=== PATIENT | female | born 1955 | race Caucasian/White ===

== ENCOUNTER 2017-12-25 13:28 | Emergency (ER) | payer MEDICARE, OTHER, SELFPAY ==
[2017-12-25 13:36] VITALS: BP 138/68; PULSE 74; RESP 15; TEMP 36.8; O2SAT 95; BMI 35.2
--- NOTE | 2017-12-25 14:04 | ED.DIZZY ---
HPI - Dizziness General Chief Complaint: Dizziness Stated Complaint: DR POPE CHECKED FOR CARDIAC REASONS Time Seen by Provider: 12/25/17 13:42 Source: patient Mode of arrival: ambulatory Limitations: no limitations History of Present Illness HPI Narrative: Patient states that she awoke around midnight with central chest pain. She states the pain did not radiate, and lasted about 5 hr. She states she tried taking her nitroglycerin which did not help. She states this feels similar to when she had an NE about 15 years ago, except that at that time the pain was left-sided and radiated to her left arm. Patient states her last stress test was about 2 years ago and was negative. She still follows up with her supervisor molding, with the last appointment being at the beginning of this year. She states that her supervisor molding has told her that her heart is doing well. Patient states this since 5 o'clock she has had no chest pain. She states that she was not feeling completely well yesterday, and that she is just feeling tired. She states she has felt the same today. Patient has had a lot of pain in her left leg, and has a history of arthritis. She states she has not been able sleep well because of the pain in her leg. Related Data Home Medications Medication Instructions Recorded Confirmed aspirin 81 mg PO DAILY #0 04/17/10 12/25/17 metformin [Glucophage] 500 mg PO BIDCC #0 09/23/12 12/25/17 citalopram [Celexa] 20 mg PO BID #0 09/17/16 12/25/17 empagliflozin [Jardiance] 25 mg PO DAILY #0 09/17/16 12/25/17 sitagliptin [Januvia] 100 mg PO QDAY #0 09/17/16 12/25/17 atorvastatin 40 mg PO DAILY 12/25/17 12/25/17 benzonatate 1 cap PO BEDTIME 12/25/17 12/25/17 lisinopril 10 mg PO DAILY 12/25/17 12/25/17 metoprolol tartrate 25 mg PO BID 12/25/17 12/25/17 omeprazole 20 mg PO BID 12/25/17 12/25/17 sertraline 50 mg PO DAILY 12/25/17 12/25/17 Previous Rx's Medication Instructions Recorded hydrocodone-acetaminophen 1 tab PO Q4-6H PRN #14 tab 12/25/17 Allergies Allergy/AdvReac Type Severity Reaction Status Date / Time niacin [NIACIN] Allergy Mild Verified 12/25/17 13:36 propoxyphene [From DARVON] Allergy Mild VOMITING Verified 12/25/17 13:36 OPIATE NARCOTICS Allergy Severe PROJECTIVE Uncoded 12/25/17 13:36 NAUSEA VOMITING. CIMBALTA Allergy Intermediate VOMITING Uncoded 12/25/17 13:36 Review of Systems Review of Systems All systems reviewed & are unremarkable except as noted in HPI and below Exam Initial Vital Signs Initial Vital Signs: Vital Signs Temperature 98.2 F 12/25/17 13:36 Pulse Rate 74 12/25/17 13:36 Respiratory Rate 15 12/25/17 13:36 Blood Pressure 138/68 H 12/25/17 13:36 Pulse Oximetry 95 12/25/17 13:36 Const General: cooperative and well developed Nutritional Appearance: well nourished Orientation: alert, awake, oriented x3 and not confused HENCA Head: normocephalic and atraumatic Ears: external ears normal and TM's normal bilaterally Nose: external nose normal and No nasal discharge Face and sinus: sinuses nontender, face symmetric, no sinus tenderness and No dry mucous membranes Mouth: oral mucosae normal and moist mucous membranes Teeth and gingiva: dentition normal Throat: tonsils normal and uvula midline Eyes General: appearance normal, both eyes and all related structures Eyelids: eyelids normal Conjunctivae: conjunctivae normal Sclera: sclerae normal Pupils: PERRL EOM: EOM intact bilaterally Neck Neck: normal visual inspection, trachea midline, No lymphadenopathy, No midline deformity and No JVD Lymphatic: No lymphedema Chest Chest: normal inspection of the chest Resp Effort & Inspection: normal respiratory effort, able to speak in complete sentences, no respiratory distress and no use of accessory muscles Auscultation: clear to auscultation bilaterally, no rales, no rhonchi and no wheezes Cardio Rate: regular rate Rhythm: regular rhythm Heart Sounds: no click, no gallops, no murmurs and no rubs Pulses: normal peripheral pulses GI Inspection: non-distended Palpation: soft, no hepatosplenomegaly, No guarding, No pulsatile mass and No tender Auscultation: normal bowel sounds Back/Spine/Pelvis Back: No CVA tenderness Cervical Spine: cervical ROM normal and No pain with cervical ROM Thoracic/Lumbar Spine: thoracic and lumbar spine normal to inspection Skin General: no rashes or lesions noted, No jaundice and No petechiae Neuro General: alert, oriented x3, gait normal and no focal motor deficits Speech: speech normal Extrem General: full ROM, no clubbing, cyanosis or edema, no pedal edema and no calf tenderness Psych Appearance: well kempt Mental Status: mental status grossly normal Attitude: cooperative Thought Content: normal and suicidality Judgment: judgment good Course Hospital Course: The patient was asymptomatic in the emergency department, and well-appearing. She was worked up with laboratory studies, as well as EKG and chest x-ray, all of which were unremarkable. I did discuss with the patient that at this point, 14 hr after the initial onset of pain, her cardiac markers should be positive if the patient had another MRI. I have discussed with the patient that it would be prudent for her to follow up with her supervisor molding, and discussed the incident that occurred last night. It may be beneficial for the patient to have a repeat stress test. We have discussed that if the pain recurs, the patient should return to the emergency department and may need admission at that time. At this point in time patient is asymptomatic and stable and she will be discharged home. Orders Ordered: ED Orders 12/25/17 14:59 Complete Blood Count MAN DIFF Stat Comprehensive Metabolic Panel Stat D Dimer Stat Troponin I Stat 12/25/17 15:40 XR chest 1V Stat Discontinued Medications Sodium Chloride (Normal Saline 0.9%) 1,000 mls @ 1,000 mls/hr IV BOLUS ONE Stop: 12/25/17 15:40 Last Infusion: 12/25/17 16:35 Dose: 1,000 mls/hr Admin: 12/25/17 15:11 Dose: 1,000 mls/hr Vital Signs - 8 hr 12/25/17 13:36 12/25/17 14:41 12/25/17 15:26 Temperature 98.2 F 98.2 F Pulse Rate 74 74 74 Respiratory Rate 15 15 16 Blood Pressure 138/68 H 138/68 H Blood Pressure [Right Arm] 152/63 H Pulse Oximetry 95 95 96 12/25/17 15:44 12/25/17 16:16 12/25/17 16:36 Temperature 97.2 F L Pulse Rate 74 72 73 Respiratory Rate 15 16 17 Blood Pressure 104/62 Blood Pressure [Right Arm] 152/71 H 161/69 H Pulse Oximetry 98 94 98 MDM - Dizziness Medical Records Attestation: I reviewed the patient's medical records. Lab Data Attestation: I reviewed the patient's lab results. Result diagrams: 12/25/17 14:59 12/25/17 14:59 Lab Results 12/25/17 12/25/17 12/25/17 Range/Units 14:59 14:59 14:59 WBC 9.5 (4.5-11.0) X10^3/uL RBC 5.39 H (4.0-5.2) X10^6/uL Hgb 15.6 (12.0-16.0) g/dL Hct 45.6 (36-46) % MCV 84.5 (80-100) fL MCH 29.0 (26-34) PG MCHC 34.3 (30-36) % RDW 13.3 (11.6-14.8) % Plt Count 196 (150-400) X10^3/uL Total Counted 100 Seg Neutrophils % 55.0 (38-70) % Lymphocytes % (Manual) 34.0 (25-45) % Monocytes % (Manual) 10.0 (2-11) % Eosinophils % (Manual) 1.0 L (2-4) % Neutrophils # (Manual) 5225 (5971-4842) /uL RBC Morphology Normal morphology D-Dimer 202 (<230) ng/mL Sodium 141 (137-145) mmol/L Potassium 3.8 (3.4-5.1) mmol/L Chloride 103 (98-107) mmol/L Carbon Dioxide 27 (22-32) mmol/L BUN 9 (7-17) mg/dL Creatinine 0.40 L (0.52-1.04) mg/dL Estimated GFR > 60.0 (>60) mL/min BUN/Creatinine Ratio 22.5 H (6-22) Glucose 218 H (80-110) mg/dL Calcium 9.5 (8.4-10.2) mg/dL Total Bilirubin 1.4 H (0.2-1.3) mg/dL AST 19 (14-36) IU/L ALT 21 (9-52) IU/L Alkaline Phosphatase 75 (38-126) U/L Troponin I < 0.012 (0.01-0.034) ng/mL Total Protein 6.9 (6.3-8.2) g/dL Albumin 4.1 (3.5-5.0) g/dL Globulin 2.8 (1.7-4.1) g/dL Albumin/Globulin Ratio 1.5 (1.0-2.8) Imaging Data Chest x-ray: Attestation: I personally reviewed and interpreted this imaging study as follows: My impression: Negative chest. Radiologist's impression: PROCEDURE: XR CHEST 1V INDICATIONS: chest pain TECHNIQUE: One view of the chest was acquired. COMPARISON: [facility], CT, THORAX WITHOUT CONTRAST, 10/19/2010, 9:33. [facility], CR, CHEST 1VW (PORTABLE), 11/18/2011, 17:28. [facility], CR, CHEST 1 VIEW, 05/13/2014, 17:57. FINDINGS: Surgical changes and devices: None. Lungs and pleura: No pleural effusions or pneumothorax. Lungs are clear. Elevated right hemidiaphragm and stable in appearance. Mediastinum: Mediastinal contours appear normal. Heart size is normal. Bones and chest wall: No suspicious bony lesions. Overlying soft tissues appear unremarkable. IMPRESSION: No acute cardiopulmonary disease process. Dictated by: Torrie Romero MD, PhD on 12/25/2017 at 14:53 Approved by: Torrie Romero MD, PhD on 12/25/2017 at 14:54 ECG Data Attestation: I personally reviewed and interpreted this ECG as follows: Prior ECG tracings: not available for review Interpretation: Twelve lead EKG was performed as follows: Date and time: December 25, 2017, at 1:34 p.m. Regular ventricular rhythm with a rate of 71 beats per minute [place] Interval 174 milliseconds QRS duration 93 millisecond QTC interval [address] T wave changes Interpretation: Normal sinus rhythm Discharge Plan Departure Patient Disposition: Home, Self-Care Clinical Impression: Chest pain Discharge Date/Time: 12/25/17 16:37 Interventions: ED Discharge Assessment Last Done: 12/25/17 16:36 Instructions: DI for Chest Pain Activity Restrictions/Additional Instructions: Your EKG, labs, and x-ray all looked good. There is no sign that you have had a heart attack. Please follow up with your supervisor molding this next week for further evaluation. Prescriptions: New hydrocodone-acetaminophen 5-325 mg tablet 1 tab PO Q4-6H PRN (Reason: pain) Qty: 14 RF: 0 No Action aspirin 81 mg Tablet,Delayed Release (Dr/Ec) 81 mg PO DAILY Qty: 0 RF: 0 metformin [Glucophage] 500 MG tablet 500 mg PO BIDCC Qty: 0 RF: 0 sitagliptin [Januvia] 100 MG tablet 100 mg PO QDAY Qty: 0 RF: 0 citalopram [Celexa] 20 MG tablet 20 mg PO BID Qty: 0 RF: 0 empagliflozin [Jardiance] 25 MG tablet 25 mg PO DAILY Qty: 0 RF: 0 atorvastatin 40 mg tablet 40 mg PO DAILY RF: 0 sertraline 100 mg tablet 50 mg PO DAILY RF: 0 benzonatate 100 mg capsule 1 cap PO BEDTIME RF: 0 omeprazole 20 mg capsule,delayed release(DR/EC) 20 mg PO BID RF: 0 lisinopril 10 mg Tablet 10 mg PO DAILY RF: 0 metoprolol tartrate 25 mg Tablet 25 mg PO BID RF: 0 Referrals: [facility] [Provider Group] (Please schedule a follow-up appointment with your supervisor molding for next week.) Gale Madrigal MD [Primary Care Provider] - (As needed)
[2017-12-25 14:41] VITALS: BP 138/68; PULSE 74; RESP 15; TEMP 36.8; O2SAT 95; BMI 35.2
[2017-12-25] MEDS: SODIUM CHLORIDE 0.9% 1,000 ML 1000 ML IV (15:11)
[2017-12-25 15:15] LABS: D Dimer 202 ng/mL (<230); Hematocrit 45.6 % (36-46); Hemoglobin 15.6 g/dL (12.0-16.0); Mean Corpuscular HGB Conc 34.3 % (30-36); Mean Corpuscular Volume 84.5 fL (80-100); Platelet Count 196 X10^3/uL (150-400); Red Blood Cell Count 5.39 X10^6/uL (4.0-5.2); Red Cell Distribution Width 13.3 % (11.6-14.8); White Blood Cell Count 9.5 X10^3/uL (4.5-11.0)
[2017-12-25 15:18] LABS: Alanine Aminotransferase 21 IU/L (9-52); Albumin 4.1 g/dL (3.5-5.0); Albumin Globulin Ratio 1.5 (1.0-2.8); Alkaline Phosphatase 75 U/L (38-126); Aspartate Aminotransferase 19 IU/L (14-36); BUN Creatinine Ratio 22.5 (6-22); Bilirubin Total 1.4 mg/dL (0.2-1.3); Blood Urea Nitrogen 9 mg/dL (7-17); Calcium 9.5 mg/dL (8.4-10.2); Carbon Dioxide 27 mmol/L (22-32); Chloride 103 mmol/L (98-107); Estimated Glomerular Filt Rate > 60.0 mL/min (>60); Globulin 2.8 g/dL (1.7-4.1); Glucose 218 mg/dL (80-110); HEMOLYSIS < 15 (0-50); Potassium 3.8 mmol/L (3.4-5.1); Sodium 141 mmol/L (137-145); Total Protein 6.9 g/dL (6.3-8.2)
[2017-12-25 15:26] VITALS: BP 152/63; PULSE 74; RESP 16; O2SAT 96
[2017-12-25 15:27] LABS: Neutrophils Absolute Manual 5225 /uL (3000-5900); RBC Morphology Normal Morphology; Total Cells Counted 100
[2017-12-25 15:30] LABS: Troponin I < 0.012 ng/mL (0.01-0.034)
--- NOTE | 2017-12-25 15:40 | DI.RAD.S_ITS ---
PROCEDURE: XR CHEST 1V INDICATIONS: chest pain TECHNIQUE: One view of the chest was acquired. COMPARISON: [facility], CT, THORAX WITHOUT CONTRAST, 10/19/2010, 9:33. [facility], CR, CHEST 1VW (PORTABLE), 11/18/2011, 17:28. [facility], CR, CHEST 1 VIEW, 05/13/2014, 17:57. FINDINGS: Surgical changes and devices: None. Lungs and pleura: No pleural effusions or pneumothorax. Lungs are clear. Elevated right hemidiaphragm and stable in appearance. Mediastinum: Mediastinal contours appear normal. Heart size is normal. Bones and chest wall: No suspicious bony lesions. Overlying soft tissues appear unremarkable. IMPRESSION: No acute cardiopulmonary disease process. Dictated by: Torrie Romero MD, PhD on 12/25/2017 at 14:53 Approved by: Torrie Romero MD, PhD on 12/25/2017 at 14:54
[2017-12-25 15:44] VITALS: BP 152/71; PULSE 74; RESP 15; O2SAT 98
[2017-12-25 16:16] VITALS: BP 161/69; PULSE 72; RESP 16; O2SAT 94
[2017-12-25 16:36] VITALS: BP 104/62; PULSE 73; RESP 17; TEMP 36.2; O2SAT 98
== END 2017-12-25 16:37 | disposition home or self-care (01) ==
PROVIDERS: Emergency Provider Emergency Medicine; Family Provider Internal Medicine; PCP Internal Medicine
DX: R07.89 Other chest pain (principal)
CPT/HCPCS: 36591; 71045; 80053; 84484; 85025; 85379; 93005; 93010; 96360; 99283; 99285

== ENCOUNTER 2018-11-10 13:43 | Emergency (ER) | payer MEDICARE, OTHER, SELFPAY ==
[2018-11-10 13:54] VITALS: BP 137/62; PULSE 64; RESP 18; TEMP 36.7; O2SAT 98; BMI 35.2
[2018-11-10 14:03] VITALS: BP 129/67; PULSE 68; RESP 21; O2SAT 98
--- NOTE | 2018-11-10 14:03 | DI.RAD.S_ITS ---
PROCEDURE: XR CHEST 2V INDICATIONS: shortness of breath TECHNIQUE: 2 views of the chest were acquired. COMPARISON: [facility], , CHEST 1 VIEW, 05/13/2014, 17:57. FINDINGS: Surgical changes and devices: None. Lungs and pleura: Lungs are clear. No pleural effusions or pneumothorax. Mediastinum: Mediastinal contours are normal. Heart size is normal. Bones and chest wall: No suspicious bony abnormalities. Soft tissues appear unremarkable. IMPRESSION: No acute cardiopulmonary disease process. Dictated by: Torrie Romero MD, PhD on 11/10/2018 at 14:33 Approved by: Torrie Romero MD, PhD on 11/10/2018 at 14:33
[2018-11-10 14:09] LABS: Add Manual Diff / Slide Review NO; Basophils Absolute Auto 100 /uL (0-100); Basophils Percent Auto 1.4 % (0-2); Eosinophils Absolute Auto 200 /uL (0-450); Eosinophils Percent Auto 1.8 % (2-4); Hematocrit 44.4 % (36-46); Hemoglobin 15.2 g/dL (12.0-16.0); Lymphocytes Absolute Auto 2800 /uL (1100-4500); Lymphocytes Percent Auto 27.3 % (25-40); Mean Corpuscular HGB Conc 34.2 % (30-36); Mean Corpuscular Volume 84.7 fL (80-100); Monocytes Absolute Auto 700 /uL (0-900); Neutrophils Absolute Auto 6300 /uL (1500-7000); Neutrophils Percent Auto 62.5 % (50-75); Platelet Count 193 X10^3/uL (150-400); Red Blood Cell Count 5.24 X10^6/uL (4.0-5.2); Red Cell Distribution Width 12.7 % (11.6-14.8); White Blood Cell Count 10.1 X10^3/uL (4.5-11.0)
[2018-11-10 14:23] LABS: Alanine Aminotransferase 20 IU/L (9-52); Albumin Globulin Ratio 1.3 (1.0-2.8); Alkaline Phosphatase 62 U/L (38-126); BUN Creatinine Ratio 26.7 (6-22); Bilirubin Total 1.8 mg/dL (0.2-1.3); Blood Urea Nitrogen 8 mg/dL (7-17); Calcium 9.3 mg/dL (8.4-10.2); Carbon Dioxide 24 mmol/L (22-32); Chloride 105 mmol/L (98-107); Estimated Glomerular Filt Rate > 60.0 mL/min (>60); Globulin 3.2 g/dL (1.7-4.1); Glucose 188 mg/dL (80-110); Sodium 139 mmol/L (137-145); Total Protein 7.2 g/dL (6.3-8.2)
[2018-11-10 14:24] LABS: HEMOLYSIS 80 (0-50); Potassium 4.2 mmol/L (3.4-5.1)
[2018-11-10 14:25] LABS: Aspartate Aminotransferase 33 IU/L (14-36)
--- NOTE | 2018-11-10 14:36 | ED.SOB ---
HPI - SOB/Dyspnea <Lachelle Kleinmer, RAILROAD SIGNAL OPERATOR-BC - Last Filed: 11/10/18 19:39> General Chief Complaint: Shortness of Breath/Dyspnea Stated Complaint: COUGH Time Seen by Provider: 11/10/18 14:27 Source: patient Mode of arrival: ambulatory Limitations: no limitations History of Present Illness The patient is a 62-year-old female former smoker with history of lung cancer who presents with a chief complaint of shortness of breath and difficulty breathing. She states she has felt URI symptoms for the past several days, with sinus pressure and ear pain. She has tried Flonase. She states that today she felt chest heaviness and like she cannot get a good breath. She also complains of a stiff neck. She states she does not use any inhalers. She denies any chest pain, but complains of pressure with coughing and taking a deep breath. Related Data Home Medications Medication Instructions Recorded Confirmed aspirin 81 mg PO DAILY #0 04/17/10 11/10/18 metformin [Glucophage] 500 mg PO BIDCC #0 09/23/12 11/10/18 Januvia 100 mg PO DAILY #0 09/17/16 11/10/18 Jardiance 25 mg PO DAILY #0 09/17/16 11/10/18 atorvastatin 40 mg PO QPM 12/25/17 11/10/18 benzonatate 1 cap PO BEDTIME 12/25/17 11/10/18 lisinopril 10 mg PO DAILY 12/25/17 11/10/18 metoprolol tartrate 25 mg PO BID 12/25/17 11/10/18 omeprazole 20 mg PO BID 12/25/17 11/10/18 sertraline 50 mg PO QPM 12/25/17 11/10/18 meloxicam 7.5 mg PO BID 11/10/18 11/10/18 Previous Rx's Medication Instructions Recorded doxycycline hyclate 100 mg PO BID #20 cap 11/10/18 Allergies Allergy/AdvReac Type Severity Reaction Status Date / Time niacin [NIACIN] Allergy Mild Verified 11/10/18 13:54 propoxyphene [From DARVON] Allergy Mild VOMITING Verified 11/10/18 13:54 OPIATE NARCOTICS Allergy Severe PROJECTIVE Uncoded 11/10/18 13:54 NAUSEA VOMITING. CIMBALTA Allergy Intermediate VOMITING Uncoded 11/10/18 13:54 Review of Systems <MICHA Bingham - Last Filed: 11/10/18 19:39> Review of Systems GENERAL: Denies chills, fatigue, malaise, fever, sweats. HEENT: See HPI RESPIRATORY: See HPI CARDIOVASCULAR: Denies chest pain, palpitations, orthopnea, edema, GASTROINTESTINAL: Denies nausea, vomiting, abdominal pain, diarrhea, constipation, melena. : Denies dysuria, frequency, incontinence, hematuria, urinary retention. MUSCULOSKELETAL: denies weakness, joint pain, or bony pain SKIN: Denies rash, skin lesions, or other NEUROLOGIC: Denies weakness, headache, numbness, change in speech, confusion, seizures, incoordination. PSYCHIATRIC: No concerning psychosocial issues. 12 point review of systems is negative except for those stated above PFSH <MICHA Bingham - Last Filed: 11/10/18 19:39> Medical History History of lung cancer (Acute) Surgical History History of lung surgery (Acute) Social History Smoking Status: Never smoker Social History (Updated 11/10/18 @ 19:37 by MICHA Bingham) Smoking Status: Former smoker Exam <MICHA Bingham - Last Filed: 11/10/18 19:39> Narrative Exam Narrative: GENERAL: This is a well-nourished, well-developed patient, appears uncomfortable HEAD: Atraumatic. Normocephalic. No temporal or scalp tenderness. EYES: Pupils equal round and reactive. Extraocular motions intact. No scleral icterus. No injection or drainage. ENT: Nose without bleeding, purulent drainage or septal hematoma. Throat without erythema, tonsillar hypertrophy or exudate. Uvula midline. Airway patent. Bilateral TMs pearly malave. Pain to palpation right frontal and maxillary sinuses. NECK: Trachea midline. No JVD or lymphadenopathy. Supple, nontender, no meningeal signs. CARDIOVASCULAR: Regular rate and rhythm without murmurs, gallops, or rubs. RESPIRATORY: Clear to auscultation. Breath sounds equal bilaterally. No wheezes, rales, or rhonchi. Occasional cough on exam. No accessory muscle use. Speaking full sentences. GASTROINTESTINAL: Abdomen soft, non-tender, nondistended. No hepato-splenomegaly, or palpable masses. No guarding. Active bowel sounds all 4 quadrants. EXTREMITIES: No clubbing, cyanosis, or edema. No joint tenderness, effusion, or edema noted. BACK: Nontender without deformity or crepitance. No flank tenderness. NEURO: AOx3. SKIN: No rash or erythema. Initial Vital Signs Initial Vital Signs: Vital Signs Temperature 98.1 F 11/10/18 13:54 Pulse Rate 64 11/10/18 13:54 Respiratory Rate 18 11/10/18 13:54 Blood Pressure 137/62 11/10/18 13:54 Pulse Oximetry 98 11/10/18 13:54 <Kitty Ocampo MD - Last Filed: 11/10/18 20:36> Initial Vital Signs Initial Vital Signs: Vital Signs Temperature 98.1 F 11/10/18 13:54 Pulse Rate 64 11/10/18 13:54 Respiratory Rate 18 11/10/18 13:54 Blood Pressure 137/62 11/10/18 13:54 Pulse Oximetry 98 11/10/18 13:54 Scores <MICHA Bingham - Last Filed: 11/10/18 19:39> PERC Score Age greater than or equal to 50 years: Yes Heart rate greater than or equal to 100 bpm: No Room Air O2 Sat less than 95%: No Unilateral leg swelling: No Recent trauma or surgery: No Hemoptysis: No Prior PE or DVT: No Hormone Use: No Total PERC Score: 1 Wells' Criteria for PE Clinical signs and symptoms of PE: Yes PE is #1 Dx or equally likely: No Heart rate > 100: No Immobilization at least 3 days or surg in previous 4 weeks: No History of PE or DVT: No Hemoptysis: No Malignancy w/Treatment within 6 months or palliative: Yes Wells' PE Score total: 4 Course <MICHA Bingham - Last Filed: 11/10/18 19:39> Orders Ordered: ED Orders 11/10/18 14:00 B Type Natriuretic Peptide Stat Complete Blood Count AUTO DIFF Stat Comprehensive Metabolic Panel Stat Prothrombin Time INR Stat Troponin & CK Cardiac Panel Stat 11/10/18 14:03 XR chest 2V Stat EKG-12 Lead Stat Measure peak expiratory flow ONCE RT Consult Eval and Treat Now 11/10/18 15:47 CT angio chest PE protocol Stat Vital Signs - 8 hr 11/10/18 13:54 11/10/18 14:03 11/10/18 17:11 Temperature 98.1 F Pulse Rate 64 68 70 Respiratory Rate 18 21 20 Blood Pressure 137/62 Blood Pressure [Right Arm] 129/67 125/60 Pulse Oximetry 98 98 93 11/10/18 18:26 Temperature Pulse Rate 70 Respiratory Rate 21 Blood Pressure Blood Pressure [Right Arm] 129/56 L Pulse Oximetry 94 <Kitty Ocampo MD - Last Filed: 11/10/18 20:36> Orders Ordered: ED Orders 11/10/18 14:00 B Type Natriuretic Peptide Stat Complete Blood Count AUTO DIFF Stat Comprehensive Metabolic Panel Stat Prothrombin Time INR Stat Troponin & CK Cardiac Panel Stat 11/10/18 14:03 XR chest 2V Stat EKG-12 Lead Stat Measure peak expiratory flow ONCE RT Consult Eval and Treat Now 11/10/18 15:47 CT angio chest PE protocol Stat Vital Signs - 8 hr 11/10/18 13:54 11/10/18 14:03 11/10/18 17:11 Temperature 98.1 F Pulse Rate 64 68 70 Respiratory Rate 18 21 20 Blood Pressure 137/62 Blood Pressure [Right Arm] 129/67 125/60 Pulse Oximetry 98 98 93 11/10/18 18:26 Temperature Pulse Rate 70 Respiratory Rate 21 Blood Pressure Blood Pressure [Right Arm] 129/56 L Pulse Oximetry 94 MDM - SOB/Dyspnea <JAZ Bingham-BC - Last Filed: 11/10/18 19:39> Lab Data Result diagrams: 11/10/18 14:00 11/10/18 14:00 Lab Results 11/10/18 11/10/18 11/10/18 Range/Units 14:00 14:00 14:00 WBC 10.1 (4.5-11.0) X10^3/uL RBC 5.24 H (4.0-5.2) X10^6/uL Hgb 15.2 (12.0-16.0) g/dL Hct 44.4 (36-46) % MCV 84.7 (80-100) fL MCH 29.0 (26-34) PG MCHC 34.2 (30-36) % RDW 12.7 (11.6-14.8) % Plt Count 193 (150-400) X10^3/uL Neut % (Auto) 62.5 (50-75) % Lymph % (Auto) 27.3 (25-40) % [place] % (Auto) 7.0 (3-14) % Eos % (Auto) 1.8 L (2-4) % Baso % (Auto) 1.4 (0-2) % Neut # (Auto) 6300 (6228-7807) /uL Lymph # (Auto) 2800 (3010-5608) /uL [place] # (Auto) 700 (0-900) /uL Eos # (Auto) 200 (0-450) /uL Baso # (Auto) 100 (0-100) /uL PT 12.0 (10.1-12.7) SECONDS INR 1.0 (0.9-1.3) Sodium 139 (137-145) mmol/L Potassium 4.2 (3.4-5.1) mmol/L Chloride 105 (98-107) mmol/L Carbon Dioxide 24 (22-32) mmol/L BUN 8 (7-17) mg/dL Creatinine 0.30 L (0.52-1.04) mg/dL Estimated GFR > 60.0 (>60) mL/min BUN/Creatinine Ratio 26.7 H (6-22) Glucose 188 H (80-110) mg/dL Calcium 9.3 (8.4-10.2) mg/dL Total Bilirubin 1.8 H (0.2-1.3) mg/dL AST 33 (14-36) IU/L ALT 20 (9-52) IU/L Alkaline Phosphatase 62 (38-126) U/L Total Creatine Kinase (30-135) U/L CK-MB (CK-2) CK-MB (CK-2) Rel Index Troponin I (0.01-0.034) ng/mL B-Natriuretic Peptide (<100) Total Protein 7.2 (6.3-8.2) g/dL Albumin 4.0 (3.5-5.0) g/dL Globulin 3.2 (1.7-4.1) g/dL Albumin/Globulin Ratio 1.3 (1.0-2.8) 11/10/18 11/10/18 Range/Units 14:00 14:00 WBC (4.5-11.0) X10^3/uL RBC (4.0-5.2) X10^6/uL Hgb (12.0-16.0) g/dL Hct (36-46) % MCV (80-100) fL MCH (26-34) PG MCHC (30-36) % RDW (11.6-14.8) % Plt Count (150-400) X10^3/uL Neut % (Auto) (50-75) % Lymph % (Auto) (25-40) % [place] % (Auto) (3-14) % Eos % (Auto) (2-4) % Baso % (Auto) (0-2) % Neut # (Auto) (5023-3672) /uL Lymph # (Auto) (3141-1572) /uL [place] # (Auto) (0-900) /uL Eos # (Auto) (0-450) /uL Baso # (Auto) (0-100) /uL PT (10.1-12.7) SECONDS INR (0.9-1.3) Sodium (137-145) mmol/L Potassium (3.4-5.1) mmol/L Chloride (98-107) mmol/L Carbon Dioxide (22-32) mmol/L BUN (7-17) mg/dL Creatinine (0.52-1.04) mg/dL Estimated GFR (>60) mL/min BUN/Creatinine Ratio (6-22) Glucose (80-110) mg/dL Calcium (8.4-10.2) mg/dL Total Bilirubin (0.2-1.3) mg/dL AST (14-36) IU/L ALT (9-52) IU/L Alkaline Phosphatase (38-126) U/L Total Creatine Kinase 37 (30-135) U/L CK-MB (CK-2) TNP CK-MB (CK-2) Rel Index TNP Troponin I < 0.012 (0.01-0.034) ng/mL B-Natriuretic Peptide < 100 (<100) Total Protein (6.3-8.2) g/dL Albumin (3.5-5.0) g/dL Globulin (1.7-4.1) g/dL Albumin/Globulin Ratio (1.0-2.8) Imaging Data chest cta: Radiologist's impression: [address] [address] [address] Scan Report Signed Patient: Suhail Houston#: [id number] : 7Acct:[id number] Age/Sex: 62 / FDate of Service: 11/10/18 Loc: ED Accession Number: [id number] Procedure: CT angio chest PE protocol Ordering Provider: Lachelle Davis [facility]- PROCEDURE: CT ANGIO CHEST PE PROTOCOL INDICATIONS: sob, cancer TECHNIQUE: After the administration of intravenous contrast, 2 mm thick sections acquired from the pulmonary apices to the posterior costophrenic angles. 3-dimensional maximum intensity projection (MIP) coronal and sagittal reformats were then acquired through the thorax. For radiation dose reduction, the following was used: automated exposure control, adjustment of mA and/or kV according to patient size. COMPARISON: None. FINDINGS: Image quality: Excellent. Pulmonary arteries: Pulmonary arteries are normal in size, and demonstrate no intraluminal filling defects to suggest central pulmonary embolism. Lungs and pleura: Mild patchy bilateral basilar opacities are present, consistent with atelectasis versus pneumonia. 4 mm diameter subpleural nodule within the right apex laterally is present, new since the prior examination. No pleural effusions or pneumothorax. Central and peripheral airways are patent. Mediastinum: Heart size is enlarged,, without pericardial effusion. There is calcification of the coronary vasculature. No mediastinal or hilar adenopathy. Thoracic aorta is normal in caliber and enhancement. Esophagus is normal in caliber, without hiatal hernia. Bones and chest wall: No suspicious bony lesions. Ribs and thoracic spine appear intact throughout. Thyroid gland demonstrates a 23 mm nodular mass within the right thyroid lobe. There are 2 adjacent low density masses within the left inferior lobe measuring 13 mm and 11 mm.. No axillary or supraclavicular adenopathy. Abdomen: Visualized portions of the upper abdomen demonstrate a 6 mm diameter rounded calcification within the pancreatic tail, which may indicate a splenic artery aneurysm or pancreatic tail mass, which is unchanged. IMPRESSION: 1. Bilateral thyroid masses, which could be further assessed with ultrasound, if clinically indicated. 2. Cardiomegaly. Coronary artery disease. 3. No pulmonary embolus. 4. New right apical pulmonary nodule. Followup is recommended as below. 5. No change in calcified lesion within the pancreatic tail. Differential considerations include splenic artery aneurysm versus calcific pancreatic tail mass, which is unchanged. Fleischner Society criteria for SOLID lung nodule followup. Nodule size (mm)Low-risk patientHigh-risk patient<6 (single or multiple)No routine followup.Optional CT at 12 months. 6-8 (single or multiple)CT at 6-12 months, then optional CT at 18-24 mo.CT at 6-12 months, then CT at 18-24 months. >8 (single)CT, PET-CT, or biopsy at 3 months. Same as for low-risk pts. >8 (multiple)CT at 3-6 months, then optional CT at 18-24 mo.CT at 3-6 months, then CT at 18-24 months. Recommendations do not apply to lung cancer screening, patients with immunosuppression, or patients with known primary cancer. Dictated by: Jesse Mcpherson M.D. on 11/10/2018 at 17:22 Approved by: Jesse Mcpherson M.D. on 11/10/2018 at 17:30 Chest x-ray: Radiologist's impression: [place] [address] XRay Report Signed Patient: Suhail Houston#: [id number] : 1955cct:[id number] Age/Sex: 62 / FDate of Service: 11/10/18 Loc: Accession Number: [id number] Procedure: XR chest 2V Ordering Provider: Kitty Ocampo MD PROCEDURE: XR CHEST 2V INDICATIONS: shortness of breath TECHNIQUE: 2 views of the chest were acquired. COMPARISON: , , CHEST 1 VIEW, 05/13/2014, 17:57. FINDINGS: Surgical changes and devices: None. Lungs and pleura: Lungs are clear. No pleural effusions or pneumothorax. Mediastinum: Mediastinal contours are normal. Heart size is normal. Bones and chest wall: No suspicious bony abnormalities. Soft tissues appear unremarkable. IMPRESSION: No acute cardiopulmonary disease process. Dictated by: Torrie Romero MD, PhD on 11/10/2018 at 14:33 Approved by: Torrie Romero MD, PhD on 11/10/2018 at 14:33 MDM Narrative Medical decision making narrative: The patient is a 62-year-old female with history of lung cancer who presents with a chief complaint of shortness of breath and coughing. She has a normal chest x-ray. However she has been having a productive cough for several weeks at this point. She also complains of sinus symptoms for about 3 weeks. She has been using Flonase at home with no improvement. Given her risk factors of age and lung cancer, I did elect to do a CT for PE. She had a negative troponin. Given the duration of her sinus symptoms, I elected to treat her for a sinus infection with doxycycline, which also provide some lung coverage as well. I encouraged continued use of Flonase as well as Yohannes med sinus rinse. Encourage follow-up with PCP as is possible. Discussed going back to the ER for any acute concerns such as chest pain, shortness of breath etc the patient was hemodynamically stable throughout her stay in the emergency department. <Kitty Ocampo MD - Last Filed: 11/10/18 20:36> Lab Data Lab Results 11/10/18 11/10/18 11/10/18 Range/Units 14:00 14:00 14:00 WBC 10.1 (4.5-11.0) X10^3/uL RBC 5.24 H (4.0-5.2) X10^6/uL Hgb 15.2 (12.0-16.0) g/dL Hct 44.4 (36-46) % MCV 84.7 (80-100) fL MCH 29.0 (26-34) PG MCHC 34.2 (30-36) % RDW 12.7 (11.6-14.8) % Plt Count 193 (150-400) X10^3/uL Neut % (Auto) 62.5 (50-75) % Lymph % (Auto) 27.3 (25-40) % [place] % (Auto) 7.0 (3-14) % Eos % (Auto) 1.8 L (2-4) % Baso % (Auto) 1.4 (0-2) % Neut # (Auto) 6300 (4657-0474) /uL Lymph # (Auto) 2800 (4282-5791) /uL [place] # (Auto) 700 (0-900) /uL Eos # (Auto) 200 (0-450) /uL Baso # (Auto) 100 (0-100) /uL PT 12.0 (10.1-12.7) SECONDS INR 1.0 (0.9-1.3) Sodium 139 (137-145) mmol/L Potassium 4.2 (3.4-5.1) mmol/L Chloride 105 (98-107) mmol/L Carbon Dioxide 24 (22-32) mmol/L BUN 8 (7-17) mg/dL Creatinine 0.30 L (0.52-1.04) mg/dL Estimated GFR > 60.0 (>60) mL/min BUN/Creatinine Ratio 26.7 H (6-22) Glucose 188 H (80-110) mg/dL Calcium 9.3 (8.4-10.2) mg/dL Total Bilirubin 1.8 H (0.2-1.3) mg/dL AST 33 (14-36) IU/L ALT 20 (9-52) IU/L Alkaline Phosphatase 62 (38-126) U/L Total Creatine Kinase (30-135) U/L CK-MB (CK-2) CK-MB (CK-2) Rel Index Troponin I (0.01-0.034) ng/mL B-Natriuretic Peptide (<100) Total Protein 7.2 (6.3-8.2) g/dL Albumin 4.0 (3.5-5.0) g/dL Globulin 3.2 (1.7-4.1) g/dL Albumin/Globulin Ratio 1.3 (1.0-2.8) 11/10/18 11/10/18 Range/Units 14:00 14:00 WBC (4.5-11.0) X10^3/uL RBC (4.0-5.2) X10^6/uL Hgb (12.0-16.0) g/dL Hct (36-46) % MCV (80-100) fL MCH (26-34) PG MCHC (30-36) % RDW (11.6-14.8) % Plt Count (150-400) X10^3/uL Neut % (Auto) (50-75) % Lymph % (Auto) (25-40) % [place] % (Auto) (3-14) % Eos % (Auto) (2-4) % Baso % (Auto) (0-2) % Neut # (Auto) (8877-4821) /uL Lymph # (Auto) (2338-3580) /uL [place] # (Auto) (0-900) /uL Eos # (Auto) (0-450) /uL Baso # (Auto) (0-100) /uL PT (10.1-12.7) SECONDS INR (0.9-1.3) Sodium (137-145) mmol/L Potassium (3.4-5.1) mmol/L Chloride (98-107) mmol/L Carbon Dioxide (22-32) mmol/L BUN (7-17) mg/dL Creatinine (0.52-1.04) mg/dL Estimated GFR (>60) mL/min BUN/Creatinine Ratio (6-22) Glucose (80-110) mg/dL Calcium (8.4-10.2) mg/dL Total Bilirubin (0.2-1.3) mg/dL AST (14-36) IU/L ALT (9-52) IU/L Alkaline Phosphatase (38-126) U/L Total Creatine Kinase 37 (30-135) U/L CK-MB (CK-2) TNP CK-MB (CK-2) Rel Index TNP Troponin I < 0.012 (0.01-0.034) ng/mL B-Natriuretic Peptide < 100 (<100) Total Protein (6.3-8.2) g/dL Albumin (3.5-5.0) g/dL Globulin (1.7-4.1) g/dL Albumin/Globulin Ratio (1.0-2.8) Discharge Plan Departure Patient Disposition: Home Clinical Impression: Cough, Lower respiratory infection Sinus infection Qualifiers: Sinusitis location: frontal Chronicity: acute Recurrence: non-recurrent Qualified Code(s): J01.10 - Acute frontal sinusitis, unspecified Discharge Date/Time: 11/10/18 18:39 Interventions: ED Discharge Assessment Last Done: 11/10/18 18:38 Instructions: Sinusitis (Alternative Therapy), DI for Sinusitis, DI for Cough -- Adult Activity Restrictions/Additional Instructions: Your chest x-ray shows no pneumonia. Your CT scan shows no pulmonary embolism. Your cardiac enzymes came back normal. Please follow up with primary care provider soon as possible Given the duration of your sinus symptoms as well as her cough symptoms, I have elected to treat it with antibiotics. Wear sunscreen when using doxycycline. Please follow up with primary care provider soon as possible. Please come back to the emergency department for any acute concerns. I suggest continued use of Flonase, Yohannes med sinus rinse as well as decongestants as needed and able Prescriptions: New doxycycline hyclate 100 mg capsule 100 mg PO BID Qty: 20 RF: 0 No Action aspirin 81 mg Tablet,Delayed Release (Dr/Ec) 81 mg PO DAILY Qty: 0 RF: 0 metformin [Glucophage] 500 MG tablet 500 mg PO BIDCC Qty: 0 RF: 0 Januvia 100 MG tablet 100 mg PO DAILY Qty: 0 RF: 0 Jardiance 25 MG tablet 25 mg PO DAILY Qty: 0 RF: 0 atorvastatin 40 mg tablet 40 mg PO QPM RF: 0 sertraline 100 mg tablet 50 mg PO QPM RF: 0 benzonatate 100 mg capsule 1 cap PO BEDTIME RF: 0 omeprazole 20 mg capsule,delayed release(DR/EC) 20 mg PO BID RF: 0 lisinopril 10 mg Tablet 10 mg PO DAILY RF: 0 metoprolol tartrate 25 mg Tablet 25 mg PO BID RF: 0 meloxicam 7.5 mg tablet 7.5 mg PO BID RF: 0 Referrals: Gale Madrigal MD [Primary Care Provider] -
--- NOTE | 2018-11-10 14:39 | ED_ITS ---
HPI - SOB/Dyspnea <Lachelle Kleinmer, [employer] DES[employer]BC - Last Filed: 11/10/18 19:39> General Chief Complaint: Shortness of Breath/Dyspnea Stated Complaint: COUGH Time Seen by Provider: 11/10/18 14:27 Source: patient Mode of arrival: ambulatory Limitations: no limitations History of Present Illness The patient is a 62-year-old female former smoker with history of lung cancer who presents with a chief complaint of shortness of breath and difficulty breathing. She states she has felt URI symptoms for the past several days, with sinus pressure and ear pain. She has tried Flonase. She states that today she felt chest heaviness and like she cannot get a good breath. She also complains of a stiff neck. She states she does not use any inhalers. She denies any chest pain, but complains of pressure with coughing and taking a deep breath. Related Data Home Medications Medication Instructions Recorded Confirmed aspirin 81 mg PO DAILY #0 04/17/10 11/10/18 metformin [Glucophage] 500 mg PO BIDCC #0 09/23/12 11/10/18 Januvia 100 mg PO DAILY #0 09/17/16 11/10/18 Jardiance 25 mg PO DAILY #0 09/17/16 11/10/18 atorvastatin 40 mg PO QPM 12/25/17 11/10/18 benzonatate 1 cap PO BEDTIME 12/25/17 11/10/18 lisinopril 10 mg PO DAILY 12/25/17 11/10/18 metoprolol tartrate 25 mg PO BID 12/25/17 11/10/18 omeprazole 20 mg PO BID 12/25/17 11/10/18 sertraline 50 mg PO QPM 12/25/17 11/10/18 meloxicam 7.5 mg PO BID 11/10/18 11/10/18 Previous Rx's Medication Instructions Recorded doxycycline hyclate 100 mg PO BID #20 cap 11/10/18 Allergies Allergy/AdvReac Type Severity Reaction Status Date / Time niacin [NIACIN] Allergy Mild Verified 11/10/18 13:54 propoxyphene [From DARVON] Allergy Mild VOMITING Verified 11/10/18 13:54 OPIATE NARCOTICS Allergy Severe PROJECTIVE Uncoded 11/10/18 13:54 NAUSEA VOMITING. CIMBALTA Allergy Intermediate VOMITING Uncoded 11/10/18 13:54 Review of Systems <MICHA Bingham - Last Filed: 11/10/18 19:39> Review of Systems GENERAL: Denies chills, fatigue, malaise, fever, sweats. HEENT: See HPI RESPIRATORY: See HPI CARDIOVASCULAR: Denies chest pain, palpitations, orthopnea, edema, GASTROINTESTINAL: Denies nausea, vomiting, abdominal pain, diarrhea, constipation, melena. : Denies dysuria, frequency, incontinence, hematuria, urinary retention. MUSCULOSKELETAL: denies weakness, joint pain, or bony pain SKIN: Denies rash, skin lesions, or other NEUROLOGIC: Denies weakness, headache, numbness, change in speech, confusion, seizures, incoordination. PSYCHIATRIC: No concerning psychosocial issues. 12 point review of systems is negative except for those stated above PFSH <MICHA Bingham - Last Filed: 11/10/18 19:39> Medical History History of lung cancer (Acute) Surgical History History of lung surgery (Acute) Social History Smoking Status: Never smoker Social History (Updated 11/10/18 @ 19:37 by MICHA Bingham) Smoking Status: Former smoker Exam <MICHA Bingham - Last Filed: 11/10/18 19:39> Narrative Exam Narrative: GENERAL: This is a well-nourished, well-developed patient, appears uncomfortable HEAD: Atraumatic. Normocephalic. No temporal or scalp tenderness. EYES: Pupils equal round and reactive. Extraocular motions intact. No scleral icterus. No injection or drainage. ENT: Nose without bleeding, purulent drainage or septal hematoma. Throat without erythema, tonsillar hypertrophy or exudate. Uvula midline. Airway patent. Bilateral TMs pearly malave. Pain to palpation right frontal and maxillary sinuses. NECK: Trachea midline. No JVD or lymphadenopathy. Supple, nontender, no m eningeal signs. CARDIOVASCULAR: Regular rate and rhythm without murmurs, gallops, or rubs. RESPIRATORY: Clear to auscultation. Breath sounds equal bilaterally. No wheezes, rales, or rhonchi. Occasional cough on exam. No accessory muscle use. Speaking full sentences. GASTROINTESTINAL: Abdomen soft, non-tender, nondistended. No hepato- splenomegaly, or palpable masses. No guarding. Active bowel sounds all 4 quadrants. EXTREMITIES: No clubbing, cyanosis, or edema. No joint tenderness, effusion, or edema noted. BACK: Nontender without deformity or crepitance. No flank tenderness. NEURO: AOx3. SKIN: No rash or erythema. Initial Vital Signs Initial Vital Signs: Vital Signs Temperature 98.1 F 11/10/18 13:54 Pulse Rate 64 11/10/18 13:54 Respiratory Rate 18 11/10/18 13:54 Blood Pressure 137/62 11/10/18 13:54 Pulse Oximetry 98 11/10/18 13:54 <Kitty Ocampo MD - Last Filed: 11/10/18 20:36> Initial Vital Signs Initial Vital Signs: Vital Signs Temperature 98.1 F 11/10/18 13:54 Pulse Rate 64 11/10/18 13:54 Respiratory Rate 18 11/10/18 13:54 Blood Pressure 137/62 11/10/18 13:54 Pulse Oximetry 98 11/10/18 13:54 Scores <MICHA Bingham - Last Filed: 11/10/18 19:39> PERC Score Age greater than or equal to 50 years: Yes Heart rate greater than or equal to 100 bpm: No Room Air O2 Sat less than 95%: No Unilateral leg swelling: No Recent trauma or surgery: No Hemoptysis: No Prior PE or DVT: No Hormone Use: No Total PERC Score: 1 Wells' Criteria for PE Clinical signs and symptoms of PE: Yes PE is #1 Dx or equally likely: No Heart rate > 100: No Immobilization at least 3 days or surg in previous 4 weeks: No History of PE or DVT: No Hemoptysis: No Malignancy w/Treatment within 6 months or palliative: Yes Wells' PE Score total: 4 Course <MICHA Bingham - Last Filed: 11/10/18 19:39> Orders Ordered: ED Orders 11/10/18 14:00 B Type Natriuretic Peptide Stat Complete Blood Count AUTO DIFF Stat Comprehensive Metabolic Panel Stat Prothrombin Time INR Stat Troponin & CK Cardiac Panel Stat 11/10/18 14:03 XR chest 2V Stat EKG-12 Lead Stat Measure peak expiratory flow ONCE RT Consult Eval and Treat Now 11/10/18 15:47 CT angio chest PE protocol Stat Vital Signs - 8 hr 11/10/18 13:54 11/10/18 14:03 11/10/18 17:11 Temperature 98.1 F Pulse Rate 64 68 70 Respiratory Rate 18 21 20 Blood Pressure 137/62 Blood Pressure [Right Arm] 129/67 125/60 Pulse Oximetry 98 98 93 11/10/18 18:26 Temperature Pulse Rate 70 Respiratory Rate 21 Blood Pressure Blood Pressure [Right Arm] 129/56 L Pulse Oximetry 94 <Kitty Ocampo MD - Last Filed: 11/10/18 20:36> Orders Ordered: ED Orders 11/10/18 14:00 B Type Natriuretic Peptide Stat Complete Blood Count AUTO DIFF Stat Comprehensive Metabolic Panel Stat Prothrombin Time INR Stat Troponin & CK Cardiac Panel Stat 11/10/18 14:03 XR chest 2V Stat EKG-12 Lead Stat Measure peak expiratory flow ONCE RT Consult Eval and Treat Now 11/10/18 15:47 CT angio chest PE protocol Stat Vital Signs - 8 hr 11/10/18 13:54 11/10/18 14:03 11/10/18 17:11 Temperature 98.1 F Pulse Rate 64 68 70 Respiratory Rate 18 21 20 Blood Pressure 137/62 Blood Pressure [Right Arm] 129/67 125/60 Pulse Oximetry 98 98 93 11/10/18 18:26 Temperature Pulse Rate 70 Respiratory Rate 21 Blood Pressure Blood Pressure [Right Arm] 129/56 L Pulse Oximetry 94 MDM - SOB/Dyspnea <JAZ Bingham-GEORGIE - Last Filed: 11/10/18 19:39> Lab Data Result diagrams: 11/10/18 14:00 11/10/18 14:00 Lab Results 11/10/18 11/10/18 11/10/18 Range/Units 14:00 14:00 14:00 WBC 10.1 (4.5-11.0) X10^3/uL RBC 5.24 H (4.0-5.2) X10^6/uL Hgb 15.2 (12.0-16.0) g/dL Hct 44.4 (36-46) % MCV 84.7 (80-100) fL MCH 29.0 (26-34) PG MCHC 34.2 (30-36) % RDW 12.7 (11.6-14.8) % Plt Count 193 (150-400) X10^3/uL Neut % (Auto) 62.5 (50-75) % Lymph % (Auto) 27.3 (25-40) % [place] % (Auto) 7.0 (3-14) % Eos % (Auto) 1.8 L (2-4) % Baso % (Auto) 1.4 (0-2) % Neut # (Auto) 6300 (7698-9794) /uL Lymph # (Auto) 2800 (2602-4930) /uL [place] # (Auto) 700 (0-900) /uL Eos # (Auto) 200 (0-450) /uL Baso # (Auto) 100 (0-100) /uL PT 12.0 (10.1-12.7) SECONDS INR 1.0 (0.9-1.3) Sodium 139 (137-145) mmol/L Potassium 4.2 (3.4-5.1) mmol/L Chloride 105 (98-107) mmol/L Carbon Dioxide 24 (22-32) mmol/L BUN 8 (7-17) mg/dL Creatinine 0.30 L (0.52-1.04) mg/dL Estimated GFR > 60.0 (>60) mL/min BUN/Creatinine Ratio 26.7 H (6-22) Glucose 188 H (80-110) mg/dL Calcium 9.3 (8.4-10.2) mg/dL Total Bilirubin 1.8 H (0.2-1.3) mg/dL AST 33 (14-36) IU/L ALT 20 (9-52) IU/L Alkaline Phosphatase 62 (38-126) U/L Total Creatine Kinase (30-135) U/L CK-MB (CK-2) CK-MB (CK-2) Rel Index Troponin I (0.01-0.034) ng/mL B-Natriuretic Peptide (<100) Total Protein 7.2 (6.3-8.2) g/dL Albumin 4.0 (3.5-5.0) g/dL Globulin 3.2 (1.7-4.1) g/dL Albumin/Globulin Ratio 1.3 (1.0-2.8) 11/10/18 11/10/18 Range/Units 14:00 14:00 WBC (4.5-11.0) X10^3/uL RBC (4.0-5.2) X10^6/uL Hgb (12.0-16.0) g/dL Hct (36-46) % MCV (80-100) fL MCH (26-34) PG MCHC (30-36) % RDW (11.6-14.8) % Plt Count (150-400) X10^3/uL Neut % (Auto) (50-75) % Lymph % (Auto) (25-40) % [place] % (Auto) (3-14) % Eos % (Auto) (2-4) % Baso % (Auto) (0-2) % Neut # (Auto) (6684-9359) /uL Lymph # (Auto) (0479-5358) /uL [place] # (Auto) (0-900) /uL Eos # (Auto) (0-450) /uL Baso # (Auto) (0-100) /uL PT (10.1-12.7) SECONDS INR (0.9-1.3) Sodium (137-145) mmol/L Potassium (3.4-5.1) mmol/L Chloride (98-107) mmol/L Carbon Dioxide (22-32) mmol/L BUN (7-17) mg/dL Creatinine (0.52-1.04) mg/dL Estimated GFR (>60) mL/min BUN/Creatinine Ratio (6-22) Glucose (80-110) mg/dL Calcium (8.4-10.2) mg/dL Total Bilirubin (0.2-1.3) mg/dL AST (14-36) IU/L ALT (9-52) IU/L Alkaline Phosphatase (38-126) U/L Total Creatine Kinase 37 (30-135) U/L CK-MB (CK-2) TNP CK-MB (CK-2) Rel Index TNP Troponin I < 0.012 (0.01-0.034) ng/mL B-Natriuretic Peptide < 100 (<100) Total Protein (6.3-8.2) g/dL Albumin (3.5-5.0) g/dL Globulin (1.7-4.1) g/dL Albumin/Globulin Ratio (1.0-2.8) Imaging Data chest cta: Radiologist's impression: [address] [address] [address] Scan Report Signed Patient: Suhail Houston#: [id number] : 7Acct:[id number] Age/Sex: 62 / FDate of Service: 11/10/18 Loc: ED Accession Number: [id number] Procedure: CT angio chest PE protocol Ordering Provider: Lachelle Davis [facility]- PROCEDURE: CT ANGIO CHEST PE PROTOCOL INDICATIONS: sob, cancer TECHNIQUE: After the administration of intravenous contrast, 2 mm thick sections acquired from the pulmonary apices to the posterior costophrenic angles. 3-dimensional maximum intensity projection (MIP) coronal and sagittal reformats were then acquired through the thorax. For radiation dose reduction, the following was used: automated exposure control, adjustment of mA and/or kV according to patient size. COMPARISON: None. FINDINGS: Image quality: Excellent. Pulmonary arteries: Pulmonary arteries are normal in size, and demonstrate no intraluminal filling defects to suggest central pulmonary embolism. Lungs and pleura: Mild patchy bilateral basilar opacities are present, consistent with atelectasis versus pneumonia. 4 mm diameter subpleural nodule within the right apex laterally is present, new since the prior examination. No pleural effusions or pneumothorax. Central and peripheral airways are patent. Mediastinum: Heart size is enlarged,, without pericardial effusion. There is calcification of the coronary vasculature. No mediastinal or hilar adenopathy. Thoracic aorta is normal in caliber and enhancement. Esophagus is normal in caliber, without hiatal hernia. Bones and chest wall: No suspicious bony lesions. Ribs and thoracic spine appear intact throughout. Thyroid gland demonstrates a 23 mm nodular mass within the right thyroid lobe. There are 2 adjacent low density masses within the left inferior lobe measuring 13 mm and 11 mm.. No axillary or supraclavicular adenopathy. Abdomen: Visualized portions of the upper abdomen demonstrate a 6 mm diameter rounded calcification within the pancreatic tail, which may indicate a splenic artery aneurysm or pancreatic tail mass, which is unchanged. IMPRESSION: 1. Bilateral thyroid masses, which could be further assessed with ultrasound, if clinically indicated. 2. Cardiomegaly. Coronary artery disease. 3. No pulmonary embolus. 4. New right apical pulmonary nodule. Followup is recommended as below. 5. No change in calcified lesion within the pancreatic tail. Differential considerations include splenic artery aneurysm versus calcific pancreatic tail mass, which is unchanged. Fleischner Society criteria for SOLID lung nodule followup. Nodule size (mm)Low-risk patientHigh-risk patient<6 (single or multiple)No routine followup.Optional CT at 12 months. 6-8 (single or multiple)CT at 6-12 months, then optional CT at 18-24 mo.CT at 6-12 months, then CT at 18-24 months. >8 (single)CT, PET-CT, or biopsy at 3 months. Same as for low-risk pts. >8 (multiple)CT at 3-6 months, then optional CT at 18-24 mo.CT at 3-6 months, then CT at 18-24 months. Recommendations do not apply to lung cancer screening, patients with immunosuppression, or patients with known primary cancer. Dictated by: Jesse Mcpherson M.D. on 11/10/2018 at 17:22 Approved by: Jesse Mcpherson M.D. on 11/10/2018 at 17:30 Chest x-ray: Radiologist's impression: [place] [id number] XRay Report Signed Patient: Suhail Houston#: [id number] : 7Acct:[id number] Age/Sex: 62 / FDate of Service: 11/10/18 Loc: ED Accession Number: [id number] Procedure: XR chest 2V Ordering Provider: Kitty Ocampo MD PROCEDURE: XR CHEST 2V INDICATIONS: shortness of breath TECHNIQUE: 2 views of the chest were acquired. COMPARISON: [facility], , CHEST 1 VIEW, 05/13/2014, 17:57. FINDINGS: Surgical changes and devices: None. Lungs and pleura: Lungs are clear. No pleural effusions or pneumothorax. Mediastinum: Mediastinal contours are normal. Heart size is normal. Bones and chest wall: No suspicious bony abnormalities. Soft tissues appear unremarkable. IMPRESSION: No acute cardiopulmonary disease process. Dictated by: Torrie Romero MD, PhD on 11/10/2018 at 14:33 Approved by: oTrrie Romero MD, PhD on 11/10/2018 at 14:33 [facility] Narrative Medical decision making narrative: The patient is a 62-year-old female with history of lung cancer who presents with a chief complaint of shortness of breath and coughing. She has a normal chest x-ray. However she has been having a productive cough for several weeks at this point. She also complains of sinus symptoms for about 3 weeks. She has been using Flonase at home with no improvement. Given her risk factors of age and lung cancer, I did elect to do a CT for PE. She had a negative troponin. Given the duration of her sinus symptoms, I elected to treat her for a sinus infection with doxycycline, which also provide some lung coverage as well. I encouraged continued use of Flonase as well as Yohannes med sinus rinse. Encourage follow-up with PCP as is possible. Discussed going back to the ER for any acute concerns such as chest pain, shortn ess of breath etc the patient was hemodynamically stable throughout her stay in the emergency department. <Kitty Ocampo MD - Last Filed: 11/10/18 20:36> Lab Data Lab Results 11/10/18 11/10/18 11/10/18 Range/Units 14:00 14:00 14:00 WBC 10.1 (4.5-11.0) X10^3/uL RBC 5.24 H (4.0-5.2) X10^6/uL Hgb 15.2 (12.0-16.0) g/dL Hct 44.4 (36-46) % MCV 84.7 (80-100) fL MCH 29.0 (26-34) PG MCHC 34.2 (30-36) % RDW 12.7 (11.6-14.8) % Plt Count 193 (150-400) X10^3/uL Neut % (Auto) 62.5 (50-75) % Lymph % (Auto) 27.3 (25-40) % [place] % (Auto) 7.0 (3-14) % Eos % (Auto) 1.8 L (2-4) % Baso % (Auto) 1.4 (0-2) % Neut # (Auto) 6300 (6673-1747) /uL Lymph # (Auto) 2800 (4709-6031) /uL [place] # (Auto) 700 (0-900) /uL Eos # (Auto) 200 (0-450) /uL Baso # (Auto) 100 (0-100) /uL PT 12.0 (10.1-12.7) SECONDS INR 1.0 (0.9-1.3) Sodium 139 (137-145) mmol/L Potassium 4.2 (3.4-5.1) mmol/L Chloride 105 (98-107) mmol/L Carbon Dioxide 24 (22-32) mmol/L BUN 8 (7-17) mg/dL Creatinine 0.30 L (0.52-1.04) mg/dL Estimated GFR > 60.0 (>60) mL/min BUN/Creatinine Ratio 26.7 H (6-22) Glucose 188 H (80-110) mg/dL Calcium 9.3 (8.4-10.2) mg/dL Total Bilirubin 1.8 H (0.2-1.3) mg/dL AST 33 (14-36) IU/L ALT 20 (9-52) IU/L Alkaline Phosphatase 62 (38-126) U/L Total Creatine Kinase (30-135) U/L CK-MB (CK-2) CK-MB (CK-2) Rel Index Troponin I (0.01-0.034) ng/mL B-Natriuretic Peptide (<100) Total Protein 7.2 (6.3-8.2) g/dL Albumin 4.0 (3.5-5.0) g/dL Globulin 3.2 (1.7-4.1) g/dL Albumin/Globulin Ratio 1.3 (1.0-2.8) 11/10/18 11/10/18 Range/Units 14:00 14:00 WBC (4.5-11.0) X10^3/uL RBC (4.0-5.2) X10^6/uL Hgb (12.0-16.0) g/dL Hct (36-46) % MCV (80-100) fL MCH (26-34) PG MCHC (30-36) % RDW (11.6-14.8) % Plt Count (150-400) X10^3/uL Neut % (Auto) (50-75) % Lymph % (Auto) (25-40) % [place] % (Auto) (3-14) % Eos % (Auto) (2-4) % Baso % (Auto) (0-2) % Neut # (Auto) (9020-2917) /uL Lymph # (Auto) (1226-6608) /uL [place] # (Auto) (0-900) /uL Eos # (Auto) (0-450) /uL Baso # (Auto) (0-100) /uL PT (10.1-12.7) SECONDS INR (0.9-1.3) Sodium (137-145) mmol/L Potassium (3.4-5.1) mmol/L Chloride (98-107) mmol/L Carbon Dioxide (22-32) mmol/L BUN (7-17) mg/dL Creatinine (0.52-1.04) mg/dL Estimated GFR (>60) mL/min BUN/Creatinine Ratio (6-22) Glucose (80-110) mg/dL Calcium (8.4-10.2) mg/dL Total Bilirubin (0.2-1.3) mg/dL AST (14-36) IU/L ALT (9-52) IU/L Alkaline Phosphatase (38-126) U/L Total Creatine Kinase 37 (30-135) U/L CK-MB (CK-2) TNP CK-MB (CK-2) Rel Index TNP Troponin I < 0.012 (0.01-0.034) ng/mL B-Natriuretic Peptide < 100 (<100) Total Protein (6.3-8.2) g/dL Albumin (3.5-5.0) g/dL Globulin (1.7-4.1) g/dL Albumin/Globulin Ratio (1.0-2.8) Discharge Plan Departure Patient Disposition: Home Clinical Impression: Cough, Lower respiratory infection Sinus infection Qualifiers: Sinusitis location: frontal Chronicity: acute Recurrence: non-recurrent Qualified Code(s): J01.10 - Acute frontal sinusitis, unspecified Discharge Date/Time: 11/10/18 18:39 Interventions: ED Discharge Assessment Last Done: 11/10/18 18:38 Instructions: Sinusitis (Alternative Therapy), DI for Sinusitis, DI for Cough -- Adult Activity Restrictions/Additional Instructions: Your chest x-ray shows no pneumonia. Your CT scan shows no pulmonary embolism. Your cardiac enzymes came back normal. Please follow up with primary care provider soon as possible Given the duration of your sinus symptoms as well as her cough symptoms, I have elected to treat it with antibiotics. Wear sunscreen when using doxycycline. Please follow up with primary care provider soon as possible. Please come back to the emergency department for any acute concerns. I suggest continued use of Flonase, Yohannes med sinus rinse as well as decon gestants as needed and able Prescriptions: New doxycycline hyclate 100 mg capsule 100 mg PO BID Qty: 20 RF: 0 No Action aspirin 81 mg Tablet,Delayed Release (Dr/Ec) 81 mg PO DAILY Qty: 0 RF: 0 metformin [Glucophage] 500 MG tablet 500 mg PO BIDCC Qty: 0 RF: 0 Januvia 100 MG tablet 100 mg PO DAILY Qty: 0 RF: 0 Jardiance 25 MG tablet 25 mg PO DAILY Qty: 0 RF: 0 atorvastatin 40 mg tablet 40 mg PO QPM RF: 0 sertraline 100 mg tablet 50 mg PO QPM RF: 0 benzonatate 100 mg capsule 1 cap PO BEDTIME RF: 0 omeprazole 20 mg capsule,delayed release(DR/EC) 20 mg PO BID RF: 0 lisinopril 10 mg Tablet 10 mg PO DAILY RF: 0 metoprolol tartrate 25 mg Tablet 25 mg PO BID RF: 0 meloxicam 7.5 mg tablet 7.5 mg PO BID RF: 0 Referrals: Gale Madrigal MD [Primary Care Provider] -
[2018-11-10 14:49] LABS: Creatine Kinase 37 U/L (30-135)
--- NOTE | 2018-11-10 14:55 | PC.NURSE ---
Patient reports significant amount of congestion in chest. Flonase daily. Patient states pressure in her chest. History of lung cancer wtih removal of right lower lung. Denies nausea or diaphoresis.
[2018-11-10 15:01] LABS: Troponin I < 0.012 ng/mL (0.01-0.034)
[2018-11-10 15:07] LABS: B Type Natriuretic Peptide < 100 (<100)
--- NOTE | 2018-11-10 15:47 | DI.CT.S_ITS ---
PROCEDURE: CT ANGIO CHEST PE PROTOCOL INDICATIONS: sob, cancer TECHNIQUE: After the administration of intravenous contrast, 2 mm thick sections acquired from the pulmonary apices to the posterior costophrenic angles. 3-dimensional maximum intensity projection (MIP) coronal and sagittal reformats were then acquired through the thorax. For radiation dose reduction, the following was used: automated exposure control, adjustment of mA and/or kV according to patient size. COMPARISON: None. FINDINGS: Image quality: Excellent. Pulmonary arteries: Pulmonary arteries are normal in size, and demonstrate no intraluminal filling defects to suggest central pulmonary embolism. Lungs and pleura: Mild patchy bilateral basilar opacities are present, consistent with atelectasis versus pneumonia. 4 mm diameter subpleural nodule within the right apex laterally is present, new since the prior examination. No pleural effusions or pneumothorax. Central and peripheral airways are patent. Mediastinum: Heart size is enlarged,, without pericardial effusion. There is calcification of the coronary vasculature. No mediastinal or hilar adenopathy. Thoracic aorta is normal in caliber and enhancement. Esophagus is normal in caliber, without hiatal hernia. Bones and chest wall: No suspicious bony lesions. Ribs and thoracic spine appear intact throughout. Thyroid gland demonstrates a 23 mm nodular mass within the right thyroid lobe. There are 2 adjacent low density masses within the left inferior lobe measuring 13 mm and 11 mm.. No axillary or supraclavicular adenopathy. Abdomen: Visualized portions of the upper abdomen demonstrate a 6 mm diameter rounded calcification within the pancreatic tail, which may indicate a splenic artery aneurysm or pancreatic tail mass, which is unchanged. IMPRESSION: 1. Bilateral thyroid masses, which could be further assessed with ultrasound, if clinically indicated. 2. Cardiomegaly. Coronary artery disease. 3. No pulmonary embolus. 4. New right apical pulmonary nodule. Followup is recommended as below. 5. No change in calcified lesion within the pancreatic tail. Differential considerations include splenic artery aneurysm versus calcific pancreatic tail mass, which is unchanged. Fleischner Society criteria for SOLID lung nodule followup. Nodule size (mm)Low-risk patientHigh-risk patient<6 (single or multiple)No routine followup.Optional CT at 12 months. 6-8 (single or multiple)CT at 6-12 months, then optional CT at 18-24 mo.CT at 6-12 months, then CT at 18-24 months. >8 (single)CT, PET-CT, or biopsy at 3 months. Same as for low-risk pts. >8 (multiple)CT at 3-6 months, then optional CT at 18-24 mo.CT at 3-6 months, then CT at 18-24 months. Recommendations do not apply to lung cancer screening, patients with immunosuppression, or patients with known primary cancer. Dictated by: Jesse Mcpherson M.D. on 11/10/2018 at 17:22 Approved by: Jesse Mcpherson M.D. on 11/10/2018 at 17:30
[2018-11-10 17:11] VITALS: BP 125/60; PULSE 70; RESP 20; O2SAT 93
[2018-11-10 18:26] VITALS: BP 129/56; PULSE 70; RESP 21; O2SAT 94
== END 2018-11-10 18:39 | disposition home or self-care (01) ==
PROVIDERS: Emergency Medicine; Emergency Provider Nurse Practitioner Family; Family Provider Internal Medicine; PCP Internal Medicine
DX: R05 Cough (principal); J22 Unspecified acute lower respiratory infection; J01.10 Acute frontal sinusitis, unspecified; R07.89 Other chest pain; Z85.118 Personal history of other malignant neoplasm of bronchus and lung
CPT/HCPCS: 36591; 71046; 71275; 80053; 82550; 83880; 84484; 85025; 85610; 93005; 93010; 99283; 99285; Q9967

== ENCOUNTER 2019-07-12 10:41 | Emergency (ER) | payer MEDICARE, OTHER, SELFPAY ==
[2019-07-12 11:01] VITALS: BP 136/63; PULSE 65; RESP 20; TEMP 36.9; O2SAT 96; BMI 35.2
--- NOTE | 2019-07-12 12:30 | DI.RAD.S_ITS ---
PROCEDURE: XR CHEST 2V INDICATIONS: flu worse TECHNIQUE: 2 views of the chest were acquired. COMPARISON: [facility], CR, XR CHEST 2V, 11/10/2018, 14:21. FINDINGS: Surgical changes and devices: None. Lungs and pleura: Lungs are clear. No pleural effusions or pneumothorax. Minimal appearance of increased pulmonary vascularity. Mediastinum: Mediastinal contours are normal. Heart size is normal. Bones and chest wall: No suspicious bony abnormalities. Soft tissues appear unremarkable. IMPRESSION: Minimal appearance of increased vascularity possibly reflective of edema versus poor inspiratory effort with vascular crowding. Dictated by: Araceli Osborne M.D. on 07/12/2019 at 13:07 Approved by: Araceli Osborne M.D. on 07/12/2019 at 13:07
--- NOTE | 2019-07-12 13:23 | ED_ITS ---
HPI - General Adult General Chief complaint: Upper Respiratory Symptoms Stated complaint: positive influenza A, not getting better Time Seen by Provider: 07/12/19 13:23 Source: patient Mode of arrival: Ambulatory Limitations: no limitations History of Present Illness HPI narrative: 63-year-old female comes to the emergency department with complaint of cough. She patient was influenza a positive on July 02 and states she is not getting better. She does not think she is having fevers at this point but she has continued to have a cough and she has pain on the left side of her chest when she coughs. Patient states that she has the cough all the time but she is unable to get sleep because she can't lay down at night. She states it does not matter if she is lying flat or sitting up. She does not feel particularly more short of breath just can't stop coughing. She states it is not productive but feels sort of wet. She has not had any swelling in her extremities. She does have a history of lung resection after lung cancer has 1 spot that they are following. She has not had any nausea or vomiting. She did have diarrhea that is improving. She has also had stress incontinence with her cough from urination. Patient does take cardiac medications she is a diabetic, she is on meloxicam she does not take any diuretics or water pills. Discussed with patient she has taken Tessalon Perles in the past with good improvement in states that products including codeine do not work well for her. Related Data Home Medications Medication Instructions Recorded Confirmed aspirin 81 mg PO DAILY #0 04/17/10 11/10/18 metformin [Glucophage] 500 mg PO BIDCC #0 09/23/12 07/12/19 Januvia 100 mg PO DAILY #0 09/17/16 07/12/19 Jardiance 25 mg PO DAILY #0 09/17/16 07/12/19 atorvastatin 40 mg PO QPM 12/25/17 07/12/19 lisinopril 10 mg PO DAILY 12/25/17 11/10/18 metoprolol tartrate 25 mg PO BID 12/25/17 11/10/18 omeprazole 20 mg PO BID 12/25/17 07/12/19 sertraline 50 mg PO QPM 12/25/17 07/12/19 meloxicam 7.5 mg PO BID 11/10/18 07/12/19 albuterol sulfate [ProAir HFA] 2 puff INHALATION Q4H PRN 07/12/19 07/12/19 losartan 50 mg PO DAILY 07/12/19 07/12/19 Previous Rx's Medication Instructions Recorded amoxicillin 500 mg PO TID #30 cap 07/12/19 benzonatate 200 mg PO TID PRN #30 cap 07/12/19 Allergies Allergy/AdvReac Type Severity Reaction Status Date / Time niacin [NIACIN] Allergy Mild Verified 07/12/19 12:08 propoxyphene [From DARVON] Allergy Mild VOMITING Verified 07/12/19 12:08 OPIATE NARCOTICS Allergy Severe PROJECTIVE Uncoded 07/12/19 12:08 NAUSEA VOMITING. CIMBALTA Allergy Intermediate VOMITING Uncoded 07/12/19 12:08 Review of Systems Review of Systems ROS Unobtainable: All systems reviewed & are unremarkable except as noted in HPI and below Patient History Medical History (Updated 07/12/19 @ 13:46 by Lachelle Nowak DO) Diabetes (Acute) History of lung cancer (Acute) Hypertension (Acute) Surgical History History of lung surgery (Acute) Social History Smoking Status: Former smoker Smoking Status: Former smoker alcohol intake frequency: holidays/special occasions only Substance Use Type: does not use Exam Narrative Exam Narrative: GEN: well nourished, well appearing female, alert and oriented x 3, patient appears to be in mild distress. HEENT: Atraumatic, pupils are equal round reactive to light, extraocular movements are intact, nares are clear,throat is clear without any exudates, erythema, tonsillar enlargement or uvular deviation HEART: Regular rate and rhythm without murmur, clicks, rubs. Edema bilateral lower extremities. 2+ pulses bilateral lower extremities. LUNGS:Lungs clear to auscultation, no wheezes, rales, crackles, chest moves symmetrically, patient has a coarse dry cough. ABD:bowel sounds normal, soft, non-tender, no guarding, rebound, rigidity, no masses noted, no hepatosplenomegaly :No CVA tenderness MSCL: Non-tender, no muscle atrophy, muscles strength 5/5 upper and lower extremities, full range of motion, normal gait NEURO:CN 2-12 intact, sensation normal SKIN: No rash or skin changes Initial Vital Signs Initial Vital Signs: Vital Signs Temperature 98.4 F 07/12/19 11:01 Pulse Rate 65 07/12/19 11:01 Respiratory Rate 20 07/12/19 11:01 Blood Pressure 136/63 07/12/19 11:01 Pulse Oximetry 96 07/12/19 11:01 Course Orders Ordered: ED Orders 07/12/19 12:30 XR chest 2V Stat Vital Signs Vital signs: Vital Signs - 8 hr 07/12/19 13:54 Pulse Rate 57 L Respiratory Rate 16 Blood Pressure 119/59 L Pulse Oximetry 95 Medical Decision Making Imaging Data Chest x-ray: Radiologist's Impression: Jennyfer Houston 63 F [address] [address] XRay Report Signed Patient: Suhail Houston#: [id number] : 1955cct:[id number] Age/Sex: 63 / FDate of Service: 07/12/19 Loc: ED Accession Number: [id number] Procedure: XR chest 2V Ordering Provider: Lachelle Davis PROCEDURE: XR CHEST 2V INDICATIONS: flu worse TECHNIQUE: 2 views of the chest were acquired. COMPARISON: [facility], , XR CHEST 2V, 11/10/2018, 14:21. FINDINGS: Surgical changes and devices: None. Lungs and pleura: Lungs are clear. No pleural effusions or pneumothorax. Minimal appearance of increased pulmonary vascularity. Mediastinum: Mediastinal contours are normal. Heart size is normal. Bones and chest wall: No suspicious bony abnormalities. Soft tissues appear unremarkable. IMPRESSION: Minimal appearance of increased vascularity possibly reflective of edema versus poor inspiratory effort with vascular crowding. Dictated by: Araceli Osborne M.D. on 07/12/2019 at 13:07 Approved by: Araceli Osborne M.D. on 07/12/2019 at 13:07 [facility] Narrative Medical decision making narrative: Patient comes in with complaint of not improving after influenza A. No clear pneumonia on her chest x-ray there was some question of vascular crowding versus pulmonary edema but patient clinically does not have any symptoms of CHF. Patient does have a very dry coarse cough that is worsened with inhalation. She has albuterol inhaler which she states seems to irritate her airways more. She has taken Tessalon Perles in the past with good improvement and we discussed starting this today. We did discuss potentially starting antibiotics if she continues to have symptoms or having any fevers and she was given a prescription and his attention but asked to hold for the next 24-48 hours if she is improving just with the Tessalon Perles. Discussed she may have a little bit of muscle strain versus rib fracture although none noted on chest x-ray. She does not have any symptoms concerning for ACS at this time. Patient feels comfortable with this plan and was asked to return in 48 hours if she is not improving. Discharge Plan Departure Patient Disposition: Home Clinical Impression: Cough Discharge Date/Time: 07/12/19 13:57 Instructions: DI for Cough -- Adult Activity Restrictions/Additional Instructions: Follow-up with your physician next 12:40 p.m. if he do not feel like your improving. You may also return to the ER at any time for repeat evaluation. Take Tessalon Perles as prescribed. Start medications as prescribed if you are not improving in the next 24-48 hours. Prescription was sent to [facility] Continue home medications as prescribed. Return to the ER for temperatures greater 100.4 F, new or worsening chest pain, increasing shortness of breath, coughing up bloody or discolored sputum, swelling in your extremities, cough that is increasing 1 year lying flat or other new or concerning symptoms. Prescriptions: New benzonatate 200 mg capsule 200 mg PO TID PRN (Reason: cough) Qty: 30 RF: 0 amoxicillin 500 mg capsule 500 mg PO TID Qty: 30 RF: 0 No Action aspirin 81 mg Tablet,Delayed Release (Dr/Ec) 81 mg PO DAILY Qty: 0 RF: 0 metformin [Glucophage] 500 MG tablet 500 mg PO BIDCC Qty: 0 RF: 0 Januvia 100 MG tablet 100 mg PO DAILY Qty: 0 RF: 0 Jardiance 25 MG tablet 25 mg PO DAILY Qty: 0 RF: 0 atorvastatin 40 mg tablet 40 mg PO QPM RF: 0 sertraline 100 mg tablet 50 mg PO QPM RF: 0 omeprazole 20 mg capsule,delayed release(DR/EC) 20 mg PO BID RF: 0 lisinopril 10 mg Tablet 10 mg PO DAILY RF: 0 metoprolol tartrate 25 mg Tablet 25 mg PO BID RF: 0 meloxicam 7.5 mg tablet 7.5 mg PO BID RF: 0 losartan 50 mg tablet 50 mg PO DAILY RF: 0 albuterol sulfate [ProAir HFA] 90 mcg/actuation HFA aerosol inhaler 2 puff INHALATION Q4H PRN (Reason: Wheezing) RF: 0 Referrals: Gale Madrigal MD [Primary Care Provider] -
[2019-07-12 13:54] VITALS: BP 119/59; PULSE 57; RESP 16; O2SAT 95
== END 2019-07-12 13:57 | disposition home or self-care (01) ==
PROVIDERS: Emergency Provider Emergency Medicine; Family Provider Internal Medicine; PCP Internal Medicine
DX: R05 Cough (principal); E11.9 Type 2 diabetes mellitus without complications; I10 Essential (primary) hypertension
CPT/HCPCS: 71046; 99283

== ENCOUNTER → 2020-08-07 11:17 | Outpatient (CLI) | payer MEDICARE, OTHER, SELFPAY ==
--- NOTE | 2020-08-07 11:21 | DI.MRI.S_ITS ---
BREAST MRI OF BOTH BREASTS: 08/07/2020 CLINICAL: Malignant neoplasm of the Right breast. Comparison is made to exams dated: 07/18/2020 stereotactic biopsy - [facility], 07/10/2020 ultrasound, 07/10/2020 mammogram, and 09/08/2018 mammogram - [facility]. Interpretation of this MRI was correlated with available mammograms and ultrasounds. Informed consent was obtained from the patient. Axial T1, T2, and pre and post contrast T1 images were obtained with a dedicated breast coil. TECHNIQUE: The patient was placed prone in a dedicated breast imaging coil. Precontrast axial STIR and 3D FLASH without fat saturation sequences were obtained. Both before and after bolus injection of contrast, sequential 1-minute axial 3D FLASH with fat saturation sequences for 3 time points, with subtraction images and maximum intensity projections (MIP's) generated. Delayed sagittal FLASH images with fat saturation were also obtained. Computer-aided detection, including computer algorithm analysis of MRI image data for lesion detection and characterization, pharmacokinetic analysis, with further physician review for interpretation, was performed. Image quality: Excellent. There is mild background parenchymal enhancement. Right breast: In the right breast 9 o'clock position there is an irregular area of masslike enhancement measuring 1.7 x 1.6 x 1.9 centimeters. A biopsy clip with associated signal loss is seen within the area of enhancement. No other areas of masslike enhancement in the right breast. There is no involvement of the chest wall or skin. THe remainder of the right breast demonstrates no other abnormal focus, mass, or abnormal enhancement. The right axillary nodes have a symmetric appearance compared to the left. The largest node in the right axilla measures 2.1 x 1.4 centimeters, similar to the largest noted in the left axilla. There is no thickening of the lymph node cortex to suggest neoplastic involvement. No internal mammary chain adenopathy. Left breast: The left breast demonstrates no abnormal focus, mass, or abnormal enhancement. No axillary or internal mammary chain adenopathy. There are no abnormalities seen in the mediastinum, liver, lungs, axillary nodes region, supraclavicular nodes, infraclavicular nodes, or internal mammary nodes. IMPRESSION: KNOWN BIOPSY PROVEN MALIGNANCY Masslike area of enhancement in the right breast 9 o'clock position with irregular borders measuring approximately 1.7 x 1.6 x 1.9 centimeters. The biopsy clip lies within this mass. There are no satellite nodules. No chest wall or skin invasion. No evidence of axillary node involvement. This exam was interpreted at Station ID: [id number]. Electronically Signed By: Omi Fink acr/:08/07/2020 16:30:57 ACR BI-RADS Category 6: Known biopsy proven malignancy 3346F
== END ==
PROVIDERS: Family Provider Internal Medicine; PCP Internal Medicine; Referring Provider Physician Assistant Medical; Visit Provider Physician Assistant Medical
DX: C50.811 Malignant neoplasm of overlapping sites of right female breast (principal)
CPT/HCPCS: 77049; A9579

== ENCOUNTER 2021-06-18 15:44 | Emergency (ER) | payer MEDICARE, OTHER, SELFPAY ==
[2021-06-18 16:15] VITALS: BP 127/71; PULSE 65; RESP 18; TEMP 36.2; O2SAT 99; BMI 35.4
--- NOTE | 2021-06-18 16:22 | DI.CT.S_ITS ---
PROCEDURE: CT HEAD/BRAIN WO CON INDICATIONS: Headache x 7 day TECHNIQUE: Noncontrast 4.5 mm thick angled axial sections acquired from the foramen magnum to the vertex, with coronal and sagittal reformats. For radiation dose reduction, the following was used: automated exposure control, adjustment of mA and/or kV according to patient size. COMPARISON: [facility], CT, HEAD WITHOUT CONTRAST, 09/23/2012, 15:21. FINDINGS: Image quality: Excellent. CSF spaces: Basal cisterns are patent. No extra-axial fluid collections. Ventricles are normal in size and shape. Brain: No midline shift. No intracranial masses or hemorrhage. Rodrigues-white matter interface is normal. Skull and face: Calvarium and visualized facial bones are intact, without suspicious lesions. Sinuses: Visualized sinuses and mastoids are clear. IMPRESSION: No acute intracranial finding. Dictated by: Oh Jett M.D. on 06/18/2021 at 16:46 Approved by: Oh Jett M.D. on 06/18/2021 at 16:47
[2021-06-18] MEDS: SODIUM CHLORIDE 0.9% 1,000 ML 1000 ML IV (20:04)
[2021-06-18] MEDS: KETOROLAC 30 MG/ML VIAL 15 MG IV (20:05)
[2021-06-18] MEDS: PROPARACAINE 0.5% OPHTH SOL 1 DROPS EYE-RIGHT (20:05)
--- NOTE | 2021-06-18 20:05 | ED_ITS ---
HPI - Headache General Chief Complaint: Headache Stated Complaint: Headache for a week// on 1 side of head Time Seen by Provider: 06/18/21 19:51 Mode of arrival: Ambulatory History of Present Illness HPI Narrative: 65-year-old female former smoker with history of coronary artery disease with a stent placed last year, breast cancer (treated by radiation and lumpectomy), lung cancer (treated by radiation and lobectomy), and thyroid cancer (treated by radiation) presents with a chief complaint of 7 days of gradually worsening right-sided headache. She states bright lights and loud noises make it worse and a dark quiet room seems to make the symptoms improve. She has no history of trauma nor fever or chills. She does not take blood thinners. She does have pain over her right pentecostalism and in her right eye. She states that the pain seems to come and go without any obvious cause but when the pain intensifies sodas the discomfort and blurred vision in her eye, this seems to improve as her headache does. She does have a history of headaches and states this feels different than priors. Related Data Home Medications Medication Instructions Recorded Confirmed aspirin 81 mg tablet,delayed 81 mg PO DAILY #0 04/17/10 11/10/18 release metformin 500 mg tablet 500 mg PO BIDCC #0 09/23/12 07/12/19 (Glucophage) empagliflozin 25 mg tablet 25 mg PO DAILY #0 09/17/16 07/12/19 (Jardiance) sitagliptin 100 mg tablet (Januvia) 100 mg PO DAILY #0 09/17/16 07/12/19 atorvastatin 40 mg tablet 40 mg PO QPM 12/25/17 07/12/19 lisinopril 10 mg tablet 10 mg PO DAILY 12/25/17 11/10/18 metoprolol tartrate 25 mg tablet 25 mg PO BID 12/25/17 11/10/18 omeprazole 20 mg capsule,delayed 20 mg PO BID 12/25/17 07/12/19 release sertraline 100 mg tablet 50 mg PO QPM 12/25/17 07/12/19 meloxicam 7.5 mg tablet 7.5 mg PO BID 11/10/18 07/12/19 albuterol sulfate 90 mcg/actuation 2 puff INHALATION Q4H PRN 07/12/19 07/12/19 aerosol inhaler (ProAir HFA) losartan 50 mg tablet 50 mg PO DAILY 07/12/19 07/12/19 Previous Rx's Medication Instructions Recorded amoxicillin 500 mg capsule 500 mg PO TID #30 cap 07/12/19 benzonatate 200 mg capsule 200 mg PO TID PRN #30 cap 07/12/19 Allergies Allergy/AdvReac Type Severity Reaction Status Date / Time niacin [NIACIN] Allergy Mild Verified 06/18/21 16:15 propoxyphene [From DARVON] Allergy Mild VOMITING Verified 06/18/21 16:15 OPIATE NARCOTICS Allergy Severe PROJECTIVE Uncoded 06/18/21 16:15 NAUSEA VOMITING. CIMBALTA Allergy Intermediate VOMITING Uncoded 06/18/21 16:15 Review of Systems Review of Systems Narrative: GENERAL: Denies chills, fatigue, malaise, fever, sweats. HEENT: Denies sinus pain, ear pain, sore throat, difficulty swallowing, dizziness. RESPIRATORY: Denies dyspnea, cough, wheezing, hemoptysis, sputum. CARDIOVASCULAR: Denies chest pain, palpitations, orthopnea, edema, GASTROINTESTINAL: See HPI : Denies dysuria, frequency, incontinence, hematuria, urinary retention. MUSCULOSKELETAL: denies weakness, joint pain, or bony pain SKIN: Denies rash, skin lesions, or other NEUROLOGIC: See HPI PSYCHIATRIC: No concerning psychosocial issues. 12 point review of systems is negative except for those stated above Patient History Medical History Diabetes History of lung cancer Hypertension Surgical History History of lung surgery Social History Smoking Status: Former smoker Smoking Status: Former smoker alcohol intake frequency: holidays/special occasions only Substance Use Type: does not use Exam Narrative Exam Narrative: GENERAL: [65 year old patient appears stated age. Well-developed patient, in mild distress. Rubbing the right side of her head, squinting a bit with right eye HEAD: Atraumatic. Normocephalic. EYES: Pupils equal round and reactive. Extraocular motions intact. No scleral icterus. No injection or drainage. Right eye pressure 21 mmHg with 95% confidence on Chacho-Pen ENT: Nose without bleeding, purulent drainage. Throat without erythema, tonsillar hypertrophy or exudate. Airway patent. NECK: Trachea midline. Non tender CARDIOVASCULAR: Regular rate and rhythm without murmurs, gallops, or rubs. RESPIRATORY: Clear to auscultation. Breath sounds equal bilaterally. No wheezes, rales, or rhonchi. GASTROINTESTINAL: Abdomen soft, non-tender, nondistended. EXTREMITIES: No edema or joint tenderness. BACK: Nontender without deformity or crepitance. No flank tenderness. NEURO: AOx3. SKIN: No rash or erythema of visible areas NIH Stroke Scale 1a. LOC: Patient is alert and keenly responsive (0) 1b. LOC Questions: Patient answers both LOC questions accurately (0) 1c. LOC Commands: Patient performs both tasks correctly (0) 2. Best Gaze: Normal (0) 3. Visual: No visual loss (0) 4. Facial palsy: Normal symmetrical movements (0) 5. Motor arm: No drift (0) 6. Motor leg: No drift (0) 7. Limb ataxia: Absent (0) 8. Sensory: Normal (0) 9. Best language: No aphasia; normal (0) 10. Dysarthria: Normal (0) 11. Extinction and inattention: No abnormality (0) NIHSS: 0 Initial Vital Signs Initial Vital Signs: Vital Signs Temperature 97.1 F L 06/18/21 16:15 Pulse Rate 65 06/18/21 16:15 Respiratory Rate 18 06/18/21 16:15 Blood Pressure 127/71 06/18/21 16:15 Pulse Oximetry 99 06/18/21 16:15 Course Orders Ordered: Discontinued Medications Dexamethasone (Dexamethasone 10 Mg/Ml Vial) 10 mg IV NOW ONE Stop: 06/18/21 20:13 Last Admin: 06/18/21 20:45 Dose: 10 mg Documented by: ELA Sodium Chloride (Normal Saline 0.9%) 1,000 mls @ 1,000 mls/hr IV BOLUS ONE Stop: 06/18/21 20:56 Last Infusion: 06/18/21 22:49 Dose: 0 mls/hr Documented by: Admin: 06/18/21 20:04 Dose: 1,000 mls/hr Documented by: ELA Ketorolac Tromethamine (Ketorolac 30 Mg/Ml Vial) 15 mg IV NOW ONE Stop: 06/18/21 19:58 Last Admin: 06/18/21 20:05 Dose: 15 mg Documented by: ELA Metoclopramide HCl (Metoclopramide 10 Mg/2 Ml Inj) 10 mg IV NOW ONE Stop: 06/18/21 19:58 Last Admin: 06/18/21 20:06 Dose: 10 mg Documented by: ELA Proparacaine HCl (Proparacaine 0.5% Ophth Nati) 1 drops EYE-RIGHT NOW ONE Stop: 06/18/21 19:58 Last Admin: 06/18/21 20:05 Dose: 1 drop Documented by: ELA Reevaluation(s) Reevaluation #1: Significant improvement in symptoms after above-stated therapies. Vital Signs Vital signs: Vital Signs - 8 hr 06/18/21 16:15 Temperature 97.1 F L Pulse Rate 65 Respiratory Rate 18 Blood Pressure 127/71 Pulse Oximetry 99 MDM - Headache Lab Data Result diagrams: 06/18/21 19:51 06/18/21 19:57 Labs: Lab Results 06/18/21 06/18/21 06/18/21 Range/Units 19:51 19:57 19:57 WBC 8.4 (4.5-11.0) X10^3/uL RBC 5.33 H (4.0-5.2) X10^6/uL Hgb 15.3 (12.0-16.0) g/dL Hct 45.0 (36-46) % MCV 84.3 (80-100) fL MCH 28.7 (26-34) PG MCHC 34.0 (30-36) % RDW 13.4 (11.6-14.8) % Plt Count 190 (150-400) X10^3/uL Neut % (Auto) 62.6 (50-75) % Lymph % (Auto) 27.6 (25-40) % Grand % (Auto) 6.9 (3-14) % Eos % (Auto) 2.1 (2-4) % Baso % (Auto) 0.8 (0-2) % Neut # (Auto) 5300 (8361-4560) /uL Lymph # (Auto) 2300 (0140-7381) /uL Grand # (Auto) 600 (0-900) /uL Eos # (Auto) 200 (0-450) /uL Baso # (Auto) 100 (0-100) /uL ESR 4 (0-20) MM/HR Sodium 139 (137-145) mmol/L Potassium 4.1 (3.4-5.1) mmol/L Chloride 105 (98-107) mmol/L Carbon Dioxide 26 (22-32) mmol/L BUN 9 (7-17) mg/dL Creatinine 0.38 L (0.52-1.04) mg/dL Estimated GFR > 60.0 (>60) mL/min BUN/Creatinine Ratio 23.7 H (6-22) Glucose 137 H (80-110) mg/dL Calcium 10.0 (8.4-10.2) mg/dL Total Bilirubin 1.4 H (0.2-1.3) mg/dL AST 71 H (14-36) IU/L ALT 28 (<35) IU/L Alkaline Phosphatase 65 (38-126) U/L Total Creatine Kinase 38 (30-135) U/L CK-MB (CK-2) TNP CK-MB (CK-2) Rel Index TNP Troponin I < 0.012 (0.01-0.034) ng/mL C-Reactive Protein 0.9 (<1.0) mg/dL Total Protein 7.4 (6.3-8.2) g/dL Albumin 4.2 (3.5-5.0) g/dL Globulin 3.2 (1.7-4.1) g/dL Albumin/Globulin Ratio 1.3 (1.0-2.8) MDM Narrative Medical decision making narrative: Headache considerations include, but not limited to: Subarachnoid hemorrhage, but unlikely as patient denies sudden onset of pain, not worst of life, or neck pain Meningitis considered, but thought unlikely given lack of Brudzinski's, Kernig's sign, altered mental status or fever Acute angle closure glaucoma considered but pupils are equal and reactive, there is no scleral injection or watering, normal pressure with Chacho-Pen Giant cell arteritis considered, but thought unlikely given lack inflammatory markers HTN Emergency considered, but thought unlikely given normal vitals Other serious diagnoses considered unlikely given lack of red flag findings such as sudden onset, increasing frequency, immunocompromise, systemic signs (fever, chills, stiff neck, or rash), focal neurologic findings, trauma, blood thinners, etc. Discharge Plan Departure Patient Disposition: Home Clinical Impression: Headache Instructions: DI for Headache Activity Restrictions/Additional Instructions: *You have been diagnosed with [ atypical migraine. As we stated, your physical exam, story, CT scan and labs are very reassuring. *What to do: *Please continue to take your regular medications as directed. [ ] New medication prescriptions sent to your pharmacy: [ ] [ ] New medication written as a paper prescription [x ] No new medications given *Please follow up with your eye doctor TOMORROW. Let them know you were seen in the Emergency Department and that we ask that you be seen in follow up. *If you are unable to get in your eye doctor I have included the contact information for the supervisor sleeping bag department here at [facility], they have been very helpful with seeing emergency department patient has following day if they are unable to see their own doctor *Return to Emergency Department if you should have any new, worsening or concerning symptoms, such as [fever greater than 101 F, shaking chills, worsening pain, persistent vomiting or other bothersome symptoms] Prescriptions: No Action aspirin 81 mg Tablet,Delayed Release (Dr/Ec) 81 mg PO DAILY Qty: 0 0RF metformin [Glucophage] 500 MG tablet 500 mg PO BIDCC Qty: 0 0RF Januvia 100 MG tablet 100 mg PO DAILY Qty: 0 0RF Jardiance 25 MG tablet 25 mg PO DAILY Qty: 0 0RF atorvastatin 40 mg tablet 40 mg PO QPM 0RF sertraline 100 mg tablet 50 mg PO QPM 0RF omeprazole 20 mg capsule,delayed release(DR/EC) 20 mg PO BID 0RF lisinopril 10 mg Tablet 10 mg PO DAILY 0RF metoprolol tartrate 25 mg Tablet 25 mg PO BID 0RF meloxicam 7.5 mg tablet 7.5 mg PO BID 0RF losartan 50 mg tablet 50 mg PO DAILY 0RF albuterol sulfate [ProAir HFA] 90 mcg/actuation HFA aerosol inhaler 2 puff INHALATION Q4H PRN (Reason: Wheezing) 0RF Label Comments: inhale 2 puffs by mouth up to every 4 hours if needed for wheezing benzonatate 200 mg capsule 200 mg PO TID PRN (Reason: cough) Qty: 30 0RF amoxicillin 500 mg capsule 500 mg PO TID Qty: 30 0RF Referrals: Abdirizak Causey MD [Physician] - Gale Madrigal MD [Primary Care Provider] -
[2021-06-18] MEDS: METOCLOPRAMIDE 10 MG/2 ML INJ IV (20:06)
[2021-06-18 20:11] LABS: Add Manual Diff / Slide Review NO; Basophils Absolute Auto 100 /uL (0-100); Basophils Percent Auto 0.8 % (0-2); Eosinophils Absolute Auto 200 /uL (0-450); Eosinophils Percent Auto 2.1 % (2-4); Hemoglobin 15.3 g/dL (12.0-16.0); Lymphocytes Absolute Auto 2300 /uL (1100-4500); Lymphocytes Percent Auto 27.6 % (25-40); Mean Corpuscular Hemoglobin 28.7 PG (26-34); Mean Corpuscular Volume 84.3 fL (80-100); Monocytes Absolute Auto 600 /uL (0-900); Monocytes Percent Auto 6.9 % (3-14); Neutrophils Absolute Auto 5300 /uL (1500-7000); Neutrophils Percent Auto 62.6 % (50-75); Platelet Count 190 X10^3/uL (150-400); Red Blood Cell Count 5.33 X10^6/uL (4.0-5.2); Red Cell Distribution Width 13.4 % (11.6-14.8); White Blood Cell Count 8.4 X10^3/uL (4.5-11.0)
--- NOTE | 2021-06-18 20:15 | PC.NURSE ---
pt states she has had a h/a x a week without any relief with meds. pt states usually her migraines are all over this h/a is on the right side and behind the right eye with photosensitivity
[2021-06-18 20:21] LABS: Alanine Aminotransferase 28 IU/L (<35); Albumin 4.2 g/dL (3.5-5.0); Albumin Globulin Ratio 1.3 (1.0-2.8); Alkaline Phosphatase 65 U/L (38-126); Aspartate Aminotransferase 71 IU/L (14-36); BUN Creatinine Ratio 23.7 (6-22); Bilirubin Total 1.4 mg/dL (0.2-1.3); Blood Urea Nitrogen 9 mg/dL (7-17); C-Reactive Protein Quant 0.9 mg/dL (<1.0); Carbon Dioxide 26 mmol/L (22-32); Chloride 105 mmol/L (98-107); Creatine Kinase 38 U/L (30-135); Estimated Glomerular Filt Rate > 60.0 mL/min (>60); Globulin 3.2 g/dL (1.7-4.1); Glucose 137 mg/dL (80-110); HEMOLYSIS 33 (0-50); Potassium 4.1 mmol/L (3.4-5.1); Sodium 139 mmol/L (137-145); Total Protein 7.4 g/dL (6.3-8.2)
[2021-06-18 20:29] LABS: Troponin I < 0.012 ng/mL (0.01-0.034)
[2021-06-18] MEDS: DEXAMETHASONE 10 MG/ML VIAL IV (20:45)
[2021-06-18 20:57] LABS: Erythrocyte Sedimentation Rate 4 MM/HR (0-20)
[2021-06-18 22:49] VITALS: BP 128/69; PULSE 74; RESP 16; O2SAT 95
== END 2021-06-18 22:32 | disposition home or self-care (01) ==
PROVIDERS: Emergency Provider Emergency Medicine; Family Provider Internal Medicine; PCP Internal Medicine
DX: R51.9 Headache, unspecified (principal); Z87.891 Personal history of nicotine dependence
CPT/HCPCS: 36415; 70450; 80053; 82550; 84484; 85025; 85651; 86140; 96361; 96374; 96375; 99284; J1100; J1885; J2765

== ENCOUNTER → 2021-07-18 13:21 | Outpatient (CLI) | payer MEDICARE, OTHER, SELFPAY ==
--- NOTE | 2021-07-18 | DI.US.S_ITS ---
LIMITED ULTRASOUND OF LEFT BREAST: 07/18/2021 CLINICAL: Palpable left breast lump. Comparison is made to exams dated: 07/18/2021 mammogram - [facility], 07/10/2020 mammogram, 09/08/2018 mammogram, 06/21/2016 mammogram, 12/28/2013 mammogram - [facility], and 08/07/2020 breast MRI - [facility]. Color flow and real-time ultrasound of the left breast 1 o'clock region were performed. Rodrigues scale images of the real-time examination were reviewed. No significant abnormalities were seen sonographically in the left breast. IMPRESSION: NEGATIVE No sonographic evidence of malignancy in the region of the palpable abnormality. A 1 year screening mammogram is recommended. Exam findings were conveyed to the patient. Patient is advised to monitor for significant change. Clinical follow-up as needed. This exam was interpreted at Station ID: [id number]. Electronically Signed By: Ryan Howard M.D. slc/:07/18/2021 15:04:13 Entry: - 07/19/2021 06:52:49 Ultrasound BI-RADS: 1 Negative
--- NOTE | 2021-07-18 | DI.US.S_ITS ---
LIMITED ULTRASOUND OF RIGHT BREAST AND AXILLA: 07/18/2021 CLINICAL: Palpable right breast lump. Comparison is made to exams dated: 07/18/2021 mammogram, 08/07/2020 breast MRI - [facility], 07/10/2020 mammogram, and 09/08/2018 mammogram - [facility]. Color flow and real-time ultrasound of the right breast 10 o'clock, and axilla regions were performed. Rodrigues scale images of the real-time examination were reviewed. There is a benign 3.6 cm x 3.4 cm x 2.2 cm irregular fluid collection in the right breast at 10 o'clock posterior depth 9 cm from the nipple. This irregular fluid collection is of mixed echogenicity. This correlates as palpated and with mammography findings. Color flow imaging demonstrates that there is no vascularity present. No significant abnormalities were seen sonographically in the right axilla. IMPRESSION: BENIGN There is no sonographic evidence of malignancy. The 3.6 cm hematoma in the right breast is consistent is benign. A 1 year screening mammogram is recommended. Exam findings were conveyed to the patient. Patient is advised to monitor for significant change. Clinical follow-up is recommended. This exam was interpreted at Station ID: [id number]. Electronically Signed By: Ryan Howard M.D. slc/:07/18/2021 15:09:47 letter sent: Clinical Evaluation Ultrasound BI-RADS: 2 Benign
--- NOTE | 2021-07-18 | DI.MG.S_ITS ---
BILATERAL DIGITAL DIAGNOSTIC MAMMOGRAM 3D/2D POST LUMPECTOMY: 07/18/2021 CLINICAL: Adenocarcinoma; Right breast. Bilateral Lumps. Comparison is made to exams dated: 08/14/2020 localization, 07/10/2020 mammogram, 09/08/2018 mammogram, and 06/21/2016 mammogram - [facility]. There are scattered fibroglandular elements in both breasts. There is a high density focal asymmetry in the right breast at 11 o'clock posterior depth. This correlates to post-operative site. No other significant masses, calcifications, or other findings are seen in either breast. IMPRESSION: INCOMPLETE: NEEDS ADDITIONAL IMAGING EVALUATION The high density focal asymmetry in the right breast most likely is a hematoma and is indeterminate. -A targeted ultrasound is recommended and will immediately follow. No mass seen at the left breast palpable abnormality. -A targeted ultrasound is recommended and will immediately follow. This exam was interpreted at Station ID: [id number]. NOTE: For mammograms, a report in lay terms will be sent to the patient. Approximately 15% of breast malignancies will not be visualized mammographically. In the management of a palpable breast mass, a negative mammogram must not discourage biopsy of a clinically suspicious lesion. Electronically Signed By: Ryan Howard M.D. slc/:07/18/2021 14:23:57 ACR BI-RADS Category 0: Incomplete [id number]
== END ==
PROVIDERS: Family Provider Internal Medicine; PCP Physician Assistant Medical; Referring Provider Surgery; Visit Provider Surgery
DX: C50.911 Malignant neoplasm of unspecified site of right female breast; R92.8 Other abnormal and inconclusive findings on diagnostic imaging of breast; N64.89 Other specified disorders of breast; N63.20 Unspecified lump in the left breast, unspecified quadrant
CPT/HCPCS: 76642; 77066; G0279

== ENCOUNTER 2022-10-10 17:04 | Emergency (ER) | payer MEDICARE, OTHER, SELFPAY ==
[2022-10-10 17:16] VITALS: BP 134/63; PULSE 61; RESP 16; TEMP 36.8; O2SAT 97
--- NOTE | 2022-10-10 17:22 | DI.RAD.S_ITS ---
PROCEDURE: XR CHEST 1V INDICATIONS: syncope TECHNIQUE: One view of the chest was acquired. COMPARISON: Outside Film, CT, CT CHEST WITHOUT CONTRAST, 04/10/2022, 15:29. [facility], CT, CT RITTER, 06/03/2022, 13:02. [facility], CR, XR CHEST 2V, 07/12/2019, 12:50. [facility], CR, XR CHEST 2V, 11/10/2018, 14:21. FINDINGS: Surgical changes and devices: Right breast clips. Lungs and pleura: Left upper lobe opacity. No pleural effusions or pneumothorax. Mediastinum: Mediastinal contours appear normal. Heart size is normal. Bones and chest wall: No suspicious bony lesions. Overlying soft tissues appear unremarkable. IMPRESSION: Left upper lobe opacity. This could represent pneumonia or post treatment change. Dictated by: Ryan Howard M.D. on 10/10/2022 at 18:13 Approved by: Ryan Howard M.D. on 10/10/2022 at 18:15
--- NOTE | 2022-10-10 17:23 | DI.CT.S_ITS ---
PROCEDURE: CT HEAD/BRAIN WO CON INDICATIONS: severe headpain, possible syncope TECHNIQUE: Noncontrast 4.5 mm thick angled axial sections acquired from the foramen magnum to the vertex, with coronal and sagittal reformats. For radiation dose reduction, the following was used: automated exposure control, adjustment of mA and/or kV according to patient size. COMPARISON: [facility], [place], PET NECK TO MID THIGH, 04/24/2022, 13:12. [facility], CT, CT HEAD/BRAIN WO CON, 06/18/2021, 16:24. FINDINGS: Image quality: Excellent. CSF spaces: Basal cisterns are patent. No extra-axial fluid collections. Ventricles are normal in size and shape. Brain: No midline shift. No intracranial masses or hemorrhage. No area of hypodensity in a large vascular distribution to suggest acute infarction. Periventricular hypodensity consistent with chronic microvascular ischemic change. Skull and face: Calvarium and visualized facial bones are intact, without suspicious lesions. Sinuses: Visualized sinuses and mastoids are clear. IMPRESSION: No acute intracranial abnormality. Dictated by: Ryan Howard M.D. on 10/10/2022 at 17:58 Approved by: Ryan Howard M.D. on 10/10/2022 at 18:02
--- NOTE | 2022-10-10 18:11 | ED_ITS ---
HPI - Altered Mental Status <Wilmer CovingtonDO ciara - Last Filed: 10/11/22 14:10> General Chief Complaint: Altered Mental Status Stated Complaint: PASSED OUT, LIGHTHEADED Time Seen by Provider: 10/10/22 17:06 Source: patient Mode of arrival: Wheelchair History of Present Illness HPI narrative: 66-year-old female former smoker with a history of hypertension, diabetes elevate presents with family in evaluation of a 2-3 hour period of loss of memory. She states that she was feeling a bit under the weather and maybe had a bit of a headache earlier today and came back from the store and woke up 2-3 hours later at home in her recliner with a cupcake in her mouth. She denies any ongoing symptoms in fact feels much better. Perhaps a bit fatigued but otherwise no focal neurologic findings such as blurred vision, trouble speech, no neck pain or fever. No chest pain, shortness of breath or cough. No nausea, vomiting or diarrhea. No change in dietary habits or medications. Related Data Home Medications Medication Instructions Recorded Confirmed aspirin 81 mg tablet,delayed 81 mg PO DAILY ##0 04/17/10 11/10/18 release metformin 500 mg tablet 500 mg PO BIDCC ##0 09/23/12 07/12/19 (Glucophage) empagliflozin 25 mg tablet 25 mg PO DAILY ##0 09/17/16 07/12/19 (Jardiance) sitagliptin phosphate 100 mg 100 mg PO DAILY ##0 09/17/16 07/12/19 tablet (Januvia) atorvastatin 40 mg tablet 40 mg PO QPM 12/25/17 07/12/19 lisinopril 10 mg tablet 10 mg PO DAILY 12/25/17 11/10/18 metoprolol tartrate 25 mg tablet 25 mg PO BID 12/25/17 11/10/18 omeprazole 20 mg capsule,delayed 20 mg PO BID 12/25/17 07/12/19 release sertraline 100 mg tablet 50 mg PO QPM 12/25/17 07/12/19 meloxicam 7.5 mg tablet 7.5 mg PO BID 11/10/18 07/12/19 albuterol sulfate 90 mcg/actuation 2 puff inhalation Q4H PRN Wheezing 07/12/19 07/12/19 aerosol inhaler (ProAir HFA) losartan 50 mg tablet 50 mg PO DAILY 07/12/19 07/12/19 Previous Rx's Medication Instructions Recorded amoxicillin 500 mg capsule 500 mg PO TID #30 caps 07/12/19 benzonatate 200 mg capsule 200 mg PO TID PRN cough #30 caps 07/12/19 fluconazole 100 mg tablet 100 mg PO DAILY #1 tab 10/10/22 (Diflucan) Allergies Allergy/AdvReac Type Severity Reaction Status Date / Time niacin [NIACIN] Allergy Mild Verified 10/10/22 17:19 propoxyphene [From DARVON] Allergy Mild VOMITING Verified 10/10/22 17:19 OPIATE NARCOTICS Allergy Severe PROJECTIVE Uncoded 06/18/21 16:15 NAUSEA VOMITING. CIMBALTA Allergy Intermediate VOMITING Uncoded 06/18/21 16:15 Review of Systems <Wilmer White DO - Last Filed: 10/11/22 14:10> Review of Systems Narrative: GENERAL: See HPI HEENT: Denies sinus pain, ear pain, sore throat, difficulty swallowing, dizziness. RESPIRATORY: Denies dyspnea, cough, wheezing, hemoptysis, sputum. CARDIOVASCULAR: Denies chest pain, palpitations, orthopnea, edema, GASTROINTESTINAL: Denies nausea, vomiting, abdominal pain, diarrhea, constipa tion, melena. : Denies dysuria, frequency, incontinence, hematuria, urinary retention. MUSCULOSKELETAL: denies weakness, joint pain, or bony pain SKIN: Denies rash, skin lesions, or other NEUROLOGIC: Denies weakness, headache, numbness, change in speech, confusion, seizures, incoordination. PSYCHIATRIC: No concerning psychosocial issues. 12 point review of systems is negative except for those stated above Patient History <Wilmer White DO - Last Filed: 10/11/22 14:10> Medical History Diabetes History of lung cancer Hypertension Surgical History History of lung surgery Social History Smoking Status: Former smoker Smoking Status: Former smoker alcohol intake frequency: holidays/special occasions only Substance Use Type: does not use Exam <Wilmer White DO - Last Filed: 10/11/22 14:10> Narrative Exam Narrative: GENERAL: [66] year old patient appears stated age. Well-developed patient, in mild distress. HEAD: Atraumatic. Normocephalic. EYES: Pupils equal round and reactive. Extraocular motions intact. No scleral icterus. No injection or drainage. ENT: Nose without bleeding, purulent drainage. Throat without erythema, tonsillar hypertrophy or exudate. Airway patent. NECK: Trachea midline. Non tender CARDIOVASCULAR: Regular rate and rhythm without murmurs, gallops, or rubs. RESPIRATORY: Clear to auscultation. Breath sounds equal bilaterally. No wheezes, rales, or rhonchi. GASTROINTESTINAL: Abdomen soft, non-tender, nondistended. EXTREMITIES: No edema or joint tenderness. BACK: Nontender without deformity or crepitance. No flank tenderness. NEURO: AOx3. SKIN: No rash or erythema of visible areas Initial Vital Signs Initial Vital Signs: Vital Signs Temperature 98.3 F 10/10/22 17:16 Pulse Rate 61 10/10/22 17:16 Respiratory Rate 16 10/10/22 17:16 Blood Pressure 134/63 10/10/22 17:16 Pulse Oximetry 97 10/10/22 17:16 Oxygen Delivery Method Room Air 10/10/22 17:16 <Ambrose Yang DO - Last Filed: 10/10/22 21:31> Initial Vital Signs Initial Vital Signs: Vital Signs Temperature 98.3 F 10/10/22 17:16 Pulse Rate 61 10/10/22 17:16 Respiratory Rate 16 10/10/22 17:16 Blood Pressure 134/63 10/10/22 17:16 Pulse Oximetry 97 10/10/22 17:16 Oxygen Delivery Method Room Air 10/10/22 17:16 Course <Wilmer White DO - Last Filed: 10/11/22 14:10> Orders Ordered: Discontinued Medications Fluconazole (Fluconazole 100 Mg Tablet) 100 mg PO NOW ONE Stop: 10/10/22 20:17 Last Admin: 10/10/22 20:29 Dose: 100 mg Documented By: BETZY Sodium Chloride (Normal Saline 0.9%) 1,000 mls @ 1,000 mls/hr IV BOLUS ONE Stop: 10/10/22 18:20 Last Infusion: 10/10/22 20:27 Dose: 0 mls/hr Documented By: Admin: 10/10/22 18:50 Dose: 1,000 mls/hr Documented By: NR Vital Signs Vital signs: Vital Signs - 8 hr 10/10/22 17:16 10/10/22 20:08 10/10/22 20:32 Temperature 98.3 F 98.6 F Pulse Rate 61 66 Respiratory Rate 16 18 Blood Pressure 134/63 130/54 L Pulse Oximetry 97 98 Oxygen Delivery Method Room Air <Ambrose Yang DO - Last Filed: 10/10/22 21:31> Orders Ordered: Discontinued Medications Fluconazole (Fluconazole 100 Mg Tablet) 100 mg PO NOW ONE Stop: 10/10/22 20:17 Last Admin: 10/10/22 20:29 Dose: 100 mg Documented By: BETZY Sodium Chloride (Normal Saline 0.9%) 1,000 mls @ 1,000 mls/hr IV BOLUS ONE Stop: 10/10/22 18:20 Last Infusion: 10/10/22 20:27 Dose: 0 mls/hr Documented By: Admin: 10/10/22 18:50 Dose: 1,000 mls/hr Documented By: LUIS FERNANDO Vital Signs Vital signs: Vital Signs - 8 hr 10/10/22 17:16 10/10/22 20:08 10/10/22 20:32 Temperature 98.3 F 98.6 F Pulse Rate 61 66 Respiratory Rate 16 18 Blood Pressure 134/63 130/54 L Pulse Oximetry 97 98 Oxygen Delivery Method Room Air MDM - Altered Mental Status <Wilmer White DO - Last Filed: 10/11/22 14:10> Lab Data 10/10/22 18:15 10/10/22 18:15 Labs: Lab Results 10/10/22 10/10/22 10/10/22 Range/Units 18:15 18:15 18:15 WBC 9.0 (4.5-11.0) X10^3/uL RBC 4.96 (4.0-5.2) X10^6/uL Hgb 14.3 (12.0-16.0) g/dL Hct 41.8 (36-46) % MCV 84.2 (80-100) fL MCH 28.8 (26-34) PG MCHC 34.2 (30-36) % RDW 13.6 (11.6-14.8) % Plt Count 206 (150-400) X10^3/uL Neut % (Auto) 62.5 (50-75) % Lymph % (Auto) 27.3 (25-40) % [place] % (Auto) 7.5 (3-14) % Eos % (Auto) 1.9 L (2-4) % Baso % (Auto) 0.8 (0-2) % Neut # (Auto) 5700 (8213-8237) /uL Lymph # (Auto) 2500 (0979-9878) /uL [place] # (Auto) 700 (0-900) /uL Eos # (Auto) 200 (0-450) /uL Baso # (Auto) 100 (0-100) /uL Sodium 138 (137-145) mmol/L Potassium 3.8 (3.4-5.1) mmol/L Chloride 102 (98-107) mmol/L Carbon Dioxide 28 (22-32) mmol/L BUN 10 (7-17) mg/dL Creatinine 0.45 L (0.52-1.04) mg/dL Estimated GFR > 60 (>60) mL/min BUN/Creatinine Ratio 22.2 H (6-22) Glucose 131 H (80-110) mg/dL Lactate 1.3 (0.7-2.1) mmol/L Calcium 9.4 (8.4-10.2) mg/dL Total Bilirubin 1.2 (0.2-1.3) mg/dL AST 30 (14-36) IU/L ALT 21 (<35) IU/L Alkaline Phosphatase 76 (38-126) U/L Total Protein 7.0 (6.3-8.2) g/dL Albumin 3.9 (3.5-5.0) g/dL Globulin 3.1 (1.7-4.1) g/dL Albumin/Globulin Ratio 1.3 (1.0-2.8) Urine Color Urine Appearance Urine pH (4.5-8.0) Ur Specific [place] (1.000-1.035) Urine Protein (Negative) Urine Glucose (UA) (Negative) g/dL Urine Ketones (NEGATIVE) Urine Occult Blood (Negative) Urine Nitrate (Negative) Urine Bilirubin (NEGATIVE) Urine Urobilinogen (0.2) E.U./dL Ur Leukocyte Esterase (NEGATIVE) Urine RBC (0-5/HPF) Urine WBC (0-5/HPF) Ur Squamous Epith Cells (0-5/HPF) Urine Bacteria (None) Urine Yeast (None) Ur Culture Indicated? Salicylates < 1.0 (<20) mg/dL U Opiates 300ng/mL cut (Negative) Ur Oxycodone Screen (Negative) Urine Methadone Screen (Negative) Acetaminophen < 10 (10-30) ug/mL Ur Barbiturates Screen (Negative) U Tricyclic Antidepress (Negative) Ur Phencyclidine Scrn (Negative) Ur Amphetamines Screen (Negative) U Methamphetamines Scrn (Negative) Ur MDMA Scrn (Ecstasy) (Negative) U Benzodiazepines Scrn (Negative) Urine Cocaine Screen (Negative) U Marijuana (THC) Screen (Negative) Ethyl Alcohol < 10 ( - 10) mg/dL 10/10/22 10/10/22 Range/Units 19:40 19:40 WBC (4.5-11.0) X10^3/uL RBC (4.0-5.2) X10^6/uL Hgb (12.0-16.0) g/dL Hct (36-46) % MCV (80-100) fL MCH (26-34) PG MCHC (30-36) % RDW (11.6-14.8) % Plt Count (150-400) X10^3/uL Neut % (Auto) (50-75) % Lymph % (Auto) (25-40) % [place] % (Auto) (3-14) % Eos % (Auto) (2-4) % Baso % (Auto) (0-2) % Neut # (Auto) (6229-3671) /uL Lymph # (Auto) (4244-5392) /uL [place] # (Auto) (0-900) /uL Eos # (Auto) (0-450) /uL Baso # (Auto) (0-100) /uL Sodium (137-145) mmol/L Potassium (3.4-5.1) mmol/L Chloride (98-107) mmol/L Carbon Dioxide (22-32) mmol/L BUN (7-17) mg/dL Creatinine (0.52-1.04) mg/dL Estimated GFR (>60) mL/min BUN/Creatinine Ratio (6-22) Glucose (80-110) mg/dL Lactate (0.7-2.1) mmol/L Calcium (8.4-10.2) mg/dL Total Bilirubin (0.2-1.3) mg/dL AST (14-36) IU/L ALT (<35) IU/L Alkaline Phosphatase (38-126) U/L Total Protein (6.3-8.2) g/dL Albumin (3.5-5.0) g/dL Globulin (1.7-4.1) g/dL Albumin/Globulin Ratio (1.0-2.8) Urine Color Yellow Urine Appearance Clear Urine pH 5.5 (4.5-8.0) Ur Specific [place] <=1.005 (1.000-1.035) Urine Protein Negative (Negative) Urine Glucose (UA) 3+ H (Negative) g/dL Urine Ketones Negative (NEGATIVE) Urine Occult Blood Negative (Negative) Urine Nitrate Negative (Negative) Urine Bilirubin Negative (NEGATIVE) Urine Urobilinogen 0.2 (0.2) E.U./dL Ur Leukocyte Esterase Negative (NEGATIVE) Urine RBC None seen (0-5/HPF) Urine WBC 0-1/hpf (0-5/HPF) Ur Squamous Epith Cells 0-1 /hpf (0-5/HPF) Urine Bacteria None seen (None) Urine Yeast 10-30/hpf H (None) Ur Culture Indicated? Specimen cultured Salicylates (<20) mg/dL U Opiates 300ng/mL cut Negative (Negative) Ur Oxycodone Screen Negative (Negative) Urine Methadone Screen Negative (Negative) Acetaminophen (10-30) ug/mL Ur Barbiturates Screen Negative (Negative) U Tricyclic Antidepress Negative (Negative) Ur Phencyclidine Scrn Negative (Negative) Ur Amphetamines Screen Negative (Negative) U Methamphetamines Scrn Negative (Negative) Ur MDMA Scrn (Ecstasy) Negative (Negative) U Benzodiazepines Scrn Negative (Negative) Urine Cocaine Screen Negative (Negative) U Marijuana (THC) Screen Negative (Negative) Ethyl Alcohol ( - 10) mg/dL Point of Care Testing Glucose POC 181 MDM Narrative Medical decision making narrative: Patient's history and physical exam are reassuring, labs and imaging are pending. Signed out to Dr. Yang for final disposition <Ambrose Yang DO - Last Filed: 10/10/22 21:31> Lab Data Attestation: I reviewed the patient's lab results. Labs: Lab Results 10/10/22 10/10/22 10/10/22 Range/Units 18:15 18:15 18:15 WBC 9.0 (4.5-11.0) X10^3/uL RBC 4.96 (4.0-5.2) X10^6/uL Hgb 14.3 (12.0-16.0) g/dL Hct 41.8 (36-46) % MCV 84.2 (80-100) fL MCH 28.8 (26-34) PG MCHC 34.2 (30-36) % RDW 13.6 (11.6-14.8) % Plt Count 206 (150-400) X10^3/uL Neut % (Auto) 62.5 (50-75) % Lymph % (Auto) 27.3 (25-40) % [place] % (Auto) 7.5 (3-14) % Eos % (Auto) 1.9 L (2-4) % Baso % (Auto) 0.8 (0-2) % Neut # (Auto) 5700 (8660-7466) /uL Lymph # (Auto) 2500 (5301-6811) /uL [place] # (Auto) 700 (0-900) /uL Eos # (Auto) 200 (0-450) /uL Baso # (Auto) 100 (0-100) /uL Sodium 138 (137-145) mmol/L Potassium 3.8 (3.4-5.1) mmol/L Chloride 102 (98-107) mmol/L Carbon Dioxide 28 (22-32) mmol/L BUN 10 (7-17) mg/dL Creatinine 0.45 L (0.52-1.04) mg/dL Estimated GFR > 60 (>60) mL/min BUN/Creatinine Ratio 22.2 H (6-22) Glucose 131 H (80-110) mg/dL Lactate 1.3 (0.7-2.1) mmol/L Calcium 9.4 (8.4-10.2) mg/dL Total Bilirubin 1.2 (0.2-1.3) mg/dL AST 30 (14-36) IU/L ALT 21 (<35) IU/L Alkaline Phosphatase 76 (38-126) U/L Total Protein 7.0 (6.3-8.2) g/dL Albumin 3.9 (3.5-5.0) g/dL Globulin 3.1 (1.7-4.1) g/dL Albumin/Globulin Ratio 1.3 (1.0-2.8) Urine Color Urine Appearance Urine pH (4.5-8.0) Ur Specific [place] (1.000-1.035) Urine Protein (Negative) Urine Glucose (UA) (Negative) g/dL Urine Ketones (NEGATIVE) Urine Occult Blood (Negative) Urine Nitrate (Negative) Urine Bilirubin (NEGATIVE) Urine Urobilinogen (0.2) E.U./dL Ur Leukocyte Esterase (NEGATIVE) Urine RBC (0-5/HPF) Urine WBC (0-5/HPF) Ur Squamous Epith Cells (0-5/HPF) Urine Bacteria (None) Urine Yeast (None) Ur Culture Indicated? Salicylates < 1.0 (<20) mg/dL U Opiates 300ng/mL cut (Negative) Ur Oxycodone Screen (Negative) Urine Methadone Screen (Negative) Acetaminophen < 10 (10-30) ug/mL Ur Barbiturates Screen (Negative) U Tricyclic Antidepress (Negative) Ur Phencyclidine Scrn (Negative) Ur Amphetamines Screen (Negative) U Methamphetamines Scrn (Negative) Ur MDMA Scrn (Ecstasy) (Negative) U Benzodiazepines Scrn (Negative) Urine Cocaine Screen (Negative) U Marijuana (THC) Screen (Negative) Ethyl Alcohol < 10 ( - 10) mg/dL 10/10/22 10/10/22 Range/Units 19:40 19:40 WBC (4.5-11.0) X10^3/uL RBC (4.0-5.2) X10^6/uL Hgb (12.0-16.0) g/dL Hct (36-46) % MCV (80-100) fL MCH (26-34) PG MCHC (30-36) % RDW (11.6-14.8) % Plt Count (150-400) X10^3/uL Neut % (Auto) (50-75) % Lymph % (Auto) (25-40) % [place] % (Auto) (3-14) % Eos % (Auto) (2-4) % Baso % (Auto) (0-2) % Neut # (Auto) (7107-6975) /uL Lymph # (Auto) (6605-3326) /uL [place] # (Auto) (0-900) /uL Eos # (Auto) (0-450) /uL Baso # (Auto) (0-100) /uL Sodium (137-145) mmol/L Potassium (3.4-5.1) mmol/L Chloride (98-107) mmol/L Carbon Dioxide (22-32) mmol/L BUN (7-17) mg/dL Creatinine (0.52-1.04) mg/dL Estimated GFR (>60) mL/min BUN/Creatinine Ratio (6-22) Glucose (80-110) mg/dL Lactate (0.7-2.1) mmol/L Calcium (8.4-10.2) mg/dL Total Bilirubin (0.2-1.3) mg/dL AST (14-36) IU/L ALT (<35) IU/L Alkaline Phosphatase (38-126) U/L Total Protein (6.3-8.2) g/dL Albumin (3.5-5.0) g/dL Globulin (1.7-4.1) g/dL Albumin/Globulin Ratio (1.0-2.8) Urine Color Yellow Urine Appearance Clear Urine pH 5.5 (4.5-8.0) Ur Specific [place] <=1.005 (1.000-1.035) Urine Protein Negative (Negative) Urine Glucose (UA) 3+ H (Negative) g/dL Urine Ketones Negative (NEGATIVE) Urine Occult Blood Negative (Negative) Urine Nitrate Negative (Negative) Urine Bilirubin Negative (NEGATIVE) Urine Urobilinogen 0.2 (0.2) E.U./dL Ur Leukocyte Esterase Negative (NEGATIVE) Urine RBC None seen (0-5/HPF) Urine WBC 0-1/hpf (0-5/HPF) Ur Squamous Epith Cells 0-1 /hpf (0-5/HPF) Urine Bacteria None seen (None) Urine Yeast 10-30/hpf H (None) Ur Culture Indicated? Specimen cultured Salicylates (<20) mg/dL U Opiates 300ng/mL cut Negative (Negative) Ur Oxycodone Screen Negative (Negative) Urine Methadone Screen Negative (Negative) Acetaminophen (10-30) ug/mL Ur Barbiturates Screen Negative (Negative) U Tricyclic Antidepress Negative (Negative) Ur Phencyclidine Scrn Negative (Negative) Ur Amphetamines Screen Negative (Negative) U Methamphetamines Scrn Negative (Negative) Ur MDMA Scrn (Ecstasy) Negative (Negative) U Benzodiazepines Scrn Negative (Negative) Urine Cocaine Screen Negative (Negative) U Marijuana (THC) Screen Negative (Negative) Ethyl Alcohol ( - 10) mg/dL Point of Care Testing Glucose POC 181 ECG Data Attestation: I personally reviewed and interpreted this ECG as follows: Interpretation: Sinus rhythm Ventricular rate is 68 Normal axis Normal QRS Normal QTC No ST T wave changes MDM Narrative Medical decision making narrative: Patient's history and physical exam are reassuring, labs and imaging are pending. Signed out to Dr. Yang for final disposition Dr yang: Received turned over. Review patient's history and physical workup up to this point. EKG and labs are unremarkable. Patient ambulated. Low suspicion for seizure. Low suspicion for CVA. Potentially could have had an arrhythmia and I did discuss this with her and she understands the limitations not knowing what her heart rhythm was at the time of the event. Patient does have yeast in her urine. She states she frequently gets yeast infections because of medications that she takes. She is having some symptoms of this. I do not think that this is the etiology of her syncopal episode today. She was given a prescription for Diflucan. Will hold on further workup for now. Discharge patient with return precautions and follow-up instructions. She expressed understanding and agreement. Discharge Plan Departure Patient Disposition: Home Clinical Impression: Syncope, Yeast infection Instructions: DI for Syncope in Adults (Fainting) Activity Restrictions/Additional Instructions: I do recommend that you contact your primary doctor for a follow-up to discuss further evaluation of the episode that happened today. A prescription for another dose of Diflucan was sent to the pharmacy of your choice. If you are still having symptoms in a couple days from now you can take this medication as directed. Return to the emergency department for new or worsening symptoms. Prescriptions: New fluconazole [Diflucan] 100 mg tablet 100 mg PO DAILY Qty: 1 0RF No Action aspirin 81 mg Tablet,Delayed Release (Dr/Ec) 81 mg PO DAILY Qty: 0 metformin [Glucophage] 500 MG tablet 500 mg PO BIDCC Qty: 0 Januvia 100 MG tablet 100 mg PO DAILY Qty: 0 Jardiance 25 MG tablet 25 mg PO DAILY Qty: 0 atorvastatin 40 mg tablet 40 mg PO QPM sertraline 100 mg tablet 50 mg PO QPM omeprazole 20 mg capsule,delayed release(DR/EC) 20 mg PO BID lisinopril 10 mg Tablet 10 mg PO DAILY metoprolol tartrate 25 mg Tablet 25 mg PO BID meloxicam 7.5 mg tablet 7.5 mg PO BID losartan 50 mg tablet 50 mg PO DAILY albuterol sulfate [ProAir HFA] 90 mcg/actuation HFA aerosol inhaler 2 puff INHALATION Q4H PRN (Reason: Wheezing) Patient Comments: inhale 2 puffs by mouth up to every 4 hours if needed for wheezing benzonatate 200 mg capsule 200 mg PO TID PRN (Reason: cough) Qty: 30 0RF amoxicillin 500 mg capsule 500 mg PO TID Qty: 30 0RF Referrals: Nika Madrigal PA-C [Primary Care Provider] - Stand Alone Forms: Patient Portal/API
[2022-10-10 18:29] LABS: Add Manual Diff / Slide Review NO; Basophils Absolute Auto 100 /uL (0-100); Basophils Percent Auto 0.8 % (0-2); Eosinophils Absolute Auto 200 /uL (0-450); Eosinophils Percent Auto 1.9 % (2-4); Hematocrit 41.8 % (36-46); Hemoglobin 14.3 g/dL (12.0-16.0); Lymphocytes Absolute Auto 2500 /uL (1100-4500); Lymphocytes Percent Auto 27.3 % (25-40); Mean Corpuscular HGB Conc 34.2 % (30-36); Mean Corpuscular Hemoglobin 28.8 PG (26-34); Mean Corpuscular Volume 84.2 fL (80-100); Monocytes Absolute Auto 700 /uL (0-900); Monocytes Percent Auto 7.5 % (3-14); Neutrophils Absolute Auto 5700 /uL (1500-7000); Neutrophils Percent Auto 62.5 % (50-75); Platelet Count 206 X10^3/uL (150-400); Red Blood Cell Count 4.96 X10^6/uL (4.0-5.2); Red Cell Distribution Width 13.6 % (11.6-14.8)
[2022-10-10] MEDS: SODIUM CHLORIDE 0.9% 1,000 ML 1000 ML IV (18:50)
[2022-10-10 18:58] LABS: Lactate (Lactic Acid) 1.3 mmol/L (0.7-2.1)
[2022-10-10 19:00] LABS: Acetaminophen < 10 ug/mL (10-30); Alanine Aminotransferase 21 IU/L (<35); Albumin 3.9 g/dL (3.5-5.0); Albumin Globulin Ratio 1.3 (1.0-2.8); Alkaline Phosphatase 76 U/L (38-126); Aspartate Aminotransferase 30 IU/L (14-36); BUN Creatinine Ratio 22.2 (6-22); Bilirubin Total 1.2 mg/dL (0.2-1.3); Blood Urea Nitrogen 10 mg/dL (7-17); Calcium 9.4 mg/dL (8.4-10.2); Carbon Dioxide 28 mmol/L (22-32); Chloride 102 mmol/L (98-107); Estimated Glomerular Filt Rate > 60 mL/min (>60); Ethanol (ETOH) < 10 mg/dL; Globulin 3.1 g/dL (1.7-4.1); Glucose 131 mg/dL (80-110); HEMOLYSIS < 15 (0-50); Potassium 3.8 mmol/L (3.4-5.1); Salicylate < 1.0 mg/dL (<20); Sodium 138 mmol/L (137-145)
[2022-10-10 19:55] LABS: Appearance Urine UA CLEAR; Bilirubin Urine UA NEGATIVE (NEGATIVE); Color Urine UA YELLOW; Glucose Urine UA 3+ g/dL (Negative); Ketones Urine UA NEGATIVE (NEGATIVE); Leukocyte Esterase Urine UA NEGATIVE (NEGATIVE); Nitrite Urine UA NEGATIVE (Negative); Occult Blood Urine UA NEGATIVE (Negative); Protein Urine UA NEGATIVE (Negative); Specific Gravity Urine UA <=1.005 (1.000-1.035); Urobilinogen Urine UA 0.2 E.U./dL (0.2)
[2022-10-10 19:56] LABS: pH Urine UA 5.5 (4.5-8.0)
[2022-10-10 19:58] LABS: UR Morphine/Opiate cutoff 300 Negative (Negative); Ur Creatinine Normal (Normal); Ur Specific Gravity Normal (Normal); Urine Amphetamines Negative (Negative); Urine Barbiturates Negative (Negative); Urine Benzodiazepines Negative (Negative); Urine Cocaine Negative (Negative); Urine MDMA Negative (Negative); Urine Methadone Negative (Negative); Urine Methamphetamines Negative (Negative); Urine Oxycodone Negative (Negative); Urine Phencyclidine Negative (Negative); Urine Tetrahydrocannabinol Negative (Negative); Urine Tricyclic Antidepressant Negative (Negative); Urine pH Normal (Normal)
[2022-10-10 20:04] LABS: Bacteria Urine None Seen; Culture Indicated Urine Specimen Cultured; RBC Urine None Seen (0-5/HPF); Squamous Epithelial Cell Urine 0-1 /HPF (0-5/HPF); WBC Urine 0-1/HPF (0-5/HPF)
[2022-10-10 20:08] VITALS: BP 130/54; PULSE 66; RESP 18; O2SAT 98
[2022-10-10] MEDS: FLUCONAZOLE 100 MG TABLET PO (20:29)
[2022-10-10 20:32] VITALS: TEMP 37
== END 2022-10-10 20:33 | disposition home or self-care (01) ==
PROVIDERS: Emergency Medicine; Emergency Provider Emergency Medicine; PCP Physician Assistant Medical
DX: R55 Syncope and collapse (principal); B37.9 Candidiasis, unspecified
CPT/HCPCS: 36415; 70450; 71045; 80053; 80305; 80320; 80329; 81001; 82962; 83605; 85025; 87086; 93005; 93010; 99284; G0480

== ENCOUNTER 2022-11-03 18:02 | Emergency (ER) | payer OTHER, SELFPAY ==
[2022-11-03 18:18] VITALS: BP 158/75; PULSE 73; RESP 18; TEMP 36.7; O2SAT 96; BMI 34.9
[2022-11-03] MEDS: diazePAM 5 MG TABLET PO (19:17)
--- NOTE | 2022-11-03 20:20 | ED.GENADULT ---
HPI - General Adult General Chief complaint: Dental/Oral Stated complaint: Left facial side pain, jaw pain Time Seen by Provider: 11/03/22 18:14 Source: patient Mode of arrival: Ambulatory History of Present Illness HPI narrative: 66-year-old woman with a history of asthma hyperlipidemia who had dental work done 2 weeks ago and mild revision done 2 days ago. After the most recent dental visit she is been unable to articulate her lower teeth with her upper dentures as she had previously. She is having dramatic TMJ pain and can not open her jaw more than 2 finger breaths. She is describing no fevers, erythema but is describing headaches and significant pain with fullness and swelling around the TMJ that feels like it is radiating into her ear canal Related Data Home Medications Medication Instructions Recorded Confirmed aspirin 81 mg tablet,delayed 81 mg PO DAILY ##0 04/17/10 11/10/18 release metformin 500 mg tablet 500 mg PO BIDCC ##0 09/23/12 07/12/19 (Glucophage) empagliflozin 25 mg tablet 25 mg PO DAILY ##0 09/17/16 07/12/19 (Jardiance) sitagliptin phosphate 100 mg 100 mg PO DAILY ##0 09/17/16 07/12/19 tablet (Januvia) atorvastatin 40 mg tablet 40 mg PO QPM 12/25/17 07/12/19 lisinopril 10 mg tablet 10 mg PO DAILY 12/25/17 11/10/18 metoprolol tartrate 25 mg tablet 25 mg PO BID 12/25/17 11/10/18 omeprazole 20 mg capsule,delayed 20 mg PO BID 12/25/17 07/12/19 release sertraline 100 mg tablet 50 mg PO QPM 12/25/17 07/12/19 meloxicam 7.5 mg tablet 7.5 mg PO BID 11/10/18 07/12/19 albuterol sulfate 90 mcg/actuation 2 puff inhalation Q4H PRN Wheezing 07/12/19 07/12/19 aerosol inhaler (ProAir HFA) losartan 50 mg tablet 50 mg PO DAILY 07/12/19 07/12/19 Previous Rx's Medication Instructions Recorded amoxicillin 500 mg capsule 500 mg PO TID #30 caps 07/12/19 benzonatate 200 mg capsule 200 mg PO TID PRN cough #30 caps 02/24/20 fluconazole 100 mg tablet 100 mg PO DAILY #1 tab 10/10/22 (Diflucan) diazepam 5 mg tablet 5 mg PO BID PRN muscle spasm #10 11/03/22 tabs Allergies Allergy/AdvReac Type Severity Reaction Status Date / Time niacin [NIACIN] Allergy Mild Verified 10/10/22 17:19 propoxyphene [From DARVON] Allergy Mild VOMITING Verified 10/10/22 17:19 OPIATE NARCOTICS Allergy Severe PROJECTIVE Uncoded 06/18/21 16:15 NAUSEA VOMITING. CIMBALTA Allergy Intermediate VOMITING Uncoded 06/18/21 16:15 Review of Systems Review of Systems Narrative: Pertinent positive and negative findings as per HPI Patient History Medical History Diabetes History of lung cancer Hypertension Surgical History History of lung surgery Social History Smoking Status: Former smoker Smoking Status: Former smoker alcohol intake frequency: holidays/special occasions only Substance Use Type: does not use Exam Initial Vital Signs Initial Vital Signs: Vital Signs Temperature 98.0 F 11/03/22 18:18 Pulse Rate 73 11/03/22 18:18 Respiratory Rate 18 11/03/22 18:18 Blood Pressure 158/75 H 11/03/22 18:18 Pulse Oximetry 96 11/03/22 18:18 Oxygen Delivery Method Room Air 11/03/22 18:18 General: Alert appropriate in pain HEENT: Moderate fullness anterior to the left TMJ. Exquisite pain with palpation over the TMJ while she tries to open her jaw. Jaw can open 2 finger breaths. No intraoral abscess appreciated. Respiratory: Able to speak in full sentences, no obvious respiratory distress Skin: No obvious rashes, warm and dry Neurologic: Grossly intact no obvious asymmetries or abnormalities Psych: appropriate insight and affect, cooperative Course Orders Ordered: Discontinued Medications Bupivacaine HCl/Epinephrine Bitart (Bupivacaine 0.25% W/ Epi (Pf) 10 Ml Vial) 20 ml INJ INTRA-OP ONE Stop: 11/03/22 19:08 Last Admin: 11/03/22 19:25 Dose: Not Given Documented By: KM Bupivacaine HCl/Epinephrine Bitart (Bupivacaine 0.5% W/ Epi (Pf) 30 Ml Vial) 5 ml SUBCUT NOW ONE Stop: 11/03/22 19:12 Last Admin: 11/03/22 20:22 Dose: 5 ml Documented By: VITOR Diazepam (Diazepam 5 Mg Tablet) 5 mg PO NOW ONE Stop: 11/03/22 19:04 Last Admin: 11/03/22 19:17 Dose: 5 mg Documented By: JEOVANNY Vital Signs Vital signs: Vital Signs - 8 hr 11/03/22 18:18 Temperature 98.0 F Pulse Rate 73 Respiratory Rate 18 Blood Pressure 158/75 H Pulse Oximetry 96 Oxygen Delivery Method Room Air Medical Decision Making MDM Narrative Medical decision making narrative: CC: Jaw pain, acute uncertain prognosis Complicating co-morbidities: Recent extraction of her left lower pre molar Data collected from: patient, Differential considered: Dry socket, dental infection, abscess, TMJ abnormality, displaced TMJ disc Exam documented above, pertinent findings include: Tenderness over TMJ, unable to open more than 2 finger breaths, no intraoral abscess. Treatments: She is given 5 mg of oral Valium to help with muscle spasm. I tried to use some type of splint to allow her to translocate the posterior part of her jaw to help Erlin locate the dislocated disc. Because she has no molars on either side on the bottom and dentures on the top I was unable to find an appropriately shaped tool or device to allow that type of intraoral pressure. I did a intra-articular injection left TMJ with 4 cc of bupivacaine with lidocaine to try and provide some pain relief for her overnight. Discussion: 66-year-old woman with dislocated left-sided TMJ disc after dental work. Significant pain but no evidence of infection. Talked about using muscle relaxers. She will need to talk to this [facility] dentist today. Perhaps a bite block or a thicker dental type cotton swab/pack may be helpful to help slightly translocated the jaw to allow the disc to relocate. Again because of her missing posterior teeth bilaterally on the bottom and dentures on the top this is going to be challenging. Discharge Plan Departure Patient Disposition: Home Clinical Impression: Temporal mandibular joint disorder Instructions: DI for Temporomandibular Disorder Activity Restrictions/Additional Instructions: Thank you for coming in today. I am sorry that you are suffering. Based on your clinical exam, I suspect that the small bit of cartilage that makes up part of your jaw joint on the left side has slipped forward and out of place which is causing your pain and the reason you are not able to open your jaw. Typically using a pencil between your back teeth to bring your back teeth down but not open up the front of your jaw is helpful in trying to get that bit of cartilage relocated. In your case, without any teeth in the back I do not have anything that is the correct size that can fit in your mouth and also allow you to put pressure at the back of your jaw to distract the joint. In the meantime, I have given you some diazepam to help with the muscle spasm that did seem to make a difference. For tonight so that you are able to sleep I injected some long-acting numbing medicine around the left jaw joint. Hopefully between these 2 interventions your jaw can relax a bit, you can sleep better and the disc may even work its way back into place. You do need to call see Mar tomorrow and let them know that your having joint difficulties after being seen on Friday and can not open your jaw. If you find that you are getting worse or develop any new symptoms, please feel free to return to the emergency department for further evaluation. Prescriptions: New diazepam 5 mg tablet 5 mg PO BID PRN (Reason: muscle spasm) Qty: 10 0RF No Action aspirin 81 mg Tablet,Delayed Release (Dr/Ec) 81 mg PO DAILY Qty: 0 metformin [Glucophage] 500 MG tablet 500 mg PO BIDCC Qty: 0 Januvia 100 MG tablet 100 mg PO DAILY Qty: 0 Jardiance 25 MG tablet 25 mg PO DAILY Qty: 0 atorvastatin 40 mg tablet 40 mg PO QPM sertraline 100 mg tablet 50 mg PO QPM omeprazole 20 mg capsule,delayed release(DR/EC) 20 mg PO BID lisinopril 10 mg Tablet 10 mg PO DAILY metoprolol tartrate 25 mg Tablet 25 mg PO BID meloxicam 7.5 mg tablet 7.5 mg PO BID losartan 50 mg tablet 50 mg PO DAILY albuterol sulfate [ProAir HFA] 90 mcg/actuation HFA aerosol inhaler 2 puff INHALATION Q4H PRN (Reason: Wheezing) Patient Comments: inhale 2 puffs by mouth up to every 4 hours if needed for wheezing benzonatate 200 mg capsule 200 mg PO TID PRN (Reason: cough) Qty: 30 0RF amoxicillin 500 mg capsule 500 mg PO TID Qty: 30 0RF fluconazole [Diflucan] 100 mg tablet 100 mg PO DAILY Qty: 1 0RF Referrals: Nika Madrigal PA-C [Primary Care Provider] - Stand Alone Forms: Patient Portal/API
[2022-11-03] MEDS: BUPIVACAINE 0.5% W/ EPI (PF) 30 ML VIAL 5 ML SUBCUT (20:22)
[2022-11-03 20:35] VITALS: BP 157/75; PULSE 73; RESP 16; O2SAT 97
== END 2022-11-03 20:37 | disposition home or self-care (01) ==
PROVIDERS: Emergency Provider Emergency Medicine; PCP Physician Assistant Medical
DX: M26.602 Left temporomandibular joint disorder, unspecified (principal)
CPT/HCPCS: 96372; 99283

== ENCOUNTER 2023-08-01 23:16 | Inpatient (IN) | payer MEDICARE, OTHER, SELFPAY ==
[2023-08-01 23:20] VITALS: BP 156/71; PULSE 101; RESP 24; TEMP 37; O2SAT 96; BMI 35.2
--- NOTE | 2023-08-01 23:36 | DI.CT.S_ITS ---
PROCEDURE: CT ANGIO CHEST PE PROTOCOL INDICATIONS: sudden onset shortness of breath TECHNIQUE: After the administration of intravenous contrast, 2 mm thick sections acquired from the pulmonary apices to the posterior costophrenic angles. 3-dimensional maximum intensity projection (MIP) coronal and sagittal reformats were then acquired through the thorax. For radiation dose reduction, the following was used: automated exposure control, adjustment of mA and/or kV according to patient size. COMPARISON: [facility], CT, CT CHEST WITH CONTRAST, 06/05/2023, 12:59. [facility], CT, CT ANGIO CHEST PE PROTOCOL, 11/10/2018, 16:54. FINDINGS: Image quality: Diagnostic. Pulmonary arteries: Pulmonary arteries are normal in size, and demonstrate no intraluminal filling defects to suggest central pulmonary embolism. Lower Neck: No enlarged lymph nodes. Thyroid: Stable thyroid nodules. Axillae: No enlarged lymph nodes. Chest Wall: Unremarkable. Bones: Mild superior endplate compression fracture at T6 is new when compared to the CT from 06/05/2023. There appears to be mild adjacent soft tissue edema. Lungs and Pleura: Moderate left pleural effusion with atelectasis of the adjacent left lung. Mass-like opacities again seen in the left upper lobe extending into the perihilar region. Stable bandlike scarring in the superior segment of the left lower lobe. Status post right lower lobectomy. Heart: Heart size is normal. No pericardial effusion. Thoracic Vessels: No aortic aneurysm. Mediastinum and Patricia: No enlarged lymph nodes. Esophagus: No wall thickening. No hiatal hernia. Upper Abdomen: Cholelithiasis. No acute abnormality in the included upper abdomen. IMPRESSION: 1. No acute pulmonary embolus. 2. Moderate left pleural effusion with atelectasis of the adjacent portions of the left lung. 3. Stable appearance of left upper lobe mass. 4. Mild superior endplate compression fracture at T6 is new when compared to the CT from 06/05/2023. Approved by: Omid Elliott M.D. on 08/02/2023 at 1:41
[2023-08-01 23:44] VITALS: O2SAT 92
[2023-08-01 23:45] VITALS: BP 90/63; PULSE 115; O2SAT 95
[2023-08-01] MEDS: OXYCODONE/ACETAMINOPHEN 5/325 TABLET 1 TAB PO (23:54)
[2023-08-01] MEDS: ALBUTEROL/IPRATROPIUM 3 ML AMPUL INH (23:55)
[2023-08-02] VITALS (19 sets, daily range): BP systolic 102–143; BP diastolic 55–90; PULSE 78–109; RESP 18–32; TEMP 35.8–37.1; O2SAT 86–97; BMI 35.9
[2023-08-02] MEDS: PIPERACILLIN/TAZO 4.5 GM in SODIUM CHLORIDE 0.9% 100 ML IV (00:28)
[2023-08-02] MEDS: SODIUM CHLORIDE 0.9% 1,000 ML 1000 ML IV ×2 (00:28→01:50)
[2023-08-02 00:43] LABS: Add Manual Diff / Slide Review NO; Basophils Absolute Auto 300 /uL (0-100); Basophils Percent Auto 1.7 % (0-2); Eosinophils Absolute Auto 300 /uL (0-450); Eosinophils Percent Auto 1.9 % (2-4); Hematocrit 38.2 % (36-46); Hemoglobin 12.9 g/dL (12.0-16.0); Lymphocytes Absolute Auto 2700 /uL (1100-4500); Lymphocytes Percent Auto 15.1 % (25-40); Mean Corpuscular HGB Conc 33.7 % (30-36); Mean Corpuscular Hemoglobin 28.7 PG (26-34); Mean Corpuscular Volume 85.4 fL (80-100); Monocytes Absolute Auto 1400 /uL (0-900); Monocytes Percent Auto 7.9 % (3-14); Neutrophils Absolute Auto 12900 /uL (1500-7000); Neutrophils Percent Auto 73.4 % (50-75); Platelet Count 301 X10^3/uL (150-400); Red Blood Cell Count 4.48 X10^6/uL (4.0-5.2); Red Cell Distribution Width 14.2 % (11.6-14.8); White Blood Cell Count 17.6 X10^3/uL (4.5-11.0)
[2023-08-02 00:50] LABS: Alanine Aminotransferase 11 IU/L (<35); Albumin 3.6 g/dL (3.5-5.0); Albumin Globulin Ratio 1.2 (1.0-2.8); Alkaline Phosphatase 78 U/L (38-126); Aspartate Aminotransferase 16 IU/L (14-36); BUN Creatinine Ratio 17.1 (6-22); Bilirubin Total 0.7 mg/dL (0.2-1.3); Blood Urea Nitrogen 6 mg/dL (7-17); Calcium 9.7 mg/dL (8.4-10.2); Carbon Dioxide 27 mmol/L (22-32); Chloride 106 mmol/L (98-107); Estimated Glomerular Filt Rate > 60 mL/min (>60); Glucose 132 mg/dL (80-110); HEMOLYSIS < 15 (0-50); Potassium 3.8 mmol/L (3.4-5.1); Sodium 137 mmol/L (137-145); Total Protein 6.6 g/dL (6.3-8.2)
[2023-08-02 00:51] LABS: Lactate (Lactic Acid) 2.2 mmol/L (0.7-2.1)
[2023-08-02] MEDS: HYDROMORPHONE 0.5 MG INJ IV (00:56)
[2023-08-02 00:59] LABS: NT-proBNP (BNP-Adult 18+) 29 pg/mL (<125)
[2023-08-02 01:51] LABS: Adenovirus Not Detected (Not Detect); B. parapertussis Not Detected (Not Detecte); Bordetella pertussis Not Detected (Not Detect); Chlamydophila pneumoniae Not Detected (Not Detect); Coronavirus 229E Not Detected (Not Detect); Coronavirus HKU1 Not Detected (Not Detect); Coronavirus NL 63 Not Detected (Not Detect); Coronavirus OC43 Not Detected (Not Detect); Human Metapneumovirus Not Detected (Not Detect); Human Rhinovirus/Enterovirus Detected (Not Detect); Influenza A Not Detected (Not Detect); Influenza B Not Detected (Not Detect); Mycoplasma pneumoniae Not Detected (Not Detect); Parainfluenza Virus 1 Not Detected (Not Detect); Parainfluenza Virus 2 Not Detected (Not Detect); Parainfluenza Virus 3 Not Detected (Not Detect); Parainfluenza Virus 4 Not Detected (Not Detect); Respiratory Syncytial Virus Not Detected (Not Detect); SARS- CoV-2 Not Detected (Not Detecte)
[2023-08-02 02:09] LABS: Reflexed Lactate in 2 Hours Y
--- NOTE | 2023-08-02 02:23 | ED_ITS ---
HPI - General Adult General Chief complaint: Shortness of Breath/Dyspnea Stated complaint: SOB Time Seen by Provider: 08/01/23 23:45 Source: patient Mode of arrival: Ambulatory History of Present Illness HPI narrative: 67-year-old woman with right breast, left lung and possible duodenal as well as thyroid cancer currently followed by Dr. Hollis at [facility]. 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 Most recent thoracentesis was June 27, 2023. 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 In 2020 she had a right breast lumpectomy and sentinel node biopsy. She is currently receiving chemotherapy and presents today with severe cough, acute dyspnea while she was walking around the house today, no evidence that albuterol was helpful. The coughing is so severe she is developing headache. She also has pain under her breastbone from the coughing severity. Related Data Home Medications Medication Instructions Recorded Confirmed aspirin 81 mg tablet,delayed 81 mg PO DAILY ##0 04/17/10 11/10/18 release metformin 500 mg tablet 500 mg PO BIDCC ##0 09/23/12 07/12/19 (Glucophage) empagliflozin 25 mg tablet 25 mg PO DAILY ##0 09/17/16 07/12/19 (Jardiance) sitagliptin phosphate 100 mg 100 mg PO DAILY ##0 09/17/16 07/12/19 tablet (Januvia) atorvastatin 40 mg tablet 40 mg PO QPM 12/25/17 07/12/19 lisinopril 10 mg tablet 10 mg PO DAILY 12/25/17 11/10/18 metoprolol tartrate 25 mg tablet 25 mg PO BID 12/25/17 11/10/18 omeprazole 20 mg capsule,delayed 20 mg PO BID 12/25/17 07/12/19 release sertraline 100 mg tablet 50 mg PO QPM 12/25/17 07/12/19 meloxicam 7.5 mg tablet 7.5 mg PO BID 11/10/18 07/12/19 albuterol sulfate 90 mcg/actuation 2 puff inhalation Q4H PRN Wheezing 07/12/19 07/12/19 aerosol inhaler (ProAir HFA) losartan 50 mg tablet 50 mg PO DAILY 07/12/19 07/12/19 Previous Rx's Medication Instructions Recorded amoxicillin 500 mg capsule 500 mg PO TID #30 caps 07/12/19 benzonatate 200 mg capsule 200 mg PO TID PRN cough #30 caps 07/12/19 fluconazole 100 mg tablet 100 mg PO DAILY #1 tab 10/10/22 (Diflucan) diazepam 5 mg tablet 5 mg PO BID PRN muscle spasm #10 11/03/22 tabs Allergies Allergy/AdvReac Type Severity Reaction Status Date / Time niacin [NIACIN] Allergy Mild Verified 10/10/22 17:19 propoxyphene [From DARVON] Allergy Mild VOMITING Verified 10/10/22 17:19 OPIATE NARCOTICS Allergy Severe PROJECTIVE Uncoded 06/18/21 16:15 NAUSEA VOMITING. CIMBALTA Allergy Intermediate VOMITING Uncoded 06/18/21 16:15 Patient History Medical History Diabetes History of lung cancer Hypertension Surgical History History of lung surgery Social History Smoking Status: Former smoker Smoking Status: Former smoker alcohol intake frequency: holidays/special occasions only Substance Use Type: does not use Exam Initial Vital Signs Initial Vital Signs: Vital Signs Temperature 98.6 F 08/01/23 23:20 Pulse Rate 101 H 08/01/23 23:20 Respiratory Rate 24 08/01/23 23:20 Blood Pressure 156/71 H 08/01/23 23:20 Pulse Oximetry 96 08/01/23 23:20 Oxygen Delivery Method Room Air 08/01/23 23:20 Course Orders Ordered: ED Orders 08/01/23 23:34 Blood Culture Stat Complete Blood Count AUTO DIFF Stat Comprehensive Metabolic Panel Stat Lactate (Lactic Acid) Stat 08/01/23 23:36 CT angio chest PE protocol Stat 08/01/23 23:47 BNP [NT-proBNP (BNP-Adult 18+)] Stat 08/02/23 00:55 Respiratory Panel (Film Array) Stat Hydromorphone HCl (Hydromorphone 0.5 Mg Inj) 0.5 mg IV Q15MIN PRN PRN Reason: Pain, Last Admin: 08/02/23 00:56 Dose: 0.5 mg Documented By: Discontinued Medications Albuterol/Ipratropium (Albuterol/Ipratropium 3 Ml Ampul) 3 ml INH NOW ONE Stop: 08/01/23 23:46 Last Admin: 08/01/23 23:55 Dose: 3 ml Documented By: Sodium Chloride (Normal Saline 0.9%) 1,000 mls @ 1,000 mls/hr IV BOLUS ONE Stop: 08/02/23 00:34 Last Infusion: 08/02/23 01:50 Dose: Infused Documented By: Admin: 08/02/23 00:28 Dose: 1,000 mls/hr Documented By: AB Sodium Chloride (Normal Saline 0.9%) 1,000 mls @ 1,000 mls/hr IV BOLUS ONE Stop: 08/02/23 00:45 Last Admin: 08/02/23 01:50 Dose: 1,000 mls/hr Documented By: Piperacillin Sod/Tazobactam (Sod 4.5 gm/ Sodium Chloride) 100 mls @ 200 mls/hr IV NOW ONE Stop: 08/01/23 23:47 Last Infusion: 08/02/23 01:40 Dose: Infused Documented By: Admin: 08/02/23 00:28 Dose: 200 mls/hr Documented By: Oxycodone/Acetaminophen (Oxycodone/Acetaminophen 5/325 Tablet) 1 tab PO NOW ONE Stop: 08/01/23 23:47 Last Admin: 08/01/23 23:54 Dose: 1 tab Documented By: Vital Signs Vital signs: Vital Signs - 8 hr 08/01/23 23:20 08/01/23 23:44 08/01/23 23:45 Temperature 98.6 F Pulse Rate 101 H Respiratory Rate 24 Blood Pressure 156/71 H 90/63 Pulse Oximetry 96 92 Oxygen Delivery Method Room Air Oxygen Flow Rate 08/01/23 23:45 08/02/23 00:00 08/02/23 00:01 Temperature Pulse Rate 115 H 109 H Respiratory Rate Blood Pressure 143/77 H Pulse Oximetry 95 97 Oxygen Delivery Method Oxygen Flow Rate 08/02/23 00:01 08/02/23 00:44 08/02/23 00:45 Temperature Pulse Rate 109 H 109 H Respiratory Rate Blood Pressure 136/63 Pulse Oximetry 96 93 Oxygen Delivery Method Oxygen Flow Rate 08/02/23 00:45 08/02/23 01:00 08/02/23 01:00 Temperature Pulse Rate 109 H 109 H Respiratory Rate 18 Blood Pressure 124/58 L Pulse Oximetry 94 90 L Oxygen Delivery Method Room Air Oxygen Flow Rate 08/02/23 01:30 08/02/23 01:30 Temperature Pulse Rate 99 H Respiratory Rate Blood Pressure 125/60 Pulse Oximetry 91 Oxygen Delivery Method Nasal Cannula Oxygen Flow Rate 2 Medical Decision Making Lab Data 08/02/23 00:20 08/02/23 00:20 Labs: Lab Results 08/02/23 08/02/23 Range/Units 00:20 00:55 WBC 17.6 H (4.5-11.0) X10^3/uL RBC 4.48 (4.0-5.2) X10^6/uL Hgb 12.9 (12.0-16.0) g/dL Hct 38.2 (36-46) % MCV 85.4 (80-100) fL MCH 28.7 (26-34) PG MCHC 33.7 (30-36) % RDW 14.2 (11.6-14.8) % Plt Count 301 (150-400) X10^3/uL Neut % (Auto) 73.4 (50-75) % Lymph % (Auto) 15.1 L (25-40) % Millard % (Auto) 7.9 (3-14) % Eos % (Auto) 1.9 L (2-4) % Baso % (Auto) 1.7 (0-2) % Neut # (Auto) 17270 H (0788-1663) /uL Lymph # (Auto) 2700 (1384-5091) /uL Millard # (Auto) 1400 H (0-900) /uL Eos # (Auto) 300 (0-450) /uL Baso # (Auto) 300 H (0-100) /uL Sodium 137 (137-145) mmol/L Potassium 3.8 (3.4-5.1) mmol/L Chloride 106 (98-107) mmol/L Carbon Dioxide 27 (22-32) mmol/L BUN 6 L (7-17) mg/dL Creatinine 0.35 L (0.52-1.04) mg/dL Estimated GFR > 60 (>60) mL/min BUN/Creatinine Ratio 17.1 (6-22) Glucose 132 H (80-110) mg/dL Lactate 2.2 H (0.7-2.1) mmol/L Calcium 9.7 (8.4-10.2) mg/dL Total Bilirubin 0.7 (0.2-1.3) mg/dL AST 16 (14-36) IU/L ALT 11 (<35) IU/L Alkaline Phosphatase 78 (38-126) U/L NT-Pro-B Natriuret Pep 29 (<125) pg/mL Total Protein 6.6 (6.3-8.2) g/dL Albumin 3.6 (3.5-5.0) g/dL Globulin 3.0 (1.7-4.1) g/dL Albumin/Globulin Ratio 1.2 (1.0-2.8) Chlamy pneumoniae PCR Not detected (Not Detect) Adenovirus (PCR) Not detected (Not Detect) B.parapertussis DNA PCR Not detected (Not Detecte) Coronavirus OC43 (PCR) Not detected (Not Detect) Coronavirus HKU1 (PCR) Not detected (Not Detect) Coronavirus 229E (PCR) Not detected (Not Detect) SARS-CoV-2 (PCR) Not detected (Not Detecte) Coronavirus NL63 (PCR) Not detected (Not Detect) Human Metapneumovir PCR Not detected (Not Detect) Influenza Type A (PCR) Not detected (Not Detect) Influenza Type B (PCR) Not detected (Not Detect) M. pneumoniae (PCR) Not detected (Not Detect) Parainfluenza 1 (PCR) Not detected (Not Detect) Parainfluenza 2 (PCR) Not detected (Not Detect) Parainfluenza 3 (PCR) Not detected (Not Detect) Parainfluenza 4 (PCR) Not detected (Not Detect) RSV (PCR) Not detected (Not Detect) Entero/Rhino (PCR) Detected H (Not Detect) MDM Narrative Medical decision making narrative: CC: Acute onset dyspnea, severe cough Complicating co-morbidities: Currently undergoing chemotherapy for a 2nd primary lung cancer, current cancers in the left upper lobe. Data collected from: patient Social determinants of health that may influence the patients condition: Undergoing chemotherapy Medical records reviewed: Oncology notes from [facility] are reviewed and summarized in the HPI above Differential considered: Pneumothorax, pulmonary embolism, worsening pleural effusion, viral syndrome, bacterial infection, acute coronary syndrome Exam documented above, pertinent findings include: Cough so severe that she is having trouble speaking, clearly causing significant pain through the central portion of her chest as well as headache. Slight decreased lung sounds on the left base. No wheezing no rhonchi appreciated. Remainder of exam is benign Lab Test results independently reviewed as above. Pertinent findings: CBC shows leukocytosis at 17.6 with no significant left shift. She has not anemic Chemistries are notable for a low creatinine, no other significant abnormality lactic was initially 2.2. Serology is positive for entero/rhino virus Independently reviewed EKG: Tachycardic at 112. Accelerated junctional rhythm versus sinus tach. No acute ischemic changes Imaging studies independently reviewed: CT PE study does not show pulmonary emboli. Incidentally appreciated new T6 compression fracture compared to CT scan from June 05 Moderate left pleural effusion with left lung atelectasis. Continued masslike opacity in the left upper lobe, not significantly changed BNP is not elevated Treatments: Initial concern was for sepsis and fluids as well as antibiotics were initiated. Blood cultures and urine cultures were obtained. She was given oral Percocet to help suppress her cough, parenteral Dilaudid to help with the severe headache secondary to the cough. DuoNeb was administered. Re-evaluations: On re-evaluation patient is actually sleeping soundly for the 1st time in a number of weeks according to her daughter. Oxygen saturations dropped to 86% on room air. With 2 L nasal cannula they are in the low 90s. I did discuss with her daughter code status and goals of care. She apparently is going to go to a half dose of chemo and biologic infusion sometime next week. The daughter believes that her mom would very much want to be a DNR DNI but I have not fully confirm that with Jennyfer. Discussion: 67-year-old woman with multiple prior cancers currently with a left upper lobe cancer and malignant pleural effusion that was tapped in June. She has had initial dose of chemotherapy has a port in place. As followed by Oncology at [facility] and presents today with cough that is so severe I believe it likely caused a new T6 compression fracture which is contributing to her overall pain. I suspect that the cough is secondary to her cancer and chemotherapy, exacerbated by rhino virus. There is no evidence of pneumothorax, sepsis, consolidated bacterial findings or congestive heart failure. The pleural effusion appreciated on CT scan is similar to the amount of fluid that was there after thoracentesis in mid June, suggesting it is not reaccumulating. Her white count is elevated at 17.6 but she does not have a left shift and I suspect that this is likely more demargination than bacterial infection. I have started her on Zosyn and this will need to be re-evaluated in the morning. At this point I think that she needs help with pain control secondary to the T6 compression fracture, help with cough suppression, headache secondary to the cough and symptomatic treatment for the rhino virus. She currently is benefitting from oxygen and may do well with home oxygen. At this time I do not think this is directly cancer related and I do think that observation admission to [facility] is appropriate. Care is discussed with the admitting hospitalist Discharge Plan Departure Patient Disposition: Admitted as Observation Clinical Impression: Rhinovirus, Hypoxia, Malignant pleural effusion Closed wedge compression fracture of T6 vertebra Qualifiers: Encounter type: initial encounter Qualified Code(s): S22.050A - Wedge compression fracture of T5-T6 vertebra, initial encounter for closed fracture Cough Qualifiers: Cough type: acute Qualified Code(s): R05.1 - Acute cough Lung cancer Qualifiers: Laterality: left Lung location: upper lobe of lung Qualified Code(s): C34.12 - Malignant neoplasm of upper lobe, left bronchus or lung Prescriptions: No Action aspirin 81 mg Tablet,Delayed Release (Dr/Ec) 81 mg PO DAILY Qty: 0 metformin [Glucophage] 500 MG tablet 500 mg PO BIDCC Qty: 0 Januvia 100 MG tablet 100 mg PO DAILY Qty: 0 Jardiance 25 MG tablet 25 mg PO DAILY Qty: 0 atorvastatin 40 mg tablet 40 mg PO QPM sertraline 100 mg tablet 50 mg PO QPM omeprazole 20 mg capsule,delayed release(DR/EC) 20 mg PO BID lisinopril 10 mg Tablet 10 mg PO DAILY metoprolol tartrate 25 mg Tablet 25 mg PO BID meloxicam 7.5 mg tablet 7.5 mg PO BID losartan 50 mg tablet 50 mg PO DAILY albuterol sulfate [ProAir HFA] 90 mcg/actuation HFA aerosol inhaler 2 puff INHALATION Q4H PRN (Reason: Wheezing) Patient Comments: inhale 2 puffs by mouth up to every 4 hours if needed for wheezing benzonatate 200 mg capsule 200 mg PO TID PRN (Reason: cough) Qty: 30 0RF amoxicillin 500 mg capsule 500 mg PO TID Qty: 30 0RF fluconazole [Diflucan] 100 mg tablet 100 mg PO DAILY Qty: 1 0RF diazepam 5 mg tablet 5 mg PO BID PRN (Reason: muscle spasm) Qty: 10 0RF Referrals: Nika Madrigal PA-C [Primary Care Provider] - Admit Date/Time: 08/02/23 03:20 Admit Provider: Chester Cast
[2023-08-02 02:39] LABS: Lactate 2HR (Lactic Acid Rflx) 1.2 mmol/L (0.7-2.1)
--- NOTE | 2023-08-02 03:37 | PM.HP.1 ---
History of Present Illness History of Present Illness Date Patient Seen: 08/02/23 Chief complaint: SOB Narrative: 67 y/o with PMH of lung carcinoma, undergoing palliative chemotherapy, developed progressive shortness of breath and severe cough. Presented to ED with severe rhinoviral bronchitis, hypoxemic. Imaging showing known Lt lung mass and pleural effusion. She has severe pain of chest and abdominal wall from coughing, feels very tired and weak. She did not have fever or chills. In the emergency department she was initially given dose of abx but further workup w/o evidence of bacterial infection [facility] Medical History (Updated 08/02/23 @ 03:49 by Chester Malhotra MD) Hypertension Diabetes History of lung cancer Surgical History History of lung surgery Social History household members: children Smoking Status: Former smoker alcohol intake: former Meds Home Medications and Allergies Home Medications Medication Instructions Recorded Confirmed Type aspirin 81 mg tablet,delayed 81 mg PO DAILY ##0 04/17/10 08/02/23 History release metformin 500 mg tablet 500 mg PO BIDCC ##0 09/23/12 08/02/23 History (Glucophage) empagliflozin 25 mg tablet 25 mg PO DAILY ##0 09/17/16 08/02/23 History (Jardiance) atorvastatin 40 mg tablet 40 mg PO QPM 12/25/17 08/02/23 History sertraline 100 mg tablet 100 mg PO QPM 12/25/17 08/02/23 History meloxicam 7.5 mg tablet 15 mg PO DAILY PRN pain 11/10/18 08/02/23 History albuterol sulfate 90 mcg/actuation 2 puff inhalation Q4H PRN Wheezing 07/12/19 08/02/23 History aerosol inhaler (ProAir HFA) benzonatate 200 mg capsule 200 mg PO TID PRN cough #30 caps 07/12/19 08/02/23 Rx losartan 50 mg tablet 25 mg PO DAILY 07/12/19 08/02/23 History cyclobenzaprine 10 mg tablet 10 mg PO TID PRN muscle relaxant 08/02/23 08/02/23 History diazepam 5 mg tablet 5 mg PO Q8H PRN Anxiety 08/02/23 08/02/23 History gabapentin 300 mg capsule 300 mg PO DAILY 08/02/23 08/02/23 History gabapentin 300 mg capsule 600 mg PO BEDTIME 08/02/23 08/02/23 History levothyroxine 75 mcg tablet 75 mcg PO DAILY 08/02/23 08/02/23 History loratadine 10 mg tablet 10 mg PO DAILY 08/02/23 08/02/23 History (Flower) pantoprazole 20 mg tablet,delayed 20 mg PO BID 08/02/23 08/02/23 History release Allergies Allergy/AdvReac Type Severity Reaction Status Date / Time niacin [NIACIN] Allergy Mild Verified 10/10/22 17:19 propoxyphene [From DARVON] Allergy Mild VOMITING Verified 10/10/22 17:19 OPIATE NARCOTICS Allergy Severe PROJECTIVE Uncoded 06/18/21 16:15 NAUSEA VOMITING. CIMBALTA Allergy Intermediate VOMITING Uncoded 06/18/21 16:15 Review of Systems Respiratory Comments: Cough Shortness of breath Chest wall tenderness from coughing Musculoskeletal Comments: chest wall, abdominal wall and mid back / upper back pain Exam Vital Signs (past 8 hours): - 08/01/23 23:20 08/01/23 23:44 08/01/23 23:45 Temperature 98.6 F Pulse Rate 101 H Respiratory Rate 24 Blood Pressure 156/71 H 90/63 Pulse Oximetry 96 92 Oxygen Delivery Method Room Air Oxygen Flow Rate 08/01/23 23:45 08/02/23 00:00 08/02/23 00:01 Temperature Pulse Rate 115 H 109 H Respiratory Rate Blood Pressure 143/77 H Pulse Oximetry 95 97 Oxygen Delivery Method Oxygen Flow Rate 08/02/23 00:01 08/02/23 00:44 08/02/23 00:45 Temperature Pulse Rate 109 H 109 H Respiratory Rate Blood Pressure 136/63 Pulse Oximetry 96 93 Oxygen Delivery Method Oxygen Flow Rate 08/02/23 00:45 08/02/23 01:00 08/02/23 01:00 Temperature Pulse Rate 109 H 109 H Respiratory Rate 18 Blood Pressure 124/58 L Pulse Oximetry 94 90 L Oxygen Delivery Method Room Air Oxygen Flow Rate 08/02/23 01:30 08/02/23 01:30 08/02/23 02:00 Temperature Pulse Rate 99 H 97 H Respiratory Rate Blood Pressure 125/60 Pulse Oximetry 91 92 Oxygen Delivery Method Nasal Cannula Nasal Cannula Oxygen Flow Rate 2 2 08/02/23 02:00 08/02/23 02:30 08/02/23 02:30 Temperature Pulse Rate 93 H Respiratory Rate Blood Pressure 124/58 L 115/55 L Pulse Oximetry 93 Oxygen Delivery Method Nasal Cannula Oxygen Flow Rate 2 08/02/23 02:44 08/02/23 03:00 08/02/23 03:00 Temperature Pulse Rate 92 H Respiratory Rate Blood Pressure 130/70 Pulse Oximetry 86 L 93 Oxygen Delivery Method Room Air Nasal Cannula Oxygen Flow Rate 2 08/02/23 03:30 08/02/23 03:30 Temperature Pulse Rate 89 Respiratory Rate Blood Pressure 111/55 L Pulse Oximetry 92 Oxygen Delivery Method Nasal Cannula Oxygen Flow Rate 2 Oxygen Delivery Method Nasal Cannula Oxygen Flow Rate 2 Const Other: Laying in bed, appears weak, sleepy, daughter at bedside Resp Other: tachypnea, on 2 L of oxygen, decreased breath sounds from left Cardio Other: RRR GI Other: w/o distension Skin Other: candidiasis in abdominal folds / groin Neuro Other: w/o deficits Extrem Other: 1-2 + leg edemas Psych Other: lucid, decisional Objective Labs 08/02/23 06:21 08/02/23 06:21 Labs: Laboratory Results - last 24 hr 08/02/23 08/02/23 08/02/23 00:20 00:55 02:23 WBC 17.6 H RBC 4.48 Hgb 12.9 Hct 38.2 MCV 85.4 MCH 28.7 MCHC 33.7 RDW 14.2 Plt Count 301 Neut % (Auto) 73.4 Lymph % (Auto) 15.1 L [place] % (Auto) 7.9 Eos % (Auto) 1.9 L Baso % (Auto) 1.7 Neut # (Auto) 88229 H Lymph # (Auto) 2700 [place] # (Auto) 1400 H Eos # (Auto) 300 Baso # (Auto) 300 H Sodium 137 Potassium 3.8 Chloride 106 Carbon Dioxide 27 BUN 6 L Creatinine 0.35 L Estimated GFR > 60 BUN/Creatinine Ratio 17.1 Glucose 132 H Lactate 2.2 H 1.2 Calcium 9.7 Total Bilirubin 0.7 AST 16 ALT 11 Alkaline Phosphatase 78 NT-Pro-B Natriuret Pep 29 Total Protein 6.6 Albumin 3.6 Globulin 3.0 Albumin/Globulin Ratio 1.2 Chlamy pneumoniae PCR Not detected Adenovirus (PCR) Not detected B.parapertussis DNA PCR Not detected Coronavirus OC43 (PCR) Not detected Coronavirus HKU1 (PCR) Not detected Coronavirus 229E (PCR) Not detected SARS-CoV-2 (PCR) Not detected Coronavirus NL63 (PCR) Not detected Human Metapneumovir PCR Not detected Influenza Type A (PCR) Not detected Influenza Type B (PCR) Not detected M. pneumoniae (PCR) Not detected Parainfluenza 1 (PCR) Not detected Parainfluenza 2 (PCR) Not detected Parainfluenza 3 (PCR) Not detected Parainfluenza 4 (PCR) Not detected RSV (PCR) Not detected Entero/Rhino (PCR) Detected H Assessment & Plan Assessment and plan (1) Acute bronchitis due to Rhinovirus: Status: Acute (2) Acute hypoxemic respiratory failure: Status: Acute (3) Adenocarcinoma of left lung, stage 4: Status: Acute (4) Malignant pleural effusion: Status: Acute (5) Closed wedge compression fracture of T6 vertebra: Qualifiers: Encounter type: initial encounter Qualified Code(s): S22.050A - Wedge compression fracture of T5-T6 vertebra, initial encounter for closed fracture Status: Acute (6) Hypertension: Status: Chronic (7) Diabetes: Status: Chronic Assessment & Plan narrative: 1. Rhinoviral Upper Respiratory Infection / Bronchitis - symptomatic treatment - tylenol, robitussin, tessalon, albuterol 2. Acute Hypoxemic Respiratory Failure - 2nd to bronchitis but also with reaccumulating Lt malignant pleural effusion - she will need home oxygen 3. Lung Adenocarcinoma - she had Rt lung lobectomy 10 years ago, now has recurrence on the left, stage 4, getting paliative chemoTx by oncology - she will probably need Lt pleural drain 4. HTN - Losartan 5. DM - continue home medications, SS, diabetic diet 6. Hypothyroidism - levothyroxine 7. Depression - Zoloft 8 GERD - PPI DVT prophylaxis - Lovenox
--- NOTE | 2023-08-02 05:05 | PC.ADMIT ---
[address] [address] Admission Note: The patient,Jennyfer Houston,67 y/o, was given written information regarding hospital policies, unit procedures and contact persons. Patient's smoking status: Former smoker. Vital Signs - 8 hr 08/01/23 23:20 08/01/23 23:44 08/01/23 23:45 Temperature 98.6 F Pulse Rate 101 H Respiratory Rate 24 Blood Pressure 156/71 H 90/63 Pulse Oximetry 96 92 Oxygen Delivery Method Room Air Oxygen Flow Rate 08/01/23 23:45 08/02/23 00:00 08/02/23 00:01 Temperature Pulse Rate 115 H 109 H Respiratory Rate Blood Pressure 143/77 H Pulse Oximetry 95 97 Oxygen Delivery Method Oxygen Flow Rate 08/02/23 00:01 08/02/23 00:44 08/02/23 00:45 Temperature Pulse Rate 109 H 109 H Respiratory Rate Blood Pressure 136/63 Pulse Oximetry 96 93 Oxygen Delivery Method Oxygen Flow Rate 08/02/23 00:45 08/02/23 01:00 08/02/23 01:00 Temperature Pulse Rate 109 H 109 H Respiratory Rate 18 Blood Pressure 124/58 L Pulse Oximetry 94 90 L Oxygen Delivery Method Room Air Oxygen Flow Rate 08/02/23 01:30 08/02/23 01:30 08/02/23 02:00 Temperature Pulse Rate 99 H 97 H Respiratory Rate Blood Pressure 125/60 Pulse Oximetry 91 92 Oxygen Delivery Method Nasal Cannula Nasal Cannula Oxygen Flow Rate 2 2 08/02/23 02:00 08/02/23 02:30 08/02/23 02:30 Temperature Pulse Rate 93 H Respiratory Rate Blood Pressure 124/58 L 115/55 L Pulse Oximetry 93 Oxygen Delivery Method Nasal Cannula Oxygen Flow Rate 2 08/02/23 02:44 08/02/23 03:00 08/02/23 03:00 Temperature Pulse Rate 92 H Respiratory Rate Blood Pressure 130/70 Pulse Oximetry 86 L 93 Oxygen Delivery Method Room Air Nasal Cannula Oxygen Flow Rate 2 08/02/23 03:30 08/02/23 03:30 08/02/23 03:54 Temperature 96.5 F L Pulse Rate 89 89 Respiratory Rate 22 Blood Pressure 111/55 L 123/64 Pulse Oximetry 92 95 Oxygen Delivery Method Nasal Cannula Oxygen Flow Rate 2 0 08/02/23 04:59 Temperature Pulse Rate Respiratory Rate Blood Pressure Pulse Oximetry Oxygen Delivery Method Nasal Cannula Oxygen Flow Rate Patient admitted to room 211 from ER per stretcher and transferred into bed. Is oriented but drowsy after having received Dilaudid for headache in ER so is very soft spoken and sometimes slow in responses to questions. Breath sounds CTA and is on oxygen at 2L/min per NC with sat of 96%; placed on continuous oximetry. Very harsh sounding, nonproductive cough noted intermittently. HRR. Denied nausea. BT present and abdomen is soft. Very red, dry, flaky rash in abdominal folds extending down into groins; causing itching. States she is continent of [place] but has some stress incontinence so is wearing a brief; requested external catheter related to generalized weakness. Is able to reposition self in bed. Gait not assessed but reports she does not use an assistive device at home. Denied pain at time of admission. Placed on droplet isolation as is positive for entero/rhinovirus. Fall risk score is high and bed alarm is activated. Oriented to call ith and bed controls. Dr Malhotra visited with her via telemedicine cart and he looked at rash and talked with patient.
[2023-08-02] MEDS: SODIUM CHLORIDE 0.9% FLUSH 10 ML IV ×3 (06:06→20:35)
[2023-08-02 06:24] LABS: Add Manual Diff / Slide Review NO; Basophils Absolute Auto 200 /uL (0-100); Basophils Percent Auto 1.3 % (0-2); Eosinophils Absolute Auto 300 /uL (0-450); Eosinophils Percent Auto 2.2 % (2-4); Hematocrit 35.7 % (36-46); Hemoglobin 11.8 g/dL (12.0-16.0); Lymphocytes Absolute Auto 2900 /uL (1100-4500); Mean Corpuscular HGB Conc 32.9 % (30-36); Mean Corpuscular Hemoglobin 28.2 PG (26-34); Mean Corpuscular Volume 85.7 fL (80-100); Monocytes Absolute Auto 1500 /uL (0-900); Monocytes Percent Auto 9.6 % (3-14); Neutrophils Absolute Auto 11000 /uL (1500-7000); Neutrophils Percent Auto 68.9 % (50-75); Platelet Count 296 X10^3/uL (150-400); Red Blood Cell Count 4.17 X10^6/uL (4.0-5.2); Red Cell Distribution Width 14.5 % (11.6-14.8)
[2023-08-02 06:40] LABS: BUN Creatinine Ratio 16.2 (6-22); Blood Urea Nitrogen 6 mg/dL (7-17); Calcium 8.4 mg/dL (8.4-10.2); Carbon Dioxide 26 mmol/L (22-32); Chloride 110 mmol/L (98-107); Estimated Glomerular Filt Rate > 60 mL/min (>60); Glucose 95 mg/dL (80-110); HEMOLYSIS < 15 (0-50); Potassium 3.9 mmol/L (3.4-5.1); Sodium 138 mmol/L (137-145)
--- NOTE | 2023-08-02 07:30 | PM.HP.1 ---
History of Present Illness History of Present Illness Date Patient Seen: 08/02/23 Chief complaint: SOB Narrative: From overnight provider: 67 y/o with PMH of lung carcinoma, undergoing palliative chemotherapy, developed progressive shortness of breath and severe cough. Presented to ED with severe rhinoviral bronchitis, hypoxemic. Imaging showing known Lt lung mass and pleural effusion. She has severe pain of chest and abdominal wall from coughing, feels very tired and weak. She did not have fever or chills. In the emergency department she was initially given dose of abx but further workup w/o evidence of bacterial infection [facility] Medical History (Updated 08/02/23 @ 03:49 by Chester Malhotra MD) Hypertension Diabetes History of lung cancer Surgical History History of lung surgery Social History household members: children Smoking Status: Former smoker alcohol intake: former Meds Home Medications and Allergies Home Medications Medication Instructions Recorded Confirmed Type aspirin 81 mg tablet,delayed 81 mg PO DAILY ##0 04/17/10 08/02/23 History release metformin 500 mg tablet 500 mg PO BIDCC ##0 09/23/12 08/02/23 History (Glucophage) empagliflozin 25 mg tablet 25 mg PO DAILY ##0 09/17/16 08/02/23 History (Jardiance) atorvastatin 40 mg tablet 40 mg PO QPM 12/25/17 08/02/23 History sertraline 100 mg tablet 100 mg PO QPM 12/25/17 08/02/23 History meloxicam 7.5 mg tablet 15 mg PO DAILY PRN pain 11/10/18 08/02/23 History albuterol sulfate 90 mcg/actuation 2 puff inhalation Q4H PRN Wheezing 07/12/19 08/02/23 History aerosol inhaler (ProAir HFA) benzonatate 200 mg capsule 200 mg PO TID PRN cough #30 caps 07/12/19 08/02/23 Rx losartan 50 mg tablet 25 mg PO DAILY 07/12/19 08/02/23 History cyclobenzaprine 10 mg tablet 10 mg PO TID PRN muscle relaxant 08/02/23 08/02/23 History diazepam 5 mg tablet 5 mg PO Q8H PRN Anxiety 08/02/23 08/02/23 History gabapentin 300 mg capsule 300 mg PO DAILY 08/02/23 08/02/23 History gabapentin 300 mg capsule 600 mg PO BEDTIME 08/02/23 08/02/23 History levothyroxine 75 mcg tablet 75 mcg PO DAILY 08/02/23 08/02/23 History loratadine 10 mg tablet 10 mg PO DAILY 08/02/23 08/02/23 History (Flower) pantoprazole 20 mg tablet,delayed 20 mg PO BID 08/02/23 08/02/23 History release Allergies Allergy/AdvReac Type Severity Reaction Status Date / Time niacin [NIACIN] Allergy Mild Verified 10/10/22 17:19 propoxyphene [From DARVON] Allergy Mild VOMITING Verified 10/10/22 17:19 OPIATE NARCOTICS Allergy Severe PROJECTIVE Uncoded 06/18/21 16:15 NAUSEA VOMITING. CIMBALTA Allergy Intermediate VOMITING Uncoded 06/18/21 16:15 Review of Systems Respiratory Comments: Cough Shortness of breath Chest wall tenderness from coughing Musculoskeletal Comments: chest wall, abdominal wall and mid back / upper back pain Exam Vital Signs (past 8 hours): - 08/01/23 23:44 08/01/23 23:45 08/01/23 23:45 Temperature Pulse Rate 115 H Respiratory Rate Blood Pressure 90/63 Pulse Oximetry 92 95 Oxygen Delivery Method Oxygen Flow Rate 08/02/23 00:00 08/02/23 00:01 08/02/23 00:01 Temperature Pulse Rate 109 H 109 H Respiratory Rate Blood Pressure 143/77 H Pulse Oximetry 97 96 Oxygen Delivery Method Oxygen Flow Rate 08/02/23 00:44 08/02/23 00:45 08/02/23 00:45 Temperature Pulse Rate 109 H 109 H Respiratory Rate 18 Blood Pressure 136/63 Pulse Oximetry 93 94 Oxygen Delivery Method Oxygen Flow Rate 08/02/23 01:00 08/02/23 01:00 08/02/23 01:30 Temperature Pulse Rate 109 H 99 H Respiratory Rate Blood Pressure 124/58 L Pulse Oximetry 90 L 91 Oxygen Delivery Method Room Air Nasal Cannula Oxygen Flow Rate 2 08/02/23 01:30 08/02/23 02:00 08/02/23 02:00 Temperature Pulse Rate 97 H Respiratory Rate Blood Pressure 125/60 124/58 L Pulse Oximetry 92 Oxygen Delivery Method Nasal Cannula Oxygen Flow Rate 2 08/02/23 02:30 08/02/23 02:30 08/02/23 02:44 Temperature Pulse Rate 93 H Respiratory Rate Blood Pressure 115/55 L Pulse Oximetry 93 86 L Oxygen Delivery Method Nasal Cannula Room Air Oxygen Flow Rate 2 08/02/23 03:00 08/02/23 03:00 08/02/23 03:30 Temperature Pulse Rate 92 H 89 Respiratory Rate Blood Pressure 130/70 Pulse Oximetry 93 92 Oxygen Delivery Method Nasal Cannula Nasal Cannula Oxygen Flow Rate 2 2 08/02/23 03:30 08/02/23 03:54 08/02/23 04:59 Temperature 96.5 F L Pulse Rate 89 Respiratory Rate 22 Blood Pressure 111/55 L 123/64 Pulse Oximetry 95 Oxygen Delivery Method Nasal Cannula Oxygen Flow Rate 0 Oxygen Delivery Method Nasal Cannula Oxygen Flow Rate 0 Narrative Exam Narrative: GEN: no acute distress HEENT: moist mucous membranes, PERRL NECK: trachea midline, no JVD CV: regular rate and rhythm, no murmurs PULM: clear bilaterally ABD: soft, nontender, nondistended, no organomegaly EXT: warm and well perfused with no edema NEURO: awake, alert, oriented, no focal deficits Objective Labs 08/02/23 06:21 08/02/23 06:21 Labs: Laboratory Results - last 24 hr 08/02/23 08/02/23 08/02/23 00:20 00:55 02:23 WBC 17.6 H RBC 4.48 Hgb 12.9 Hct 38.2 MCV 85.4 MCH 28.7 MCHC 33.7 RDW 14.2 Plt Count 301 Neut % (Auto) 73.4 Lymph % (Auto) 15.1 L [place] % (Auto) 7.9 Eos % (Auto) 1.9 L Baso % (Auto) 1.7 Neut # (Auto) 70808 H Lymph # (Auto) 2700 [place] # (Auto) 1400 H Eos # (Auto) 300 Baso # (Auto) 300 H Sodium 137 Potassium 3.8 Chloride 106 Carbon Dioxide 27 BUN 6 L Creatinine 0.35 L Estimated GFR > 60 BUN/Creatinine Ratio 17.1 Glucose 132 H Lactate 2.2 H 1.2 Calcium 9.7 Total Bilirubin 0.7 AST 16 ALT 11 Alkaline Phosphatase 78 NT-Pro-B Natriuret Pep 29 Total Protein 6.6 Albumin 3.6 Globulin 3.0 Albumin/Globulin Ratio 1.2 Chlamy pneumoniae PCR Not detected Adenovirus (PCR) Not detected B.parapertussis DNA PCR Not detected Coronavirus OC43 (PCR) Not detected Coronavirus HKU1 (PCR) Not detected Coronavirus 229E (PCR) Not detected SARS-CoV-2 (PCR) Not detected Coronavirus NL63 (PCR) Not detected Human Metapneumovir PCR Not detected Influenza Type A (PCR) Not detected Influenza Type B (PCR) Not detected M. pneumoniae (PCR) Not detected Parainfluenza 1 (PCR) Not detected Parainfluenza 2 (PCR) Not detected Parainfluenza 3 (PCR) Not detected Parainfluenza 4 (PCR) Not detected RSV (PCR) Not detected Entero/Rhino (PCR) Detected H 08/02/23 06:21 WBC 16.0 H RBC 4.17 Hgb 11.8 L Hct 35.7 L MCV 85.7 MCH 28.2 MCHC 32.9 RDW 14.5 Plt Count 296 Neut % (Auto) 68.9 Lymph % (Auto) 18.0 L [place] % (Auto) 9.6 Eos % (Auto) 2.2 Baso % (Auto) 1.3 Neut # (Auto) 68004 H Lymph # (Auto) 2900 [place] # (Auto) 1500 H Eos # (Auto) 300 Baso # (Auto) 200 H Sodium 138 Potassium 3.9 Chloride 110 H Carbon Dioxide 26 BUN 6 L Creatinine 0.37 L Estimated GFR > 60 BUN/Creatinine Ratio 16.2 Glucose 95 Lactate Calcium 8.4 Total Bilirubin AST ALT Alkaline Phosphatase NT-Pro-B Natriuret Pep Total Protein Albumin Globulin Albumin/Globulin Ratio Chlamy pneumoniae PCR Adenovirus (PCR) B.parapertussis DNA PCR Coronavirus OC43 (PCR) Coronavirus HKU1 (PCR) Coronavirus 229E (PCR) SARS-CoV-2 (PCR) Coronavirus NL63 (PCR) Human Metapneumovir PCR Influenza Type A (PCR) Influenza Type B (PCR) M. pneumoniae (PCR) Parainfluenza 1 (PCR) Parainfluenza 2 (PCR) Parainfluenza 3 (PCR) Parainfluenza 4 (PCR) RSV (PCR) Entero/Rhino (PCR) Assessment & Plan Assessment & Plan narrative: 1. Rhinoviral Upper Respiratory Infection / Bronchitis - symptomatic treatment - tylenol, robitussin, tessalon, albuterol -continue zosyn due to elevated WBC prior to initiation of steroids -continue solumedrol 2. Acute Hypoxemic Respiratory Failure - 2nd to bronchitis but also with reaccumulating Lt malignant pleural effusion - may need home oxygen - will attempt possible thoracentesis to remove effusion, last was 1L off in Jun 2023 3. Lung Adenocarcinoma - she had Rt lung lobectomy 10 years ago, now has recurrence on the left, stage 4, getting paliative chemoTx by oncology 4. HTN - Losartan 5. DM2 - continue home medications, SS, diabetic diet 6. Hypothyroidism - levothyroxine 7. Depression - Zoloft 8 GERD - PPI 9. Thoracic vertebral fracture -T6 compression fracture on CT -possibly from severe coughing for 2 weeks, no falls -lidoderm patch between scapula DVT prophylaxis - Lovenox
[2023-08-02] MEDS: ENOXAPARIN 40 MG/0.4 ML SYRINGE SUBCUT (08:34)
[2023-08-02] MEDS: GABAPENTIN 300 MG CAPSULE PO (08:34)
[2023-08-02] MEDS: METFORMIN HCL 500 MG TABLET PO ×2 (08:34→16:12)
[2023-08-02] MEDS: PANTOPRAZOLE DR 20 MG TABLET PO ×2 (08:34→20:34)
[2023-08-02] MEDS: ASPIRIN EC 81 MG TABLET PO (08:34)
[2023-08-02] MEDS: LORATADINE 10 MG TABLET PO (08:34)
[2023-08-02] MEDS: PIPERACILLIN/TAZO 3.375 GM in SODIUM CHLORIDE 0.9% 100 ML IV ×2 (08:34→16:12)
[2023-08-02] MEDS: LEVOTHYROXINE 75 MCG TABLET PO (08:34)
[2023-08-02] MEDS: methylPREDNISolone 125 MG/2 ML VIAL 60 MG IV ×2 (08:34→18:50)
[2023-08-02] MEDS: BENZONATATE 100 MG CAPSULE PO ×3 (08:34→20:34)
[2023-08-02] MEDS: LOSARTAN 50 MG TABLET 25 MG PO (08:57)
[2023-08-02] MEDS: guaiFENesin Solution 100 MG/5 ML UDC PO (08:57)
--- NOTE | 2023-08-02 09:28 | CM.DANOTE ---
Initial DCP Assessment Visit Note Reviewed EMR and team rounds for pt's medical status and updates. Met with pt at bedside to introduce self and role. Pt found to be awake, anxious, c/o difficulty breathing. She did have a nasal cannula w/O2 in place. She was able to tolerate only minimal ability to talk without exacerbation of her dyspnea. She shares that she doesn't use any DME at home at baseline, and that her dtr will plan to transport her home once she's stabilized and ready for d/c. Payor: [facility] PCP: Nika Madrigal Pt is a 67 year-old F with a PMH of R-sided breast cancer w/mets to the left lung, duodenal, and thyroid. She was dx with a malignant pleural effusion last month and received a thoracentesis at that time on 06/27/23. Pt is in active chemotherapy tx at [facility] w/Dr. Alexander. She presented to the ED last evening w/worsening, severe cough and dyspnea. Sepsis was initially suspected and she was started on IV ABO's and fluids in the ED. Blood and urine cultures are pending. She was also started on 2LO2 w/good benefit. ED diagnosis was for Rhino Virus, severe chest pain. Pt was placed in OBS for continued symptom management and respiratory treatments. DCP will continue to follow and assist with evolving d/c needs. Discharge Planning/Care Management CM Discharge Assessment Start: 08/02/23 09:25 Freq: Status: Active Protocol: Document 08/02/23 09:25 DPL (Rec: 08/02/23 09:28 DPL [id number]) Discharge Planning Assessment Assigned Forensic Psychologist IRAM Rey Advance Directives? No History Provided By Patient,Medical Record Has Patient been admitted in last 30 No days? Prior Living Arrangements House Household Members children Type of transporation used prior to Drives own vehicle admit Independent with ADL's Yes Is patient alert and oriented? Yes Caregiver for Another No Comment OP Oncology tx Comment N/A Comment No anticipated d/c needs identified at this time. Barriers to Discharge No Discharge Plan Home Transportation Arrangement Daughter Referrals Initiated None needed Whiteboard Updated in Patient Room with Yes name and ext. # of Forensic Psychologist Review Status In Process Please Provide Date Initial DC 08/02/23 Assessment Was Performed
[2023-08-02] MEDS: ALBUTEROL 2.5 MG/3 ML NEB (ADULT) INH (09:34)
[2023-08-02] MEDS: HYDROCODONE/ACET 10/325 TABLET 1 TAB PO (14:25)
[2023-08-02] MEDS: ACETAMINOPHEN 325 MG TABLET 650 MG PO (14:26)
[2023-08-02] MEDS: SERTRALINE 50 MG TABLET 100 MG PO (16:12)
[2023-08-02] MEDS: NYSTATIN POWDER 15GM 1 APPLIC TOP (16:12)
--- NOTE | 2023-08-02 18:41 | DI.RAD.S_ITS ---
PROCEDURE: XR CHEST 1V INDICATIONS: post L-sided thoracentesis TECHNIQUE: One view of the chest was acquired. COMPARISON: [facility], CR, XR CHEST 1V, 10/10/2022, 17:22. [facility], CT, CT ANGIO CHEST PE PROTOCOL, 08/02/2023, 1:11. [facility], US, US CHEST PLEURAL, 07/09/2023, 9:27. FINDINGS: Surgical changes and devices: Left chest Port-A-Cath.. Lungs and pleura: Interval left thoracentesis without pneumothorax. Left upper lobe mass again noted. Patchy bilateral atelectasis. Mediastinum: Mediastinal contours appear normal. Heart size is normal. Bones and chest wall: No suspicious bony lesions. Overlying soft tissues appear unremarkable. IMPRESSION: No evidence of pneumothorax post left thoracentesis. Known left lung mass. Dictated by: Imer Steinberg M.D. on 08/02/2023 at 19:31 Approved by: Imer Steinberg M.D. on 08/02/2023 at 19:32
[2023-08-02] MEDS: LIDOCAINE 5% PATCH 1 EACH TOP (18:50)
--- NOTE | 2023-08-02 18:53 | PM.PROC.1 ---
Procedures Date/Time Date of procedure: 08/02/23 Time of procedure: 18:53 General Procedure description: Thoracentesis Procedure Note Prior to the procedure formal consent was obtained from the patient after discussion of risks and benefits of the procedure, and allowing the patient to ask any questions. Ultrasound was used to find safe entry site, and the site was marked. A time-out was performed. The site was then prepped and draped in usual sterile fashion, and a 16 gauge needle was inserted with return of renata colored fluid. A total of approximately 1100 mL was obtained before drainage stopped. There was no bleeding and the patient tolerated the procedure well. There were no further complications. Chest X-ray read is pending at the time of this note, but my bedside read showed no pneumothorax. Darrin Valerio, DO
[2023-08-02 19:46] LABS: MRSA (Nasal) PCR Not Detected (Not Detect)
[2023-08-02] MEDS: GABAPENTIN 300 MG CAPSULE 600 MG PO (20:34)
[2023-08-03] VITALS (8 sets, daily range): BP systolic 103–133; BP diastolic 52–69; PULSE 74–90; RESP 16–24; TEMP 36.2–37; O2SAT 92–96
[2023-08-03] MEDS: PIPERACILLIN/TAZO 3.375 GM in SODIUM CHLORIDE 0.9% 100 ML IV ×4 (00:08→22:58)
[2023-08-03] MEDS: BENZONATATE 100 MG CAPSULE PO ×2 (04:59→09:14)
[2023-08-03 05:07] LABS: Add Manual Diff / Slide Review NO; Basophils Absolute Auto 100 /uL (0-100); Basophils Percent Auto 0.7 % (0-2); Eosinophils Absolute Auto 0 /uL (0-450); Hematocrit 37.7 % (36-46); Hemoglobin 12.5 g/dL (12.0-16.0); Lymphocytes Absolute Auto 1400 /uL (1100-4500); Lymphocytes Percent Auto 8.1 % (25-40); Mean Corpuscular Hemoglobin 27.9 PG (26-34); Mean Corpuscular Volume 84.6 fL (80-100); Monocytes Absolute Auto 400 /uL (0-900); Monocytes Percent Auto 2.3 % (3-14); Neutrophils Absolute Auto 15800 /uL (1500-7000); Neutrophils Percent Auto 88.9 % (50-75); Platelet Count 337 X10^3/uL (150-400); Red Blood Cell Count 4.46 X10^6/uL (4.0-5.2); Red Cell Distribution Width 14.5 % (11.6-14.8); White Blood Cell Count 17.8 X10^3/uL (4.5-11.0)
[2023-08-03 05:13] LABS: BUN Creatinine Ratio 42.9 (6-22); Blood Urea Nitrogen 15 mg/dL (7-17); Calcium 9.9 mg/dL (8.4-10.2); Carbon Dioxide 23 mmol/L (22-32); Chloride 107 mmol/L (98-107); Estimated Glomerular Filt Rate > 60 mL/min (>60); Glucose 130 mg/dL (80-110); HEMOLYSIS < 15 (0-50); Potassium 4.1 mmol/L (3.4-5.1); Sodium 138 mmol/L (137-145)
[2023-08-03] MEDS: methylPREDNISolone 125 MG/2 ML VIAL 60 MG IV ×2 (07:58→21:00)
[2023-08-03] MEDS: LEVOTHYROXINE 75 MCG TABLET PO (09:14)
[2023-08-03] MEDS: METFORMIN HCL 500 MG TABLET PO ×2 (09:14→17:30)
[2023-08-03] MEDS: ASPIRIN EC 81 MG TABLET PO (09:14)
[2023-08-03] MEDS: PANTOPRAZOLE DR 20 MG TABLET PO ×2 (09:14→21:14)
[2023-08-03] MEDS: GABAPENTIN 300 MG CAPSULE PO (09:14)
[2023-08-03] MEDS: ENOXAPARIN 40 MG/0.4 ML SYRINGE SUBCUT (09:14)
[2023-08-03] MEDS: LORATADINE 10 MG TABLET PO (09:15)
[2023-08-03] MEDS: LOSARTAN 50 MG TABLET 25 MG PO (09:15)
[2023-08-03] MEDS: SODIUM CHLORIDE 0.9% FLUSH 10 ML IV ×2 (09:25→21:13)
--- NOTE | 2023-08-03 09:51 | PC.NURSE ---
Patient denies pain, but she has been coughing. She slept for a short time after eating breakfast and her cough stopped. Just given tessalon pearls and her oral medication. Lung sounds with wheezes to r.upper lobe heard upon auscultation. Patient up to void and is a sba to use the bathroom/commode.
--- NOTE | 2023-08-03 10:31 | CM.DPNOTE ---
DCP Note FOOD SAFETY AUDITOR reviewed EMR. Per hospitalist in morning rounds, unclear dc timeline at this time. Per chart review, remains on 1ltr O2. Per previous CM notes, plan for home with dtr to transport when medically clear. FOOD SAFETY AUDITOR attempted to check in with pt twice. Pt sleeping. Plan: Anticipate home with dtr to transport and for pt to resume OP chemotherapy/immonotherapy when medically stable. No CM needs identified. DCP will continue to follow and assist with evolving d/c needs. IRAM Good
[2023-08-03] MEDS: AZITHROMYCIN 500 MG in DEXTROSE 5% IN WATER 250 ML 250 MG IV (10:33)
--- NOTE | 2023-08-03 11:07 | P.PN_ITS ---
Subjective Subjective Date Patient Seen: 08/03/23 Interval history: Pt with severe cough, dyspneic at rest, not feeling any better yet from respiratory standpoint. She is s/p left lung thoracentesis on 08/01 with 1100 cc fluid removed. States back pain is better with lidoderm patch. Exam Vital Signs (past 8 hours): - 08/03/23 04:00 08/03/23 07:47 08/03/23 09:15 Temperature 98.6 F 97.6 F Pulse Rate 77 74 90 Respiratory Rate 16 16 Blood Pressure 116/60 103/52 L 125/65 Pulse Oximetry 96 93 Oxygen Flow Rate 0 1 Oxygen Delivery Method Nasal Cannula Oxygen Flow Rate 1 Narrative Exam Narrative: Gen: alert, coughing, labored breathing Lungs: diminished bilaterally, slight wheeze CV: regular Ext: no edema Objective Labs 08/03/23 04:50 08/03/23 04:50 Labs: Laboratory Results - last 24 hr 08/02/23 08/03/23 18:27 04:50 WBC 17.8 H RBC 4.46 Hgb 12.5 Hct 37.7 MCV 84.6 MCH 27.9 MCHC 33.0 RDW 14.5 Plt Count 337 Neut % (Auto) 88.9 H D Lymph % (Auto) 8.1 L [place] % (Auto) 2.3 L Eos % (Auto) 0.0 L Baso % (Auto) 0.7 Neut # (Auto) 08721 H Lymph # (Auto) 1400 Door # (Auto) 400 Eos # (Auto) 0 Baso # (Auto) 100 Sodium 138 Potassium 4.1 Chloride 107 Carbon Dioxide 23 BUN 15 Creatinine 0.35 L Estimated GFR > 60 BUN/Creatinine Ratio 42.9 H Glucose 130 H Calcium 9.9 Nasal Screen MRSA (PCR) Not detected [facility] Medical History (Updated 08/02/23 @ 03:49 by Chester Malhotra MD) Hypertension Diabetes History of lung cancer Surgical History History of lung surgery Social History household members: children Smoking Status: Former smoker alcohol intake: former Assessment & Plan Assessment & Plan narrative: 1. Rhinoviral Upper Respiratory Infection / Bronchitis - symptomatic treatment - tylenol, robitussin, tessalon, albuterol/ipratropium nebs q4hwa - solumedrol 60 mg q12h 2. Probable bacterial pneumonia, present on admission -continue zosyn due to significant elevated WBC prior to initiation of steroids -bilat infiltrate vs atelectasis on post thoracentesis CXR -added azithromycin 08/02 3. Acute Hypoxemic Respiratory Failure - 2nd to bronchitis but also with re-accumulating Lt malignant pleural effusion - may need home oxygen - will attempt possible thoracentesis to remove effusion, last was 1L off in Jun 2023 4. Malignant left lung effusion -s/p thoracentesis 1.1 L on 08/01 5. Lung Adenocarcinoma - she had Rt lung lobectomy 10 years ago, now has recurrence on the left, stage 4, getting paliative chemoTx by oncology 5. HTN - Losartan 6. DM2, well controlled - continue home medications, SS, diabetic diet 6. Hypothyroidism - levothyroxine 7. Depression - Zoloft 8 GERD - PPI 9. Thoracic vertebral fracture -T6 compression fracture noted on CT -possibly from severe coughing for 2 weeks, also fell 2 weeks ago -lidoderm patch between scapula -hydrocodone prn -PCP had recently increased gabapentin dose to 900 mg tid for the acute back pain DVT prophylaxis - Lovenox
[2023-08-03] MEDS: ALBUTEROL/IPRATROPIUM 3 ML AMPUL INH ×3 (11:14→23:14)
[2023-08-03] MEDS: GABAPENTIN 300 MG CAPSULE 900 MG PO ×2 (15:03→20:37)
[2023-08-03] MEDS: LIDOCAINE 5% PATCH 1 EACH TOP (15:03)
[2023-08-03] MEDS: HYDROMORPHONE 2 MG TABLET PO ×2 (17:30→20:38)
[2023-08-03] MEDS: SERTRALINE 50 MG TABLET 100 MG PO (17:30)
[2023-08-03] MEDS: fentaNYL 12 MCG/PATCH TOP (17:30)
--- NOTE | 2023-08-03 19:28 | PC.NURSE ---
Approximately 1800 pt expressed to RN that she had recently had suicidal thoughts. RN spent time communicating with patient and assessing what patient said. Pt said that she had previously had thoughts of dying because of a lack of pain control and not wanting to be in so much pain. Pt expressed that reasons to live were her family. Pt expressed that she previously owned a gun but had the gun removed from her house as to not have access to it. After listening to pt express herself, RN conducted the [place] suicide risk screening tool. Pt answered yes to questions 1-3 and no to questions 4-6. RN had been working with patient throughout the day for pain control and recently had advocated to provider about different pain control methods, dilaudid and fentanyl patch were administered. After doing the [place] suicide risk screening tool, RN reported the findings to provider and charge nurse. Provider said that 1:1 staffing was not indicated at this time and that the nursing and provider staff needed to be diligent about focusing on pt's pain control. RN passed this information on to night RN.
[2023-08-03] MEDS: ACETAMINOPHEN 325 MG TABLET 650 MG PO (20:37)
[2023-08-03] MEDS: BENZONATATE 100 MG CAPSULE 200 MG PO (20:37)
[2023-08-03] MEDS: diazePAM 5 MG TABLET PO (20:38)
[2023-08-03] MEDS: INSULIN GLARGINE 100 UNIT/ML 3ML PEN 20 UNIT SUBCUT (21:00)
[2023-08-03] MEDS: CYCLOBENZAPRINE 10 MG TABLET PO (23:00)
[2023-08-04] VITALS (10 sets, daily range): BP systolic 101–136; BP diastolic 47–74; PULSE 62–83; RESP 16–19; TEMP 35.7–36.6; O2SAT 93–100
[2023-08-04] MEDS: ACETAMINOPHEN 325 MG TABLET 650 MG PO (01:57)
[2023-08-04] MEDS: HYDROMORPHONE 2 MG TABLET PO ×3 (01:57→11:54)
[2023-08-04 04:18] LABS: Add Manual Diff / Slide Review NO; Basophils Absolute Auto 0 /uL (0-100); Basophils Percent Auto 0.3 % (0-2); Eosinophils Absolute Auto 0 /uL (0-450); Hematocrit 34.2 % (36-46); Hemoglobin 11.4 g/dL (12.0-16.0); Lymphocytes Absolute Auto 1000 /uL (1100-4500); Lymphocytes Percent Auto 7.1 % (25-40); Mean Corpuscular HGB Conc 33.5 % (30-36); Mean Corpuscular Hemoglobin 28.6 PG (26-34); Mean Corpuscular Volume 85.3 fL (80-100); Monocytes Absolute Auto 300 /uL (0-900); Monocytes Percent Auto 2.4 % (3-14); Neutrophils Absolute Auto 12400 /uL (1500-7000); Neutrophils Percent Auto 90.2 % (50-75); Platelet Count 310 X10^3/uL (150-400); Red Cell Distribution Width 14.8 % (11.6-14.8); White Blood Cell Count 13.8 X10^3/uL (4.5-11.0)
[2023-08-04 04:21] LABS: BUN Creatinine Ratio 42.5 (6-22); Blood Urea Nitrogen 17 mg/dL (7-17); Calcium 9.2 mg/dL (8.4-10.2); Carbon Dioxide 25 mmol/L (22-32); Chloride 107 mmol/L (98-107); Estimated Glomerular Filt Rate > 60 mL/min (>60); Glucose 174 mg/dL (80-110); HEMOLYSIS < 15 (0-50); Potassium 4.3 mmol/L (3.4-5.1); Sodium 137 mmol/L (137-145)
[2023-08-04] MEDS: BENZONATATE 100 MG CAPSULE 200 MG PO (05:02)
[2023-08-04] MEDS: diazePAM 5 MG TABLET PO (05:03)
[2023-08-04] MEDS: methylPREDNISolone 125 MG/2 ML VIAL 60 MG IV (08:07)
[2023-08-04] MEDS: PIPERACILLIN/TAZO 3.375 GM in SODIUM CHLORIDE 0.9% 100 ML IV ×2 (08:07→15:20)
[2023-08-04] MEDS: ASPIRIN EC 81 MG TABLET PO (08:08)
[2023-08-04] MEDS: METFORMIN HCL 500 MG TABLET PO ×2 (08:08→17:16)
[2023-08-04] MEDS: ENOXAPARIN 40 MG/0.4 ML SYRINGE SUBCUT (08:08)
[2023-08-04] MEDS: LEVOTHYROXINE 75 MCG TABLET PO (08:08)
[2023-08-04] MEDS: GABAPENTIN 300 MG CAPSULE 900 MG PO ×3 (08:08→21:08)
[2023-08-04] MEDS: SODIUM CHLORIDE 0.9% FLUSH 10 ML IV ×3 (08:09→21:11)
[2023-08-04] MEDS: PANTOPRAZOLE DR 20 MG TABLET PO ×2 (08:09→21:07)
[2023-08-04] MEDS: LORATADINE 10 MG TABLET PO (08:09)
--- NOTE | 2023-08-04 10:51 | CM.DPNOTE ---
Addendum entered by IRAM Good 08/04/23 13:07: Attempted to meet with pt again. Remains sleeping/resting. CM/MASTER AUTOMOTIVE GLASS TECHNICIAN team will continue to follow closely for SI/SH/DCP needs. SL Original Note: DCP Note MASTER AUTOMOTIVE GLASS TECHNICIAN reviewed EMR. Per chart review, pt expressed some suicidal ideation yesterday. Per RN note/RN report/MAINTENANCE ENGINEER OIL FIELD observations, thoughts of self harm were due to struggling to control pt's pain. Per hospitalist PN, no 1:1 needed at this time. Per nursing staff, pt ambulates fine indep, likely no need for PT consult. Per hospitalist, attempting to get pt off O2 today. Could dc home either today vs tomorrow. MASTER AUTOMOTIVE GLASS TECHNICIAN attempted to meet with pt in room. Pt sleeping soundly. Nursing staff recommended allowing pt to sleep due to pt struggling to get quality sleep here throughout stay due to pain. Plan: Anticipate home with dtr to transport and for pt to resume OP chemotherapy/immonotherapy when medically stable. MASTER AUTOMOTIVE GLASS TECHNICIAN will continue to follow closely for SI/SH indications/needs. DCP will continue to follow and assist with evolving d/c needs. IRAM Good
--- NOTE | 2023-08-04 11:20 | PC.NURSE ---
Patient has been sleeping this morning. Denies pain or discomfort at this time. IV antibiotic infusing and patient is tolerating this well..
--- NOTE | 2023-08-04 11:21 | PM.PN.1 ---
Subjective Subjective Date Patient Seen: 08/03/23 Interval history: Patient starting to feel a bit improved. She is tired today from a rough night. Pain is a bit better today. She is s/p left lung thoracentesis on 08/01 with 1100 cc fluid removed. States back pain is better with lidoderm and fentanyl patches. Did desaturate in bed to 89% on room air but largely asleep, when awake she is in the low 90s. Now on 0.5 - 1 L O2. Exam Vital Signs (past 8 hours): - 08/04/23 05:21 08/04/23 08:24 08/04/23 08:41 Temperature 96.8 F L Pulse Rate 65 Respiratory Rate 16 Blood Pressure 115/64 112/54 L Pulse Oximetry 94 94 Oxygen Delivery Method Nasal Cannula Oxygen Flow Rate 1 1 Fraction of Inspired Oxygen 24 08/04/23 09:00 Temperature 97.0 F L Pulse Rate 62 Respiratory Rate 18 Blood Pressure 101/47 L Pulse Oximetry 97 Oxygen Delivery Method Oxygen Flow Rate 0 Fraction of Inspired Oxygen Fraction of Inspired Oxygen 24 SaO2/FiO2 Ratio 391 Oxygen Delivery Method Nasal Cannula Oxygen Flow Rate 0 Narrative Exam Narrative: Gen: alert, no acute distress Lungs: diminished bilaterally CV: regular Ext: no edema Objective Labs 08/04/23 04:00 08/04/23 04:00 Labs: Laboratory Results - last 24 hr 08/04/23 04:00 WBC 13.8 H RBC 4.00 Hgb 11.4 L Hct 34.2 L MCV 85.3 MCH 28.6 MCHC 33.5 RDW 14.8 Plt Count 310 Neut % (Auto) 90.2 H Lymph % (Auto) 7.1 L [place] % (Auto) 2.4 L Eos % (Auto) 0.0 L Baso % (Auto) 0.3 Neut # (Auto) 44401 H Lymph # (Auto) 1000 L [place] # (Auto) 300 Eos # (Auto) 0 Baso # (Auto) 0 Sodium 137 Potassium 4.3 Chloride 107 Carbon Dioxide 25 BUN 17 Creatinine 0.40 L Estimated GFR > 60 BUN/Creatinine Ratio 42.5 H Glucose 174 H Calcium 9.2 PFSH Medical History (Updated 08/02/23 @ 03:49 by Chester Malhotra MD) Hypertension Diabetes History of lung cancer Surgical History History of lung surgery Social History household members: children Smoking Status: Former smoker alcohol intake: former Assessment & Plan Assessment & Plan narrative: 1. Rhinoviral Upper Respiratory Infection / Bronchitis - symptomatic treatment - tylenol, robitussin, tessalon, albuterol/ipratropium nebs q4hwa - solumedrol 60 mg today x1 dose (previous BID), reduce to predisone 40 mg daily starting tomorrow. 2. Probable bacterial pneumonia, present on admission -continue zosyn due to significant elevated WBC prior to initiation of steroids. WBC improved today. -bilat infiltrate vs atelectasis on post thoracentesis CXR -added azithromycin 08/02 -PT / OT ordered for today 3. Acute Hypoxemic Respiratory Failure - 2nd to bronchitis but also with re-accumulating Lt malignant pleural effusion - may need home oxygen but slow improvement. Consider DIEGO. - had 1.1 L removed on 08/01. 4. Malignant left lung effusion -s/p thoracentesis 1.1 L on 08/01 5. Lung Adenocarcinoma - she had Rt lung lobectomy 10 years ago, now has recurrence on the left, stage 4, getting paliative chemoTx by oncology 5. HTN - Losartan 6. DM2, well controlled - continue home medications, SS, diabetic diet 6. Hypothyroidism - levothyroxine 7. Depression - Zoloft 8 GERD - PPI 9. Thoracic vertebral fracture -T6 compression fracture noted on CT -possibly from severe coughing for 2 weeks, also fell 2 weeks ago -lidoderm patch between scapula, fentanyl patch ordered 08/02. -hydrocodone prn -PCP had recently increased gabapentin dose to 900 mg tid for the acute back pain DVT prophylaxis - Lovenox Code: Full, surrogate decision maker is patient's daughter. Dispo: weaning from O2. Will start PT/OT today to make sure she is able to safely discharge home in the next 1-2 days. Discussed with case management and therapy team
[2023-08-04] MEDS: ALBUTEROL/IPRATROPIUM 3 ML AMPUL INH ×2 (11:43→19:47)
[2023-08-04] MEDS: AZITHROMYCIN 500 MG in DEXTROSE 5% IN WATER 250 ML 250 MG IV (11:54)
--- NOTE | 2023-08-04 12:20 | OT.IPNOTE ---
Ot evla and treat recieved. Chart reviewed and discussed with pt. Pt states that she is able to care for herself at this time. She is up and ambulating in the room with nursing. No OT services needed at this time. Will discharge OT eval order.
--- NOTE | 2023-08-04 13:40 | DIET.CONS ---
Dietary Consultation Note Admission Date: 08/02/2023 03:20 Assessment: 67 y F admitted for bronchitis/acute hypoxemic respiratory failure. Nutrition consulted for low MNA score. Met with pt at bedside. She has been experiencing a decrease in appetite with taste changes and dry mouth, which has led to increase thirst and desire for cold foods/drinks, and a decrease in energy. She lives with her daughter and grandchild and due to busy schedule, they rely on convenient foods. Has been experiencing unintentional weight loss for ~2 years. Reports GI upset with intake of foods that contain lactose. Nutrition focused physical exam not appropriate to be performed at this time. Ht: 162.56 cm Wt: 95 kg BMI: 35.9 UBW: 100.45 kg per pt report 6 months ago (5.4% weight loss in 6 months, non-severe) Last BM: 08/03/23 (08/03/23 12:23) MNA: 9 Slim Score: 19 Diet: 08/02/23 Breakfast Carbohydrate Consistent Diet Diet Modifications: Carbohydrate level: Medium (3 CHO) Reflex DM orders: No Nutrition Percent Meal Consumed 75% 08/04/23 13:00 Percent Meal Consumed 25% 08/04/23 10:02 Percent Meal Consumed 100% 08/03/23 18:00 Percent Meal Consumed 50% 08/03/23 13:12 Percent Meal Consumed 100% 08/02/23 17:39 Labs: RBC 4.00 X10^6/uL (4.0-5.2) 08/04/23 04:00 Hgb 11.4 g/dL (12.0-16.0) L 08/04/23 04:00 Hct 34.2 % (36-46) L 08/04/23 04:00 Creatinine 0.40 mg/dL (0.52-1.04) L 08/04/23 04:00 Lactate 1.2 mmol/L (0.7-2.1) 08/02/23 02:23 NT-Pro-B Natriuret Pep 29 pg/mL (<125) 08/02/23 00:20 Nutrition Diagnosis: Inadequate energy intake r/t decreased ability to consume sufficient energy needs as evidenced by pt reported taste changes and low energy for food preparation, 5.4% unintentional weight loss in 6 months (non-severe). Interventions: 1. Provided nutrition related therapy for taste changes/dry mouth. 2. Offer protein smoothies, lactose free if desired -coordinated with unit host. 2. Encouraged adequate protein intake with 1-2 convenient options discussed (peanut butter and ONS) and small frequent meals/snacks as able. EER: 3693-3155 kcals per day ([address] jeor equation w/ 1.25 stress factor) 85-100 g PRO per day (1.2-1.4 grams/kg of IBW of 70 kg) Monitoring/Evaluations: PO intake, f/u in 3 days Electronically Signed by: Kellee Del Angel 08/04/23 13:40 Clinical Dietitian [address] [address]
--- NOTE | 2023-08-04 13:49 | PT-IP ANOTE ---
PT ordered and PT reviews chart and checks in with pt. Pt does not wish for PT. PT speaks with nsg who reports that pt does get up with SBA and is having decreased affect d/t progressive medical issues. Will d/c PT at this time. If PT is needed for d/c planning and pt is agreeable, please re-consult. Will d/c PT order.
[2023-08-04] MEDS: LIDOCAINE 5% PATCH 1 EACH TOP (15:19)
[2023-08-04] MEDS: SERTRALINE 50 MG TABLET 100 MG PO (17:16)
[2023-08-04] MEDS: INSULIN GLARGINE 100 UNIT/ML 3ML PEN 20 UNIT SUBCUT (21:10)
[2023-08-05] VITALS: BP 116/61; PULSE 61; RESP 20; TEMP 36.1; O2SAT 96
[2023-08-05] MEDS: PIPERACILLIN/TAZO 3.375 GM in SODIUM CHLORIDE 0.9% 100 ML IV (00:18)
[2023-08-05 05:48] VITALS: BP 117/53; PULSE 57; RESP 20; TEMP 35.8; O2SAT 96
[2023-08-05 05:58] LABS: Add Manual Diff / Slide Review NO; Basophils Absolute Auto 0 /uL (0-100); Basophils Percent Auto 0.2 % (0-2); Eosinophils Absolute Auto 0 /uL (0-450); Eosinophils Percent Auto 0.3 % (2-4); Hematocrit 32.7 % (36-46); Hemoglobin 11.1 g/dL (12.0-16.0); Lymphocytes Absolute Auto 2400 /uL (1100-4500); Mean Corpuscular HGB Conc 34.1 % (30-36); Mean Corpuscular Hemoglobin 29.4 PG (26-34); Mean Corpuscular Volume 86.3 fL (80-100); Monocytes Absolute Auto 900 /uL (0-900); Monocytes Percent Auto 8.3 % (3-14); Neutrophils Absolute Auto 7100 /uL (1500-7000); Neutrophils Percent Auto 68.2 % (50-75); Platelet Count 264 X10^3/uL (150-400); Red Blood Cell Count 3.79 X10^6/uL (4.0-5.2); Red Cell Distribution Width 14.7 % (11.6-14.8); White Blood Cell Count 10.5 X10^3/uL (4.5-11.0)
[2023-08-05 06:04] LABS: BUN Creatinine Ratio 40.9 (6-22); Blood Urea Nitrogen 18 mg/dL (7-17); Carbon Dioxide 28 mmol/L (22-32); Chloride 106 mmol/L (98-107); Estimated Glomerular Filt Rate > 60 mL/min (>60); Glucose 104 mg/dL (80-110); HEMOLYSIS < 15 (0-50); Potassium 3.9 mmol/L (3.4-5.1); Sodium 138 mmol/L (137-145)
[2023-08-05 07:51] VITALS: PULSE 57; O2SAT 93
--- NOTE | 2023-08-05 08:30 | P.DS_ITS ---
History of Present Illness History of Present Illness Date Patient Seen: 08/05/23 Time Patient Seen: 08:30 Chief complaint: SOB Narrative: Per admitting provider, 67 y/o with PMH of lung carcinoma, undergoing palliative chemotherapy, developed progressive shortness of breath and severe cough. Presented to ED with severe rhinoviral bronchitis, hypoxemic. Imaging showing known Lt lung mass and pleural effusion. She has severe pain of chest and abdominal wall from coughing, feels very tired and weak. She did not have fever or chills. In the emergency department she was initially given dose of abx but further workup w/o evidence of bacterial infection Discharge Providers Provider Date of admission: 08/02/23 03:20 Discharge Date: 08/05/23 Primary care physician: Nika Madrigal PA-C Consults: 08/02/23 04:01 Consult to Dietitian, Adult Routine Comment: Reason For Exam: low MNA score Consult to Pastoral Services Routine Comment: patient request 08/04/23 11:21 Consult to Occupational Therapy Evaluate & Treat Comment: Physician Instructions: Evaluate and treat Consult to Physical Therapy Evaluate & Treat Comment: Physician Instructions: Evaluate and Treat Discharge provider: Nishant Lutz DO Summary Hospital Course Discharge Diagnosis: 1. Rhinoviral Upper Respiratory Infection / Bronchitis 2. Probable bacterial pneumonia, present on admission 3. Acute Hypoxemic Respiratory Failure 4. Malignant left lung effusion 5. Lung Adenocarcinoma 5. HTN 6. DM2, well controlled 6. Hypothyroidism 7. Depression 8 GERD 9. Thoracic vertebral fracture Hospital Course: 67 F with PMH of lung adenocarcinoma with recurrent L lung effusion admitted due to acute respiratory failure with hypoxia, likely due to rhinovirus infection with probable bacterial pneumonia and recurrent L pleural effusion. She was started on steroids, antibiotics, and nebulizers with some improvement. She also had thoracentesis with 1.1L fluid removed. Fluid was not sent for analysis per performing provider. After some time she felt much improved, and was no longer requiring supplemental oxygen. She was discharged with another 3 days of prednisone therapy, and another 5 days of augmentin for presumed bacterial pneumonia. She did endorse passive SI likely due to uncontrolled pain, but was improved with improved pain control. She was started on fentanyl patches with much improvement. Continued follow up with oncology and primary care is recommended, and patient has oncology appointment tomorrow. No other changes to her home medications are recommended on discharge. Time Spent with Patient Time spent: Greater than 30 minutes Exam Vital Signs (past 8 hours): - 08/05/23 05:48 08/05/23 07:51 Temperature 96.5 F L Pulse Rate 57 L 57 L Respiratory Rate 20 Blood Pressure 117/53 L Pulse Oximetry 96 93 Oxygen Delivery Method Room Air Oxygen Flow Rate 0 Fraction of Inspired Oxygen 24 SaO2/FiO2 Ratio 395 Oxygen Delivery Method Room Air Oxygen Flow Rate 0 Narrative Exam Narrative: Gen: alert, no acute distress Lungs: diminished bilaterally CV: regular Ext: no edema Objective Labs 08/05/23 05:40 08/05/23 05:40 Labs: Laboratory Results - last 24 hr 08/05/23 05:40 WBC 10.5 RBC 3.79 L Hgb 11.1 L Hct 32.7 L MCV 86.3 MCH 29.4 MCHC 34.1 RDW 14.7 Plt Count 264 Neut % (Auto) 68.2 D Lymph % (Auto) 23.0 L [place] % (Auto) 8.3 Eos % (Auto) 0.3 L Baso % (Auto) 0.2 Neut # (Auto) 7100 H Lymph # (Auto) 2400 [place] # (Auto) 900 Eos # (Auto) 0 Baso # (Auto) 0 Sodium 138 Potassium 3.9 Chloride 106 Carbon Dioxide 28 BUN 18 H Creatinine 0.44 L Estimated GFR > 60 BUN/Creatinine Ratio 40.9 H Glucose 104 Calcium 9.0 [facility] Medical History (Updated 08/02/23 @ 03:49 by Chester Malhotra MD) Hypertension Diabetes History of lung cancer Surgical History History of lung surgery Social History household members: children Smoking Status: Former smoker alcohol intake: former Discharge Plan Discharge Plan Patient Disposition: Home Provider Discharge Comment: You were admitted to the hospital with shortness of breath, cough, requiring oxygen. You were found to have rhinovirus (common cold virus) but treated for possible bacterial pneumonia as well as some steroids for reactive airways. You also had some fluid drained from your lung. This seemed to help and you improved, no longer requiring oxygen. Continue antibiotics and steroids at home, and complete the entire course. For pain control, you were started on a fentanyl patch. Recommend continued discussion about pain management with oncology today. Discharge orders & Medications Prescriptions: New prednisone 20 mg Tablet 40 mg PO DAILY 3 Days Qty: 6 0RF fentanyl 12 mcg/hr Patch 72 Hour 12 mcg topical Q72H 9 Days Qty: 3 0RF amoxicillin-pot clavulanate 875-125 mg tablet 1 tab PO BID 5 Days Qty: 10 0RF albuterol sulfate 1.25 mg/3 mL solution for nebulization 1.25 mg inhalation QID PRN (Reason: shortness of breath or wheezing) 30 Days Qty: 75 0RF (DME) nebulizer and compressor Device See Rx Instructions .Route Qty: 1 0RF Rx Instructions: As directed Continued aspirin 81 mg Tablet,Delayed Release (Dr/Ec) 81 mg PO DAILY Qty: 0 metformin [Glucophage] 500 MG tablet 500 mg PO BIDCC Qty: 0 Jardiance 25 MG tablet 25 mg PO DAILY Qty: 0 cyclobenzaprine 10 mg Tablet 10 mg PO TID PRN (Reason: muscle relaxant) pantoprazole 20 mg Tablet,Delayed Release (Dr/Ec) 20 mg PO BID levothyroxine 75 mcg Tablet 75 mcg PO DAILY gabapentin 300 mg Capsule 900 mg PO TID loratadine [Allerclear] 10 mg Tablet 10 mg PO DAILY diazepam 5 mg tablet 5 mg PO Q8H PRN (Reason: Anxiety) insulin glargine 100 unit/mL Cartridge 30 unit SUBCUT QAM insulin glargine 100 unit/mL Cartridge 20 unit SUBCUT QPM Trulicity 1.5 mg/0.5 mL Pen Injector 1.5 mg SUBCUT 2XW Rx Instructions: inject every friday and friday atorvastatin 40 mg tablet 40 mg PO QPM sertraline 100 mg tablet 100 mg PO QPM meloxicam 7.5 mg tablet 15 mg PO DAILY PRN (Reason: pain) losartan 50 mg tablet 25 mg PO DAILY albuterol sulfate [ProAir HFA] 90 mcg/actuation HFA aerosol inhaler 2 puff INHALATION Q4H PRN (Reason: Wheezing) benzonatate 200 mg capsule 200 mg PO TID PRN (Reason: cough) Qty: 30 0RF Follow up/Referrals: Nika Madrigal PA-C [Primary Care Provider] - Diet/Activity/Treatments Diet: Diet as Tolerated and Regular Activity: As tolerated no restrictions Visit Report/Discharge Packet Instructions: Prednisone, Fentanyl Transdermal Patch, Amoxicillin and Clavulanic Acid Stand Alone Forms: Patient Portal/API, Stroke Signs & Symptoms Discharge Data Primary Care Provider: Nika Madrigal
[2023-08-05] MEDS: PANTOPRAZOLE DR 20 MG TABLET PO (09:04)
[2023-08-05] MEDS: GABAPENTIN 300 MG CAPSULE 900 MG PO (09:04)
[2023-08-05] MEDS: predniSONE 20 MG TABLET 40 MG PO (09:04)
[2023-08-05] MEDS: ASPIRIN EC 81 MG TABLET PO (09:04)
[2023-08-05] MEDS: LEVOTHYROXINE 75 MCG TABLET PO (09:04)
[2023-08-05] MEDS: LORATADINE 10 MG TABLET PO (09:05)
[2023-08-05] MEDS: ENOXAPARIN 40 MG/0.4 ML SYRINGE SUBCUT (09:05)
[2023-08-05] MEDS: METFORMIN HCL 500 MG TABLET PO (09:05)
--- NOTE | 2023-08-05 09:21 | PC.NURSE ---
Patient is going to discharge home today, daughter will pick her up. She is feeling better and is not using her oxygen. She is on RA and able to ambulate with sba to the bathroom. She ate some breakfast, and was given her oral medications.
--- NOTE | 2023-08-05 09:27 | CM.DPNOTE ---
DC Note Discharge home w/family to support and assist as needed. Daughter to transport. Close outpatient follow up recommended. No needs identified from this CM team. GRZEGORZ
--- NOTE | 2023-08-08 08:27 | PC.NURSE ---
Late Entry: 08/04/2023- Patient was uncomfortable at 1830 and was offered pain medication and given 2mg of po dilaudid around 1840. She states that the dilaudid has been effective for pain control.
== END 2023-08-05 11:12 | disposition home or self-care (01) | DRG 180 ==
LOC: ED 23:45 → AC 08-02 03:28
PROVIDERS: Student in an Organized Health Care Education/Training Program; Admitting Provider Internal Medicine; Emergency Provider Emergency Medicine; PCP Physician Assistant Medical; Referring Provider Emergency Medicine; Visit Provider Internal Medicine
DX: C34.92 Malignant neoplasm of unspecified part of left bronchus or lung (principal); J18.9 Pneumonia, unspecified organism; J96.01 Acute respiratory failure with hypoxia; J91.0 Malignant pleural effusion; M48.54XA Collapsed vertebra, not elsewhere classified, thoracic region, initial encounter for fracture; J20.6 Acute bronchitis due to rhinovirus; I10 Essential (primary) hypertension; E11.9 Type 2 diabetes mellitus without complications; E03.9 Hypothyroidism, unspecified; F32.A Depression, unspecified; K21.9 Gastro-esophageal reflux disease without esophagitis; Z79.4 Long term (current) use of insulin; Z79.84 Long term (current) use of oral hypoglycemic drugs; Z87.891 Personal history of nicotine dependence; Z79.85 Long-term (current) use of injectable non-insulin antidiabetic drugs
CPT/HCPCS: 36415; 36591; 36592; 71045; 71275; 80048; 80053; 82962; 83605; 83880; 85025; 87040; 87633; 87797; 93005; 93010; 94640; 94760; 94762; 96365; 96375; 99285; J1170; J1642; J1650; J2543; J2919; J7613; Q9967

== ENCOUNTER → 2023-09-24 12:50 | Outpatient (CLI) | payer MEDICARE, OTHER, SELFPAY ==
[2023-09-19 14:39] VITALS: BMI 35.9
--- NOTE | 2023-09-24 12:53 | DI.RAD.S_ITS ---
PROCEDURE: XR CHEST 2V INDICATIONS: Malignant pleural effusion TECHNIQUE: 2 views of the chest were acquired. COMPARISON: [facility], CR, XR CHEST 1V, 08/02/2023, 19:02. FINDINGS: Surgical changes and devices: Left-sided Port-A-Cath in place surgical clips right axilla Lungs and pleura: Left perihilar nodularity with linear scarring is similar prior exam. Obscuration left hemidiaphragm. Mediastinum: Heart size is enlarged. Bones and chest wall: No suspicious bony abnormalities. Soft tissues appear unremarkable. IMPRESSION: Moderate left pleural effusion, increased from the prior. Stable left hilar mass lesion Approved by: Torey Najera M.D. on 09/24/2023 at 17:19
== END ==
PROVIDERS: PCP Physician Assistant Medical; Referring Provider Internal Medicine Critical Care Medicine; Visit Provider Internal Medicine Critical Care Medicine
DX: J91.0 Malignant pleural effusion (principal); C80.1 Malignant (primary) neoplasm, unspecified; R91.8 Other nonspecific abnormal finding of lung field; I51.7 Cardiomegaly
CPT/HCPCS: 71046

== ENCOUNTER 2023-10-24 16:09 | Emergency (ER) | payer MEDICARE, OTHER, SELFPAY ==
[2023-09-19 14:39] VITALS: BMI 35.9
[2023-10-24] VITALS (13 sets, daily range): BP systolic 95–141; BP diastolic 55–74; PULSE 86–95; RESP 13–24; TEMP 36.3; O2SAT 91–97; BMI 33.6
--- NOTE | 2023-10-24 16:37 | DI.RAD.S_ITS ---
PROCEDURE: XR CHEST 1V INDICATIONS: Shortness of breath TECHNIQUE: One view of the chest was acquired. COMPARISON: [facility], CR, XR CHEST 1 VIEW, 09/02/2023, 8:40. [facility], CT, CT ANGIO CHEST PE, 08/29/2023, 20:25. [facility], CR, XR CHEST 2V, 09/24/2023, 12:54. FINDINGS: Surgical changes and devices: Left chest Port-A-Cath. Right breast clips. Lungs and pleura: Left pleural effusion, left basilar atelectasis. Unchanged left perihilar mass. Mediastinum: Mediastinal contours appear normal. Heart size is normal. Bones and chest wall: No suspicious bony lesions. Overlying soft tissues appear unremarkable. IMPRESSION: Stable findings. Left perihilar mass, left pleural effusion, and with basilar atelectasis. Dictated by: Imer Steinberg M.D. on 10/24/2023 at 17:42 Approved by: Imer Steinberg M.D. on 10/24/2023 at 17:45
[2023-10-24 17:11] LABS: Add Manual Diff / Slide Review NO; Basophils Absolute Auto 0 /uL (0-100); Basophils Percent Auto 0.3 % (0-2); Eosinophils Absolute Auto 100 /uL (0-450); Eosinophils Percent Auto 1.8 % (2-4); Hematocrit 38.4 % (36-46); Hemoglobin 13.3 g/dL (12.0-16.0); Lymphocytes Absolute Auto 2300 /uL (1100-4500); Lymphocytes Percent Auto 62.9 % (25-40); Mean Corpuscular HGB Conc 34.7 % (30-36); Mean Corpuscular Hemoglobin 30.9 PG (26-34); Monocytes Absolute Auto 700 /uL (0-900); Monocytes Percent Auto 19.5 % (3-14); Neutrophils Absolute Auto 600 /uL (1500-7000); Neutrophils Percent Auto 15.5 % (50-75); Platelet Count 87 X10^3/uL (150-400); Red Blood Cell Count 4.31 X10^6/uL (4.0-5.2); Red Cell Distribution Width 15.6 % (11.6-14.8); White Blood Cell Count 3.7 X10^3/uL (4.5-11.0)
[2023-10-24 17:16] LABS: INR 1.6 (0.9-1.3); Prothrombin Time 18.6 SECONDS (9.4-12.5)
[2023-10-24 17:20] LABS: Lactate (Lactic Acid) 2.3 mmol/L (0.7-2.1)
[2023-10-24 17:21] LABS: Alanine Aminotransferase 28 IU/L (<35); Albumin 4.5 g/dL (3.5-5.0); Albumin Globulin Ratio 1.3 (1.0-2.8); Alkaline Phosphatase 73 U/L (38-126); Aspartate Aminotransferase 42 IU/L (14-36); BUN Creatinine Ratio 12.7 (6-22); Bilirubin Total 1.1 mg/dL (0.2-1.3); Blood Urea Nitrogen 8 mg/dL (7-17); Calcium 9.8 mg/dL (8.4-10.2); Carbon Dioxide 34 mmol/L (22-32); Chloride 96 mmol/L (98-107); Estimated Glomerular Filt Rate > 60 mL/min (>60); Globulin 3.4 g/dL (1.7-4.1); Glucose 98 mg/dL (80-110); HEMOLYSIS < 15 (0-50); Sodium 138 mmol/L (137-145); Total Protein 7.9 g/dL (6.3-8.2)
[2023-10-24 17:29] LABS: Potassium 2.2 mmol/L (3.4-5.1)
[2023-10-24 17:33] LABS: NT-proBNP (BNP-Adult 18+) 65 pg/mL (<125); Troponin I < 0.012 ng/mL (0.01-0.034)
[2023-10-24] MEDS: POTASSIUM CHLORIDE IN WATER 10 MEQ/100 ML PIGGYBACK 100 MEQ IV (17:44)
--- NOTE | 2023-10-24 18:01 | PC.NURSE ---
IV Potassium rate decreased to 75ml/hr due to pt complaint of infusion burning.
--- NOTE | 2023-10-24 18:25 | ED.GENADULT ---
HPI - General Adult General Chief complaint: Shortness of Breath/Dyspnea Stated complaint: Difficulty Breathing Time Seen by Provider: 10/24/23 17:49 Source: patient and EMS Mode of arrival: EMS History of Present Illness HPI narrative: 67-year-old female with history of lung cancer on immunotherapy presents for evaluation of confusion, slurred speech, ?feeling drunk? and listing to the side when she walks. Symptoms began this afternoon, patient states that prior to symptom onset she has been out in the [employer] helping her 90-year-old neighbor with her [employer] work. Patient was also complaining of mild shortness of breath, but states this is typical for her due to her lung cancer. She states that the reason she came here today is the feeling of drunkenness despite not having had any alcohol. Denies numbness or weakness in her extremities. Daughter at bedside denies facial droop. Related Data Home Medications Medication Instructions Recorded Confirmed aspirin 81 mg tablet,delayed 81 mg PO DAILY ##0 04/17/10 09/24/23 release metformin 500 mg tablet 500 mg PO BIDCC ##0 09/23/12 09/24/23 (Glucophage) empagliflozin 25 mg tablet 25 mg PO DAILY ##0 09/17/16 09/24/23 (Jardiance) atorvastatin 40 mg tablet 40 mg PO QPM 12/25/17 09/24/23 sertraline 100 mg tablet 100 mg PO QPM 12/25/17 09/24/23 meloxicam 7.5 mg tablet 15 mg PO DAILY PRN pain 11/10/18 09/24/23 albuterol sulfate 90 mcg/actuation 2 puff inhalation Q4H PRN Wheezing 07/12/19 09/24/23 aerosol inhaler (ProAir HFA) losartan 50 mg tablet 25 mg PO DAILY 07/12/19 09/24/23 cyclobenzaprine 10 mg tablet 10 mg PO TID PRN muscle relaxant 08/02/23 09/24/23 diazepam 5 mg tablet 5 mg PO Q8H PRN Anxiety 08/02/23 09/24/23 gabapentin 300 mg capsule 900 mg PO TID 08/02/23 09/24/23 levothyroxine 75 mcg tablet 75 mcg PO DAILY 08/02/23 09/24/23 loratadine 10 mg tablet 10 mg PO DAILY 08/02/23 09/24/23 (Allerclear) pantoprazole 20 mg tablet,delayed 20 mg PO BID 08/02/23 09/24/23 release dulaglutide 1.5 mg/0.5 mL 1.5 mg SUBCUT 2XW 08/03/23 09/24/23 subcutaneous pen injector (Trulicity) insulin glargine 100 unit/mL 20 unit SUBCUT QPM 08/03/23 09/24/23 subcutaneous cartridge insulin glargine 100 unit/mL 30 unit SUBCUT QAM 08/03/23 09/24/23 subcutaneous cartridge dexamethasone 4 mg tablet 8 mg PO BID 09/24/23 09/24/23 Previous Rx's Medication Instructions Recorded benzonatate 200 mg capsule 200 mg PO TID PRN cough #30 caps 07/12/19 nebulizer and compressor #1 ea 08/05/23 Allergies Allergy/AdvReac Type Severity Reaction Status Date / Time niacin [NIACIN] Allergy Mild Verified 09/24/23 12:43 duloxetine AdvReac Intermediate Vomiting Verified 09/24/23 12:43 morphine AdvReac Intermediate Vomiting Verified 09/24/23 12:43 propoxyphene [From DARVON] AdvReac Mild VOMITING Verified 09/24/23 12:43 Review of Systems Review of Systems Narrative: See HPI Patient History Medical History Hypertension Diabetes History of lung cancer Surgical History History of lung surgery Social History household members: children Smoking Status: Former smoker alcohol intake: former Smoking Status: Former smoker alcohol intake frequency: holidays/special occasions only Substance Use Type: does not use Exam Initial Vital Signs Initial Vital Signs: Vital Signs Temperature 97.3 F L 10/24/23 16:24 Pulse Rate 90 10/24/23 16:24 Respiratory Rate 16 10/24/23 16:24 Blood Pressure 115/59 L 10/24/23 16:24 Pulse Oximetry 95 10/24/23 16:24 Oxygen Delivery Method Room Air 10/24/23 16:24 Const: Awake, alert, debilitated, frail Cardiac: regular rate, regular rhythm RESP: unlabored, clear bilaterally, no wheezing Skin: Warm, Dry, intact, no rashes Neuro: AO x3, CN II-XII grossly intact, moves all extremities, speech slow but intelligible, question mild slur Course Orders Ordered: Discontinued Medications POTASSIUM CHLORIDE IN WATER (Potassium Cl 10 Meq/100 Ml Nati) 10 meq in 100 mls @ 100 mls/hr IV Q1H MELANIE Stop: 10/24/23 19:44 Last Admin: 10/24/23 19:31 Dose: 50 mls/hr Documented By: Infusion: 10/24/23 19:28 Dose: Infused Documented By: Infusion: 10/24/23 18:00 Dose: 75 mls/hr Documented By: Admin: 10/24/23 17:44 Dose: 100 mls/hr Documented By: TAYA Sodium Chloride (Normal Saline 0.9%) 1,000 mls @ 1,000 mls/hr IV BOLUS ONE Stop: 10/24/23 19:24 Last Admin: 10/24/23 19:31 Dose: 1,000 mls/hr Documented By: PAULETTE Lidocaine HCl (Lidocaine 1% (Pf) 5 Ml) 5 ml INJ NOW ONE Stop: 10/24/23 19:18 Vital Signs Vital signs: Vital Signs - 8 hr 10/24/23 16:24 10/24/23 16:24 10/24/23 16:30 Temperature 97.3 F L Pulse Rate 90 Respiratory Rate 16 Blood Pressure 115/59 L 115/59 L 95/57 L Pulse Oximetry 95 Oxygen Delivery Method Room Air 10/24/23 16:37 10/24/23 16:55 10/24/23 16:55 Temperature Pulse Rate 86 86 Respiratory Rate 18 18 Blood Pressure 109/67 Pulse Oximetry 94 94 Oxygen Delivery Method 10/24/23 17:00 10/24/23 17:00 10/24/23 17:30 Temperature Pulse Rate 87 90 Respiratory Rate 17 22 Blood Pressure 125/65 Pulse Oximetry 93 95 Oxygen Delivery Method Medical Decision Making Lab Data 10/24/23 16:54 10/24/23 16:54 Labs: Lab Results 10/24/23 10/24/23 Range/Units 16:54 18:53 WBC 3.7 L (4.5-11.0) X10^3/uL RBC 4.31 (4.0-5.2) X10^6/uL Hgb 13.3 (12.0-16.0) g/dL Hct 38.4 (36-46) % MCV 89.0 (80-100) fL MCH 30.9 (26-34) PG MCHC 34.7 (30-36) % RDW 15.6 H (11.6-14.8) % Plt Count 87 L (150-400) X10^3/uL Neut % (Auto) 15.5 L (50-75) % Lymph % (Auto) 62.9 H (25-40) % [place] % (Auto) 19.5 H (3-14) % Eos % (Auto) 1.8 L (2-4) % Baso % (Auto) 0.3 (0-2) % Neut # (Auto) 600 L (3903-2875) /uL Lymph # (Auto) 2300 (7121-7388) /uL [place] # (Auto) 700 (0-900) /uL Eos # (Auto) 100 (0-450) /uL Baso # (Auto) 0 (0-100) /uL PT 18.6 H (9.4-12.5) SECONDS INR 1.6 H (0.9-1.3) Sodium 138 (137-145) mmol/L Potassium 2.2 L* (3.4-5.1) mmol/L Chloride 96 L (98-107) mmol/L Carbon Dioxide 34 H (22-32) mmol/L BUN 8 (7-17) mg/dL Creatinine 0.63 (0.52-1.04) mg/dL Estimated GFR > 60 (>60) mL/min BUN/Creatinine Ratio 12.7 (6-22) Glucose 98 (80-110) mg/dL Lactate 2.3 H 1.9 (0.7-2.1) mmol/L Calcium 9.8 (8.4-10.2) mg/dL Total Bilirubin 1.1 (0.2-1.3) mg/dL AST 42 H (14-36) IU/L ALT 28 (<35) IU/L Alkaline Phosphatase 73 (38-126) U/L Troponin I < 0.012 (0.01-0.034) ng/mL NT-Pro-B Natriuret Pep 65 (<125) pg/mL Total Protein 7.9 (6.3-8.2) g/dL Albumin 4.5 (3.5-5.0) g/dL Globulin 3.4 (1.7-4.1) g/dL Albumin/Globulin Ratio 1.3 (1.0-2.8) Imaging Data Chest x-ray: Radiologist's Impression: PROCEDURE: XR CHEST 1V INDICATIONS: Shortness of breath TECHNIQUE: One view of the chest was acquired. COMPARISON: [facility], CR, XR CHEST 1 VIEW, 09/02/2023, 8:40. [facility], CT, CT ANGIO CHEST PE, 08/29/2023, 20:25. [facility], CR, XR CHEST 2V, 09/24/2023, 12:54. FINDINGS: Surgical changes and devices: Left chest Port-A-Cath. Right breast clips. Lungs and pleura: Left pleural effusion, left basilar atelectasis. Unchanged left perihilar mass. Mediastinum: Mediastinal contours appear normal. Heart size is normal. Bones and chest wall: No suspicious bony lesions. Overlying soft tissues appear unremarkable. IMPRESSION: Stable findings. Left perihilar mass, left pleural effusion, and with basilar atelectasis. Dictated by: Imer Steinberg M.D. on 10/24/2023 at 17:42 Approved by: Imer Steinberg M.D. on 10/24/2023 at 17:45 CT scan - head: Radiologist's Impression: PROCEDURE: CT HEAD/BRAIN WO CON INDICATIONS: 'FEELING DRUNK', SLURRED SPEECH, HX LUNG CA TECHNIQUE: Noncontrast 4.5 mm thick angled axial sections acquired from the foramen magnum to the vertex, with coronal and sagittal reformats. For radiation dose reduction, the following was used: automated exposure control, adjustment of mA and/or kV according to patient size. COMPARISON: [facility], CT, CT HEAD/BRAIN WO CON, 10/10/2022, 17:30. FINDINGS: Image quality: Diagnostic. CSF spaces: Basal cisterns are patent. No extra-axial fluid collections. The ventricles are symmetric in size and shape. Brain: No intracranial bleeds or masses. There is cerebral volume loss for age, with resultant ventricular and sulcal prominence. There are periventricular and deep white matter chronic small vessel ischemic changes. There is intracranial internal carotid artery atherosclerosis. Skull and face: Calvarium and visualized facial bones appear intact, without suspicious lesions. Sinuses: Visualized sinuses and mastoids are clear. IMPRESSION: No acute intracranial pathology. Dictated by: Imer Steinberg M.D. on 10/24/2023 at 19:05 Approved by: Imer Steinberg M.D. on 10/24/2023 at 19:05 PROCEDURE: MR HEAD/BRAIN WO/W CON INDICATIONS: SLURRED SPEECH, GAIT PROBLEMS, HX LUNG CA TECHNIQUE: Noncontrast axial T1 spin echo, axial T2 fast spin echo, sagittal and axial FLAIR, coronal T2 fast spin echo, axial gradient echo, axial diffusion and ADC through the brain. After the administration of contrast, axial and coronal and sagittal T1 spin echo with fat saturation through the brain. COMPARISON: [facility], CT, CT HEAD/BRAIN WO CON, 10/24/2023, 18:42. FINDINGS: Image quality: Excellent. CSF spaces: Basal cisterns are patent. No extra-axial fluid collections. Ventricles are normal in size and shape. Brain: No midline shift. No acute intracranial hemorrhage or mass effect. No abnormal intracranial enhancement. There is mild cerebral volume loss for age. There is minimal periventricular white matter chronic small vessel ischemic change. The brainstem appears normal. Diffusion-weighted images demonstrate no acute infarct. No chronic ischemic insults. Normal intravascular flow voids are present. Skull and face: Calvarial marrow is normal in signal. Orbits appear normal. Sinuses: Sinuses and mastoids appear clear. IMPRESSION: 1. No acute intracranial hemorrhage or recent infarct. 2. No MR evidence of metastatic disease in the brain. Approved by: Omid Elliott M.D. on 10/24/2023 at 21:10 MDM Narrative Additional Information: Patient was chronically unwell appearing, frail, here today for altered mental status and drunken sensation. Patient states her speech is slurred but it seems clear on my evaluation. No obvious ataxia on exam. Given patient's history of stage III cancer concern primarily is for metastatic process. Laboratory work and CT imaging ordered. Laboratory work is reviewed, WBC count 3.7, hemoglobin 13.3, platelets 87, sodium 138, potassium 2.2, creatinine 0.63, lactic acid 2.3 with repeat 1.9, troponin undetectable. Chest x-ray shows stable findings from prior. CT brain negative for acute findings, however given patient's history a MRI was ordered for assessment. IV potassium ordered for repletion. MRI brain with and without contrast negative for metastatic process or acute infarct. Patient feeling better after receiving fluids and potassium. She was ambulatory to and from the bathroom without any ataxia or other neurologic findings. Patient informed of lab and imaging findings, she states she was feeling better but still somewhat fatigued. No explanation for patient's symptoms based on workup here in the emergency department. She was counseled of her low potassium and recommended eating potassium rich foods for the next several days. Close follow up with Oncology advised. Discharge Plan Departure Patient Disposition: Home Clinical Impression: SOB (shortness of breath), Low blood potassium Prescriptions: No Action aspirin 81 mg Tablet,Delayed Release (Dr/Ec) 81 mg PO DAILY Qty: 0 metformin [Glucophage] 500 MG tablet 500 mg PO BIDCC Qty: 0 Jardiance 25 MG tablet 25 mg PO DAILY Qty: 0 cyclobenzaprine 10 mg Tablet 10 mg PO TID PRN (Reason: muscle relaxant) pantoprazole 20 mg Tablet,Delayed Release (Dr/Ec) 20 mg PO BID levothyroxine 75 mcg Tablet 75 mcg PO DAILY gabapentin 300 mg Capsule 900 mg PO TID loratadine [Allerclear] 10 mg Tablet 10 mg PO DAILY diazepam 5 mg tablet 5 mg PO Q8H PRN (Reason: Anxiety) insulin glargine 100 unit/mL Cartridge 30 unit SUBCUT QAM insulin glargine 100 unit/mL Cartridge 20 unit SUBCUT QPM Trulicity 1.5 mg/0.5 mL Pen Injector 1.5 mg SUBCUT 2XW Rx Instructions: inject every friday and friday (DME) nebulizer and compressor Device See Rx Instructions .Route Qty: 1 0RF Rx Instructions: As directed atorvastatin 40 mg tablet 40 mg PO QPM sertraline 100 mg tablet 100 mg PO QPM meloxicam 7.5 mg tablet 15 mg PO DAILY PRN (Reason: pain) losartan 50 mg tablet 25 mg PO DAILY albuterol sulfate [ProAir HFA] 90 mcg/actuation HFA aerosol inhaler 2 puff INHALATION Q4H PRN (Reason: Wheezing) benzonatate 200 mg capsule 200 mg PO TID PRN (Reason: cough) Qty: 30 0RF dexamethasone 4 mg tablet 8 mg PO BID Referrals: Young,Nika, PA-C [Primary Care Provider] - Stand Alone Forms: Patient Portal/API
[2023-10-24 18:35] LABS: Reflexed Lactate in 2 Hours Y
[2023-10-24 19:11] LABS: Lactate 2HR (Lactic Acid Rflx) 1.9 mmol/L (0.7-2.1)
--- NOTE | 2023-10-24 19:11 | DI.MRI.S_ITS ---
PROCEDURE: MR HEAD/BRAIN WO/W CON INDICATIONS: SLURRED SPEECH, GAIT PROBLEMS, HX LUNG CA TECHNIQUE: Noncontrast axial T1 spin echo, axial T2 fast spin echo, sagittal and axial FLAIR, coronal T2 fast spin echo, axial gradient echo, axial diffusion and ADC through the brain. After the administration of contrast, axial and coronal and sagittal T1 spin echo with fat saturation through the brain. COMPARISON: [facility], CT, CT HEAD/BRAIN WO CON, 10/24/2023, 18:42. FINDINGS: Image quality: Excellent. CSF spaces: Basal cisterns are patent. No extra-axial fluid collections. Ventricles are normal in size and shape. Brain: No midline shift. No acute intracranial hemorrhage or mass effect. No abnormal intracranial enhancement. There is mild cerebral volume loss for age. There is minimal periventricular white matter chronic small vessel ischemic change. The brainstem appears normal. Diffusion-weighted images demonstrate no acute infarct. No chronic ischemic insults. Normal intravascular flow voids are present. Skull and face: Calvarial marrow is normal in signal. Orbits appear normal. Sinuses: Sinuses and mastoids appear clear. IMPRESSION: 1. No acute intracranial hemorrhage or recent infarct. 2. No MR evidence of metastatic disease in the brain. Approved by: Omid Elliott M.D. on 10/24/2023 at 21:10
[2023-10-24] MEDS: POTASSIUM CHLORIDE IN WATER 10 MEQ/100 ML PIGGYBACK 50 MEQ IV (19:31)
[2023-10-24] MEDS: SODIUM CHLORIDE 0.9% 1,000 ML 1000 ML IV (19:31)
--- NOTE | 2023-10-25 13:12 | PC.NURSE ---
EMR downtime began 10/24/231999 and continued throughout the patient's stay. Refer to paper documentation.
== END 2023-10-24 22:35 | disposition home or self-care (01) ==
PROVIDERS: Emergency Medicine; Emergency Provider Emergency Medicine; PCP Physician Assistant Medical
DX: R06.02 Shortness of breath (principal); E87.6 Hypokalemia; R47.81 Slurred speech; R41.0 Disorientation, unspecified
CPT/HCPCS: 36415; 70450; 70553; 71045; 80053; 83605; 83880; 84484; 85025; 85610; 93005; 93010; 96365; 96366; 99284

== ENCOUNTER 2023-11-10 10:10 | Emergency (ER) | payer MEDICARE, OTHER, SELFPAY ==
[2023-09-19 14:39] VITALS: BMI 35.9
[2023-11-10] VITALS (19 sets, daily range): BP systolic 100–121; BP diastolic 50–66; PULSE 78–82; RESP 14–22; TEMP 36.6; O2SAT 91–100; BMI 30.7
--- NOTE | 2023-11-10 11:13 | ED.BACK ---
HPI - Back Pain/Injury General Chief Complaint: Back Pain/Injury Stated Complaint: BAD BACK PAIN CANT BEND TAKE DEEP BREATH Time Seen by Provider: 11/10/23 10:49 Source: patient History of Present Illness HPI Narrative: Patient is a 67-year-old female. A known active history of lung cancer. Undergoing treatment for this. Also was diagnosed with pulmonary embolisms. She is on warfarin. She was here for evaluation of mid back pain. Approximately 1 month ago she sustained a fall. Was seen in the emergency department. Had CT scans and also x-rays. Was diagnosed with fractures. She was having discomfort in that same area once again. This was not because of a new fall. Yesterday she was cleaning up after a garage sale when she started noticing the pain. She states the discomfort is causing her not to be able to sleep. She was also having quite a bit of nausea. Unable to tolerate much oral intake of fluids. Denies any fevers. Related Data Home Medications Medication Instructions Recorded Confirmed aspirin 81 mg tablet,delayed 81 mg PO DAILY ##0 04/17/10 09/24/23 release metformin 500 mg tablet 500 mg PO BIDCC ##0 09/23/12 09/24/23 (Glucophage) empagliflozin 25 mg tablet 25 mg PO DAILY ##0 09/17/16 09/24/23 (Jardiance) atorvastatin 40 mg tablet 40 mg PO QPM 12/25/17 09/24/23 sertraline 100 mg tablet 100 mg PO QPM 12/25/17 09/24/23 meloxicam 7.5 mg tablet 15 mg PO DAILY PRN pain 11/10/18 09/24/23 albuterol sulfate 90 mcg/actuation 2 puff inhalation Q4H PRN Wheezing 07/12/19 09/24/23 aerosol inhaler (ProAir HFA) losartan 50 mg tablet 25 mg PO DAILY 07/12/19 09/24/23 cyclobenzaprine 10 mg tablet 10 mg PO TID PRN muscle relaxant 08/02/23 09/24/23 diazepam 5 mg tablet 5 mg PO Q8H PRN Anxiety 08/02/23 09/24/23 gabapentin 300 mg capsule 900 mg PO TID 08/02/23 09/24/23 levothyroxine 75 mcg tablet 75 mcg PO DAILY 08/02/23 09/24/23 loratadine 10 mg tablet 10 mg PO DAILY 08/02/23 09/24/23 (Allerclear) pantoprazole 20 mg tablet,delayed 20 mg PO BID 08/02/23 09/24/23 release dulaglutide 1.5 mg/0.5 mL 1.5 mg SUBCUT 2XW 08/03/23 09/24/23 subcutaneous pen injector (Trulicity) insulin glargine 100 unit/mL 20 unit SUBCUT QPM 08/03/23 09/24/23 subcutaneous cartridge insulin glargine 100 unit/mL 30 unit SUBCUT QAM 08/03/23 09/24/23 subcutaneous cartridge dexamethasone 4 mg tablet 8 mg PO BID 09/24/23 09/24/23 Previous Rx's Medication Instructions Recorded benzonatate 200 mg capsule 200 mg PO TID PRN cough #30 caps 07/12/19 nebulizer and compressor #1 ea 08/05/23 oxycodone-acetaminophen 5 mg-325 1 tab PO Q4-6H PRN pain #14 tabs 11/10/23 mg tablet (Percocet) potassium chloride 20 mEq 20 meq PO DAILY 7 days #7 tabs 11/10/23 tablet,extended release Allergies Allergy/AdvReac Type Severity Reaction Status Date / Time niacin [NIACIN] Allergy Mild Verified 11/10/23 10:46 duloxetine AdvReac Intermediate Vomiting Verified 11/10/23 10:46 morphine AdvReac Intermediate Vomiting Verified 11/10/23 10:46 propoxyphene [From DARVON] AdvReac Mild VOMITING Verified 11/10/23 10:46 Review of Systems Review of Systems ROS Unobtainable: All systems reviewed & are unremarkable except as noted in HPI and below Patient History Medical History Hypertension Diabetes History of lung cancer Surgical History History of lung surgery Social History household members: children Smoking Status: Former smoker alcohol intake: former Smoking Status: Former smoker alcohol intake frequency: holidays/special occasions only Substance Use Type: does not use Exam Initial Vital Signs Initial Vital Signs: Vital Signs Temperature 97.8 F 11/10/23 10:38 Pulse Rate 80 11/10/23 10:38 Respiratory Rate 22 11/10/23 10:38 Blood Pressure 111/59 L 11/10/23 10:38 Pulse Oximetry 100 11/10/23 10:38 Oxygen Delivery Method Room Air 11/10/23 10:38 Const General: cooperative Other: Chronically ill-appearing [facility] Head: normal to inspection and normocephalic Resp Effort & Inspection: normal respiratory effort Cardio Rate: regular rate Back/Spine/Pelvis Thoracic/Lumbar Spine: pain with thoraco-lumbar ROM, paraspinal tenderness, thoracic spinal tenderness and No lumbar spinal tenderness Neuro General: patient alert, patient awake and moves all extremities Extrem General: normal to inspection Course Orders Ordered: ED Orders 11/10/23 11:14 CT thoracic spine wo con Stat 11/10/23 12:10 Complete Blood Count AUTO DIFF Stat Comprehensive Metabolic Panel Stat Lipase Stat Magnesium Stat Prothrombin Time INR Stat 11/10/23 15:42 BMP [Basic Metabolic Panel] Stat Heparin Sodium (Porcine) (Heparin 500 Unit/5 Ml Port Flush) 500 unit IV PRN PRN PRN Reason: Flush Last Admin: 11/10/23 16:54 Dose: 500 unit Documented By: CÉSAR Discontinued Medications Sodium Chloride (Normal Saline 0.9%) 1,000 mls @ 1,000 mls/hr IV BOLUS ONE Stop: 11/10/23 12:13 Last Infusion: 11/10/23 13:48 Dose: Infused Documented By: Admin: 11/10/23 11:29 Dose: 1,000 mls/hr Documented By: CÉSAR POTASSIUM CHLORIDE IN WATER (Potassium Cl 10 Meq/100 Ml Nati) 10 meq in 100 mls @ 100 mls/hr IV Q1H MELANIE Stop: 11/10/23 14:44 Last Infusion: 11/10/23 14:55 Dose: Infused Documented By: Admin: 11/10/23 13:51 Dose: 100 mls/hr Documented By: Infusion: 11/10/23 13:50 Dose: Infused Documented By: Admin: 11/10/23 12:46 Dose: 100 mls/hr Documented By: CÉSAR Lidocaine HCl (Lidocaine 1% (Pf) 5 Ml) 1 ml INJ INTRA-OP ONE Stop: 11/10/23 11:31 Last Admin: 11/10/23 11:29 Dose: 1 ml Documented By: SPF Oxycodone/Acetaminophen (Oxycodone/Acetaminophen 5/325 Tablet) 1 tab PO NOW ONE Stop: 11/10/23 11:15 Last Admin: 11/10/23 11:25 Dose: 1 tab Documented By: CÉSAR Potassium Chloride (Potassium Chloride 20 Meq Tab) 40 meq PO NOW ONE Stop: 11/10/23 12:35 Last Admin: 11/10/23 12:46 Dose: 40 meq Documented By: CÉSAR Vital Signs Vital signs: Vital Signs - 8 hr 11/10/23 10:38 11/10/23 12:20 11/10/23 12:49 Temperature 97.8 F Pulse Rate 80 80 Respiratory Rate 22 18 Blood Pressure 111/59 L Pulse Oximetry 100 91 98 Oxygen Delivery Method Room Air Nasal Cannula Room Air Oxygen Flow Rate 1 11/10/23 12:50 11/10/23 13:00 11/10/23 13:01 Temperature Pulse Rate 80 80 Respiratory Rate 18 18 Blood Pressure Pulse Oximetry 98 93 93 Oxygen Delivery Method Nasal Cannula Room Air Oxygen Flow Rate 1 11/10/23 13:01 11/10/23 13:23 11/10/23 13:23 Temperature Pulse Rate 82 Respiratory Rate 18 Blood Pressure 121/66 103/52 L Pulse Oximetry 92 Oxygen Delivery Method Oxygen Flow Rate 11/10/23 13:30 11/10/23 13:30 11/10/23 13:56 Temperature Pulse Rate 79 78 Respiratory Rate 14 19 Blood Pressure 105/50 L Pulse Oximetry 95 98 Oxygen Delivery Method Room Air Oxygen Flow Rate 11/10/23 13:56 11/10/23 14:00 11/10/23 14:00 Temperature Pulse Rate 79 Respiratory Rate 20 Blood Pressure 108/57 L 112/59 L Pulse Oximetry 94 Oxygen Delivery Method Oxygen Flow Rate 11/10/23 14:20 11/10/23 14:20 11/10/23 14:30 Temperature Pulse Rate 80 79 Respiratory Rate 16 17 Blood Pressure 106/55 L Pulse Oximetry 95 93 Oxygen Delivery Method Oxygen Flow Rate 11/10/23 14:40 11/10/23 14:40 11/10/23 15:00 Temperature Pulse Rate 80 79 Respiratory Rate 18 20 Blood Pressure 100/57 L Pulse Oximetry 94 96 Oxygen Delivery Method Room Air Oxygen Flow Rate 11/10/23 15:00 11/10/23 15:20 11/10/23 15:20 Temperature Pulse Rate 80 Respiratory Rate 18 Blood Pressure 118/58 L 116/59 L Pulse Oximetry 96 Oxygen Delivery Method Oxygen Flow Rate 11/10/23 15:30 11/10/23 16:00 11/10/23 16:24 Temperature Pulse Rate 80 79 79 Respiratory Rate 19 19 16 Blood Pressure Pulse Oximetry 95 95 Oxygen Delivery Method Room Air Oxygen Flow Rate 11/10/23 16:24 11/10/23 16:30 Temperature Pulse Rate 78 Respiratory Rate 22 Blood Pressure 106/54 L Pulse Oximetry 95 Oxygen Delivery Method Room Air Oxygen Flow Rate MDM - Back Pain/Injury Lab Data Attestation: I reviewed the patient's lab results. 11/10/23 12:10 11/10/23 15:42 Labs: Lab Results 11/10/23 11/10/23 Range/Units 12:10 15:42 WBC 11.4 H (4.5-11.0) X10^3/uL RBC 4.14 (4.0-5.2) X10^6/uL Hgb 13.0 (12.0-16.0) g/dL Hct 37.4 (36-46) % MCV 90.4 (80-100) fL MCH 31.3 (26-34) PG MCHC 34.6 (30-36) % RDW 16.7 H (11.6-14.8) % Plt Count 266 (150-400) X10^3/uL Neut % (Auto) 67.7 (50-75) % Lymph % (Auto) 16.5 L (25-40) % Drew % (Auto) 15.0 H (3-14) % Eos % (Auto) 0.1 L (2-4) % Baso % (Auto) 0.7 (0-2) % Neut # (Auto) 7700 H (8109-1671) /uL Lymph # (Auto) 1900 (3526-1655) /uL Drew # (Auto) 1700 H (0-900) /uL Eos # (Auto) 0 (0-450) /uL Baso # (Auto) 100 (0-100) /uL PT 22.0 H (9.4-12.5) SECONDS INR 1.9 H (0.9-1.3) Sodium 132 L 134 L (137-145) mmol/L Potassium 2.1 L* 2.8 L (3.4-5.1) mmol/L Chloride 91 L 98 (98-107) mmol/L Carbon Dioxide 30 26 (22-32) mmol/L BUN 10 9 (7-17) mg/dL Creatinine 0.60 0.46 L (0.52-1.04) mg/dL Estimated GFR > 60 > 60 (>60) mL/min BUN/Creatinine Ratio 16.7 19.6 (6-22) Glucose 109 78 L (80-110) mg/dL Calcium 9.1 8.6 (8.4-10.2) mg/dL Magnesium 1.3 L (1.6-2.3) mg/dL Total Bilirubin 2.6 H (0.2-1.3) mg/dL AST 31 (14-36) IU/L ALT 13 (<35) IU/L Alkaline Phosphatase 70 (38-126) U/L Total Protein 7.6 (6.3-8.2) g/dL Albumin 4.2 (3.5-5.0) g/dL Globulin 3.4 (1.7-4.1) g/dL Albumin/Globulin Ratio 1.2 (1.0-2.8) Lipase 70 (23-300) U/L Imaging Data CT thoracic spine: Radiologist's Impression: PROCEDURE: CT THORACIC SPINE WO CON INDICATIONS: hx of lung CA, known T spine fx 1 month ago TECHNIQUE: Noncontrast 3 mm thick sections acquired through the region of interest in the thoracic spine. Sagittal and coronal reformats were then constructed. For radiation dose reduction, the following was used: automated exposure control. COMPARISON: [facility], CT, CT CHEST ABDOMEN PELVIS WITH CONTRAST, 10/28/2023, 14:45. FINDINGS: Image quality: Suboptimal due to motion artifact. Bones: There is normal overall bony alignment. No acute vertebral body compression fractures. A stable chronic compression deformity of the T7 vertebral body. No suspicious sclerotic or lytic bony lesions. Central spinal canal is of normal overall caliber. Osteoporosis by Hounsfield units criteria. Soft tissues: No paravertebral masses or hematomas. Moderate left pleural effusion. Left chest wall port tip terminates in the low SVC. Cardiomegaly. Three-vessel coronary artery calcifications. IMPRESSION: No acute bony abnormality. Stable compression of T7 vertebral body. Osteoporosis by Hounsfield units criteria. Moderate left pleural effusion. MDM Narrative Medical decision making narrative: Patient was hypokalemic. Her potassium did improve with both IV and p.o. potassium. She was able to tolerate the oral medications. She was also able to tolerate the oral pain medicine. States that afterwards she did feel much better for short period of time. CT scan shows no new fractures. Has the known fractures of the thoracic region from a fall had a long discussion with the patient. Was sent her home with pain medication. She has a follow-up appointment tomorrow with her oncologist for immunotherapy. Will discharge patient home with return precautions. She expressed understanding and agreement with plan. Discharge Plan Departure Patient Disposition: Home Clinical Impression: Acute thoracic back pain, Hypokalemia Instructions: DI for Hypokalemia, DI for Thoracic Back Pain Activity Restrictions/Additional Instructions: Continue all of your medications as directed. Use the pain medication as needed. Keep your scheduled appointment for your immunotherapy for tomorrow. Return to the emergency department for new symptoms. Prescriptions: New oxycodone-acetaminophen [Percocet] 5-325 mg tablet 1 tab PO Q4-6H PRN (Reason: pain) Qty: 14 0RF potassium chloride 20 mEq tablet extended release 20 meq PO DAILY 7 Days Qty: 7 0RF No Action aspirin 81 mg Tablet,Delayed Release (Dr/Ec) 81 mg PO DAILY Qty: 0 metformin [Glucophage] 500 MG tablet 500 mg PO BIDCC Qty: 0 Jardiance 25 MG tablet 25 mg PO DAILY Qty: 0 cyclobenzaprine 10 mg Tablet 10 mg PO TID PRN (Reason: muscle relaxant) pantoprazole 20 mg Tablet,Delayed Release (Dr/Ec) 20 mg PO BID levothyroxine 75 mcg Tablet 75 mcg PO DAILY gabapentin 300 mg Capsule 900 mg PO TID loratadine [Allerclear] 10 mg Tablet 10 mg PO DAILY diazepam 5 mg tablet 5 mg PO Q8H PRN (Reason: Anxiety) insulin glargine 100 unit/mL Cartridge 30 unit SUBCUT QAM insulin glargine 100 unit/mL Cartridge 20 unit SUBCUT QPM Trulicity 1.5 mg/0.5 mL Pen Injector 1.5 mg SUBCUT 2XW Rx Instructions: inject every friday and friday (DME) nebulizer and compressor Device See Rx Instructions .Route Qty: 1 0RF Rx Instructions: As directed atorvastatin 40 mg tablet 40 mg PO QPM sertraline 100 mg tablet 100 mg PO QPM meloxicam 7.5 mg tablet 15 mg PO DAILY PRN (Reason: pain) losartan 50 mg tablet 25 mg PO DAILY albuterol sulfate [ProAir HFA] 90 mcg/actuation HFA aerosol inhaler 2 puff INHALATION Q4H PRN (Reason: Wheezing) benzonatate 200 mg capsule 200 mg PO TID PRN (Reason: cough) Qty: 30 0RF dexamethasone 4 mg tablet 8 mg PO BID Referrals: Nika Madrigal PA-C [Primary Care Provider] - Stand Alone Forms: Patient Portal/API
[2023-11-10] MEDS: OXYCODONE/ACETAMINOPHEN 5/325 TABLET 1 TAB PO (11:25)
[2023-11-10] MEDS: SODIUM CHLORIDE 0.9% 1,000 ML 1000 ML IV (11:29)
[2023-11-10] MEDS: LIDOCAINE 1% (PF) 5 ML 1 ML INJ (11:29)
[2023-11-10 12:27] LABS: INR 1.9 (0.9-1.3)
[2023-11-10 12:31] LABS: Alanine Aminotransferase 13 IU/L (<35); Albumin 4.2 g/dL (3.5-5.0); Albumin Globulin Ratio 1.2 (1.0-2.8); Alkaline Phosphatase 70 U/L (38-126); Aspartate Aminotransferase 31 IU/L (14-36); BUN Creatinine Ratio 16.7 (6-22); Bilirubin Total 2.6 mg/dL (0.2-1.3); Blood Urea Nitrogen 10 mg/dL (7-17); Calcium 9.1 mg/dL (8.4-10.2); Carbon Dioxide 30 mmol/L (22-32); Chloride 91 mmol/L (98-107); Estimated Glomerular Filt Rate > 60 mL/min (>60); Globulin 3.4 g/dL (1.7-4.1); Glucose 109 mg/dL (80-110); HEMOLYSIS < 15 (0-50); Lipase 70 U/L (23-300); Magnesium 1.3 mg/dL (1.6-2.3); Sodium 132 mmol/L (137-145); Total Protein 7.6 g/dL (6.3-8.2)
[2023-11-10 12:32] LABS: Add Manual Diff / Slide Review NO; Basophils Absolute Auto 100 /uL (0-100); Basophils Percent Auto 0.7 % (0-2); Eosinophils Absolute Auto 0 /uL (0-450); Eosinophils Percent Auto 0.1 % (2-4); Hematocrit 37.4 % (36-46); Lymphocytes Absolute Auto 1900 /uL (1100-4500); Lymphocytes Percent Auto 16.5 % (25-40); Mean Corpuscular HGB Conc 34.6 % (30-36); Mean Corpuscular Hemoglobin 31.3 PG (26-34); Mean Corpuscular Volume 90.4 fL (80-100); Monocytes Absolute Auto 1700 /uL (0-900); Neutrophils Absolute Auto 7700 /uL (1500-7000); Neutrophils Percent Auto 67.7 % (50-75); Platelet Count 266 X10^3/uL (150-400); Red Blood Cell Count 4.14 X10^6/uL (4.0-5.2); Red Cell Distribution Width 16.7 % (11.6-14.8); White Blood Cell Count 11.4 X10^3/uL (4.5-11.0)
[2023-11-10 12:33] LABS: Potassium 2.1 mmol/L (3.4-5.1)
[2023-11-10] MEDS: POTASSIUM CHLORIDE IN WATER 10 MEQ/100 ML PIGGYBACK 100 MEQ IV ×2 (12:46→13:51)
[2023-11-10] MEDS: POTASSIUM CHLORIDE 20 MEQ TAB 40 MEQ PO (12:46)
[2023-11-10 16:03] LABS: BUN Creatinine Ratio 19.6 (6-22); Blood Urea Nitrogen 9 mg/dL (7-17); Calcium 8.6 mg/dL (8.4-10.2); Carbon Dioxide 26 mmol/L (22-32); Chloride 98 mmol/L (98-107); Estimated Glomerular Filt Rate > 60 mL/min (>60); Glucose 78 mg/dL (80-110); HEMOLYSIS 72 (0-50); Potassium 2.8 mmol/L (3.4-5.1); Sodium 134 mmol/L (137-145)
== END 2023-11-10 19:26 | disposition home or self-care (01) ==
PROVIDERS: Emergency Provider Emergency Medicine; PCP Physician Assistant Medical
DX: M54.6 Pain in thoracic spine (principal); E87.6 Hypokalemia; Z79.899 Other long term (current) drug therapy; C34.90 Malignant neoplasm of unspecified part of unspecified bronchus or lung
CPT/HCPCS: 36415; 72128; 80048; 80053; 83690; 83735; 85025; 85610; 96365; 96366; 99284; 99285; J1642

== ENCOUNTER 2023-11-28 22:52 | Observation (INO) | payer MEDICARE, OTHER, SELFPAY ==
[2023-09-19 14:39] VITALS: BMI 35.9
[2023-11-28 23:07] VITALS: BP 108/57; PULSE 69; RESP 16; TEMP 36.2; O2SAT 99; BMI 27.4
--- NOTE | 2023-11-28 23:19 | DI.RAD.S_ITS ---
PROCEDURE: XR SHOULDER RT MIN 2V INDICATIONS: pain after fall TECHNIQUE: 2 views of the shoulder were acquired. COMPARISON: None. FINDINGS: Bones: No fractures or dislocations. No suspicious bony lesions. Visualized ribs appear intact. Soft tissues: No suspicious soft tissue calcifications. Partially visualized left central catheter with tip projecting over the region of the lower SVC. IMPRESSION: No acute bony abnormality. If symptoms persist with conservative management, consider cross-sectional imaging such as CT or MRI. Approved by: Tania Andino M.D.,Ph.D. on 11/29/2023 at 0:38
[2023-11-29] VITALS (31 sets, daily range): BP systolic 94–119; BP diastolic 39–61; PULSE 56–77; RESP 14–27; TEMP 36.1–36.3; O2SAT 91–99; BMI 30.2
--- NOTE | 2023-11-29 00:21 | ED_ITS ---
HPI - General Adult General Chief complaint: Diabetic Problem Stated complaint: High Blood Sugar Time Seen by Provider: 11/29/23 00:06 Source: patient Mode of arrival: Ambulatory History of Present Illness HPI narrative: 67-year-old female with history of lung cancer on immunotherapy presents by private vehicle from home for evaluation of generalized weakness, multiple falls, elevated blood sugars over the last week. Patient states that her blood sugars usually less than 100 at home. Over the last week it has been in the mid 200s, and this evening it was as high as 340. She called the doctor advice line and was told to take 10 extra units of Lantus. She took 10 units of Lantus as instructed, but repeat glucose was not any better, and so she was counseled to go to the emergency department. Related Data Home Medications Medication Instructions Recorded Confirmed aspirin 81 mg tablet,delayed 81 mg PO DAILY ##0 04/17/10 09/24/23 release metformin 500 mg tablet 500 mg PO BIDCC ##0 09/23/12 09/24/23 (Glucophage) empagliflozin 25 mg tablet 25 mg PO DAILY ##0 09/17/16 09/24/23 (Jardiance) atorvastatin 40 mg tablet 40 mg PO QPM 12/25/17 09/24/23 sertraline 100 mg tablet 100 mg PO QPM 12/25/17 09/24/23 meloxicam 7.5 mg tablet 15 mg PO DAILY PRN pain 11/10/18 09/24/23 albuterol sulfate 90 mcg/actuation 2 puff inhalation Q4H PRN Wheezing 07/12/19 09/24/23 aerosol inhaler (ProAir HFA) losartan 50 mg tablet 25 mg PO DAILY 07/12/19 09/24/23 cyclobenzaprine 10 mg tablet 10 mg PO TID PRN muscle relaxant 08/02/23 09/24/23 diazepam 5 mg tablet 5 mg PO Q8H PRN Anxiety 08/02/23 09/24/23 gabapentin 300 mg capsule 900 mg PO TID 08/02/23 09/24/23 levothyroxine 75 mcg tablet 75 mcg PO DAILY 08/02/23 09/24/23 loratadine 10 mg tablet 10 mg PO DAILY 08/02/23 09/24/23 (Allerclear) pantoprazole 20 mg tablet,delayed 20 mg PO BID 08/02/23 09/24/23 release dulaglutide 1.5 mg/0.5 mL 1.5 mg SUBCUT 2XW 08/03/23 09/24/23 subcutaneous pen injector (Trulicity) insulin glargine 100 unit/mL 20 unit SUBCUT QPM 08/03/23 09/24/23 subcutaneous cartridge insulin glargine 100 unit/mL 30 unit SUBCUT QAM 08/03/23 09/24/23 subcutaneous cartridge dexamethasone 4 mg tablet 8 mg PO BID 09/24/23 09/24/23 Previous Rx's Medication Instructions Recorded benzonatate 200 mg capsule 200 mg PO TID PRN cough #30 caps 07/12/19 nebulizer and compressor #1 ea 08/05/23 oxycodone-acetaminophen 5 mg-325 1 tab PO Q4-6H PRN pain #14 tabs 11/10/23 mg tablet (Percocet) Allergies Allergy/AdvReac Type Severity Reaction Status Date / Time niacin [NIACIN] Allergy Mild Verified 11/10/23 10:46 duloxetine AdvReac Intermediate Vomiting Verified 11/10/23 10:46 morphine AdvReac Intermediate Vomiting Verified 11/10/23 10:46 propoxyphene [From DARVON] AdvReac Mild VOMITING Verified 11/10/23 10:46 Patient History Medical History Hypertension Diabetes History of lung cancer Surgical History History of lung surgery Social History household members: children Smoking Status: Former smoker alcohol intake: former Smoking Status: Former smoker alcohol intake frequency: holidays/special occasions only Substance Use Type: does not use Exam Initial Vital Signs Initial Vital Signs: Vital Signs Temperature 97.2 F L 11/28/23 23:07 Pulse Rate 69 11/28/23 23:07 Respiratory Rate 16 11/28/23 23:07 Blood Pressure 108/57 L 11/28/23 23:07 Pulse Oximetry 99 11/28/23 23:07 Oxygen Delivery Method Room Air 11/28/23 23:07 Const: Awake, alert, appears chronically unwell, frail, older than stated age Cardiac: regular rate, regular rhythm RESP: unlabored, clear bilaterally MSK: Atraumatic, full range of motion, pulses equal Skin: Warm, Dry, intact, no rashes Neuro: AO x3, CN II-XII grossly intact, moves all extremities Course Orders Ordered: ED Orders 11/28/23 23:19 XR shoulder RT min 2V Stat 11/29/23 00:20 CT head/brain wo con Stat Chest [XR chest 1V] Stat UA Complete [Urinalysis and Microscopic] Stat EKG-12 Lead Stat 11/29/23 01:13 CBC Auto Diff [Complete Blood Count AUTO DIFF] Stat CMP [Comprehensive Metabolic Panel] Stat MAG [Magnesium] Stat 11/29/23 02:19 Respiratory Panel (Film Array) Stat Acetaminophen (Acetaminophen 325 Mg Tablet) 650 mg PO Q6H PRN PRN Reason: Fever/Mild Pain (1-3) Benzonatate (Benzonatate 100 Mg Capsule) 200 mg PO TID PRN PRN Reason: cough Cyclobenzaprine HCl (Cyclobenzaprine 10 Mg Tablet) 10 mg PO TID PRN PRN Reason: muscle relaxant Dexamethasone (Dexamethasone 4 Mg Tablet) 8 mg PO BID MELANIE Diazepam (Diazepam 5 Mg Tablet) 5 mg PO Q8H PRN PRN Reason: Anxiety Enoxaparin Sodium (Enoxaparin 40 Mg/0.4 Ml Syringe) 40 mg SUBCUT DAILY [facility] Gabapentin (Gabapentin 300 Mg Capsule) 900 mg PO TID [facility] POTASSIUM CHLORIDE IN WATER (Potassium Cl 10 Meq/100 Ml Nati) 10 meq in 100 mls @ 100 mls/hr IV Q1H [facility] Stop: 11/29/23 09:44 Last Admin: 11/29/23 05:26 Dose: 100 mls/hr Documented By: Infusion: 11/29/23 05:25 Dose: Infused Documented By: Admin: 11/29/23 04:23 Dose: 100 mls/hr Documented By: JAVIER Dextrose (D10w) 100 mls @ 1,200 mls/hr IV PRN PRN PRN Reason: Hypoglycemia Insulin Glargine (Insulin Glargine 100 Unit/Ml 3ml Pen) 30 unit SUBCUT DAILY [facility] Insulin Glargine (Insulin Glargine 100 Unit/Ml 3ml Pen) 20 unit SUBCUT QPM [facility] Insulin Human Lispro (Insulin Lispro 100 Unit/Ml 3ml Vial) 0 unit SUBCUT ACHS MELANIE; Protocol Levothyroxine Sodium (Levothyroxine 75 Mcg Tablet) 75 mcg PO QACBREAK MELANIE Loratadine (Loratadine 10 Mg Tablet) 10 mg PO DAILY [facility] Losartan Potassium (Losartan 50 Mg Tablet) 25 mg PO DAILY [facility] Meloxicam (Meloxicam 7.5 Mg Tablet) 15 mg PO DAILY PRN PRN Reason: pain Metformin HCl (Metformin Hcl 500 Mg Tablet) 500 mg PO BIDWM [facility] Naloxone HCl (Naloxone 0.4 Mg/Ml Vial) 0.2 mg IV Q2MIN PRN PRN Reason: Opiate Reversal Non-Formulary Medication (Empagliflozin [Jardiance]) 25 mg PO DAILY [facility] Ondansetron HCl (Ondansetron 4 Mg Odt) 4 mg PO Q8HR PRN PRN Reason: Nausea And Vomiting Oxycodone/Acetaminophen (Oxycodone/Acetaminophen 5/325 Tablet) 1 tab PO Q4H PRN PRN Reason: Pain, Moderate (4-6) Pantoprazole Sodium (Pantoprazole Dr 20 Mg Tablet) 20 mg PO BID [facility] Sertraline HCl (Sertraline 50 Mg Tablet) 100 mg PO QPM MELANIE Discontinued Medications Sodium Chloride (Normal Saline 0.9%) 1,000 mls @ 1,000 mls/hr IV BOLUS ONE Stop: 11/29/23 01:19 Last Infusion: 11/29/23 02:37 Dose: Infused Documented By: Admin: 11/29/23 01:35 Dose: 1,000 mls/hr Documented By: JAVIER Magnesium Sulfate (Magnesium Sulfate) 2 gm in 50 mls @ 25 mls/hr IV NOW ONE Stop: 11/29/23 03:48 Last Infusion: 11/29/23 04:17 Dose: Infused Documented By: JAVIER Co-signed By: RASHEL Admin: 11/29/23 02:11 Dose: 25 mls/hr Documented By: JAVIER Co-signed By: RASHEL Potassium Chloride (Potassium Chloride 20 Meq Tab) 40 meq PO NOW ONE Stop: 11/29/23 01:50 Last Admin: 11/29/23 02:11 Dose: 40 meq Documented By: JAVIER Vital Signs Vital signs: Vital Signs - 8 hr 11/28/23 23:07 Temperature 97.2 F L Pulse Rate 69 Respiratory Rate 16 Blood Pressure 108/57 L Pulse Oximetry 99 Oxygen Delivery Method Room Air Medical Decision Making Lab Data 11/29/23 01:13 11/29/23 01:13 Labs: Lab Results 11/29/23 11/29/23 Range/Units 01:13 02:19 WBC 10.2 (4.5-11.0) X10^3/uL RBC 3.64 L (4.0-5.2) X10^6/uL Hgb 11.4 L (12.0-16.0) g/dL Hct 32.5 L (36-46) % MCV 89.4 (80-100) fL MCH 31.4 (26-34) PG MCHC 35.1 (30-36) % RDW 15.7 H (11.6-14.8) % Plt Count 298 (150-400) X10^3/uL Neut % (Auto) 62.7 (50-75) % Lymph % (Auto) 25.4 (25-40) % [place] % (Auto) 9.7 (3-14) % Eos % (Auto) 1.3 L (2-4) % Baso % (Auto) 0.9 (0-2) % Neut # (Auto) 6400 (2809-8771) /uL Lymph # (Auto) 2600 (9637-2776) /uL [place] # (Auto) 1000 H (0-900) /uL Eos # (Auto) 100 (0-450) /uL Baso # (Auto) 100 (0-100) /uL Sodium 136 L (137-145) mmol/L Potassium 2.3 L* (3.4-5.1) mmol/L Chloride 91 L (98-107) mmol/L Carbon Dioxide 38 H (22-32) mmol/L BUN 15 (7-17) mg/dL Creatinine 0.84 (0.52-1.04) mg/dL Estimated GFR > 60 (>60) mL/min BUN/Creatinine Ratio 17.9 (6-22) Glucose 153 H (80-110) mg/dL Calcium 9.5 (8.4-10.2) mg/dL Magnesium 1.0 L (1.6-2.3) mg/dL Total Bilirubin 0.8 (0.2-1.3) mg/dL AST 25 (14-36) IU/L ALT 12 (<35) IU/L Alkaline Phosphatase 61 (38-126) U/L Total Protein 7.2 (6.3-8.2) g/dL Albumin 3.9 (3.5-5.0) g/dL Globulin 3.3 (1.7-4.1) g/dL Albumin/Globulin Ratio 1.2 (1.0-2.8) Chlamy pneumoniae PCR Not detected (Not Detect) Adenovirus (PCR) Not detected (Not Detect) B.parapertussis DNA PCR Not detected (Not Detecte) Coronavirus OC43 (PCR) Not detected (Not Detect) Coronavirus HKU1 (PCR) Not detected (Not Detect) Coronavirus 229E (PCR) Not detected (Not Detect) SARS-CoV-2 (PCR) Not detected (Not Detecte) Coronavirus NL63 (PCR) Not detected (Not Detect) Human Metapneumovir PCR Not detected (Not Detect) Influenza Type A (PCR) Not detected (Not Detect) Influenza Type B (PCR) Not detected (Not Detect) M. pneumoniae (PCR) Not detected (Not Detect) Parainfluenza 1 (PCR) Not detected (Not Detect) Parainfluenza 2 (PCR) Not detected (Not Detect) Parainfluenza 3 (PCR) Not detected (Not Detect) Parainfluenza 4 (PCR) Not detected (Not Detect) RSV (PCR) Not detected (Not Detect) Entero/Rhino (PCR) Not detected (Not Detect) Point of Care Testing Glucose POC 225 Point of care testing: Point of Care Testing Glucose POC 225 Imaging Data Chest x-ray: Radiologist's Impression: PROCEDURE: XR CHEST 1V INDICATIONS: FREQUENT FALLS, GEN WEAKNESS, LETHARGY TECHNIQUE: One view of the chest was acquired. COMPARISON: [facility], , XR CHEST 1V, 10/24/2023, 17:06., CT chest 10/28/2023 FINDINGS: Surgical changes and devices: Left chest wall port catheter with distal tip projecting over the lower SVC. Surgical clips overlie the right axilla. Lungs and pleura: Known left perihilar mass is better visualized on prior CT. Trace bilateral pleural effusions. No pneumothorax. Mediastinum: Mediastinal contours appear normal. Heart size is normal. Bones and chest wall: No suspicious bony lesions. Overlying soft tissues appear unremarkable. IMPRESSION: No dense airspace consolidation. Trace bilateral pleural effusions persist. Left perihilar mass better visualized on prior CT. Approved by: Tania Andino M.D.,Ph.D. on 11/29/2023 at 2:13 CT scan - head: Radiologist's Impression: PROCEDURE: CT HEAD/BRAIN WO CON INDICATIONS: FREQUENT FALLS, GEN WEAKNESS, LETHARGY TECHNIQUE: Noncontrast 4.5 mm thick angled axial sections acquired from the foramen magnum to the vertex, with coronal and sagittal reformats. For radiation dose reduction, the following was used: automated exposure control, adjustment of mA and/or kV according to patient size. COMPARISON: [facility], CT, CT HEAD/BRAIN WO CON, 10/24/2023, 18:42. FINDINGS: Image quality: Diagnostic. CSF spaces: Basal cisterns are patent. No extra-axial fluid collections. Ventricles are normal in size and shape. Brain: No midline shift. No intracranial masses or hemorrhage. Rodrigues-white matter interface is normal. Skull and face: Calvarium and visualized facial bones are intact, without suspicious lesions. Sinuses: Visualized sinuses and mastoids are clear. IMPRESSION: No acute intracranial pathology. Approved by: Tania Andino M.D.,Ph.D. on 11/29/2023 at 2:15 ECG Data Interpretation: Normal sinus rhythm at 68 beats per minute, normal ND, normal QT, no STEMI MDM Narrative Additional Information: Generalized weakness with frequent falls. Elevated blood glucose at home, it was 225 on point of care check on arrival to the emergency department. Patient also mentions that she has had recurrent low potassium. She has been trying to eat potassium rich foods but every time she has her potassium checked it was low. Dexamethasone is listed on patient's record, but she denies taking steroids recently. Laboratory work significant for WBC count 10.2, hemoglobin 11.4, platelets 298, sodium 136, potassium 2.3, chloride 91, creatinine 0.84, magnesium 1.0. Patient given oral potassium and IV magnesium. Patient states that she was unable to function at home due to her weakness and falls and moved in with her daughter and her family, however due to issues at home she feels like she does not have adequate support at home and due to the family's different issues her situation isn't improved in probably contributes to her weakness and presentation. Based on patient's recurrent, profound electrolyte deficiencies, frequent falls, we will admit for further treatment. Recommended PT consult to hospitalist service. Discharge Plan Departure Patient Disposition: Admitted as Observation Clinical Impression: Hypokalemia, Hypomagnesemia, Frequent falls, Generalized weakness Admit Date/Time: 11/29/23 03:15 Admit Provider: Chester Cast
[2023-11-29 01:22] LABS: Add Manual Diff / Slide Review NO; Basophils Absolute Auto 100 /uL (0-100); Basophils Percent Auto 0.9 % (0-2); Eosinophils Absolute Auto 100 /uL (0-450); Eosinophils Percent Auto 1.3 % (2-4); Hematocrit 32.5 % (36-46); Hemoglobin 11.4 g/dL (12.0-16.0); Lymphocytes Absolute Auto 2600 /uL (1100-4500); Lymphocytes Percent Auto 25.4 % (25-40); Mean Corpuscular HGB Conc 35.1 % (30-36); Mean Corpuscular Hemoglobin 31.4 PG (26-34); Mean Corpuscular Volume 89.4 fL (80-100); Monocytes Absolute Auto 1000 /uL (0-900); Monocytes Percent Auto 9.7 % (3-14); Neutrophils Absolute Auto 6400 /uL (1500-7000); Neutrophils Percent Auto 62.7 % (50-75); Platelet Count 298 X10^3/uL (150-400); Red Blood Cell Count 3.64 X10^6/uL (4.0-5.2); Red Cell Distribution Width 15.7 % (11.6-14.8); White Blood Cell Count 10.2 X10^3/uL (4.5-11.0)
--- NOTE | 2023-11-29 01:23 | EKG_ITS ---
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
[2023-11-29] MEDS: SODIUM CHLORIDE 0.9% 1,000 ML 1000 ML IV (01:35)
[2023-11-29 01:37] LABS: Alanine Aminotransferase 12 IU/L (<35); Albumin 3.9 g/dL (3.5-5.0); Albumin Globulin Ratio 1.2 (1.0-2.8); Alkaline Phosphatase 61 U/L (38-126); Aspartate Aminotransferase 25 IU/L (14-36); BUN Creatinine Ratio 17.9 (6-22); Bilirubin Total 0.8 mg/dL (0.2-1.3); Blood Urea Nitrogen 15 mg/dL (7-17); Calcium 9.5 mg/dL (8.4-10.2); Carbon Dioxide 38 mmol/L (22-32); Chloride 91 mmol/L (98-107); Estimated Glomerular Filt Rate > 60 mL/min (>60); Globulin 3.3 g/dL (1.7-4.1); Glucose 153 mg/dL (80-110); HEMOLYSIS < 15 (0-50); Sodium 136 mmol/L (137-145); Total Protein 7.2 g/dL (6.3-8.2)
[2023-11-29 01:38] LABS: Potassium 2.3 mmol/L (3.4-5.1)
[2023-11-29] MEDS: POTASSIUM CHLORIDE 20 MEQ TAB 40 MEQ PO ×2 (02:11→18:20)
[2023-11-29] MEDS: MAGNESIUM SULFATE 2 GM/50 ML PIGGYBACK IV ×2 (02:11→18:19)
[2023-11-29 03:24] LABS: Adenovirus Not Detected (Not Detect); B. parapertussis Not Detected (Not Detecte); Bordetella pertussis Not Detected (Not Detect); Chlamydophila pneumoniae Not Detected (Not Detect); Coronavirus 229E Not Detected (Not Detect); Coronavirus HKU1 Not Detected (Not Detect); Coronavirus NL 63 Not Detected (Not Detect); Coronavirus OC43 Not Detected (Not Detect); Human Metapneumovirus Not Detected (Not Detect); Human Rhinovirus/Enterovirus Not Detected (Not Detect); Influenza A Not Detected (Not Detect); Influenza B Not Detected (Not Detect); Mycoplasma pneumoniae Not Detected (Not Detect); Parainfluenza Virus 1 Not Detected (Not Detect); Parainfluenza Virus 2 Not Detected (Not Detect); Parainfluenza Virus 3 Not Detected (Not Detect); Parainfluenza Virus 4 Not Detected (Not Detect); Respiratory Syncytial Virus Not Detected (Not Detect); SARS- CoV-2 Not Detected (Not Detecte)
--- NOTE | 2023-11-29 04:21 | P.HP_ITS ---
History of Present Illness History of Present Illness Chief complaint: High Blood Sugar Narrative: 67 y/o with PMH of and hospitalization in July for viral PNA, presented to ED with generalized weakness, multiple falls, elevated blood sugars over the last week. Patient states that her blood sugars usually less than 100 at home. Over the last week it has been in the mid 200s, and this evening it was as high as 340. She called the doctor advice line and was told to take 10 extra units of Lantus. She took 10 units of Lantus as instructed, but repeat glucose was not any better, and so she was counseled to go to the emergency department. [facility] Medical History Hypertension Diabetes History of lung cancer Surgical History History of lung surgery Social History household members: children Smoking Status: Former smoker alcohol intake: former Meds Home Medications and Allergies Home Medications Medication Instructions Recorded Confirmed Type aspirin 81 mg tablet,delayed 81 mg PO DAILY ##0 04/17/10 09/24/23 History release metformin 500 mg tablet 500 mg PO BIDCC ##0 09/23/12 09/24/23 History (Glucophage) empagliflozin 25 mg tablet 25 mg PO DAILY ##0 09/17/16 09/24/23 History (Jardiance) atorvastatin 40 mg tablet 40 mg PO QPM 12/25/17 09/24/23 History sertraline 100 mg tablet 100 mg PO QPM 12/25/17 09/24/23 History meloxicam 7.5 mg tablet 15 mg PO DAILY PRN pain 11/10/18 09/24/23 History albuterol sulfate 90 mcg/actuation 2 puff inhalation Q4H PRN Wheezing 07/12/19 09/24/23 History aerosol inhaler (ProAir HFA) benzonatate 200 mg capsule 200 mg PO TID PRN cough #30 caps 07/12/19 09/24/23 Rx losartan 50 mg tablet 25 mg PO DAILY 07/12/19 09/24/23 History cyclobenzaprine 10 mg tablet 10 mg PO TID PRN muscle relaxant 08/02/23 09/24/23 History diazepam 5 mg tablet 5 mg PO Q8H PRN Anxiety 08/02/23 09/24/23 History gabapentin 300 mg capsule 900 mg PO TID 08/02/23 09/24/23 History levothyroxine 75 mcg tablet 75 mcg PO DAILY 08/02/23 09/24/23 History loratadine 10 mg tablet 10 mg PO DAILY 08/02/23 09/24/23 History (Flower) pantoprazole 20 mg tablet,delayed 20 mg PO BID 08/02/23 09/24/23 History release dulaglutide 1.5 mg/0.5 mL 1.5 mg SUBCUT 2XW 08/03/23 09/24/23 History subcutaneous pen injector (Trulicity) insulin glargine 100 unit/mL 20 unit SUBCUT QPM 08/03/23 09/24/23 History subcutaneous cartridge insulin glargine 100 unit/mL 30 unit SUBCUT QAM 08/03/23 09/24/23 History subcutaneous cartridge nebulizer and compressor #1 ea 08/05/23 09/24/23 Rx dexamethasone 4 mg tablet 8 mg PO BID 09/24/23 09/24/23 History oxycodone-acetaminophen 5 mg-325 1 tab PO Q4-6H PRN pain #14 tabs 11/10/23 Rx mg tablet (Percocet) Allergies Allergy/AdvReac Type Severity Reaction Status Date / Time niacin [NIACIN] Allergy Mild Verified 11/10/23 10:46 duloxetine AdvReac Intermediate Vomiting Verified 11/10/23 10:46 morphine AdvReac Intermediate Vomiting Verified 11/10/23 10:46 propoxyphene [From DARVON] AdvReac Mild VOMITING Verified 11/10/23 10:46 Review of Systems Constitutional Comments: generalized weakness Cardiovascular Comments: w/o chest pain or palpitations Respiratory Comments: w/o SOB or cough Gastrointestinal Comments: nausea Genitourinary Comments: w/o dysuria Exam Vital Signs (past 8 hours): - 11/28/23 23:07 Temperature 97.2 F L Pulse Rate 69 Respiratory Rate 16 Blood Pressure 108/57 L Pulse Oximetry 99 Oxygen Delivery Method Room Air Oxygen Delivery Method Room Air Const Other: in no distress Resp Other: normal respiratory effort Cardio Other: RRR GI Other: not distended Objective Labs 11/29/23 06:34 11/29/23 01:13 Labs: Laboratory Results - last 24 hr 11/29/23 11/29/23 01:13 02:19 WBC 10.2 RBC 3.64 L Hgb 11.4 L Hct 32.5 L MCV 89.4 MCH 31.4 MCHC 35.1 RDW 15.7 H Plt Count 298 Neut % (Auto) 62.7 Lymph % (Auto) 25.4 [place] % (Auto) 9.7 Eos % (Auto) 1.3 L Baso % (Auto) 0.9 Neut # (Auto) 6400 Lymph # (Auto) 2600 [place] # (Auto) 1000 H Eos # (Auto) 100 Baso # (Auto) 100 Sodium 136 L Potassium 2.3 L* Chloride 91 L Carbon Dioxide 38 H BUN 15 Creatinine 0.84 Estimated GFR > 60 BUN/Creatinine Ratio 17.9 Glucose 153 H Calcium 9.5 Magnesium 1.0 L Total Bilirubin 0.8 AST 25 ALT 12 Alkaline Phosphatase 61 Total Protein 7.2 Albumin 3.9 Globulin 3.3 Albumin/Globulin Ratio 1.2 Chlamy pneumoniae PCR Not detected Adenovirus (PCR) Not detected B.parapertussis DNA PCR Not detected Coronavirus OC43 (PCR) Not detected Coronavirus HKU1 (PCR) Not detected Coronavirus 229E (PCR) Not detected SARS-CoV-2 (PCR) Not detected Coronavirus NL63 (PCR) Not detected Human Metapneumovir PCR Not detected Influenza Type A (PCR) Not detected Influenza Type B (PCR) Not detected M. pneumoniae (PCR) Not detected Parainfluenza 1 (PCR) Not detected Parainfluenza 2 (PCR) Not detected Parainfluenza 3 (PCR) Not detected Parainfluenza 4 (PCR) Not detected RSV (PCR) Not detected Entero/Rhino (PCR) Not detected Assessment & Plan Assessment and plan (1) Hypokalemia: Status: Acute (2) Frequent falls: Status: Acute (3) Generalized weakness: Status: Acute (4) Hypomagnesemia: Status: Acute (5) Adenocarcinoma of left lung, stage 4: Status: Acute (6) Hypertension: Status: Chronic Assessment & Plan narrative: 1. Hypokalemia / Hypomagnesemia - supplementing, monitored lytes 2. Generalized weakness, recurrent falls - PT assessment 3. Lung Adenocarcinoma - she had Rt lung lobectomy 10 years ago, now has recurrence on the left, stage 4, getting paliative chemoTx by oncology 4. HTN - Losartan 5. DM - continue home medications, SS, diabetic diet 6. Hypothyroidism - levothyroxine 7. Depression - Zoloft 8 GERD - PPI DVT prophylaxis - Lovenox Time-Based Coding :: [TOTAL MINUTES] spent with patient and on the chart (including review of chart, obtaining history, exam, reviewing outside data, placing orders, documenting exam and treatment plan, and counseling patient) on [DATE].
[2023-11-29] MEDS: POTASSIUM CHLORIDE IN WATER 10 MEQ/100 ML PIGGYBACK 100 MEQ IV ×6 (04:23→11:02)
[2023-11-29 06:45] LABS: Add Manual Diff / Slide Review NO; Basophils Absolute Auto 100 /uL (0-100); Basophils Percent Auto 0.8 % (0-2); Eosinophils Absolute Auto 200 /uL (0-450); Eosinophils Percent Auto 2.5 % (2-4); Hemoglobin 10.8 g/dL (12.0-16.0); Lymphocytes Absolute Auto 2700 /uL (1100-4500); Mean Corpuscular HGB Conc 34.9 % (30-36); Mean Corpuscular Hemoglobin 31.4 PG (26-34); Monocytes Absolute Auto 600 /uL (0-900); Monocytes Percent Auto 8.3 % (3-14); Neutrophils Absolute Auto 4100 /uL (1500-7000); Neutrophils Percent Auto 53.4 % (50-75); Platelet Count 272 X10^3/uL (150-400); Red Blood Cell Count 3.44 X10^6/uL (4.0-5.2); Red Cell Distribution Width 15.6 % (11.6-14.8); White Blood Cell Count 7.8 X10^3/uL (4.5-11.0)
[2023-11-29 06:58] LABS: Blood Urea Nitrogen 14 mg/dL (7-17); Calcium 8.8 mg/dL (8.4-10.2); Carbon Dioxide 36 mmol/L (22-32); Chloride 97 mmol/L (98-107); Estimated Glomerular Filt Rate > 60 mL/min (>60); Glucose 84 mg/dL (80-110); HEMOLYSIS < 15 (0-50); Sodium 137 mmol/L (137-145)
[2023-11-29 07:13] LABS: Potassium 2.5 mmol/L (3.4-5.1)
--- NOTE | 2023-11-29 07:28 | PM.HP.1 ---
History of Present Illness History of Present Illness Chief complaint: High Blood Sugar Narrative: From night doctor: 67 y/o with PMH of and hospitalization in July for viral PNA, presented to ED with generalized weakness, multiple falls, elevated blood sugars over the last week. Patient states that her blood sugars usually less than 100 at home. Over the last week it has been in the mid 200s, and this evening it was as high as 340. She called the doctor advice line and was told to take 10 extra units of Lantus. She took 10 units of Lantus as instructed, but repeat glucose was not any better, and so she was counseled to go to the emergency department. S: She notes progressive functional decline over the last several weeks. She was profoundly weak. She does not have prominent dyspnea or orthopnea. She also denies any leg edema. She has had profound anorexia as able to only eat a small amount of time. She was having a fairly dramatic weight loss of over 10 lb over several weeks. She is currently on immunotherapy for her cancer, her oncologist has stopped her chemotherapy. She denies any rectal bleeding, fevers or chills. No pain issues. [facility] Medical History Hypertension Diabetes History of lung cancer Surgical History History of lung surgery Social History household members: children Smoking Status: Former smoker alcohol intake: former Meds Home Medications and Allergies Home Medications Medication Instructions Recorded Confirmed Type aspirin 81 mg tablet,delayed 81 mg PO DAILY ##0 04/17/10 09/24/23 History release metformin 500 mg tablet 500 mg PO BIDCC ##0 09/23/12 09/24/23 History (Glucophage) empagliflozin 25 mg tablet 25 mg PO DAILY ##0 09/17/16 09/24/23 History (Jardiance) atorvastatin 40 mg tablet 40 mg PO QPM 12/25/17 09/24/23 History sertraline 100 mg tablet 100 mg PO QPM 12/25/17 09/24/23 History meloxicam 7.5 mg tablet 15 mg PO DAILY PRN pain 11/10/18 09/24/23 History albuterol sulfate 90 mcg/actuation 2 puff inhalation Q4H PRN Wheezing 07/12/19 09/24/23 History aerosol inhaler (ProAir HFA) benzonatate 200 mg capsule 200 mg PO TID PRN cough #30 caps 07/12/19 09/24/23 Rx losartan 50 mg tablet 25 mg PO DAILY 07/12/19 09/24/23 History cyclobenzaprine 10 mg tablet 10 mg PO TID PRN muscle relaxant 08/02/23 09/24/23 History diazepam 5 mg tablet 5 mg PO Q8H PRN Anxiety 08/02/23 09/24/23 History gabapentin 300 mg capsule 900 mg PO TID 08/02/23 09/24/23 History levothyroxine 75 mcg tablet 75 mcg PO DAILY 08/02/23 09/24/23 History loratadine 10 mg tablet 10 mg PO DAILY 08/02/23 09/24/23 History (Flower) pantoprazole 20 mg tablet,delayed 20 mg PO BID 08/02/23 09/24/23 History release dulaglutide 1.5 mg/0.5 mL 1.5 mg SUBCUT 2XW 08/03/23 09/24/23 History subcutaneous pen injector (Trulicity) insulin glargine 100 unit/mL 20 unit SUBCUT QPM 08/03/23 09/24/23 History subcutaneous cartridge insulin glargine 100 unit/mL 30 unit SUBCUT QAM 08/03/23 09/24/23 History subcutaneous cartridge nebulizer and compressor #1 ea 08/05/23 11/29/23 Rx dexamethasone 4 mg tablet 8 mg PO BID 09/24/23 09/24/23 History oxycodone-acetaminophen 5 mg-325 1 tab PO Q4-6H PRN pain #14 tabs 11/10/23 Rx mg tablet (Percocet) Allergies Allergy/AdvReac Type Severity Reaction Status Date / Time niacin [NIACIN] Allergy Mild Verified 11/10/23 10:46 duloxetine AdvReac Intermediate Vomiting Verified 11/10/23 10:46 morphine AdvReac Intermediate Vomiting Verified 11/10/23 10:46 propoxyphene [From DARVON] AdvReac Mild VOMITING Verified 11/10/23 10:46 Review of Systems Review of Systems Narrative: All else reviewed and otherwise unremarkable except as noted in the history and physical. Exam Vital Signs (past 8 hours): - 11/29/23 01:26 11/29/23 01:26 11/29/23 01:30 Pulse Rate 67 Respiratory Rate 14 Blood Pressure 113/56 L 109/56 L Pulse Oximetry 96 11/29/23 01:30 11/29/23 02:00 11/29/23 02:00 Pulse Rate 67 67 Respiratory Rate 14 15 Blood Pressure 109/58 L Pulse Oximetry 96 99 11/29/23 02:30 11/29/23 02:32 11/29/23 02:32 Pulse Rate 67 68 Respiratory Rate 24 24 Blood Pressure 115/58 L Pulse Oximetry 98 97 11/29/23 03:00 11/29/23 03:00 11/29/23 03:30 Pulse Rate 66 65 Respiratory Rate 15 16 Blood Pressure 102/51 L Pulse Oximetry 95 92 11/29/23 03:30 11/29/23 04:00 11/29/23 04:00 Pulse Rate 62 Respiratory Rate 15 Blood Pressure 109/53 L 106/55 L Pulse Oximetry 91 11/29/23 04:30 11/29/23 04:30 11/29/23 05:00 Pulse Rate 63 Respiratory Rate 14 Blood Pressure 118/58 L 97/52 L Pulse Oximetry 93 11/29/23 05:00 11/29/23 05:30 11/29/23 05:30 Pulse Rate 61 59 L Respiratory Rate 14 17 Blood Pressure 98/51 L Pulse Oximetry 95 97 11/29/23 06:00 11/29/23 06:00 11/29/23 06:30 Pulse Rate 60 Respiratory Rate 14 Blood Pressure 98/56 L 109/59 L Pulse Oximetry 97 11/29/23 06:30 Pulse Rate 61 Respiratory Rate 15 Blood Pressure Pulse Oximetry 97 Oxygen Delivery Method Room Air Narrative Exam Narrative: NAD, alert and oriented, fluent speech, calm. Normocephalic skull, EOMI, anicteric sclera, symmetric pupils. Oropharynx unremarkable, no droop. Neck supple, midline trachea, no adenopathy. Lungs clear, normal rate and effort. Heart regular, no murmur gallop or rub. Abdomen is soft, non distended and non tender. Extremities are free of edema. Skin is free of rash or lesions. Joints are not swollen or deformed. Judgment appears to be normal. Objective Labs 11/29/23 06:34 11/29/23 06:34 Labs: Laboratory Results - last 24 hr 11/29/23 11/29/23 11/29/23 01:13 02:19 06:34 WBC 10.2 7.8 RBC 3.64 L 3.44 L Hgb 11.4 L 10.8 L Hct 32.5 L 31.0 L MCV 89.4 90.0 MCH 31.4 31.4 MCHC 35.1 34.9 RDW 15.7 H 15.6 H Plt Count 298 272 Neut % (Auto) 62.7 53.4 Lymph % (Auto) 25.4 35.0 [place] % (Auto) 9.7 8.3 Eos % (Auto) 1.3 L 2.5 Baso % (Auto) 0.9 0.8 Neut # (Auto) 6400 4100 Lymph # (Auto) 2600 2700 [place] # (Auto) 1000 H 600 Eos # (Auto) 100 200 Baso # (Auto) 100 100 Sodium 136 L 137 Potassium 2.3 L* 2.5 L* Chloride 91 L 97 L Carbon Dioxide 38 H 36 H BUN 15 14 Creatinine 0.84 0.70 Estimated GFR > 60 > 60 BUN/Creatinine Ratio 17.9 20.0 Glucose 153 H 84 Calcium 9.5 8.8 Magnesium 1.0 L Total Bilirubin 0.8 AST 25 ALT 12 Alkaline Phosphatase 61 Total Protein 7.2 Albumin 3.9 Globulin 3.3 Albumin/Globulin Ratio 1.2 Chlamy pneumoniae PCR Not detected Adenovirus (PCR) Not detected B.parapertussis DNA PCR Not detected Coronavirus OC43 (PCR) Not detected Coronavirus HKU1 (PCR) Not detected Coronavirus 229E (PCR) Not detected SARS-CoV-2 (PCR) Not detected Coronavirus NL63 (PCR) Not detected Human Metapneumovir PCR Not detected Influenza Type A (PCR) Not detected Influenza Type B (PCR) Not detected M. pneumoniae (PCR) Not detected Parainfluenza 1 (PCR) Not detected Parainfluenza 2 (PCR) Not detected Parainfluenza 3 (PCR) Not detected Parainfluenza 4 (PCR) Not detected RSV (PCR) Not detected Entero/Rhino (PCR) Not detected Assessment & Plan Assessment & Plan narrative: 1. Hypokalemia / Hypomagnesemia. Present on admission and active. - supplementing, monitored lytes 2. Generalized weakness, recurrent falls. Present on admission and active. - PT assessment 3. Lung Adenocarcinoma stage 4. Present on admission and active. - she had Rt lung lobectomy 10 years ago, now has recurrence on the left, stage 4, getting paliative chemoTx by oncology 4. HTN. Present on admission and active. - Losartan 5. DM 2. Present on admission and active. - continue home medications, SS, diabetic diet 6. Hypothyroidism. Present on admission and active. - levothyroxine 7. Depression. Present on admission and active. - Zoloft 8 GERD. Present on admission and active. - PPI PLAN: - IVF - replete potassium - replete magnesium - physical therapy evaluation. Full code. NAVJOT: 11/29. Admitted to observation status. Time-Based Coding :: 40 spent with patient and on the chart (including review of chart, obtaining history, exam, reviewing outside data, placing orders, documenting exam and treatment plan, and counseling patient) on 11/29/2023. Quality MIPS - Admit The patient?s Advance Care plan is not present because I confirmed today that the patient does not wish or was not able to name a surrogate decision maker or provide an Advance Care Plan.: Yes MIPS - Meds 'Current medications' to include all prescriptions, [id number] products, herbals, cannabis/cannabidiol products, and vitamin/mineral/dietary (nutritional) supplements. I have utilized all available resources to obtain, update, or review the patient?s current medications. [If Yes, STOP here]: Yes
[2023-11-29] MEDS: LEVOTHYROXINE 75 MCG TABLET PO (08:09)
[2023-11-29] MEDS: PANTOPRAZOLE DR 20 MG TABLET PO ×2 (08:10→21:31)
[2023-11-29] MEDS: GABAPENTIN 300 MG CAPSULE 900 MG PO ×3 (08:10→21:31)
[2023-11-29 08:22] LABS: Appearance Urine UA CLEAR; Bilirubin Urine UA NEGATIVE (NEGATIVE); Color Urine UA YELLOW; Glucose Urine UA 3+ g/dL (Negative); Ketones Urine UA NEGATIVE (NEGATIVE); Leukocyte Esterase Urine UA NEGATIVE (NEGATIVE); Nitrite Urine UA NEGATIVE (Negative); Occult Blood Urine UA NEGATIVE (Negative); Protein Urine UA NEGATIVE (Negative); Specific Gravity Urine UA <=1.005 (1.000-1.035); Urobilinogen Urine UA 0.2 E.U./dL (0.2)
[2023-11-29 08:28] LABS: Bacteria Urine None Seen; RBC Urine 0-1/HPF (0-5/HPF); Squamous Epithelial Cell Urine 1-5 /HPF (0-5/HPF); Urine Volume 10mL (spun); WBC Urine 0-1/HPF (0-5/HPF)
[2023-11-29 08:29] LABS: Culture Indicated Urine Cult Not Indicated
[2023-11-29] MEDS: ENOXAPARIN 40 MG/0.4 ML SYRINGE SUBCUT (09:07)
[2023-11-29] MEDS: METFORMIN HCL 500 MG TABLET PO ×2 (09:08→16:57)
[2023-11-29] MEDS: ONDANSETRON 4 MG ODT PO (09:37)
--- NOTE | 2023-11-29 10:33 | PC.NURSE ---
This EDRN, spoke with Dr. Melendez at this time, verbal order given to hold insulin at this time.
[2023-11-29 16:26] LABS: BUN Creatinine Ratio 20.4 (6-22); Blood Urea Nitrogen 11 mg/dL (7-17); Carbon Dioxide 37 mmol/L (22-32); Chloride 100 mmol/L (98-107); Estimated Glomerular Filt Rate > 60 mL/min (>60); Glucose 122 mg/dL (80-110); HEMOLYSIS < 15 (0-50); Magnesium 1.5 mg/dL (1.6-2.3); Potassium 3.3 mmol/L (3.4-5.1); Sodium 138 mmol/L (137-145)
[2023-11-29] MEDS: SERTRALINE 50 MG TABLET 100 MG PO (16:57)
[2023-11-29] MEDS: DEXTROSE 5%-0.9% NS 1,000 ML 100 ML IV (16:57)
[2023-11-29] MEDS: INSULIN GLARGINE 100 UNIT/ML 3ML PEN 20 UNIT SUBCUT (16:58)
[2023-11-29] MEDS: dexAMETHasone 4 MG TABLET 8 MG PO (21:31)
[2023-11-30] MEDS: DEXTROSE 5%-0.9% NS 1,000 ML 100 ML IV ×3 (02:32→21:31)
[2023-11-30 05:10] VITALS: BP 149/90; PULSE 74; RESP 17; TEMP 36.1; O2SAT 96
[2023-11-30 05:55] LABS: BUN Creatinine Ratio 13.6 (6-22); Blood Urea Nitrogen 6 mg/dL (7-17); Calcium 9.1 mg/dL (8.4-10.2); Carbon Dioxide 31 mmol/L (22-32); Chloride 106 mmol/L (98-107); Estimated Glomerular Filt Rate > 60 mL/min (>60); Glucose 204 mg/dL (80-110); HEMOLYSIS < 15 (0-50); Magnesium 1.7 mg/dL (1.6-2.3); Potassium 3.5 mmol/L (3.4-5.1); Sodium 138 mmol/L (137-145)
[2023-11-30] MEDS: LEVOTHYROXINE 75 MCG TABLET PO (06:06)
--- NOTE | 2023-11-30 07:25 | PM.PN.1 ---
Subjective Subjective Interval history: She is still fatigued. No nausea. No pain. She wants to know how much time she has to live. Stage lung CA. Exam Vital Signs (past 8 hours): - 11/30/23 05:10 Temperature 97 F L Pulse Rate 74 Respiratory Rate 17 Blood Pressure 149/90 H Pulse Oximetry 96 Oxygen Flow Rate 0 Oxygen Delivery Method Room Air Oxygen Flow Rate 0 Narrative Exam Narrative: NAD, alert and oriented. Fluent speech. Lungs are clear, normal rate and effort. Heart is regular, no murmur gallop or rub. Abdomen is soft, non distended. Extremities are free of edema. Objective Labs 11/29/23 06:34 11/30/23 05:24 Labs: Laboratory Results - last 24 hr 11/29/23 11/29/23 11/30/23 08:00 16:05 05:24 Sodium 138 138 Potassium 3.3 L 3.5 Chloride 100 106 Carbon Dioxide 37 H 31 BUN 11 6 L Creatinine 0.54 0.44 L Estimated GFR > 60 > 60 BUN/Creatinine Ratio 20.4 13.6 Glucose 122 H 204 H Calcium 9.0 9.1 Magnesium 1.5 L 1.7 Urine Color Yellow Urine Appearance Clear Urine pH 6.0 Ur Specific [place] <=1.005 Urine Protein Negative Urine Glucose (UA) 3+ H Urine Ketones Negative Urine Occult Blood Negative Urine Nitrate Negative Urine Bilirubin Negative Urine Urobilinogen 0.2 Ur Leukocyte Esterase Negative Urine RBC 0-1/hpf Urine WBC 0-1/hpf Ur Squamous Epith Cells 1-5 /hpf Urine Bacteria None seen Ur Culture Indicated? Cult not indicated Vol Urine Centrifuged 10ml (spun) [facility] Medical History Hypertension Diabetes History of lung cancer Surgical History History of lung surgery Social History household members: family and children Smoking Status: Former smoker alcohol intake: former Assessment & Plan Assessment & Plan narrative: 1. Hypokalemia / Hypomagnesemia. Present on admission and improved. - supplementing, monitored lytes 2. Generalized weakness, recurrent falls. Present on admission and active. - PT assessment 3. Lung Adenocarcinoma stage 4. Present on admission and active. - she had Rt lung lobectomy 10 years ago, now has recurrence on the left, stage 4, getting paliative chemoTx by oncology 4. HTN. Present on admission and active. - Losartan 5. DM 2. Present on admission and active. - continue home medications, SS, diabetic diet 6. Hypothyroidism. Present on admission and active. - levothyroxine 7. Depression. Present on admission and active. - Zoloft 8 GERD. Present on admission and active. - PPI PLAN: - continue IVF - continue to replete potassium - continue to replete magnesium - physical therapy evaluation. - discuss with her oncologist, Dr. Alexander. Full code. NAVJOT: 11/30. Admitted to observation status. Time-Based Coding :: 30 spent with patient and on the chart (including review of chart, obtaining history, exam, reviewing outside data, placing orders, documenting exam and treatment plan, and counseling patient) on 11/29. Quality VTE Deep Vein Thrombosis/Pulmonary Embolism Present on Admission: No
[2023-11-30 08:00] VITALS: BP 141/87; PULSE 64; RESP 16; TEMP 36.1; O2SAT 96
[2023-11-30] MEDS: ASPIRIN EC 81 MG TABLET PO (08:42)
[2023-11-30] MEDS: PANTOPRAZOLE DR 20 MG TABLET PO ×2 (08:42→21:29)
[2023-11-30] MEDS: dexAMETHasone 4 MG TABLET 8 MG PO (08:42)
[2023-11-30] MEDS: POTASSIUM CHLORIDE 20 MEQ TAB 40 MEQ PO (08:42)
[2023-11-30] MEDS: METFORMIN HCL 500 MG TABLET PO ×2 (08:42→17:05)
[2023-11-30] MEDS: GABAPENTIN 300 MG CAPSULE 900 MG PO (08:42)
[2023-11-30] MEDS: LOSARTAN 50 MG TABLET 25 MG PO (08:42)
[2023-11-30] MEDS: INSULIN LISPRO 100 UNIT/ML 3ML VIAL SUBCUT ×3 (08:43→17:01)
[2023-11-30] MEDS: MAGNESIUM OXIDE 400 MG TABLET PO (08:43)
[2023-11-30] MEDS: LORATADINE 10 MG TABLET PO (08:43)
[2023-11-30] MEDS: ENOXAPARIN 40 MG/0.4 ML SYRINGE SUBCUT (08:44)
[2023-11-30] MEDS: INSULIN GLARGINE 100 UNIT/ML 3ML PEN 30 UNIT SUBCUT (08:44)
--- NOTE | 2023-11-30 09:10 | CM.DANOTE ---
Initial DCP Assessment Visit Note Reviewed EMR and team rounds for status updates. Met with pt briefly at bedside to introduce self and role, pt was found to be alert/oriented, is only needing standby assist with ambulating this morning. Pt lives modified independently in her dtr's home w/dtr's family. She had lived independently alone before, however she was unable to manage her daily care and ADL needs without more assistance. She does not use an AD for mobility at this time. DCP will continue to monitor and assist with any d/c needs once pt is medically cleared, likely tomorrow. Her dtr will plan to transport her. Payor: ALISON Coon MCR Adv PCP: Nika Madrigal Pt is a 67 year-old F with stage IV lung cancer, is receiving immunotherapy in the OP Oncology setting. Pt presented to the ED last evening with c/o elevated blood sugar that was not responding to insulin dosing, generalized weakness, and is having frequent falls. Pt has already stated that she does not want Home Health at discharge, although she also feels that she is not getting the care I need from my family, but doesn't want anyone in the house. DCP will continue to monitor for any further evolving needs and assistance. Discharge Planning/Care Management CM Discharge Assessment Start: 11/30/23 08:50 Freq: Status: Active Protocol: Document 11/30/23 09:05 DPL (Rec: 11/30/23 09:10 DPL [id number]) Discharge Planning Assessment Assigned Certified Hearing Instrument Dispenser IRAM Rey Advance Directives? No History Provided By Patient,Medical Record Expected Length of Stay 2 Has Patient been admitted in last 30 No days? Prior Living Arrangements House Comment Pt resides with her dtr and dtr's family. Household Members family,children Type of transporation used prior to Relies on Others admit Independent with ADL's No: modified independent Is patient alert and oriented? Yes Needs Assistance With Home Chores / Shopping Caregiver for Another No Comment OP Oncology Comment N/A Comment No home d/c needs at this time , pt declines the need for Home Health or more in-home cg . Barriers to Discharge No Discharge Plan Home Transportation Arrangement Daughter Referrals Initiated None needed Whiteboard Updated in Patient Room with Yes name and ext. # of Certified Hearing Instrument Dispenser Review Status In Process Please Provide Date Initial DC 11/30/23 Assessment Was Performed
--- NOTE | 2023-11-30 09:34 | PC.NURSE ---
Assess- Patient is alert and oriented x4, she only ate bites at breakfast. Blood Sugar 189 and insulin given. Patient teary eyed because she doesnt understand why she cant have normal foods that taste good. This RN explained to patient that it was due to her being diabetic and watching her blood sugars closely. She voided in the bathroom but has not had a bowel movement yet this morning.
--- NOTE | 2023-11-30 14:58 | PT.IIE ---
Current Diagnoses Malignant neoplasm of unspecified part of left bronchus or lung (11/29/23) Hypomagnesemia (11/29/23) Hypokalemia (11/29/23) Essential (primary) hypertension (11/29/23) Repeated falls (11/29/23) Weakness (11/29/23) Surgical History (Last Reviewed 11/29/23 @ 07:29 by Andrew Melendez MD) History of lung surgery Medical History (Last Reviewed 11/29/23 @ 07:29 by Andrew Melendez MD) Diabetes History of lung cancer Hypertension Physical Therapy Inpatient Evaluation/Re-Eval M1 PT/OT-IP Prior Functional Status Start: 11/30/23 10:23 Freq: NEEDED Status: Active Protocol: Document 11/30/23 14:30 MB (Rec: 11/30/23 14:57 MB [id number]) Medical Review Prior Functional Status Medical History Reviewed Yes Communication WNLs Mobility and Gait Mod I with 4WW and also holds onto pichardo Activities of Daily Living and IADL's Mod I Social History Household Members family,children Living Arrangements House Number of Floors (Floors) One Floor Number of Stairs To Enter/Railing? 3 steps up with rails to enter home and 3 steps to room with no rail Home Environment Standard Height Toilet,Walk in Shower,Built-In Shower Seat Home Equipment Four Wheel Walker,Straight Cane Employment Status Retired Additional Social History Comment Elevating bed M2 PT-IP Current Condition Start: 11/30/23 10:23 Freq: NEEDED Status: Active Protocol: Document 11/30/23 14:30 MB (Rec: 11/30/23 14:57 MB [id number]) Physical Therapy Current Condition Current Condition Evaluation Date 11/30/23 Treatment Diagnosis High blood sugar, stage IV lung CA M3 PT-IP Subjective Start: 11/30/23 10:23 Freq: NEEDED Status: Active Protocol: Document 11/30/23 14:30 MB (Rec: 11/30/23 14:57 MB [id number]) Subjective Physical Therapy Visit Type Type Initial Evaluation Visit Start Time 14:30 Visit Stop Time 14:40 Number of SHIP CLEANER Visits 0 Physical Therapy Visit Comments Patient Comments Pt is pleasant and agreeable to PT. Therapy Pain Assessment Pain When Pain Assessed After Treatment Pain Present Pain Present Pain Reported Location Left knee Intensity 1 Scale Used Numeric (0 - 10) M4 PT-IP Mobility and Gait Start: 11/30/23 10:23 Freq: NEEDED Status: Active Protocol: Document 11/30/23 14:30 MB (Rec: 11/30/23 14:57 MB [id number]) PT-Bed Mobility Assessment Rolling Level of Assist Independent Supine to Sit Supine to Sit Independent Sit to Supine Sit to Supine Independent Scooting Scooting to Edge of Bed Independent Scooting Up and Down in Bed Independent PT-Transfer Assessment Sit to and From Stand Sit to and from Stand Contact Guard Assistance Equipment Transfer Assistive Device Gait Belt Orthotic/Prosthetic Devices or Brace: No Transfers Transfer Destination Bed Transfer Technique Ambulation Transfer Ability Level of Assist Contact Guard Assistance Comments Mobility Comments Use of HOB and rails, pt states she has this at home. Some quicker movement before PT can get IV pole around the bed and manage line. Left knee buckle when going to step in doorway of room after walk and CGA. O2 sats on RA in the high 90s after gait and HR is 86 BPM Gait Assessment Gait Gait Assistance Required: Contact Guard Assist Distance (Feet) 70 Able to Maintain Weight Bearing Status Yes During Gait Assistive Devices Assistive Device Gait Belt Orthotic/Prosthetic Devices or Brace: No Factors Limiting Gait Function Factors Limiting Gait Function Abnormal Tonal Influences, Decreased Activity Tolerance, Poor Balance,Poor Safety Awareness Comments Gait Comments Pt pushes IV pole to help balance. Twice, pt has buckle- type presentation in legs that is self-corrected and pt reports this bothers her left knee and it occurs when starting to walk again after PT checks O2 in hallway. This is almost cord-like in presentation and unsure if pt has bony mets to spine given stage IV lung CA Stair Climbing Assessment Comments Stair Climbing Comments Deferred steps today PT-Balance Assessment Sitting Balance and Reactions Static Sitting Balance Ability Normal Dynamic Sitting Balance Ability Normal Standing Balance and Reactions Static Standing Balance Ability Good Dynamic Standing Balance Ability Good Device Used IV pole M5 PT-IP Objective Assessments Start: 11/30/23 10:23 Freq: NEEDED Status: Active Protocol: Document 11/30/23 14:30 MB (Rec: 11/30/23 14:57 MB [id number]) Orientation Orientation/Cognition Level of Alertness Alert Orientation Name,Age,Birthday,Month,Date, Year,Day of Week,Place, Situation Language Function Ability No Deficits Noted Safety Awareness Decreased Safety Awareness Memory Description No Deficits Noted Gross Range of Motion Upper Extremity ROM Assessment Within Functional Limits Lower Extremity ROM Assessment Within Functional Limits Strength Upper Extremity Strength Assessment Within Functional Limits Lower Extremity Strength Assessment Within Functional Limits Muscle Tone Muscle Tone WNL Yes M6 PT-IP Treatment Start: 11/30/23 10:23 Freq: NEEDED Status: Active Protocol: Document 11/30/23 14:30 MB (Rec: 11/30/23 14:57 MB [id number]) Physical Therapy Treatment Education Education Provided Safety M7 PT-IP Assessment and Plan Start: 11/30/23 10:23 Freq: NEEDED Status: Active Protocol: Document 11/30/23 14:30 MB (Rec: 11/30/23 14:57 MB [id number]) PT Summary Assessment and Plan Potential Rehabilitation Potential Fair Status of Condition at Evaluation Unstable Summary Impairments Pain,Balance,Transfers,Gait, Activity Tolerance Progress Towards Goals Progressing Toward Goals Assessment Summary Pt is a 67 y/o lady presenting with good efforts with mobility today. She was a little light-headed once up walking and will benefit from having orthostatics checked. Two episodes of small LE buckly that is cord-like in nature and will benefit from trying gait with 4WW tomorrow. Pt plans to go home with family who is present during assessment. She is likely close to her functional baseline and does not require further acute PT but will see her at least once more if she is in acute setting for 4WW and stair training. Goals Transfer Goal Independent,Four Wheeled Walker Gait Goal Independent,Four Wheel Walker Gait Distance 100 Other Goals Pt will ascend and descend 3 steps with rail to allow safe home entrance. Frequency of Treatment Frequency Of Treatment Once a Day Treatment Plan Physical Therapy Treatment Plan Transfer Training,Gait Training,Therapeutic Exercise, Balance Retraining,Discharge Planning,Neuromuscular Re-ed, Coordination Retraining Other Recommendations and Next Treatment Check orthostatics, gait with Focus 4WW, stair training Weight Bearing Status Weight Bearing Status Weight Bear as Tolerated Recommendations To Nursing Amount of Assist Needed 1 Person Assist Discharge Recommendations PT Discharge Recommendations Home with 09/12 Assist Available Transportation Needs at Discharge Private Vehicle
[2023-11-30 16:00] VITALS: BP 115/85; PULSE 71; RESP 16; TEMP 36.3; O2SAT 99
[2023-11-30] MEDS: SERTRALINE 50 MG TABLET 100 MG PO (17:02)
[2023-11-30] MEDS: INSULIN GLARGINE 100 UNIT/ML 3ML PEN 20 UNIT SUBCUT (17:03)
[2023-11-30 19:26] VITALS: BP 118/72; PULSE 71; RESP 16; TEMP 36.8; O2SAT 96
[2023-12-01 03:12] VITALS: BP 120/67; PULSE 65; RESP 16; TEMP 36.4; O2SAT 97
[2023-12-01] MEDS: LEVOTHYROXINE 75 MCG TABLET PO (06:19)
[2023-12-01 06:56] LABS: BUN Creatinine Ratio 19.5 (6-22); Blood Urea Nitrogen 8 mg/dL (7-17); Calcium 8.5 mg/dL (8.4-10.2); Carbon Dioxide 29 mmol/L (22-32); Chloride 110 mmol/L (98-107); Estimated Glomerular Filt Rate > 60 mL/min (>60); Glucose 169 mg/dL (80-110); HEMOLYSIS < 15 (0-50); Magnesium 1.5 mg/dL (1.6-2.3); Sodium 139 mmol/L (137-145)
[2023-12-01 08:00] VITALS: BP 124/75; PULSE 63; RESP 16; TEMP 36.6; O2SAT 97
[2023-12-01] MEDS: INSULIN LISPRO 100 UNIT/ML 3ML VIAL SUBCUT (08:14)
[2023-12-01] MEDS: INSULIN GLARGINE 100 UNIT/ML 3ML PEN 30 UNIT SUBCUT (08:14)
[2023-12-01] MEDS: METFORMIN HCL 500 MG TABLET PO (08:17)
[2023-12-01] MEDS: LOSARTAN 50 MG TABLET 25 MG PO (08:17)
[2023-12-01] MEDS: ENOXAPARIN 40 MG/0.4 ML SYRINGE SUBCUT (08:17)
[2023-12-01] MEDS: GABAPENTIN 300 MG CAPSULE 900 MG PO (08:17)
[2023-12-01] MEDS: ASPIRIN EC 81 MG TABLET PO (08:17)
[2023-12-01] MEDS: PANTOPRAZOLE DR 20 MG TABLET PO (08:18)
[2023-12-01] MEDS: LORATADINE 10 MG TABLET PO (08:18)
[2023-12-01] MEDS: MAGNESIUM OXIDE 400 MG TABLET PO (08:18)
--- NOTE | 2023-12-01 10:47 | P.DS_ITS ---
History of Present Illness History of Present Illness Chief complaint: High Blood Sugar Narrative: From night doctor: 67 y/o with PMH of and hospitalization in July for viral PNA, presented to ED with generalized weakness, multiple falls, elevated blood sugars over the last week. Patient states that her blood sugars usually less than 100 at home. Over the last week it has been in the mid 200s, and this evening it was as high as 340. She called the doctor advice line and was told to take 10 extra units of Lantus. She took 10 units of Lantus as instructed, but repeat glucose was not any better, and so she was counseled to go to the emergency department. S: She notes progressive functional decline over the last several weeks. She was profoundly weak. She does not have prominent dyspnea or orthopnea. She also denies any leg edema. She has had profound anorexia as able to only eat a small amount of time. She was having a fairly dramatic weight loss of over 10 lb over several weeks. She is currently on immunotherapy for her cancer, her oncologist has stopped her chemotherapy. She denies any rectal bleeding, fevers or chills. No pain issues. Discharge Providers Provider Date of admission: 11/29/23 03:15 Discharge Date: 12/01/23 Primary care physician: Nika Madrigal PA-C Consults: 11/30/23 10:07 Consult to Physical Therapy Evaluate & Treat Comment: Physician Instructions: Evaluate and Treat Discharge provider: Andrew Melendez MD Summary Hospital Course Discharge Diagnosis: 1. Hypokalemia / Hypomagnesemia. Present on admission and improved. 2. Generalized weakness, recurrent falls. Present on admission and active. 3. Lung Adenocarcinoma stage 4. Present on admission and active. - she had Rt lung lobectomy 10 years ago, now has recurrence on the left, stage 4, getting immunotherapy by oncology 4. HTN. Present on admission and active. 5. DM 2. Present on admission and active. 6. Hypothyroidism. Present on admission and active. 7. Depression. Present on admission and active. 8 GERD. Present on admission and active. Hospital Course: This is a pleasant patient with a history of stage IV lung cancer who recently stopped chemotherapy but continues on immunotherapy. Recent CT scan in October indicated a dramatic regression of disease. She presented with acute weakness and was found to be hypokalemic and have hypomagnesemia. Both repleted and she did improve. She does note fairly subacute exhaustion and this was discussed with her oncologist who does feel that this relates largely to her therapy. She was able to do all physical therapy and stable to be discharged home. She does take Lasix and will be placed on daily potassium and magnesium supplements. She follows up with her oncologist (Dr. Alexander) on December 08 and has labs before. She was also concerned about her prognosis and life span and her oncologist did transmit to me that it is greater than months and could be 1-2 years. This was shared with the patient. Status at Discharge Cognitive/behavioral status at discharge: oriented Functional status at discharge: independent ambulation Overall status at discharge: patient is back to baseline Time Spent with Patient Time spent: Greater than 30 minutes Exam Vital Signs (past 8 hours): - 12/01/23 03:12 12/01/23 08:00 Temperature 97.5 F L 97.9 F Pulse Rate 65 63 Respiratory Rate 16 16 Blood Pressure 120/67 124/75 Pulse Oximetry 97 97 Oxygen Flow Rate 0 Oxygen Delivery Method Room Air Oxygen Flow Rate 0 Narrative Exam Narrative: NAD, alert and oriented. Fluent speech. Lungs are clear, normal rate and effort. Heart is regular, no murmur gallop or rub. Abdomen is soft, non distended. Extremities are free of edema. Objective Labs 11/29/23 06:34 12/01/23 06:04 Labs: Laboratory Results - last 24 hr 12/01/23 06:04 Sodium 139 Potassium 4.0 Chloride 110 H Carbon Dioxide 29 BUN 8 Creatinine 0.41 L Estimated GFR > 60 BUN/Creatinine Ratio 19.5 Glucose 169 H Calcium 8.5 Magnesium 1.5 L COUNT INCLUDES THE [facility] Medical History Hypertension Diabetes History of lung cancer Surgical History History of lung surgery Social History household members: family and children Smoking Status: Former smoker alcohol intake: former Discharge Assessment & Plan Assessment and Plan Assessment: 1. Hypokalemia / Hypomagnesemia. Present on admission and improved. 2. Generalized weakness, recurrent falls. Present on admission and active. 3. Lung Adenocarcinoma stage 4. Present on admission and active. - she had Rt lung lobectomy 10 years ago, now has recurrence on the left, stage 4, getting immunotherapy by oncology Plan of Treatment: Discharge home on potassium 20 a day as well as magnesium oxide 200 mg a day. She sees Dr. Alexander in Oncology on December 08 and will have labs the same morning. Her situation in the hospitalist discussed with Dr. Alexander electronically while she was in the hospital. Discharge Plan Discharge Plan Patient Disposition: Home Provider Discharge Comment: Stable for discharge home, discussed her care with her primary oncologist, Dr. Clifford. She sees him on the 08 of December. Discharge orders & Medications Prescriptions: New potassium chloride 20 mEq tablet extended release 20 meq PO DAILY Qty: 30 1RF magnesium oxide 200 mg magnesium tablet 200 mg PO DAILY Qty: 30 1RF Continued aspirin 81 mg Tablet,Delayed Release (Dr/Ec) 81 mg PO DAILY Qty: 0 metformin [Glucophage] 500 MG tablet 500 mg PO BIDWM Qty: 0 Jardiance 25 MG tablet 25 mg PO DAILY Qty: 0 cyclobenzaprine 10 mg Tablet 10 mg PO TID PRN (Reason: muscle relaxant) pantoprazole 20 mg Tablet,Delayed Release (Dr/Ec) 20 mg PO BID levothyroxine 75 mcg Tablet 75 mcg PO DAILY@0600 gabapentin 300 mg Capsule 900 mg PO BEDTIME Trulicity 1.5 mg/0.5 mL Pen Injector 1.5 mg SUBCUT WEEKLY Rx Instructions: friday Allerclear 10 mg PO DAILY PRN (Reason: allergies) furosemide 40 mg tablet 40 mg BID prochlorperazine maleate [Compazine] 10 mg Tablet 10 mg PO Q6H PRN (Reason: Nausea And Vomiting) gabapentin 300 mg capsule 600 mg PO DAILY Rx Instructions: takes 900mg at bedtime Eliquis 5 mg tablet 5 mg PO BID insulin glargine [Lantus Solostar U-100 Insulin] 100 unit/mL (3 mL) insulin pen 20 unit SUBCUT DAILY albuterol sulfate 1.25 mg/3 mL solution for nebulization 1.25 mg inhalation DAILY ondansetron 8 mg tablet,disintegrating 8 mg PO Q8H PRN (Reason: nausea) calcitonin (salmon) 200 unit/actuation spray,non-aerosol 1 spray intranasal DAILY diazepam 2 mg tablet 2 mg PO TID folic acid 1 mg tablet 1 mg PO DAILY atorvastatin 40 mg tablet 40 mg PO QPM meloxicam 7.5 mg tablet 7.5 mg PO DAILY PRN (Reason: pain) albuterol sulfate [ProAir HFA] 90 mcg/actuation HFA aerosol inhaler 2 puff INHALATION Q4H PRN (Reason: Wheezing) Medication counseling provided by Pharmacist: No Follow up/Referrals: Nika Madrigal PA-C [Primary Care Provider] - Discharge Health Status Multidrug resistant organism: No MDRO Diet/Activity/Treatments Diet: Carb-consistent/Diabetic Skin/Wound/Dressing Care Report to your healthcare provider any signs of infection, such as:: chills, fever and increased pain Visit Report/Discharge Packet Instructions: DI for Hypokalemia Stand Alone Forms: Patient Portal/API Discharge Data Primary Care Provider: Nika Madrigal Attending Provider: Chester Cast Admit Date/Time: 11/29/23 03:15 Quality VTE Deep Vein Thrombosis/Pulmonary Embolism Present on Admission: No MIPS - DC The patient has a history of heart transplant or Left Ventricular Assist Device (LVAD). If yes, STOP here.: No The patient has current or prior documentation of left ventricular ejection fraction (LVEF) less than or equal to 40%, or moderate or severely depressed left ventricular systolic function.: No
--- NOTE | 2023-12-01 12:30 | PC.NURSE ---
Discharge Note Patient A&O, VSS, RA, no complaints of pain/discomfort. Patient agreeable to discharge plan. Port hep locked and deaccessed. Patient able to dress self and pack all belongings. Discharge packet reviewed with patient, all questions/concerns addressed. Patient taken down via wheelchair to POV.
--- NOTE | 2023-12-01 13:53 | CM.DPC ---
DCP Discharge Home Per MD, pt is medically stable to discharge home today and no identified barriers to discharge. Per PT, recommending home with family. Per RN, pt was independently ambulating and provided with discharge instructions and taken to POV and no concerns noted. IRAM Brooke
--- NOTE | 2023-12-08 10:14 | PC.NURSE ---
Late Entry: Magnesium infusion initiated 11/28 at 1819 complete at 2020
== END 2023-12-01 12:15 | disposition home or self-care (01) ==
LOC: ED 11-29 02:50 → AC 11-29 03:15
PROVIDERS: Hospitalist; Admitting Provider Internal Medicine; Emergency Provider Emergency Medicine; PCP Physician Assistant Medical; Referring Provider Emergency Medicine; Visit Provider Internal Medicine
DX: C34.92 Malignant neoplasm of unspecified part of left bronchus or lung (principal); E87.6 Hypokalemia; E83.42 Hypomagnesemia; R29.6 Repeated falls; R53.1 Weakness; I10 Essential (primary) hypertension; K21.9 Gastro-esophageal reflux disease without esophagitis; F32.A Depression, unspecified; E03.9 Hypothyroidism, unspecified; Z79.4 Long term (current) use of insulin; Z79.84 Long term (current) use of oral hypoglycemic drugs
CPT/HCPCS: 36415; 70450; 71045; 73030; 80048; 80053; 81001; 82962; 83735; 85025; 87633; 93005; 96361; 96365; 96366; 96367; 96372; 97161; 99284; G0378; J1650; J1815; J3475

== ENCOUNTER 2024-06-01 09:29 | Emergency (ER) | payer MEDICARE, OTHER, SELFPAY ==
[2023-11-29 11:47] VITALS: BMI 30.2
[2024-06-01] VITALS (16 sets, daily range): BP systolic 100–155; BP diastolic 55–77; PULSE 71–89; RESP 16–22; TEMP 36.6; O2SAT 92–96; BMI 30.5
--- NOTE | 2024-06-01 10:04 | ED.GENADULT ---
HPI - General Adult General Chief complaint: Shortness of Breath/Dyspnea Stated complaint: Mid and lower back pain Time Seen by Provider: 06/01/24 10:03 Source: family Mode of arrival: Ambulatory History of Present Illness HPI narrative: [age] year old woman with a history of lung cancer and currently continue on immunotherapy, history of 5 prior other types of cancer presents complaining of 2 days of posterior left chest pain radiating into the shoulder blade and up to the posterior shoulder, splinting secondary to pain no fevers or chills, cough is unchanged. No significant headache. She complains of a very dry mouth, she also notes that her chronic arthritis/synovitis pain that she is attributed to her immune therapy is significantly worse over the last couple of days. No nausea vomiting or diarrhea. No palpitations. She has not feeling significantly dyspneic. Related Data Home Medications Medication Instructions Recorded Confirmed aspirin 81 mg tablet,delayed 81 mg PO DAILY ##0 04/17/10 11/30/23 release metformin 500 mg tablet 500 mg PO BIDWM ##0 09/23/12 12/01/23 (Glucophage) empagliflozin 25 mg tablet 25 mg PO DAILY ##0 09/17/16 11/30/23 (Jardiance) atorvastatin 40 mg tablet 40 mg PO QPM 12/25/17 11/30/23 meloxicam 7.5 mg tablet 7.5 mg PO DAILY PRN pain 11/10/18 12/01/23 albuterol sulfate 90 mcg/actuation 2 puff inhalation Q4H PRN Wheezing 07/12/19 11/30/23 aerosol inhaler (ProAir HFA) cyclobenzaprine 10 mg tablet 10 mg PO TID PRN muscle relaxant 08/02/23 11/30/23 gabapentin 300 mg capsule 900 mg PO BEDTIME 08/02/23 11/30/23 levothyroxine 75 mcg tablet 75 mcg PO DAILY@0600 08/02/23 12/01/23 pantoprazole 20 mg tablet,delayed 20 mg PO BID 08/02/23 11/30/23 release dulaglutide 1.5 mg/0.5 mL 1.5 mg SUBCUT WEEKLY 08/03/23 11/30/23 subcutaneous [facility] Allerclear 10 mg PO DAILY PRN allergies 11/30/23 11/30/23 apixaban 5 mg tablet (Eliquis) 5 mg PO BID 11/30/23 11/30/23 furosemide 40 mg tablet 40 mg BID 11/30/23 11/30/23 gabapentin 300 mg capsule 600 mg PO DAILY 11/30/23 11/30/23 insulin glargine 100 unit/mL (3 20 unit SUBCUT DAILY 11/30/23 11/30/23 mL) subcutaneous pen (Lantus Solostar U-100 Insulin) prochlorperazine maleate 10 mg 10 mg PO Q6H PRN Nausea And 11/30/23 11/30/23 tablet (Compazine) Vomiting albuterol sulfate 1.25 mg/3 mL 1.25 mg inhalation DAILY 12/01/23 12/01/23 solution for nebulization calcitonin (salmon) 200 1 spray intranasal DAILY 12/01/23 12/01/23 unit/actuation nasal spray diazepam 2 mg tablet 2 mg PO TID 12/01/23 12/01/23 folic acid 1 mg tablet 1 mg PO DAILY 12/01/23 12/01/23 ondansetron 8 mg disintegrating 8 mg PO Q8H PRN nausea 12/01/23 12/01/23 tablet Previous Rx's Medication Instructions Recorded magnesium oxide 200 mg PO DAILY #30 tabs 12/01/23 potassium chloride 20 mEq 20 meq PO DAILY #30 tabs 12/01/23 tablet,extended release oxycodone-acetaminophen 5 mg-325 1 tab PO Q6H PRN pain #20 tabs 06/01/24 mg tablet Allergies Allergy/AdvReac Type Severity Reaction Status Date / Time niacin [NIACIN] Allergy Mild Verified 06/01/24 09:38 duloxetine AdvReac Intermediate Vomiting Verified 06/01/24 09:38 morphine AdvReac Intermediate Vomiting Verified 06/01/24 09:38 propoxyphene [From DARVON] AdvReac Mild VOMITING Verified 06/01/24 09:38 Review of Systems Review of Systems Narrative: Pertinent positive and negative findings as per HPI Patient History Medical History Hypertension Diabetes History of lung cancer Surgical History History of lung surgery Social History household members: family and children Smoking Status: Former smoker alcohol intake: former Smoking Status: Former smoker alcohol intake frequency: holidays/special occasions only Exam Initial Vital Signs Initial Vital Signs: Vital Signs Temperature 97.9 F 06/01/24 09:36 Pulse Rate 87 06/01/24 09:36 Respiratory Rate 22 06/01/24 09:36 Blood Pressure 141/77 H 06/01/24 09:36 Pulse Oximetry 95 06/01/24 09:36 Oxygen Delivery Method Room Air 06/01/24 09:36 General: Appears fatigued, able to speak in complete sentences HEENT: Dry mucous membranes, normal sclera with reactive pupils, Respiratory: Lungs with minimal decreased breath sounds in the left and splinting secondary to left chest wall pain. No obvious wheeze or rhonchi appreciated Chest: Significant tenderness from the left mid axillary line posteriorly along the lower ribs. No skin changes associated with this. No actual breast tenderness Cardiac: Regular rate and rhythm no murmurs no bruits Abdomen: Soft, nontender, good bowel tones, no flank pain Skin: Warm and dry, no rashes Neurologic: Grossly neurologically intact with no obvious asymmetries or abnormalities Extremities: No trauma, well perfused Psych: Cooperative, appropriate insight and affect Course Orders Ordered: Discontinued Medications Dexamethasone (Dexamethasone 10 Mg/Ml Vial) 10 mg IV NOW ONE Stop: 06/01/24 10:26 Last Admin: 06/01/24 10:38 Dose: 10 mg Documented By: Hydromorphone HCl (Hydromorphone 1 Mg Inj) 1 mg IV NOW ONE Stop: 06/01/24 10:26 Last Admin: 06/01/24 10:39 Dose: 1 mg Documented By: Sodium Chloride (Normal Saline 0.9%) 1,000 mls @ 1,000 mls/hr IV BOLUS ONE Stop: 06/01/24 11:24 Last Infusion: 06/01/24 12:12 Dose: Infused Documented By: Admin: 06/01/24 10:39 Dose: 1,000 mls/hr Documented By: Ketorolac Tromethamine (Ketorolac 30 Mg/Ml Vial) 15 mg IV NOW ONE Stop: 06/01/24 10:26 Last Admin: 06/01/24 10:38 Dose: 15 mg Documented By: Potassium Chloride (Potassium Chloride 20 Meq Tab) 40 meq PO NOW ONE Stop: 06/01/24 13:42 Last Admin: 06/01/24 14:08 Dose: 40 meq Documented By: Vital Signs Vital signs: Vital Signs - 8 hr 06/01/24 09:36 06/01/24 09:57 06/01/24 09:58 Temperature 97.9 F Pulse Rate 87 Respiratory Rate 22 Blood Pressure 141/77 H 116/59 L Pulse Oximetry 95 92 Oxygen Delivery Method Room Air Oxygen Flow Rate 06/01/24 09:58 06/01/24 10:00 06/01/24 10:00 Temperature Pulse Rate 84 85 Respiratory Rate Blood Pressure 117/59 L Pulse Oximetry 96 94 Oxygen Delivery Method Oxygen Flow Rate 06/01/24 10:30 06/01/24 10:31 06/01/24 10:31 Temperature Pulse Rate 88 89 Respiratory Rate Blood Pressure 126/60 Pulse Oximetry 95 94 Oxygen Delivery Method Oxygen Flow Rate 06/01/24 10:57 06/01/24 10:57 06/01/24 11:00 Temperature Pulse Rate 72 71 Respiratory Rate Blood Pressure 155/71 H Pulse Oximetry 92 93 Oxygen Delivery Method Oxygen Flow Rate 06/01/24 11:00 06/01/24 11:30 06/01/24 11:31 Temperature Pulse Rate 74 71 Respiratory Rate 16 Blood Pressure 130/58 L 117/56 L Pulse Oximetry 94 95 Oxygen Delivery Method Nasal Cannula Oxygen Flow Rate 2 06/01/24 11:31 06/01/24 12:00 06/01/24 12:00 Temperature Pulse Rate 72 75 Respiratory Rate Blood Pressure 100/56 L Pulse Oximetry 96 94 Oxygen Delivery Method Oxygen Flow Rate 06/01/24 12:30 06/01/24 12:30 Temperature Pulse Rate 79 Respiratory Rate Blood Pressure 111/64 Pulse Oximetry 95 Oxygen Delivery Method Oxygen Flow Rate Medical Decision Making Lab Data 06/01/24 10:00 06/01/24 10:00 Labs: Lab Results 06/01/24 Range/Units 10:00 WBC 9.2 (4.5-11.0) X10^3/uL RBC 4.97 (4.0-5.2) X10^6/uL Hgb 14.5 (12.0-16.0) g/dL Hct 43.1 (36-46) % MCV 86.7 (80-100) fL MCH 29.1 (26-34) PG MCHC 33.6 (30-36) % RDW 14.0 (11.6-14.8) % Plt Count 202 (150-400) X10^3/uL Neut % (Auto) 57.2 (50-75) % Lymph % (Auto) 31.4 (25-40) % [place] % (Auto) 8.7 (3-14) % Eos % (Auto) 2.1 (2-4) % Baso % (Auto) 0.6 (0-2) % Neut # (Auto) 5300 (2626-1729) /uL Lymph # (Auto) 2900 (6563-6551) /uL [place] # (Auto) 800 (0-900) /uL Eos # (Auto) 200 (0-450) /uL Baso # (Auto) 100 (0-100) /uL Sodium 137 (137-145) mmol/L Potassium 3.1 L (3.4-5.1) mmol/L Chloride 101 (98-107) mmol/L Carbon Dioxide 26 (22-32) mmol/L BUN 10 (7-17) mg/dL Creatinine 0.61 (0.52-1.04) mg/dL Estimated GFR > 60 (>60) mL/min BUN/Creatinine Ratio 16.4 (6-22) Glucose 247 H (80-110) mg/dL Calcium 9.7 (8.4-10.2) mg/dL Total Bilirubin 2.0 H (0.2-1.3) mg/dL AST 20 (14-36) IU/L ALT 18 (<35) IU/L Alkaline Phosphatase 82 (38-126) U/L Total Protein 7.4 (6.3-8.2) g/dL Albumin 4.3 (3.5-5.0) g/dL Globulin 3.1 (1.7-4.1) g/dL Albumin/Globulin Ratio 1.4 (1.0-2.8) Lipase 56 (23-300) U/L MDM Narrative Medical decision making narrative: CC: Left posterior chest pain Complicating co-morbidities: Lung cancer with history of prior previous cancers Data collected from: patient Social determinants of health that may influence the patients condition: Medical records reviewed: Hospitalization December 01, 2023 weakness with the electrolyte abnormalities were reviewed [place] [facility] records are reviewed, additional problems include fibromyalgia, chronic left hand pain, it has an adenocarcinoma of the left lung, malignant pleural effusion, history of iatrogenic pulmonary embolism infarct, hypertension, coronary artery disease post stenting, reflux diabetes, hyperlipidemia CT scan of the chest abdomen and pelvis done on May 18 2024 done to assess her treatment response does not show any acute bony abnormalities or metastatic disease. Stable right lower lobectomy. Thick scarring seen left upper lobe. Moderate left pleural effusion is noted. Multiple small pulmonary nodules slightly more conspicuous than prior imaging. T7 height loss is noted to be similar to prior scans. Incidentally noted hypervascular mass at the pancreatic tail. Mildly enlarged upper abdominal retroperitoneal lymph nodes most notably left periaortic region 1.3 cm previously has been less 1 cm. Also noted is central mesenteric fat stranding and prominent lymph nodes likely chronic mesenteritis Differential considered: Pneumothorax, enlarged known malignant left pleural effusion, metastatic erosion into bone or ribs, shingles, pneumonia, given the abnormality noticed in the tail of the pancreas possibility of pancreatic abnormality or pancreatic source of pain is entertained. Doubt cardiac source of pain Exam documented above, pertinent findings include: Patient appears uncomfortable, significant tenderness to chest wall left lateral and posterior ribs to palpation without skin changes. No abdominal tenderness. Lungs with diminished breath sounds on the left no significant rhonchi or wheeze. She does not have any active synovitis Lab Test results independently reviewed as above. Pertinent findings: CBC is entirely unremarkable Chemistries are notable for potassium low at 3.1. Normal renal function, slightly elevated blood sugar 247. Bilirubin elevated at 2. AST, ALT and alkaline phosphatase are all appropriate. Independently reviewed EKG: Imaging studies independently reviewed: Chest x-ray shows question of infiltrate versus atelectasis in the left upper lobe extending to the left hilar region, no pleural effusion appreciated no pneumothorax. Consultations: Message was transmitted to Dr. Alexander, her oncologist Treatments: Toradol, dexamethasone, IV Dilaudid, fluids. Discussion: 68-year-old woman with known lung cancer comes in with the acute left posterior chest wall pain. No skin changes, no obvious abscess code no obvious fractures. Chest x-ray does not show significant new findings. CT scan done on April 29 did not suggest metastatic lesions in the spine or ribs at that time. She does have a PET scan scheduled in the near future. There was no evidence of acute coronary syndrome, the pleural effusion that had been appreciated previously on the left side has since resolved. Lab work is reassuring, potassium low at 3.1 and will be replaced. She is re-evaluated, she has absolutely no abdominal pain. With shared decision-making we opted to not repeat a chest CT scan at this time in light of the normal chest x-ray an upcoming PET scan. Be Dilaudid his made her quite sleeping and she is somewhat sleep deprived. Once she is more awake she will go home with her daughter. I have given her prescription for oxycodone. I have messaged her primary oncologist. She has oncology follow up in the near future. I am most appropriate diagnosis at this time is going to be musculoskeletal chest wall pain. No obvious underlying oncology complication to explain the pain is identified today. She is safe for discharge Discharge Plan Departure Patient Disposition: Home Clinical Impression: Left-sided chest wall pain Instructions: DI for Musculoskeletal Pain Activity Restrictions/Additional Instructions: Thank you for coming in today I did not find an obvious explanation for this severe left-sided chest wall pain that you are experiencing. Specifically there is no sign of bacterial infection, shingles, heart attack, a pleural effusion that we had seen previously on that side has since resolved. The chest x-ray that we did today does not show obvious fractures. The CT scan that was done on April 30 did not show obvious metastatic lesions at that time. There was no sign of pneumonia. You were given dexamethasone to help with the overall inflammation pain in your extremities, Toradol and Dilaudid to help with the chest wall pain. Using 400 mg of ibuprofen (2 [id number] pills) and 1 Tylenol every 6 hours can be very helpful in controlling pain. For severe pain you can use 400 mg of ibuprofen and 1 Percocet. Prescription for Percocet was sent to [facility]. Together we talked about repeating a CT scan of your chest to see if there were any other more concerning findings and we decided not to do so knowing that you have a PET scan coming up in the near future. I did send a message directly to Dr. Alexander to let him know you are in the emergency department with this chest wall pain for which we did not find a definitive answer. If you find that you are getting worse or develop any new symptoms, please feel free to return to the emergency department for further evaluation. Prescriptions: New oxycodone-acetaminophen 5-325 mg tablet 1 tab PO Q6H PRN (Reason: pain) Qty: 20 0RF No Action aspirin 81 mg Tablet,Delayed Release (Dr/Ec) 81 mg PO DAILY Qty: 0 metformin [Glucophage] 500 MG tablet 500 mg PO BIDWM Qty: 0 Jardiance 25 MG tablet 25 mg PO DAILY Qty: 0 cyclobenzaprine 10 mg Tablet 10 mg PO TID PRN (Reason: muscle relaxant) pantoprazole 20 mg Tablet,Delayed Release (Dr/Ec) 20 mg PO BID levothyroxine 75 mcg Tablet 75 mcg PO DAILY@0600 gabapentin 300 mg Capsule 900 mg PO BEDTIME Trulicity 1.5 mg/0.5 mL Pen Injector 1.5 mg SUBCUT WEEKLY Rx Instructions: friday Allerclear 10 mg PO DAILY PRN (Reason: allergies) furosemide 40 mg tablet 40 mg BID prochlorperazine maleate [Compazine] 10 mg Tablet 10 mg PO Q6H PRN (Reason: Nausea And Vomiting) gabapentin 300 mg capsule 600 mg PO DAILY Rx Instructions: takes 900mg at bedtime Eliquis 5 mg tablet 5 mg PO BID insulin glargine [Lantus Solostar U-100 Insulin] 100 unit/mL (3 mL) insulin pen 20 unit SUBCUT DAILY albuterol sulfate 1.25 mg/3 mL solution for nebulization 1.25 mg inhalation DAILY ondansetron 8 mg tablet,disintegrating 8 mg PO Q8H PRN (Reason: nausea) calcitonin (salmon) 200 unit/actuation spray,non-aerosol 1 spray intranasal DAILY diazepam 2 mg tablet 2 mg PO TID folic acid 1 mg tablet 1 mg PO DAILY potassium chloride 20 mEq tablet extended release 20 meq PO DAILY Qty: 30 1RF magnesium oxide 200 mg magnesium tablet 200 mg PO DAILY Qty: 30 1RF atorvastatin 40 mg tablet 40 mg PO QPM meloxicam 7.5 mg tablet 7.5 mg PO DAILY PRN (Reason: pain) albuterol sulfate [ProAir HFA] 90 mcg/actuation HFA aerosol inhaler 2 puff INHALATION Q4H PRN (Reason: Wheezing) Referrals: Nika Madrigal PA-C [Primary Care Provider] - Stand Alone Forms: Patient Portal/API/Survey
--- NOTE | 2024-06-01 10:25 | DI.RAD.S_ITS ---
PROCEDURE: XR CHEST 2V INDICATIONS: increased sob, h/o CA TECHNIQUE: 2 views of the chest were acquired. COMPARISON: [facility], CR, XR CHEST 1V, 11/29/2023, 0:28. FINDINGS: Surgical changes and devices: Left chest wall Port-A-Cath tip is in SVC. Surgical clips are noted in right axilla. Lungs and pleura: Small infiltrate/atelectasis in left upper lung field is seen extending to left hilar region. Blunting of bilateral costophrenic angle is seen suggestive of trace bilateral pleural effusion versus chronic pleural thickening. No pneumothorax. Mediastinum: Mediastinal contours are normal. Heart size is enlarged. Bones and chest wall: No suspicious bony abnormalities. Soft tissues appear unremarkable. IMPRESSION: Suggestion of small infiltrate versus atelectasis in left upper lobe extending to left hilar region. No significant pleural effusion. No gross pneumothorax. Dictated by: Thomas Handley M.D. on 06/01/2024 at 10:46 Approved by: Thomas Handley M.D. on 06/01/2024 at 10:49
[2024-06-01] MEDS: KETOROLAC 30 MG/ML VIAL 15 MG IV (10:38)
[2024-06-01] MEDS: DEXAMETHASONE 10 MG/ML VIAL IV (10:38)
[2024-06-01] MEDS: SODIUM CHLORIDE 0.9% 1,000 ML 1000 ML IV (10:39)
[2024-06-01] MEDS: HYDROMORPHONE 1 MG INJ IV (10:39)
[2024-06-01 10:41] LABS: Add Manual Diff / Slide Review NO; Basophils Absolute Auto 100 /uL (0-100); Basophils Percent Auto 0.6 % (0-2); Eosinophils Absolute Auto 200 /uL (0-450); Eosinophils Percent Auto 2.1 % (2-4); Hematocrit 43.1 % (36-46); Hemoglobin 14.5 g/dL (12.0-16.0); Lymphocytes Absolute Auto 2900 /uL (1100-4500); Lymphocytes Percent Auto 31.4 % (25-40); Mean Corpuscular HGB Conc 33.6 % (30-36); Mean Corpuscular Hemoglobin 29.1 PG (26-34); Mean Corpuscular Volume 86.7 fL (80-100); Monocytes Absolute Auto 800 /uL (0-900); Monocytes Percent Auto 8.7 % (3-14); Neutrophils Absolute Auto 5300 /uL (1500-7000); Neutrophils Percent Auto 57.2 % (50-75); Platelet Count 202 X10^3/uL (150-400); Red Blood Cell Count 4.97 X10^6/uL (4.0-5.2); White Blood Cell Count 9.2 X10^3/uL (4.5-11.0)
[2024-06-01 10:48] LABS: Alanine Aminotransferase 18 IU/L (<35); Albumin 4.3 g/dL (3.5-5.0); Albumin Globulin Ratio 1.4 (1.0-2.8); Alkaline Phosphatase 82 U/L (38-126); Aspartate Aminotransferase 20 IU/L (14-36); BUN Creatinine Ratio 16.4 (6-22); Blood Urea Nitrogen 10 mg/dL (7-17); Calcium 9.7 mg/dL (8.4-10.2); Carbon Dioxide 26 mmol/L (22-32); Chloride 101 mmol/L (98-107); Estimated Glomerular Filt Rate > 60 mL/min (>60); Globulin 3.1 g/dL (1.7-4.1); Glucose 247 mg/dL (80-110); HEMOLYSIS < 15 (0-50); Lipase 56 U/L (23-300); Potassium 3.1 mmol/L (3.4-5.1); Sodium 137 mmol/L (137-145); Total Protein 7.4 g/dL (6.3-8.2)
--- NOTE | 2024-06-01 12:44 | PC.NURSE ---
Pt lying back in [place]. Eyes closed, Assume asleep. Appears in NAD.
[2024-06-01] MEDS: POTASSIUM CHLORIDE 20 MEQ TAB 40 MEQ PO (14:08)
== END 2024-06-01 14:34 | disposition home or self-care (01) ==
PROVIDERS: Emergency Provider Emergency Medicine; PCP Physician Assistant Medical
DX: R07.89 Other chest pain (principal); M54.6 Pain in thoracic spine; R06.02 Shortness of breath; C34.92 Malignant neoplasm of unspecified part of left bronchus or lung
CPT/HCPCS: 71046; 80053; 83690; 85025; 96361; 96374; 96375; 99284; J1100; J1171; J1885

== ENCOUNTER 2024-07-21 08:37 | Emergency (ER) | payer MEDICARE, OTHER, SELFPAY ==
[2023-11-29 11:47] VITALS: BMI 30.2
[2024-07-21] VITALS (8 sets, daily range): BP systolic 102–126; BP diastolic 56–73; PULSE 73–85; RESP 14–20; TEMP 36.5; O2SAT 91–98; BMI 29.2
--- NOTE | 2024-07-21 08:42 | ED_ITS ---
HPI - Back Pain/Injury General Chief Complaint: Neck Pain/Injury Stated Complaint: back pain difficulty moving neck Time Seen by Provider: 07/21/24 08:42 History of Present Illness HPI Narrative: 68-year-old female with a history of lung cancer currently on immunotherapy, on Eliquis, hyperlipidemia, hypertension comes into the ED from home for evaluation of neck and upper back pain. She states that she started having neck and upper back pain yesterday states that the pain is preventing her from moving her neck, but denies any numbness tingling weakness to bilateral upper extremities. Denies any trauma or falls denies any chest pain visual disturbances shortness of breath fever chills nausea vomiting abdominal pain or any other GI/ symptoms time. On exam NIH of 0 no focal deficits noted. Patient denies any trauma or falls. Related Data Home Medications Medication Instructions Recorded Confirmed metformin 500 mg tablet 500 mg PO BIDWM ##0 09/23/12 07/21/24 (Glucophage) atorvastatin 40 mg tablet 40 mg PO QPM 12/25/17 07/21/24 meloxicam 7.5 mg tablet 15 mg PO DAILY PRN pain 11/10/18 07/21/24 albuterol sulfate 90 mcg/actuation 2 puff inhalation Q4H PRN Wheezing 07/12/19 07/21/24 aerosol inhaler (ProAir HFA) cyclobenzaprine 10 mg tablet 10 mg PO TID PRN muscle relaxant 08/02/23 07/21/24 levothyroxine 75 mcg tablet 75 mcg PO DAILY@0600 08/02/23 07/21/24 pantoprazole 20 mg tablet,delayed 20 mg PO BID 08/02/23 07/21/24 release dulaglutide 1.5 mg/0.5 mL 1.5 mg SUBCUT WEEKLY 08/03/23 07/21/24 subcutaneous pen injector ([facility]) apixaban 5 mg tablet (Eliquis) 5 mg PO BID 11/30/23 07/21/24 gabapentin 300 mg capsule 900 mg PO TID 11/30/23 07/21/24 insulin glargine 100 unit/mL (3 20 unit SUBCUT DAILY 11/30/23 07/21/24 mL) subcutaneous pen (Lantus Solostar U-100 Insulin) prochlorperazine maleate 10 mg 10 mg PO Q6H PRN Nausea And 11/30/23 07/21/24 tablet (Compazine) Vomiting diazepam 2 mg tablet 2 mg PO Q8HR 12/01/23 07/21/24 ondansetron 8 mg disintegrating 8 mg PO Q8H PRN nausea 12/01/23 07/21/24 tablet benzonatate 100 mg capsule 100 mg PO 3XD 07/21/24 07/21/24 empagliflozin 25 mg tablet 25 mg PO DAILY 07/21/24 07/21/24 (Jardiance) furosemide 40 mg tablet 40 mg PO DAILY 07/21/24 07/21/24 hydromorphone 2 mg tablet 2 mg PO Q4H PRN pain 07/21/24 07/21/24 valacyclovir 1 gram tablet 1,000 mg PO TID 07/21/24 07/21/24 Previous Rx's Medication Instructions Recorded potassium chloride 20 mEq 20 meq PO DAILY #30 tabs 12/01/23 tablet,extended release oxycodone-acetaminophen 5 mg-325 1 tab PO Q6H PRN pain #20 tabs 06/01/24 mg tablet diazepam 2 mg tablet (Valium) 2 mg PO BID PRN muscle spasm 3 07/21/24 days #6 tabs methylprednisolone 4 mg tablets in See Rx Instructions PO .COMPLEX 07/21/24 a dose pack (Medrol (Anant)) #21 ea Allergies Allergy/AdvReac Type Severity Reaction Status Date / Time niacin [NIACIN] Allergy Mild Verified 06/01/24 09:38 duloxetine AdvReac Intermediate Vomiting Verified 06/01/24 09:38 morphine AdvReac Intermediate Vomiting Verified 06/01/24 09:38 propoxyphene [From DARVON] AdvReac Mild VOMITING Verified 06/01/24 09:38 Review of Systems Review of Systems Narrative: General: Denies fever, chills, weight loss HEENT: Denies headache, eye drainage, eye irritation, head trauma, sore throat, voice change Cardiovascular: Denies any chest pain, palpitations, shortness of breath, tachycardia Respiratory: Denies any shortness of breath, cough, wheeze, stridor GI/: Denies any abdominal pain, nausea, vomiting, diarrhea, bright red blood per rectum, melanotic stools, urinary frequency, urinary retention, dysuria, hematuria MSK: Positive Neck and upper back pain Skin: Denies any rashes, lesions, discoloration Neuro: Denies any headache, lightheadedness, dizziness, fainting, weakness Psych: Denies SI/HI Patient History Medical History Hypertension Diabetes History of lung cancer Surgical History History of lung surgery Social History household members: family and children Smoking Status: Former smoker alcohol intake: former Smoking Status: Former smoker alcohol intake frequency: holidays/special occasions only Exam Narrative Exam Narrative: General: Cooperative, comfortable, well-developed, not in acute distress HEENT: Normocephalic, atraumatic, PERRLA, normal sclera, eyelids normal, Neck: Active full range of motion, atraumatic Chest: Normal to inspection, negative crepitus, no overlying erythema ecchymosis Respiratory: Normal respiratory effort, not in acute respiratory distress, clear to auscultation bilaterally negative cough, wheeze, tachypnea, rhonchi, rales Cardiology: Regular rate rhythm negative gallop, murmur, rubs GI/: Normal to inspection, soft, nonrigid, no tenderness to palpation, exam deferred MSK: Bilateral upper and lower extremities are neurovascularly intact there is no tenderness to palpation of the midline cervical or thoracic spine but there is moderate tenderness to palpation of the paraspinal muscles of the cervical and thoracic spine. Patient is able to stand bear weight ambulate unassisted here in the emergency department Skin: No rashes lesions noted Neuro: Alert awake oriented x3, moves all 4 extremities spontaneously, cranial nerves intact, able to answer all questions appropriately follows commands appropriately Psych: Cooperative, negative suicidal or homicidal ideations Initial Vital Signs Initial Vital Signs: Vital Signs Pulse Rate 76 07/21/24 08:44 Blood Pressure 126/60 07/21/24 08:44 Pulse Oximetry 91 07/21/24 08:44 Course Orders Ordered: ED Orders 07/21/24 08:48 CT cervical spine wo con Stat CT thoracic spine wo con Stat 07/21/24 08:49 EKG-12 Lead Stat 07/21/24 09:14 BMP [Basic Metabolic Panel] Stat CBC Auto Diff [Complete Blood Count AUTO DIFF] Stat Discontinued Medications Dexamethasone (Dexamethasone 10 Mg/Ml Vial) 10 mg IV NOW ONE Stop: 07/21/24 08:49 Last Admin: 07/21/24 09:12 Dose: 10 mg Documented By: ELLIOT Hydromorphone HCl (Hydromorphone 1 Mg Inj) 1 mg IV NOW ONE Stop: 07/21/24 08:49 Last Admin: 07/21/24 09:12 Dose: 1 mg Documented By: RB Sodium Chloride (Normal Saline 0.9%) 1,000 mls @ 1,000 mls/hr IV BOLUS ONE Stop: 07/21/24 09:47 Last Admin: 07/21/24 09:11 Dose: 1,000 mls/hr Documented By: ELLIOT Ondansetron HCl (Ondansetron 4 Mg/2 Ml Inj) 4 mg IV NOW ONE Stop: 07/21/24 08:51 Last Admin: 07/21/24 09:12 Dose: 4 mg Documented By: ELLIOT Vital Signs Vital signs: Vital Signs - 8 hr 07/21/24 08:44 07/21/24 08:44 07/21/24 08:46 Temperature 97.7 F Pulse Rate 76 74 Respiratory Rate 18 Blood Pressure 126/60 126/60 Pulse Oximetry 91 96 Oxygen Delivery Method Room Air 07/21/24 09:00 07/21/24 09:01 07/21/24 09:01 Temperature Pulse Rate 74 73 Respiratory Rate 14 20 Blood Pressure 102/65 Pulse Oximetry 98 97 Oxygen Delivery Method MDM - Back Pain/Injury Differential Diagnosis Differential diagnosis: Likely strain of lumbar region, thoracic back pain, discitis and other (Muscle spasm, muscle strain) Lab Data 07/21/24 09:14 07/21/24 09:14 Labs: Lab Results 07/21/24 Range/Units 09:14 WBC 10.9 (4.5-11.0) X10^3/uL RBC 4.82 (4.0-5.2) X10^6/uL Hgb 14.0 (12.0-16.0) g/dL Hct 40.7 (36-46) % MCV 84.5 (80-100) fL MCH 29.0 (26-34) PG MCHC 34.3 (30-36) % RDW 14.1 (11.6-14.8) % Plt Count 244 (150-400) X10^3/uL Neut % (Auto) 63.0 (50-75) % Lymph % (Auto) 26.6 (25-40) % [place] % (Auto) 7.9 (3-14) % Eos % (Auto) 1.6 L (2-4) % Baso % (Auto) 0.9 (0-2) % Neut # (Auto) 6900 (3404-8699) /uL Lymph # (Auto) 2900 (9628-1572) /uL [place] # (Auto) 900 (0-900) /uL Eos # (Auto) 200 (0-450) /uL Baso # (Auto) 100 (0-100) /uL Sodium 137 (137-145) mmol/L Potassium 3.5 (3.4-5.1) mmol/L Chloride 99 (98-107) mmol/L Carbon Dioxide 30 (22-32) mmol/L BUN 9 (7-17) mg/dL Creatinine 0.58 (0.52-1.04) mg/dL Estimated GFR > 60 (>60) mL/min BUN/Creatinine Ratio 15.5 (6-22) Glucose 126 H (80-110) mg/dL Calcium 10.0 (8.4-10.2) mg/dL Imaging Data CT - cervical spine: Radiologist's Impression: [place] [address] CT Scan Report Signed Patient: Jennyfer Houston MR#: [id number] : 1955 Acct:[id number] Age/Sex: 68 / F Date of Service: 07/21/24 Loc: ED Accession Number: [id number] Procedure: CT cervical spine wo con Ordering Provider: Nishant Chen D.O. PROCEDURE: CT CERVICAL SPINE WO CON INDICATIONS: neck pain, hx of lung CA with mets TECHNIQUE: Noncontrast 3 mm thick sections acquired from the skull base to the T4 level. Sagittal and coronal reformats were then constructed. For radiation dose reduction, the following was used: automated exposure control, adjustment of mA and/or kV according to patient size. COMPARISON: None. FINDINGS: Image quality: Excellent. Bones: No fractures or dislocations. Visualized superior ribs are intact. Spine degenerative disc disease and facet arthropathy. Soft tissues: Prevertebral soft tissues are normal in thickness. No paravertebral hematomas. No apical pneumothoraces. Partially visualized left pleural effusion. IMPRESSION: No fracture. No acute osseous lesion. If symptoms and/or clinical suspicion for pathology persists, evaluation with MRI should be considered for further assessment. CT thoracic spine: Radiologist's Impression: [address] [address] [address] Scan Report Signed Patient: Jennyfer Houston MR#: [id number] : 1955 Acct:[id number] Age/Sex: 68 / F Date of Service: 07/21/24 Loc: ED Accession Number: [id number] Procedure: CT thoracic spine wo con Ordering Provider: Nishant Chen D.O. PROCEDURE: CT THORACIC SPINE WO CON INDICATIONS: neck pain, hx of lung CA with mets TECHNIQUE: Noncontrast 3 mm thick sections acquired through the region of interest in the thoracic spine. Sagittal and coronal reformats were then constructed. For radiation dose reduction, the following was used: automated exposure control. COMPARISON: [facility], CT, CT THORACIC SPINE WO CON, 11/10/2023, 11:40. [facility], CT, CT CHEST ABDOMEN PELVIS WITH CONTRAST, 05/18/2024, 12:53. FINDINGS: Image quality: Excellent. Bones: There is normal overall bony alignment. Chronic T7 compression fracture. No acute vertebral body compression fractures. 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 No suspicious sclerotic or lytic bony lesions. Central spinal canal is of normal overall caliber. Soft tissues: No paravertebral masses or hematomas. Visualized posteromedial lungs appear clear. Moderate-sized left pleural effusion. IMPRESSION: No acute compression fracture. Chronic T7 compression fracture. Moderate left pleural effusion. ECG Data Interpretation: EKG interpreted by ED physician sinus 74 beats per minute QTC [address] changes no STEMI MDM Narrative Medical decision making narrative: 68-year-old female with a history of stage IV adenocarcinoma of the lung currently on immuno therapy, on Eliquis, hypertension hyperlipidemia presents to the emergency department for neck and upper back pain. States that she feels stiff and is unable to move secondary to the pain started spontaneously yesterday night persistent 2 this morning denies any trauma or falls. Denies any numbness weakness tingling to bilateral upper and lower extremities. Exam without any tenderness to palpation of the midline cervical or thoracic spine moderate tenderness to palpation of the paraspinal muscles. She denies any other symptoms such as headache visual disturbances chest pain shortness of breath fever chills nausea vomiting abdominal pain or any other GI/ symptoms. Patient had lab work CT scan of the neck and thoracic spine here in the emergency department. Lab work unremarkable no leukocytosis no anemia platelets are normal, Chem panel unremarkable. CT scan without any acute findings, thoracic spine having persistent findings of pleural effusion and T7 compression fracture. Patient had significant improvement of symptoms after administration of medication here. She was given strict return precautions she verbalized understanding on will be discharged home with more symptomatic medication such as Valium as well as Medrol Dosepak. Patient will verbally understands and agrees with this plan, agrees to being discharged home with outpatient follow up Discharge Plan Departure Patient Disposition: Home Clinical Impression: Muscle spasm Instructions: DI for Muscle Spasm Activity Restrictions/Additional Instructions: Please follow up with primary care Please read the discharge instructions sheet carefully and bring all papers to all doctor follow-up visits, as it may contain information that your doctor may want to see. Disease processes change and evolve, if your symptoms worsen or if you develop any new symptoms that are concerning to you please return for evaluation. Your evaluation today does not show any evidence of any life- threatening/serious illnesses requiring admission to the hospital or surgery. Please follow-up with your doctor for re-evaluation in approximately 1 day. Seek immediate medical attention for any worrisome symptoms. *If you do not have a primary care provider please contact the [facility] Resource line at [phone]. They will ask some questions about your medical history and help get you set up with a doctor in the community. Prescriptions: New diazepam [Valium] 2 mg tablet 2 mg PO BID PRN (Reason: muscle spasm) 3 Days Qty: 6 0RF methylprednisolone [Medrol (Anant)] 4 mg tablets,dose pack See Rx Instructions .ROUTE .COMPLEX Qty: 21 0RF Rx Instructions: orally per package directions No Action metformin [Glucophage] 500 MG tablet 500 mg PO BIDWM Qty: 0 cyclobenzaprine 10 mg Tablet 10 mg PO TID PRN (Reason: muscle relaxant) pantoprazole 20 mg Tablet,Delayed Release (Dr/Ec) 20 mg PO BID levothyroxine 75 mcg Tablet 75 mcg PO DAILY@0600 Trulicity 1.5 mg/0.5 mL Pen Injector 1.5 mg SUBCUT WEEKLY Rx Instructions: Inject 0.5m into shoulder, thich or buttocks 2 (two) times a week. prochlorperazine maleate [Compazine] 10 mg Tablet 10 mg PO Q6H PRN (Reason: Nausea And Vomiting) gabapentin 300 mg capsule 900 mg PO TID Rx Instructions: Take 3 capsules (900mg total) by mouth 3 (Three) times a day. Eliquis 5 mg tablet 5 mg PO BID insulin glargine [Lantus Solostar U-100 Insulin] 100 unit/mL (3 mL) insulin pen 20 unit SUBCUT DAILY Rx Instructions: Inject 0.2ml (20 unites total) under the skin everyh morning indications: Type 2 diabetes mellitus take 20 units subcutaneously in the morning. ondansetron 8 mg tablet,disintegrating 8 mg PO Q8H PRN (Reason: nausea) diazepam 2 mg tablet 2 mg PO Q8HR potassium chloride 20 mEq tablet extended release 20 meq PO DAILY Qty: 30 1RF benzonatate 100 mg capsule 100 mg PO 3XD furosemide 40 mg tablet 40 mg PO DAILY Jardiance 25 mg tablet 25 mg PO DAILY hydromorphone 2 mg tablet 2 mg PO Q4H PRN (Reason: pain) Rx Instructions: Take 1 tablet by mouth every 4 hours if needed for pain MAX DAILY DOSE: 4 TABLETS valacyclovir 1 gram Tablet 1,000 mg PO TID Rx Instructions: Take 1 tablet (1,000mg total) by mouth 3 (three) times a day. atorvastatin 40 mg tablet 40 mg PO QPM meloxicam 7.5 mg tablet 15 mg PO DAILY PRN (Reason: pain) albuterol sulfate [ProAir HFA] 90 mcg/actuation HFA aerosol inhaler 2 puff INHALATION Q4H PRN (Reason: Wheezing) oxycodone-acetaminophen 5-325 mg tablet 1 tab PO Q6H PRN (Reason: pain) Qty: 20 0RF Referrals: Nika Madrigal PA-C [Primary Care Provider] - Stand Alone Forms: Patient Portal/API/Survey
--- NOTE | 2024-07-21 08:48 | DI.CT.S_ITS ---
PROCEDURE: CT CERVICAL SPINE WO CON INDICATIONS: neck pain, hx of lung CA with mets TECHNIQUE: Noncontrast 3 mm thick sections acquired from the skull base to the T4 level. Sagittal and coronal reformats were then constructed. For radiation dose reduction, the following was used: automated exposure control, adjustment of mA and/or kV according to patient size. COMPARISON: None. FINDINGS: Image quality: Excellent. Bones: No fractures or dislocations. Visualized superior ribs are intact. Spine degenerative disc disease and facet arthropathy. Soft tissues: Prevertebral soft tissues are normal in thickness. No paravertebral hematomas. No apical pneumothoraces. Partially visualized left pleural effusion. IMPRESSION: No fracture. No acute osseous lesion. If symptoms and/or clinical suspicion for pathology persists, evaluation with MRI should be considered for further assessment. Dictated by: Torrie Romero MD, PhD on 07/21/2024 at 9:58 Approved by: Torrie Romero MD, PhD on 07/21/2024 at 10:01
--- NOTE | 2024-07-21 08:49 | EKG_ITS ---
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
[2024-07-21] MEDS: SODIUM CHLORIDE 0.9% 1,000 ML 1000 ML IV (09:11)
[2024-07-21] MEDS: DEXAMETHASONE 10 MG/ML VIAL IV (09:12)
[2024-07-21] MEDS: HYDROMORPHONE 1 MG INJ IV (09:12)
[2024-07-21] MEDS: ONDANSETRON 4 MG/2 ML INJ IV (09:12)
[2024-07-21 09:23] LABS: Add Manual Diff / Slide Review NO; Basophils Absolute Auto 100 /uL (0-100); Basophils Percent Auto 0.9 % (0-2); Eosinophils Absolute Auto 200 /uL (0-450); Eosinophils Percent Auto 1.6 % (2-4); Hematocrit 40.7 % (36-46); Lymphocytes Absolute Auto 2900 /uL (1100-4500); Lymphocytes Percent Auto 26.6 % (25-40); Mean Corpuscular HGB Conc 34.3 % (30-36); Mean Corpuscular Volume 84.5 fL (80-100); Monocytes Absolute Auto 900 /uL (0-900); Monocytes Percent Auto 7.9 % (3-14); Neutrophils Absolute Auto 6900 /uL (1500-7000); Platelet Count 244 X10^3/uL (150-400); Red Blood Cell Count 4.82 X10^6/uL (4.0-5.2); Red Cell Distribution Width 14.1 % (11.6-14.8); White Blood Cell Count 10.9 X10^3/uL (4.5-11.0)
[2024-07-21 09:36] LABS: BUN Creatinine Ratio 15.5 (6-22); Blood Urea Nitrogen 9 mg/dL (7-17); Carbon Dioxide 30 mmol/L (22-32); Chloride 99 mmol/L (98-107); Estimated Glomerular Filt Rate > 60 mL/min (>60); Glucose 126 mg/dL (80-110); HEMOLYSIS < 15 (0-50); Potassium 3.5 mmol/L (3.4-5.1); Sodium 137 mmol/L (137-145)
--- NOTE | 2024-07-21 09:46 | DI.CT.S_ITS ---
PROCEDURE: CT THORACIC SPINE WO CON INDICATIONS: neck pain, hx of lung CA with mets TECHNIQUE: Noncontrast 3 mm thick sections acquired through the region of interest in the thoracic spine. Sagittal and coronal reformats were then constructed. For radiation dose reduction, the following was used: automated exposure control. COMPARISON: [facility], CT, CT THORACIC SPINE WO CON, 11/10/2023, 11:40. [facility], CT, CT CHEST ABDOMEN PELVIS WITH CONTRAST, 05/18/2024, 12:53. FINDINGS: Image quality: Excellent. Bones: There is normal overall bony alignment. Chronic T7 compression fracture. No acute vertebral body compression fractures. 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 No suspicious sclerotic or lytic bony lesions. Central spinal canal is of normal overall caliber. Soft tissues: No paravertebral masses or hematomas. Visualized posteromedial lungs appear clear. Moderate-sized left pleural effusion. IMPRESSION: No acute compression fracture. Chronic T7 compression fracture. Moderate left pleural effusion. Dictated by: Torrie Romero MD, PhD on 07/21/2024 at 10:01 Approved by: Torrie Romero MD, PhD on 07/21/2024 at 10:06
== END 2024-07-21 11:04 | disposition home or self-care (01) ==
PROVIDERS: Emergency Provider Student in an Organized Health Care Education/Training Program; PCP Physician Assistant Medical
DX: M62.830 Muscle spasm of back (principal); M54.6 Pain in thoracic spine; R29.700 NIHSS score 0
CPT/HCPCS: 36415; 72125; 72128; 80048; 85025; 93005; 96361; 96374; 96375; 99284; J1100; J1171; J2405

== ENCOUNTER 2024-08-03 13:19 | Emergency (ER) | payer MEDICARE, OTHER, SELFPAY ==
[2023-11-29 11:47] VITALS: BMI 30.2
[2024-08-03] VITALS (16 sets, daily range): BP systolic 107–132; BP diastolic 54–81; PULSE 60–85; RESP 14–29; TEMP 36.4–36.5; O2SAT 95–100; BMI 30.7
--- NOTE | 2024-08-03 13:29 | DI.RAD.S_ITS ---
PROCEDURE: XR CHEST 1V INDICATIONS: Shortness of breath TECHNIQUE: One view of the chest was acquired. COMPARISON: [facility], CR, XR CHEST 2V, 06/01/2024, 10:25. FINDINGS: Surgical changes and devices: Left chest wall Port-A-Cath tip is in SVC. Surgical clips are noted in right axilla. Lungs and pleura: Linear scarring/atelectasis in left upper lung field is seen. No significant pleural effusion. No definite focal infiltrate. No pneumothorax. Mediastinum: Mediastinal contours appear normal. Heart size is normal. Bones and chest wall: No suspicious bony lesions. Overlying soft tissues appear unremarkable. IMPRESSION: Mild pulmonary vascular congestion. Left upper lobe scarring/atelectasis unchanged from prior study. No definite focal infiltrate. No pleural effusion or pneumothorax. Dictated by: Thomas Handley M.D. on 08/03/2024 at 13:57 Approved by: Thomas Handley M.D. on 08/03/2024 at 14:02
--- NOTE | 2024-08-03 13:45 | EKG_ITS ---
[place] [address] [address] [place] [address] Test Date: 2024-08-03 Pat Name: Jennyfer Houston Department: Room: Gender: Female Government Relations Manager: : 1955 Requested By: Order Number: [id number] Reading MD: Mustapha Hollis MD Measurements Intervals [place] Rate: 61 P: 43 [place]: 200 QRS: 5 QRSD: 96 T: 20 QT: 458 QTc: 461 Interpretive Statements Sinus rhythm with marked sinus arrhythmia Electronically Signed On 08-03-2024 14:40:04 PDT by Mustapha Hollis MD
[2024-08-03 14:17] LABS: Add Manual Diff / Slide Review NO; Basophils Absolute Auto 0 /uL (0-100); Basophils Percent Auto 0.1 % (0-2); Eosinophils Absolute Auto 0 /uL (0-450); Eosinophils Percent Auto 0.1 % (2-4); Hematocrit 39.6 % (36-46); Hemoglobin 13.5 g/dL (12.0-16.0); Lymphocytes Absolute Auto 1000 /uL (1100-4500); Lymphocytes Percent Auto 22.9 % (25-40); Mean Corpuscular Hemoglobin 28.8 PG (26-34); Mean Corpuscular Volume 84.8 fL (80-100); Monocytes Absolute Auto 200 /uL (0-900); Monocytes Percent Auto 5.3 % (3-14); Neutrophils Absolute Auto 3000 /uL (1500-7000); Neutrophils Percent Auto 71.6 % (50-75); Platelet Count 146 X10^3/uL (150-400); Red Blood Cell Count 4.67 X10^6/uL (4.0-5.2); Red Cell Distribution Width 14.1 % (11.6-14.8); White Blood Cell Count 4.2 X10^3/uL (4.5-11.0)
[2024-08-03 14:18] LABS: COVID-19 CEPHEID 4-PLEX PCR Negative (Negative); Influenza A - CEPHEID Flu A NEGATIVE (NEGATIVE); Influenza B - CEPHEID Flu B NEGATIVE (NEGATIVE); Respiratory Syncytial Virus Negative (Negative)
[2024-08-03 14:25] LABS: INR 1.3 (0.9-1.3); Prothrombin Time 14.8 SECONDS (9.4-12.5)
[2024-08-03 14:28] LABS: Alanine Aminotransferase 24 IU/L (<35); Albumin 4.3 g/dL (3.5-5.0); Albumin Globulin Ratio 1.3 (1.0-2.8); Alkaline Phosphatase 87 U/L (38-126); Aspartate Aminotransferase 23 IU/L (14-36); BUN Creatinine Ratio 34.8 (6-22); Bilirubin Total 1.5 mg/dL (0.2-1.3); Blood Urea Nitrogen 16 mg/dL (7-17); Calcium 9.6 mg/dL (8.4-10.2); Carbon Dioxide 21 mmol/L (22-32); Chloride 100 mmol/L (98-107); Estimated Glomerular Filt Rate > 60 mL/min (>60); Globulin 3.4 g/dL (1.7-4.1); Glucose 234 mg/dL (80-110); HEMOLYSIS < 15 (0-50); Lactate (Lactic Acid) 3.1 mmol/L (0.7-2.1); Potassium 3.9 mmol/L (3.4-5.1); Sodium 134 mmol/L (137-145); Total Protein 7.7 g/dL (6.3-8.2)
--- NOTE | 2024-08-03 14:31 | ED_ITS ---
HPI - URI/Sore Throat <Cory Lnyn MD - Last Filed: 08/04/24 08:16> General Chief Complaint: Shortness of Breath/Dyspnea Stated Complaint: SOB Time Seen by Provider: 08/03/24 14:22 Source: patient Mode of arrival: Wheelchair History of Present Illness HPI Narrative: Patient here with brother for complaints of cough cold congestion nasal congestion shortness of breath for the past 1 week. Patient has history of breast cancer receiving chemotherapy with Oncology Dr. Alexander. It is scheduled for treatment next week. Patient did receive breathing treatment on arrival here. Respiration rate did improve with breathing treatment. Patient is 99% room air. Patient in no distress. Grand child has been sick with respiratory infection. Related Data Home Medications Medication Instructions Recorded Confirmed metformin 500 mg tablet 500 mg PO BIDWM ##0 09/23/12 07/21/24 (Glucophage) atorvastatin 40 mg tablet 40 mg PO QPM 12/25/17 07/21/24 meloxicam 7.5 mg tablet 15 mg PO DAILY PRN pain 11/10/18 07/21/24 albuterol sulfate 90 mcg/actuation 2 puff inhalation Q4H PRN Wheezing 07/12/19 07/21/24 aerosol inhaler (ProAir HFA) cyclobenzaprine 10 mg tablet 10 mg PO TID PRN muscle relaxant 08/02/23 07/21/24 levothyroxine 75 mcg tablet 75 mcg PO DAILY@0600 08/02/23 07/21/24 pantoprazole 20 mg tablet,delayed 20 mg PO BID 08/02/23 07/21/24 release dulaglutide 1.5 mg/0.5 mL 1.5 mg SUBCUT WEEKLY 08/03/23 07/21/24 subcutaneous pen injector (Trulicity) apixaban 5 mg tablet (Eliquis) 5 mg PO BID 11/30/23 07/21/24 gabapentin 300 mg capsule 900 mg PO TID 11/30/23 07/21/24 insulin glargine 100 unit/mL (3 20 unit SUBCUT DAILY 11/30/23 07/21/24 mL) subcutaneous pen (Lantus Solostar U-100 Insulin) prochlorperazine maleate 10 mg 10 mg PO Q6H PRN Nausea And 11/30/23 07/21/24 tablet (Compazine) Vomiting diazepam 2 mg tablet 2 mg PO Q8HR 12/01/23 07/21/24 ondansetron 8 mg disintegrating 8 mg PO Q8H PRN nausea 12/01/23 07/21/24 tablet benzonatate 100 mg capsule 100 mg PO 3XD 07/21/24 07/21/24 empagliflozin 25 mg tablet 25 mg PO DAILY 07/21/24 07/21/24 (Jardiance) furosemide 40 mg tablet 40 mg PO DAILY 07/21/24 07/21/24 hydromorphone 2 mg tablet 2 mg PO Q4H PRN pain 07/21/24 07/21/24 valacyclovir 1 gram tablet 1,000 mg PO TID 07/21/24 07/21/24 Previous Rx's Medication Instructions Recorded potassium chloride 20 mEq 20 meq PO DAILY #30 tabs 12/01/23 tablet,extended release oxycodone-acetaminophen 5 mg-325 1 tab PO Q6H PRN pain #20 tabs 06/01/24 mg tablet methylprednisolone 4 mg tablets in See Rx Instructions PO .COMPLEX 07/21/24 a dose pack (Medrol (Anant)) #21 ea albuterol sulfate 90 mcg/actuation 2 inhalation inhalation QID PRN 08/03/24 aerosol inhaler (Ventolin HFA) shortness of breath or wheezing #6.7 grams amoxicillin 875 mg-potassium 1 tab PO BID #14 tabs 08/03/24 clavulanate 125 mg tablet benzonatate 100 mg capsule 100 mg PO TID PRN cough #20 caps 08/03/24 doxycycline monohydrate 100 mg 100 mg PO BID #14 caps 08/03/24 capsule Allergies Allergy/AdvReac Type Severity Reaction Status Date / Time niacin [NIACIN] Allergy Mild Verified 06/01/24 09:38 duloxetine AdvReac Intermediate Vomiting Verified 06/01/24 09:38 morphine AdvReac Intermediate Vomiting Verified 06/01/24 09:38 propoxyphene [From DARVON] AdvReac Mild VOMITING Verified 06/01/24 09:38 Review of Systems <Cory Lynn MD - Last Filed: 08/04/24 08:16> Review of Systems Narrative: GENERAL: Negative chills, fatigue, malaise, fever, sweats. HEENT: Negative sinus pain, ear pain, sore throat, positive congestion nasally RESPIRATORY: Positive dyspnea, cough CARDIOVASCULAR: Negative chest pain, palpitations GASTROINTESTINAL: Negative vomiting, nausea, abdominal pain : Negative dysuria, frequency, hematuria MUSCULOSKELETAL: Negative muscle or bony pain SKIN: Negative rash, skin lesions NEUROLOGIC: Negative weakness, numbness ROS Unobtainable: All systems reviewed & are unremarkable except as noted in HPI and below Patient History <Cory Lynn MD - Last Filed: 08/04/24 08:16> Medical History Hypertension Diabetes History of lung cancer Surgical History History of lung surgery Social History household members: family and children Smoking Status: Former smoker alcohol intake: former Smoking Status: Former smoker alcohol intake frequency: holidays/special occasions only Exam <Cory Lynn MD - Last Filed: 08/04/24 08:16> Narrative Exam Narrative: GENERAL: in no distress, not toxic not dyspneic HEAD: Normocephalic. EYES: Pupils equal round ENT: Mucous membranes moist. Bilateral nasal mucosa erythema and edema. NECK: Trachea midline. CARDIOVASCULAR: Regular rate and rhythm RESPIRATORY: Slightly coarse lung sounds at the bases bilaterally. Patient comfortably speaking full sentences no respiratory distress. GASTROINTESTINAL: Abdomen soft, non-tender EXTREMITIES: No gross deformities. BACK: No flank tenderness. NEURO: AOx4. Clear speech SKIN: Warm and dry PSYCH: Not anxious, is cooperative Initial Vital Signs Initial Vital Signs: Vital Signs Temperature 97.5 F L 08/03/24 13:22 Pulse Rate 72 08/03/24 13:22 Respiratory Rate 26 H 08/03/24 13:22 Blood Pressure 116/67 08/03/24 13:22 Pulse Oximetry 100 08/03/24 13:22 Oxygen Delivery Method Room Air 08/03/24 13:22 <Nishant Chen DO - Last Filed: 08/03/24 19:45> Initial Vital Signs Initial Vital Signs: Vital Signs Temperature 97.5 F L 08/03/24 13:22 Pulse Rate 72 08/03/24 13:22 Respiratory Rate 26 H 08/03/24 13:22 Blood Pressure 116/67 08/03/24 13:22 Pulse Oximetry 100 08/03/24 13:22 Oxygen Delivery Method Room Air 08/03/24 13:22 Course <Cory Lynn MD - Last Filed: 08/04/24 08:16> Orders Ordered: Discontinued Medications Albuterol (Albuterol 2.5 Mg/3 Ml Neb (Adult)) 2.5 mg INH [id number] PRN PRN Reason: Shortness Of Breath Albuterol/Ipratropium (Albuterol/Ipratropium 3 Ml Ampul) 3 ml INH RTQ4HR PRN PRN Reason: Shortness Of Breath Albuterol/Ipratropium (Albuterol/Ipratropium 3 Ml Ampul) 3 ml INH NOW ONE Stop: 08/03/24 15:24 Last Admin: 08/03/24 15:28 Dose: 3 ml Documented By: JACOB Amoxicillin/Clavulanate Potassium (Amoxicillin/Clav 875/125 Mg) 1 tab PO NOW ONE Stop: 08/03/24 14:31 Last Admin: 08/03/24 14:48 Dose: 1 tab Documented By: LISA Benzonatate (Benzonatate 100 Mg Capsule) 100 mg PO NOW ONE Stop: 08/03/24 14:31 Last Admin: 08/03/24 14:48 Dose: 100 mg Documented By: LISA Doxycycline Hyclate (Doxycycline Hyclate 100 Mg Tablet) 100 mg PO NOW ONE Stop: 08/03/24 14:31 Last Admin: 08/03/24 14:47 Dose: 100 mg Documented By: LISA Sodium Chloride (Normal Saline 0.9%) 1,000 mls @ 1,000 mls/hr IV BOLUS ONE Stop: 08/03/24 15:54 Last Infusion: 08/03/24 16:00 Dose: Infused Documented By: Admin: 08/03/24 14:59 Dose: 1,000 mls/hr Documented By: LISA Oxymetazoline HCl (Oxymetazoline Nasal [place] 30 Ml) 2 sprays NASAL NOW ONE Stop: 08/03/24 14:31 Last Admin: 08/03/24 14:48 Dose: 2 sprays Documented By: LISA Vital Signs Vital signs: Vital Signs - 8 hr 08/03/24 13:22 08/03/24 14:16 08/03/24 14:18 Temperature 97.5 F L Pulse Rate 72 60 69 Respiratory Rate 26 H 29 H 16 Blood Pressure 116/67 Pulse Oximetry 100 97 99 Oxygen Delivery Method Room Air Room Air Fraction of Inspired Oxygen 08/03/24 14:30 08/03/24 14:53 08/03/24 14:53 Temperature Pulse Rate 67 75 Respiratory Rate 26 H 27 H Blood Pressure 126/67 Pulse Oximetry 98 99 Oxygen Delivery Method Fraction of Inspired Oxygen 08/03/24 15:00 08/03/24 15:00 08/03/24 15:28 Temperature Pulse Rate 79 68 Respiratory Rate 18 20 Blood Pressure 132/61 Pulse Oximetry 95 100 Oxygen Delivery Method Room Air Fraction of Inspired Oxygen 21 08/03/24 15:30 08/03/24 16:38 08/03/24 16:39 Temperature 97.7 F Pulse Rate 79 85 84 Respiratory Rate 21 14 16 Blood Pressure 127/62 Pulse Oximetry 100 100 96 Oxygen Delivery Method Fraction of Inspired Oxygen 08/03/24 16:39 08/03/24 17:09 08/03/24 17:10 Temperature Pulse Rate 81 80 Respiratory Rate Blood Pressure 127/62 Pulse Oximetry 95 99 Oxygen Delivery Method Fraction of Inspired Oxygen 08/03/24 17:10 08/03/24 17:30 08/03/24 17:30 Temperature Pulse Rate 78 Respiratory Rate Blood Pressure 121/81 107/61 Pulse Oximetry 95 Oxygen Delivery Method Fraction of Inspired Oxygen <Nishant Chen, - Last Filed: 08/03/24 19:45> Orders Ordered: Discontinued Medications Albuterol (Albuterol 2.5 Mg/3 Ml Neb (Adult)) 2.5 mg INH [id number] PRN PRN Reason: Shortness Of Breath Albuterol/Ipratropium (Albuterol/Ipratropium 3 Ml Ampul) 3 ml INH RTQ4HR PRN PRN Reason: Shortness Of Breath Albuterol/Ipratropium (Albuterol/Ipratropium 3 Ml Ampul) 3 ml INH NOW ONE Stop: 08/03/24 15:24 Last Admin: 08/03/24 15:28 Dose: 3 ml Documented By: JACOB Amoxicillin/Clavulanate Potassium (Amoxicillin/Clav 875/125 Mg) 1 tab PO NOW ONE Stop: 08/03/24 14:31 Last Admin: 08/03/24 14:48 Dose: 1 tab Documented By: LISA Benzonatate (Benzonatate 100 Mg Capsule) 100 mg PO NOW ONE Stop: 08/03/24 14:31 Last Admin: 08/03/24 14:48 Dose: 100 mg Documented By: LISA Doxycycline Hyclate (Doxycycline Hyclate 100 Mg Tablet) 100 mg PO NOW ONE Stop: 08/03/24 14:31 Last Admin: 08/03/24 14:47 Dose: 100 mg Documented By: LISA Sodium Chloride (Normal Saline 0.9%) 1,000 mls @ 1,000 mls/hr IV BOLUS ONE Stop: 08/03/24 15:54 Last Infusion: 08/03/24 16:00 Dose: Infused Documented By: Admin: 08/03/24 14:59 Dose: 1,000 mls/hr Documented By: LISA Oxymetazoline HCl (Oxymetazoline Nasal [place] 30 Ml) 2 sprays NASAL NOW ONE Stop: 08/03/24 14:31 Last Admin: 08/03/24 14:48 Dose: 2 sprays Documented By: LISA Vital Signs Vital signs: Vital Signs - 8 hr 08/03/24 13:22 08/03/24 14:16 08/03/24 14:18 Temperature 97.5 F L Pulse Rate 72 60 69 Respiratory Rate 26 H 29 H 16 Blood Pressure 116/67 Pulse Oximetry 100 97 99 Oxygen Delivery Method Room Air Room Air Fraction of Inspired Oxygen 08/03/24 14:30 08/03/24 14:53 08/03/24 14:53 Temperature Pulse Rate 67 75 Respiratory Rate 26 H 27 H Blood Pressure 126/67 Pulse Oximetry 98 99 Oxygen Delivery Method Fraction of Inspired Oxygen 08/03/24 15:00 08/03/24 15:00 08/03/24 15:28 Temperature Pulse Rate 79 68 Respiratory Rate 18 20 Blood Pressure 132/61 Pulse Oximetry 95 100 Oxygen Delivery Method Room Air Fraction of Inspired Oxygen 21 08/03/24 15:30 08/03/24 16:38 08/03/24 16:39 Temperature 97.7 F Pulse Rate 79 85 84 Respiratory Rate 21 14 16 Blood Pressure 127/62 Pulse Oximetry 100 100 96 Oxygen Delivery Method Fraction of Inspired Oxygen 08/03/24 16:39 08/03/24 17:09 08/03/24 17:10 Temperature Pulse Rate 81 80 Respiratory Rate Blood Pressure 127/62 Pulse Oximetry 95 99 Oxygen Delivery Method Fraction of Inspired Oxygen 08/03/24 17:10 08/03/24 17:30 08/03/24 17:30 Temperature Pulse Rate 78 Respiratory Rate Blood Pressure 121/81 107/61 Pulse Oximetry 95 Oxygen Delivery Method Fraction of Inspired Oxygen MDM - URI/Sore Throat <Cory Lynn MD - Last Filed: 08/04/24 08:16> Lab Data 08/03/24 14:06 08/03/24 14:06 Labs: Lab Results 08/03/24 08/03/24 08/03/24 Range/Units 13:30 13:30 13:30 WBC (4.5-11.0) X10^3/uL RBC (4.0-5.2) X10^6/uL Hgb (12.0-16.0) g/dL Hct (36-46) % MCV (80-100) fL MCH (26-34) PG MCHC (30-36) % RDW (11.6-14.8) % Plt Count (150-400) X10^3/uL Neut % (Auto) (50-75) % Lymph % (Auto) (25-40) % [place] % (Auto) (3-14) % Eos % (Auto) (2-4) % Baso % (Auto) (0-2) % Neut # (Auto) (4639-5776) /uL Lymph # (Auto) (3525-7025) /uL [place] # (Auto) (0-900) /uL Eos # (Auto) (0-450) /uL Baso # (Auto) (0-100) /uL PT (9.4-12.5) SECONDS INR (0.9-1.3) Sodium (137-145) mmol/L Potassium (3.4-5.1) mmol/L Chloride (98-107) mmol/L Carbon Dioxide (22-32) mmol/L BUN (7-17) mg/dL Creatinine (0.52-1.04) mg/dL Estimated GFR (>60) mL/min BUN/Creatinine Ratio (6-22) Glucose (80-110) mg/dL Lactate (0.7-2.1) mmol/L Calcium (8.4-10.2) mg/dL Total Bilirubin (0.2-1.3) mg/dL AST (14-36) IU/L ALT (<35) IU/L Alkaline Phosphatase (38-126) U/L Troponin I (0.01-0.034) ng/mL NT-Pro-B Natriuret Pep (<125) pg/mL Total Protein (6.3-8.2) g/dL Albumin (3.5-5.0) g/dL Globulin (1.7-4.1) g/dL Albumin/Globulin Ratio (1.0-2.8) Procalcitonin (<0.5) ng/mL Urine Color Urine Appearance Urine pH (4.5-8.0) Ur Specific [place] (1.000-1.035) Urine Protein (Negative) Urine Glucose (UA) (Negative) g/dL Urine Ketones (NEGATIVE) Urine Occult Blood (Negative) Urine Nitrate (Negative) Urine Bilirubin (NEGATIVE) Urine Urobilinogen (0.2) E.U./dL Ur Leukocyte Esterase (NEGATIVE) Urine RBC (0-5/HPF) Urine WBC (0-5/HPF) Ur Squamous Epith Cells (0-5/HPF) Urine Bacteria (None) Urine Yeast (None) Ur Culture Indicated? Micro UA Comment Vol Urine Centrifuged Chlamy pneumoniae PCR Not detected (Not Detect) Adenovirus (PCR) Not detected (Not Detect) B. pertussis DNA (PCR) Not detected (Not Detect) B.parapertussis DNA PCR Not detected (Not Detecte) Coronavirus OC43 (PCR) Not detected (Not Detect) Coronavirus HKU1 (PCR) Not detected (Not Detect) Coronavirus 229E (PCR) Not detected (Not Detect) SARS-CoV-2 (PCR) Negative Not detected (Negative) Coronavirus NL63 (PCR) Not detected (Not Detect) Human Metapneumovir PCR Not detected (Not Detect) Influenza A (RT-PCR) Flu a negative (NEGATIVE) Influenza Type A (PCR) Not detected (Not Detect) Influenza B (RT-PCR) Flu b negative (NEGATIVE) Influenza Type B (PCR) Not detected (Not Detect) M. pneumoniae (PCR) Not detected (Not Detect) Parainfluenza 1 (PCR) Not detected (Not Detect) Parainfluenza 2 (PCR) Not detected (Not Detect) Parainfluenza 3 (PCR) Not detected (Not Detect) Parainfluenza 4 (PCR) Not detected (Not Detect) RSV (PCR) Negative Not detected (Negative) Entero/Rhino (PCR) Detected H (Not Detect) 08/03/24 08/03/24 08/03/24 Range/Units 14:06 16:08 18:07 WBC 4.2 L (4.5-11.0) X10^3/uL RBC 4.67 (4.0-5.2) X10^6/uL Hgb 13.5 (12.0-16.0) g/dL Hct 39.6 (36-46) % MCV 84.8 (80-100) fL MCH 28.8 (26-34) PG MCHC 34.0 (30-36) % RDW 14.1 (11.6-14.8) % Plt Count 146 L (150-400) X10^3/uL Neut % (Auto) 71.6 (50-75) % Lymph % (Auto) 22.9 L (25-40) % [place] % (Auto) 5.3 (3-14) % Eos % (Auto) 0.1 L (2-4) % Baso % (Auto) 0.1 (0-2) % Neut # (Auto) 3000 (2748-8129) /uL Lymph # (Auto) 1000 L (2232-9748) /uL [place] # (Auto) 200 (0-900) /uL Eos # (Auto) 0 (0-450) /uL Baso # (Auto) 0 (0-100) /uL PT 14.8 H (9.4-12.5) SECONDS INR 1.3 (0.9-1.3) Sodium 134 L (137-145) mmol/L Potassium 3.9 (3.4-5.1) mmol/L Chloride 100 (98-107) mmol/L Carbon Dioxide 21 L (22-32) mmol/L BUN 16 (7-17) mg/dL Creatinine 0.46 L (0.52-1.04) mg/dL Estimated GFR > 60 (>60) mL/min BUN/Creatinine Ratio 34.8 H (6-22) Glucose 234 H (80-110) mg/dL Lactate 3.1 H 4.3 H* 3.7 H (0.7-2.1) mmol/L Calcium 9.6 (8.4-10.2) mg/dL Total Bilirubin 1.5 H (0.2-1.3) mg/dL AST 23 (14-36) IU/L ALT 24 (<35) IU/L Alkaline Phosphatase 87 (38-126) U/L Troponin I < 0.012 (0.01-0.034) ng/mL NT-Pro-B Natriuret Pep 67 (<125) pg/mL Total Protein 7.7 (6.3-8.2) g/dL Albumin 4.3 (3.5-5.0) g/dL Globulin 3.4 (1.7-4.1) g/dL Albumin/Globulin Ratio 1.3 (1.0-2.8) Procalcitonin 0.075 (<0.5) ng/mL Urine Color Urine Appearance Urine pH (4.5-8.0) Ur Specific [place] (1.000-1.035) Urine Protein (Negative) Urine Glucose (UA) (Negative) g/dL Urine Ketones (NEGATIVE) Urine Occult Blood (Negative) Urine Nitrate (Negative) Urine Bilirubin (NEGATIVE) Urine Urobilinogen (0.2) E.U./dL Ur Leukocyte Esterase (NEGATIVE) Urine RBC (0-5/HPF) Urine WBC (0-5/HPF) Ur Squamous Epith Cells (0-5/HPF) Urine Bacteria (None) Urine Yeast (None) Ur Culture Indicated? Micro UA Comment Vol Urine Centrifuged Chlamy pneumoniae PCR (Not Detect) Adenovirus (PCR) (Not Detect) B. pertussis DNA (PCR) (Not Detect) B.parapertussis DNA PCR (Not Detecte) Coronavirus OC43 (PCR) (Not Detect) Coronavirus HKU1 (PCR) (Not Detect) Coronavirus 229E (PCR) (Not Detect) SARS-CoV-2 (PCR) (Negative) Coronavirus NL63 (PCR) (Not Detect) Human Metapneumovir PCR (Not Detect) Influenza A (RT-PCR) (NEGATIVE) Influenza Type A (PCR) (Not Detect) Influenza B (RT-PCR) (NEGATIVE) Influenza Type B (PCR) (Not Detect) M. pneumoniae (PCR) (Not Detect) Parainfluenza 1 (PCR) (Not Detect) Parainfluenza 2 (PCR) (Not Detect) Parainfluenza 3 (PCR) (Not Detect) Parainfluenza 4 (PCR) (Not Detect) RSV (PCR) (Negative) Entero/Rhino (PCR) (Not Detect) 08/03/24 Range/Units 19:13 WBC (4.5-11.0) X10^3/uL RBC (4.0-5.2) X10^6/uL Hgb (12.0-16.0) g/dL Hct (36-46) % MCV (80-100) fL MCH (26-34) PG MCHC (30-36) % RDW (11.6-14.8) % Plt Count (150-400) X10^3/uL Neut % (Auto) (50-75) % Lymph % (Auto) (25-40) % [place] % (Auto) (3-14) % Eos % (Auto) (2-4) % Baso % (Auto) (0-2) % Neut # (Auto) (4972-4822) /uL Lymph # (Auto) (8246-2230) /uL [place] # (Auto) (0-900) /uL Eos # (Auto) (0-450) /uL Baso # (Auto) (0-100) /uL PT (9.4-12.5) SECONDS INR (0.9-1.3) Sodium (137-145) mmol/L Potassium (3.4-5.1) mmol/L Chloride (98-107) mmol/L Carbon Dioxide (22-32) mmol/L BUN (7-17) mg/dL Creatinine (0.52-1.04) mg/dL Estimated GFR (>60) mL/min BUN/Creatinine Ratio (6-22) Glucose (80-110) mg/dL Lactate (0.7-2.1) mmol/L Calcium (8.4-10.2) mg/dL Total Bilirubin (0.2-1.3) mg/dL AST (14-36) IU/L ALT (<35) IU/L Alkaline Phosphatase (38-126) U/L Troponin I (0.01-0.034) ng/mL NT-Pro-B Natriuret Pep (<125) pg/mL Total Protein (6.3-8.2) g/dL Albumin (3.5-5.0) g/dL Globulin (1.7-4.1) g/dL Albumin/Globulin Ratio (1.0-2.8) Procalcitonin (<0.5) ng/mL Urine Color Yellow Urine Appearance Clear Urine pH 6.0 (4.5-8.0) Ur Specific [place] 1.010 (1.000-1.035) Urine Protein Negative (Negative) Urine Glucose (UA) 3+ H (Negative) g/dL Urine Ketones Negative (NEGATIVE) Urine Occult Blood Negative (Negative) Urine Nitrate Negative (Negative) Urine Bilirubin Negative (NEGATIVE) Urine Urobilinogen 1.0 (0.2) E.U./dL Ur Leukocyte Esterase Negative (NEGATIVE) Urine RBC 0-1/hpf (0-5/HPF) Urine WBC None seen (0-5/HPF) Ur Squamous Epith Cells 0-1 /hpf (0-5/HPF) Urine Bacteria None seen (None) Urine Yeast 1-5/hpf H (None) Ur Culture Indicated? Cult not indicated Micro UA Comment Vol Urine Centrifuged 10ml (spun) Chlamy pneumoniae PCR (Not Detect) Adenovirus (PCR) (Not Detect) B. pertussis DNA (PCR) (Not Detect) B.parapertussis DNA PCR (Not Detecte) Coronavirus OC43 (PCR) (Not Detect) Coronavirus HKU1 (PCR) (Not Detect) Coronavirus 229E (PCR) (Not Detect) SARS-CoV-2 (PCR) (Negative) Coronavirus NL63 (PCR) (Not Detect) Human Metapneumovir PCR (Not Detect) Influenza A (RT-PCR) (NEGATIVE) Influenza Type A (PCR) (Not Detect) Influenza B (RT-PCR) (NEGATIVE) Influenza Type B (PCR) (Not Detect) M. pneumoniae (PCR) (Not Detect) Parainfluenza 1 (PCR) (Not Detect) Parainfluenza 2 (PCR) (Not Detect) Parainfluenza 3 (PCR) (Not Detect) Parainfluenza 4 (PCR) (Not Detect) RSV (PCR) (Negative) Entero/Rhino (PCR) (Not Detect) Imaging Data Chest x-ray: Radiologist's Impression: [address] [address] XRay Report Signed Patient: Jennyfer Houston MR#: [id number] : 1955 Acct:[id number] Age/Sex: 68 / F Date of Service: 08/03/24 Loc: ED Accession Number: [id number] Procedure: XR chest 1V Ordering Provider: Cory Lynn MD PROCEDURE: XR CHEST 1V INDICATIONS: Shortness of breath TECHNIQUE: One view of the chest was acquired. COMPARISON: [facility], XR CHEST 2V, 06/01/2024, 10:25. FINDINGS: Surgical changes and devices: Left chest wall Port-A-Cath tip is in SVC. Surgical clips are noted in right axilla. Lungs and pleura: Linear scarring/atelectasis in left upper lung field is seen. No significant pleural effusion. No definite focal infiltrate. No pneumothorax. Mediastinum: Mediastinal contours appear normal. Heart size is normal. Bones and chest wall: No suspicious bony lesions. Overlying soft tissues appear unremarkable. IMPRESSION: Mild pulmonary vascular congestion. Left upper lobe scarring/atelectasis unchanged from prior study. No definite focal infiltrate. No pleural effusion or pneumothorax. Dictated by: Thomas Handley M.D. on 08/03/2024 at 13:57 Approved by: Thomas Handley M.D. on 08/03/2024 at 14:02 CT chest abdomen pelvis: Radiologist's Impression: [address] [address] [address] Scan Report Signed Patient: Jennyfer Houston MR#: [id number] : 1955 Acct:[id number] Age/Sex: 68 / F Date of Service: 08/03/24 Loc: ED Accession Number: [id number] Procedure: CT chest abd pel w con Ordering Provider: Cory Lynn MD PROCEDURE: CT CHEST ABD PEL W CON INDICATIONS: Sepsis TECHNIQUE: After the administration of intravenous contrast, 5 mm thick sections acquired from the lung apices to the symphysis. 5 mm coronal and sagittal reformats were performed, with additional 7 mm MIP reformats through the lungs. For radiation dose reduction, the following was used: automated exposure control, adjustment of mA and/or kV according to patient size. COMPARISON: [place], [place], PET NECK TO MID THIGH, 07/02/2024, 7:42. FINDINGS: Image quality: Excellent. CHEST: Lower Neck: No enlarged lymph nodes. Thyroid: No thyroid nodules which require sonographic follow up, per consensus guidelines. Axillae: No enlarged lymph nodes. Surgical clips in the right axilla. Chest Wall: Left chest wall port tip terminates in the low SVC. Lungs and Pleura: Architectural distortion in a linear distribution of the left upper lobe, likely representing post radiation change with underlying malignancy. Moderate left pleural effusion. Right lower lobectomy. Heart: Heart size is normal. No pericardial effusion. Thoracic Vessels: The aorta and pulmonary arteries demonstrate normal size. Mediastinum and Patricia: No enlarged lymph nodes. Esophagus: No wall thickening. No hiatal hernia. ABDOMEN: Liver: Scattered subcentimeter hypoattenuating lesions, too small to characterize by CT but probably small cysts. Gallbladder: Colonic diverticulosis without evidence of diverticulitis. Biliary ducts: No biliary dilation. Pancreas: No ductal dilation. Spleen: Size is within normal limits. Adrenal Glands: Nodular thickening of the left adrenal gland, nonspecific. Kidneys and Ureters: No hydronephrosis. No solid mass. No complex renal cystic lesion which requires follow up. Stomach and Bowel: Normal colonic caliber, without significant wall thickening. Peritoneum: No abnormal intraperitoneal fluid. No free air. Ventral Wall: No significant ventral hernia. Abdominal Nodes: No retroperitoneal or mesenteric adenopathy by size criteria. Vessels: Aorta and inferior vena cava are normal in size. PELVIS: Pelvic Organs: Unremarkable. Bladder: No bladder wall thickening, accounting for underdistention. Pelvic Nodes: No enlarged lymph nodes. Miscellaneous: No inguinal hernias are seen. Bones: Chronic appearing compression deformity the T7 vertebral body. Degenerative disc disease of the lumbar spine. IMPRESSION: Moderate left-sided pleural effusion, stable from prior. Post radiation change of the left upper lobe, with architectural distortion present. Right lower lobectomy. Stable retroperitoneal lymphadenopathy. Other chronic findings as above. Dictated by: Real Uribe M.D. on 08/03/2024 at 17:16 Approved by: Real Uribe M.D. on 08/03/2024 at 17:22 MDM Narrative Medical decision making narrative: Patient here with brother for complaints of cough cold congestion nasal congestion shortness of breath for the past 1 week. Patient has history of breast cancer receiving chemotherapy with Oncology Dr. Alexander. It is scheduled for treatment next week. Patient did receive breathing treatment on arrival here. Respiration rate did improve with breathing treatment. Patient is 99% room air. Patient in no distress. Grand child has been sick with respiratory infection. After history and exam, CBC CMP EKG respiratory panel chest x-ray nebulizer Augmentin Tessalon Perles doxycycline troponin BNP MDM Medical records reviewed: No recent visit for this complaint Differential considered: Includes but not limited to pneumonia bronchitis COVID influenza rhino virus RSV parainfluenza virus Lab Test results independently reviewed as above. Pertinent findings: Respiratory panel negative, WBC 4.2 hemoglobin 13.5 INR 1.3 sodium 134 potassium 3.9, lactic acid 3.1/4.3 Independently reviewed EKG sinus rhythm rate [address] elevation or depression Imaging studies independently reviewed: Chest x-ray mild pulmonary vascular congestion, CT chest abdomen pelvis no acute finding Consultations: None indicated at this time Treatments: Nebulizer Augmentin doxycycline Afrin Tessalon Perles Re-evaluations: Reviewed results with patient and brother. Antibiotics will be started. With history of chemotherapy and lung cancer may be non radiographic pneumonia. She agrees with treatment plan. She will contact her oncologist regarding treatment for chemo next week may need to be postponed. Discussion: Appropriate for discharge home. Patient not requiring supplemental oxygen. Antibiotics have been started for possible non radiographic pneumonia. Patient is under chemotherapy. Patient not toxic. Feeling better at time of discharge. She desires discharge home. Diagnosis: Upper respiratory infection 6:[address] Lynn: Sign out to Dr Chen, respiratory panel pending urinalysis pending. May need to contact Oncology Service, patient sees Dr. Alexander, regarding possible correlation with chemotherapy and lactic acid. Patient does not not look toxic or dyspneic. Dr. Chen 1800: Received sign-out by Dr. Lynn, patient is a 68-year-old female currently undergoing breast cancer treatment with Dr. Jones at [facility], presenting for upper respiratory symptoms for a week. currently patient being treated for pneumonia with doxycycline amoxicillin, Final disposition pending repeat lactate, respiratory panel re-evaluation <Nishant Chen, DO - Last Filed: 08/03/24 19:45> Lab Data Labs: Lab Results 08/03/24 08/03/24 08/03/24 Range/Units 13:30 13:30 13:30 WBC (4.5-11.0) X10^3/uL RBC (4.0-5.2) X10^6/uL Hgb (12.0-16.0) g/dL Hct (36-46) % MCV (80-100) fL MCH (26-34) PG MCHC (30-36) % RDW (11.6-14.8) % Plt Count (150-400) X10^3/uL Neut % (Auto) (50-75) % Lymph % (Auto) (25-40) % [place] % (Auto) (3-14) % Eos % (Auto) (2-4) % Baso % (Auto) (0-2) % Neut # (Auto) (9602-1246) /uL Lymph # (Auto) (5510-8032) /uL [place] # (Auto) (0-900) /uL Eos # (Auto) (0-450) /uL Baso # (Auto) (0-100) /uL PT (9.4-12.5) SECONDS INR (0.9-1.3) Sodium (137-145) mmol/L Potassium (3.4-5.1) mmol/L Chloride (98-107) mmol/L Carbon Dioxide (22-32) mmol/L BUN (7-17) mg/dL Creatinine (0.52-1.04) mg/dL Estimated GFR (>60) mL/min BUN/Creatinine Ratio (6-22) Glucose (80-110) mg/dL Lactate (0.7-2.1) mmol/L Calcium (8.4-10.2) mg/dL Total Bilirubin (0.2-1.3) mg/dL AST (14-36) IU/L ALT (<35) IU/L Alkaline Phosphatase (38-126) U/L Troponin I (0.01-0.034) ng/mL NT-Pro-B Natriuret Pep (<125) pg/mL Total Protein (6.3-8.2) g/dL Albumin (3.5-5.0) g/dL Globulin (1.7-4.1) g/dL Albumin/Globulin Ratio (1.0-2.8) Procalcitonin (<0.5) ng/mL Urine Color Urine Appearance Urine pH (4.5-8.0) Ur Specific [place] (1.000-1.035) Urine Protein (Negative) Urine Glucose (UA) (Negative) g/dL Urine Ketones (NEGATIVE) Urine Occult Blood (Negative) Urine Nitrate (Negative) Urine Bilirubin (NEGATIVE) Urine Urobilinogen (0.2) E.U./dL Ur Leukocyte Esterase (NEGATIVE) Urine RBC (0-5/HPF) Urine WBC (0-5/HPF) Ur Squamous Epith Cells (0-5/HPF) Urine Bacteria (None) Urine Yeast (None) Ur Culture Indicated? Micro UA Comment Vol Urine Centrifuged Chlamy pneumoniae PCR Not detected (Not Detect) Adenovirus (PCR) Not detected (Not Detect) B. pertussis DNA (PCR) Not detected (Not Detect) B.parapertussis DNA PCR Not detected (Not Detecte) Coronavirus OC43 (PCR) Not detected (Not Detect) Coronavirus HKU1 (PCR) Not detected (Not Detect) Coronavirus 229E (PCR) Not detected (Not Detect) SARS-CoV-2 (PCR) Negative Not detected (Negative) Coronavirus NL63 (PCR) Not detected (Not Detect) Human Metapneumovir PCR Not detected (Not Detect) Influenza A (RT-PCR) Flu a negative (NEGATIVE) Influenza Type A (PCR) Not detected (Not Detect) Influenza B (RT-PCR) Flu b negative (NEGATIVE) Influenza Type B (PCR) Not detected (Not Detect) M. pneumoniae (PCR) Not detected (Not Detect) Parainfluenza 1 (PCR) Not detected (Not Detect) Parainfluenza 2 (PCR) Not detected (Not Detect) Parainfluenza 3 (PCR) Not detected (Not Detect) Parainfluenza 4 (PCR) Not detected (Not Detect) RSV (PCR) Negative Not detected (Negative) Entero/Rhino (PCR) Detected H (Not Detect) 08/03/24 08/03/24 08/03/24 Range/Units 14:06 16:08 18:07 WBC 4.2 L (4.5-11.0) X10^3/uL RBC 4.67 (4.0-5.2) X10^6/uL Hgb 13.5 (12.0-16.0) g/dL Hct 39.6 (36-46) % MCV 84.8 (80-100) fL MCH 28.8 (26-34) PG MCHC 34.0 (30-36) % RDW 14.1 (11.6-14.8) % Plt Count 146 L (150-400) X10^3/uL Neut % (Auto) 71.6 (50-75) % Lymph % (Auto) 22.9 L (25-40) % [place] % (Auto) 5.3 (3-14) % Eos % (Auto) 0.1 L (2-4) % Baso % (Auto) 0.1 (0-2) % Neut # (Auto) 3000 (2604-6263) /uL Lymph # (Auto) 1000 L (0569-6146) /uL [place] # (Auto) 200 (0-900) /uL Eos # (Auto) 0 (0-450) /uL Baso # (Auto) 0 (0-100) /uL PT 14.8 H (9.4-12.5) SECONDS INR 1.3 (0.9-1.3) Sodium 134 L (137-145) mmol/L Potassium 3.9 (3.4-5.1) mmol/L Chloride 100 (98-107) mmol/L Carbon Dioxide 21 L (22-32) mmol/L BUN 16 (7-17) mg/dL Creatinine 0.46 L (0.52-1.04) mg/dL Estimated GFR > 60 (>60) mL/min BUN/Creatinine Ratio 34.8 H (6-22) Glucose 234 H (80-110) mg/dL Lactate 3.1 H 4.3 H* 3.7 H (0.7-2.1) mmol/L Calcium 9.6 (8.4-10.2) mg/dL Total Bilirubin 1.5 H (0.2-1.3) mg/dL AST 23 (14-36) IU/L ALT 24 (<35) IU/L Alkaline Phosphatase 87 (38-126) U/L Troponin I < 0.012 (0.01-0.034) ng/mL NT-Pro-B Natriuret Pep 67 (<125) pg/mL Total Protein 7.7 (6.3-8.2) g/dL Albumin 4.3 (3.5-5.0) g/dL Globulin 3.4 (1.7-4.1) g/dL Albumin/Globulin Ratio 1.3 (1.0-2.8) Procalcitonin 0.075 (<0.5) ng/mL Urine Color Urine Appearance Urine pH (4.5-8.0) Ur Specific [place] (1.000-1.035) Urine Protein (Negative) Urine Glucose (UA) (Negative) g/dL Urine Ketones (NEGATIVE) Urine Occult Blood (Negative) Urine Nitrate (Negative) Urine Bilirubin (NEGATIVE) Urine Urobilinogen (0.2) E.U./dL Ur Leukocyte Esterase (NEGATIVE) Urine RBC (0-5/HPF) Urine WBC (0-5/HPF) Ur Squamous Epith Cells (0-5/HPF) Urine Bacteria (None) Urine Yeast (None) Ur Culture Indicated? Micro UA Comment Vol Urine Centrifuged Chlamy pneumoniae PCR (Not Detect) Adenovirus (PCR) (Not Detect) B. pertussis DNA (PCR) (Not Detect) B.parapertussis DNA PCR (Not Detecte) Coronavirus OC43 (PCR) (Not Detect) Coronavirus HKU1 (PCR) (Not Detect) Coronavirus 229E (PCR) (Not Detect) SARS-CoV-2 (PCR) (Negative) Coronavirus NL63 (PCR) (Not Detect) Human Metapneumovir PCR (Not Detect) Influenza A (RT-PCR) (NEGATIVE) Influenza Type A (PCR) (Not Detect) Influenza B (RT-PCR) (NEGATIVE) Influenza Type B (PCR) (Not Detect) M. pneumoniae (PCR) (Not Detect) Parainfluenza 1 (PCR) (Not Detect) Parainfluenza 2 (PCR) (Not Detect) Parainfluenza 3 (PCR) (Not Detect) Parainfluenza 4 (PCR) (Not Detect) RSV (PCR) (Negative) Entero/Rhino (PCR) (Not Detect) 08/03/24 Range/Units 19:13 WBC (4.5-11.0) X10^3/uL RBC (4.0-5.2) X10^6/uL Hgb (12.0-16.0) g/dL Hct (36-46) % MCV (80-100) fL MCH (26-34) PG MCHC (30-36) % RDW (11.6-14.8) % Plt Count (150-400) X10^3/uL Neut % (Auto) (50-75) % Lymph % (Auto) (25-40) % [place] % (Auto) (3-14) % Eos % (Auto) (2-4) % Baso % (Auto) (0-2) % Neut # (Auto) (8092-4479) /uL Lymph # (Auto) (1026-4687) /uL [place] # (Auto) (0-900) /uL Eos # (Auto) (0-450) /uL Baso # (Auto) (0-100) /uL PT (9.4-12.5) SECONDS INR (0.9-1.3) Sodium (137-145) mmol/L Potassium (3.4-5.1) mmol/L Chloride (98-107) mmol/L Carbon Dioxide (22-32) mmol/L BUN (7-17) mg/dL Creatinine (0.52-1.04) mg/dL Estimated GFR (>60) mL/min BUN/Creatinine Ratio (6-22) Glucose (80-110) mg/dL Lactate (0.7-2.1) mmol/L Calcium (8.4-10.2) mg/dL Total Bilirubin (0.2-1.3) mg/dL AST (14-36) IU/L ALT (<35) IU/L Alkaline Phosphatase (38-126) U/L Troponin I (0.01-0.034) ng/mL NT-Pro-B Natriuret Pep (<125) pg/mL Total Protein (6.3-8.2) g/dL Albumin (3.5-5.0) g/dL Globulin (1.7-4.1) g/dL Albumin/Globulin Ratio (1.0-2.8) Procalcitonin (<0.5) ng/mL Urine Color Yellow Urine Appearance Clear Urine pH 6.0 (4.5-8.0) Ur Specific [place] 1.010 (1.000-1.035) Urine Protein Negative (Negative) Urine Glucose (UA) 3+ H (Negative) g/dL Urine Ketones Negative (NEGATIVE) Urine Occult Blood Negative (Negative) Urine Nitrate Negative (Negative) Urine Bilirubin Negative (NEGATIVE) Urine Urobilinogen 1.0 (0.2) E.U./dL Ur Leukocyte Esterase Negative (NEGATIVE) Urine RBC 0-1/hpf (0-5/HPF) Urine WBC None seen (0-5/HPF) Ur Squamous Epith Cells 0-1 /hpf (0-5/HPF) Urine Bacteria None seen (None) Urine Yeast 1-5/hpf H (None) Ur Culture Indicated? Cult not indicated Micro UA Comment Vol Urine Centrifuged 10ml (spun) Chlamy pneumoniae PCR (Not Detect) Adenovirus (PCR) (Not Detect) B. pertussis DNA (PCR) (Not Detect) B.parapertussis DNA PCR (Not Detecte) Coronavirus OC43 (PCR) (Not Detect) Coronavirus HKU1 (PCR) (Not Detect) Coronavirus 229E (PCR) (Not Detect) SARS-CoV-2 (PCR) (Negative) Coronavirus NL63 (PCR) (Not Detect) Human Metapneumovir PCR (Not Detect) Influenza A (RT-PCR) (NEGATIVE) Influenza Type A (PCR) (Not Detect) Influenza B (RT-PCR) (NEGATIVE) Influenza Type B (PCR) (Not Detect) M. pneumoniae (PCR) (Not Detect) Parainfluenza 1 (PCR) (Not Detect) Parainfluenza 2 (PCR) (Not Detect) Parainfluenza 3 (PCR) (Not Detect) Parainfluenza 4 (PCR) (Not Detect) RSV (PCR) (Negative) Entero/Rhino (PCR) (Not Detect) [facility] Narrative Medical decision making narrative: Patient here with brother for complaints of cough cold congestion nasal congestion shortness of breath for the past 1 week. Patient has history of breast cancer receiving chemotherapy with Oncology Dr. Alexander. It is scheduled for treatment next week. Patient did receive breathing treatment on arrival here. Respiration rate did improve with breathing treatment. Patient is 99% room air. Patient in no distress. Grand child has been sick with respiratory infection. After history and exam, CBC CMP EKG respiratory panel chest x-ray nebulizer Augmentin Tessalon Perles doxycycline troponin BNP MDM Medical records reviewed: No recent visit for this complaint Differential considered: Includes but not limited to pneumonia bronchitis COVID influenza rhino virus RSV parainfluenza virus Lab Test results independently reviewed as above. Pertinent findings: Respiratory panel negative, WBC 4.2 hemoglobin 13.5 INR 1.3 sodium 134 potassium 3.9, lactic acid 3.1/4.3 Independently reviewed EKG sinus rhythm rate [address] elevation or depression Imaging studies independently reviewed: Chest x-ray mild pulmonary vascular congestion, CT chest abdomen pelvis no acute finding Consultations: None indicated at this time Treatments: Nebulizer Augmentin doxycycline Afrin Nikkieveena Suarezrosi Re-evaluations: Reviewed results with patient and brother. Antibiotics will be started. With history of chemotherapy and lung cancer may be non radiographic pneumonia. She agrees with treatment plan. She will contact her oncologist regarding treatment for chemo next week may need to be postponed. Discussion: Appropriate for discharge home. Patient not requiring supplemental oxygen. Antibiotics have been started for possible non radiographic pneumonia. Patient is under chemotherapy. Patient not toxic. Feeling better at time of discharge. She desires discharge home. Diagnosis: Upper respiratory infection 6:[address] Lynn: Sign out to Dr Chen, respiratory panel pending urinalysis pending. May need to contact Oncology Service, patient sees Dr. Alexander, regarding possible correlation with chemotherapy and lactic acid. Patient does not not look toxic or dyspneic. Dr. Chen 1800: Received sign-out by Dr. Lynn, patient is a 68-year-old female currently undergoing breast cancer treatment with Dr. Vasquez at [facility], presenting for upper respiratory symptoms for a week. currently patient being treated for pneumonia with doxycycline amoxicillin, Final disposition pending repeat lactate, respiratory panel re-evaluation 1920: Case was discussed with oncologist Dr. Vasquez, reviewed the case with him, agrees that given patient lactate down trending no further recommendation, states that as long as patient not meeting any other sepsis sirs criteria not requiring any supplemental oxygen would be appropriate for outpatient treatment for clinical pneumonia even in the setting of positive rhino enterovirus. This was relayed to the patient she understands and agrees with this plan patient will be sent home with strict return precautions as well as treatment for clinical pneumonia doxycycline amoxicillin. Discharge Plan Departure Patient Disposition: Home Clinical Impression: Enterovirus infection Instructions: DI for Atypical Pneumonia Activity Restrictions/Additional Instructions: Is possible your developing pneumonia. Antibiotics have been started. Prescriptions provided for antibiotics as well as cough medication. Please see your family doctor and your oncologist for re-evaluation this week. You may need to postpone your next chemotherapy. Return if worse if any questions or concerns. Prescriptions: New benzonatate 100 mg capsule 100 mg PO TID PRN (Reason: cough) Qty: 20 0RF doxycycline monohydrate 100 mg capsule 100 mg PO BID Qty: 14 0RF albuterol sulfate [Ventolin HFA] 90 mcg/actuation HFA aerosol inhaler 2 inhalation INHALATION QID PRN (Reason: shortness of breath or wheezing) Qty: 6.7 0RF amoxicillin-pot clavulanate 875-125 mg tablet 1 tab PO BID Qty: 14 0RF No Action metformin [Glucophage] 500 MG tablet 500 mg PO BIDWM Qty: 0 cyclobenzaprine 10 mg Tablet 10 mg PO TID PRN (Reason: muscle relaxant) pantoprazole 20 mg Tablet,Delayed Release (Dr/Ec) 20 mg PO BID levothyroxine 75 mcg Tablet 75 mcg PO DAILY@0600 Trulicity 1.5 mg/0.5 mL Pen Injector 1.5 mg SUBCUT WEEKLY Rx Instructions: Inject 0.5m into shoulder, thich or buttocks 2 (two) times a week. prochlorperazine maleate [Compazine] 10 mg Tablet 10 mg PO Q6H PRN (Reason: Nausea And Vomiting) gabapentin 300 mg capsule 900 mg PO TID Rx Instructions: Take 3 capsules (900mg total) by mouth 3 (Three) times a day. Eliquis 5 mg tablet 5 mg PO BID insulin glargine [Lantus Solostar U-100 Insulin] 100 unit/mL (3 mL) insulin pen 20 unit SUBCUT DAILY Rx Instructions: Inject 0.2ml (20 unites total) under the skin everyh morning indications: Type 2 diabetes mellitus take 20 units subcutaneously in the morning. ondansetron 8 mg tablet,disintegrating 8 mg PO Q8H PRN (Reason: nausea) diazepam 2 mg tablet 2 mg PO Q8HR potassium chloride 20 mEq tablet extended release 20 meq PO DAILY Qty: 30 1RF benzonatate 100 mg capsule 100 mg PO 3XD furosemide 40 mg tablet 40 mg PO DAILY Jardiance 25 mg tablet 25 mg PO DAILY hydromorphone 2 mg tablet 2 mg PO Q4H PRN (Reason: pain) Rx Instructions: Take 1 tablet by mouth every 4 hours if needed for pain MAX DAILY DOSE: 4 TABLETS valacyclovir 1 gram Tablet 1,000 mg PO TID Rx Instructions: Take 1 tablet (1,000mg total) by mouth 3 (three) times a day. methylprednisolone [Medrol (Anant)] 4 mg tablets,dose pack See Rx Instructions .ROUTE .COMPLEX Qty: 21 0RF Rx Instructions: orally per package directions atorvastatin 40 mg tablet 40 mg PO QPM meloxicam 7.5 mg tablet 15 mg PO DAILY PRN (Reason: pain) albuterol sulfate [ProAir HFA] 90 mcg/actuation HFA aerosol inhaler 2 puff INHALATION Q4H PRN (Reason: Wheezing) oxycodone-acetaminophen 5-325 mg tablet 1 tab PO Q6H PRN (Reason: pain) Qty: 20 0RF Referrals: Nika Madrigal PA-C [Primary Care Provider] - Stand Alone Forms: Patient Portal/API/Survey
[2024-08-03 14:40] LABS: NT-proBNP (BNP-Adult 18+) 67 pg/mL (<125); Troponin I < 0.012 ng/mL (0.01-0.034)
[2024-08-03] MEDS: DOXYCYCLINE HYCLATE 100 MG TABLET PO (14:47)
[2024-08-03] MEDS: AMOXICILLIN/CLAV 875/125 MG 1 TAB PO (14:48)
[2024-08-03] MEDS: BENZONATATE 100 MG CAPSULE PO (14:48)
[2024-08-03] MEDS: OXYMETAZOLINE NASAL SPRAY 30 ML 2 SPRAYS NASAL (14:48)
[2024-08-03] MEDS: SODIUM CHLORIDE 0.9% 1,000 ML 1000 ML IV (14:59)
[2024-08-03] MEDS: ALBUTEROL/IPRATROPIUM 3 ML AMPUL INH (15:28)
[2024-08-03 15:49] LABS: Reflexed Lactate in 2 Hours Y
[2024-08-03 16:34] LABS: Lactate 2HR (Lactic Acid Rflx) 4.3 mmol/L (0.7-2.1)
--- NOTE | 2024-08-03 16:40 | DI.CT.S_ITS ---
PROCEDURE: CT CHEST ABD PEL W CON INDICATIONS: Sepsis TECHNIQUE: After the administration of intravenous contrast, 5 mm thick sections acquired from the lung apices to the symphysis. 5 mm coronal and sagittal reformats were performed, with additional 7 mm MIP reformats through the lungs. For radiation dose reduction, the following was used: automated exposure control, adjustment of mA and/or kV according to patient size. COMPARISON: [place], [place], PET NECK TO MID THIGH, 07/02/2024, 7:42. FINDINGS: Image quality: Excellent. CHEST: Lower Neck: No enlarged lymph nodes. Thyroid: No thyroid nodules which require sonographic follow up, per consensus guidelines. Axillae: No enlarged lymph nodes. Surgical clips in the right axilla. Chest Wall: Left chest wall port tip terminates in the low SVC. Lungs and Pleura: Architectural distortion in a linear distribution of the left upper lobe, likely representing post radiation change with underlying malignancy. Moderate left pleural effusion. Right lower lobectomy. Heart: Heart size is normal. No pericardial effusion. Thoracic Vessels: The aorta and pulmonary arteries demonstrate normal size. Mediastinum and Patricia: No enlarged lymph nodes. Esophagus: No wall thickening. No hiatal hernia. ABDOMEN: Liver: Scattered subcentimeter hypoattenuating lesions, too small to characterize by CT but probably small cysts. Gallbladder: Colonic diverticulosis without evidence of diverticulitis. Biliary ducts: No biliary dilation. Pancreas: No ductal dilation. Spleen: Size is within normal limits. Adrenal Glands: Nodular thickening of the left adrenal gland, nonspecific. Kidneys and Ureters: No hydronephrosis. No solid mass. No complex renal cystic lesion which requires follow up. Stomach and Bowel: Normal colonic caliber, without significant wall thickening. Peritoneum: No abnormal intraperitoneal fluid. No free air. Ventral Wall: No significant ventral hernia. Abdominal Nodes: No retroperitoneal or mesenteric adenopathy by size criteria. Vessels: Aorta and inferior vena cava are normal in size. PELVIS: Pelvic Organs: Unremarkable. Bladder: No bladder wall thickening, accounting for underdistention. Pelvic Nodes: No enlarged lymph nodes. Miscellaneous: No inguinal hernias are seen. Bones: Chronic appearing compression deformity the T7 vertebral body. Degenerative disc disease of the lumbar spine. IMPRESSION: Moderate left-sided pleural effusion, stable from prior. Post radiation change of the left upper lobe, with architectural distortion present. Right lower lobectomy. Stable retroperitoneal lymphadenopathy. Other chronic findings as above. Dictated by: Real Uribe M.D. on 08/03/2024 at 17:16 Approved by: Real Uribe M.D. on 08/03/2024 at 17:22
[2024-08-03 17:27] LABS: Procalcitonin 0.075 ng/mL (<0.5)
[2024-08-03 18:22] LABS: Lactate (Lactic Acid) 3.7 mmol/L (0.7-2.1)
[2024-08-03 18:57] LABS: Adenovirus Not Detected (Not Detect); B. parapertussis Not Detected (Not Detecte); Bordetella pertussis Not Detected (Not Detect); Chlamydophila pneumoniae Not Detected (Not Detect); Coronavirus 229E Not Detected (Not Detect); Coronavirus HKU1 Not Detected (Not Detect); Coronavirus NL 63 Not Detected (Not Detect); Coronavirus OC43 Not Detected (Not Detect); Human Metapneumovirus Not Detected (Not Detect); Human Rhinovirus/Enterovirus Detected (Not Detect); Influenza A Not Detected (Not Detect); Influenza B Not Detected (Not Detect); Mycoplasma pneumoniae Not Detected (Not Detect); Parainfluenza Virus 1 Not Detected (Not Detect); Parainfluenza Virus 2 Not Detected (Not Detect); Parainfluenza Virus 3 Not Detected (Not Detect); Parainfluenza Virus 4 Not Detected (Not Detect); Respiratory Syncytial Virus Not Detected (Not Detect); SARS- CoV-2 Not Detected (Not Detecte)
[2024-08-03 19:20] LABS: Appearance Urine UA CLEAR; Bilirubin Urine UA NEGATIVE (NEGATIVE); Color Urine UA YELLOW; Glucose Urine UA 3+ g/dL (Negative); Ketones Urine UA NEGATIVE (NEGATIVE); Leukocyte Esterase Urine UA NEGATIVE (NEGATIVE); Nitrite Urine UA NEGATIVE (Negative); Occult Blood Urine UA NEGATIVE (Negative); Protein Urine UA NEGATIVE (Negative)
[2024-08-03 19:30] LABS: Bacteria Urine None Seen; RBC Urine 0-1/HPF (0-5/HPF); Squamous Epithelial Cell Urine 0-1 /HPF (0-5/HPF); Urine Volume 10mL (spun); WBC Urine None Seen (0-5/HPF)
[2024-08-03 19:31] LABS: Culture Indicated Urine Cult Not Indicated
[2024-08-03 19:45] LABS: Reflexed Lactate in 2 Hours Y
== END 2024-08-03 20:07 | disposition home or self-care (01) ==
PROVIDERS: Emergency Medicine; Emergency Provider Student in an Organized Health Care Education/Training Program; PCP Physician Assistant Medical
DX: B34.1 Enterovirus infection, unspecified (principal); I49.8 Other specified cardiac arrhythmias; C34.90 Malignant neoplasm of unspecified part of unspecified bronchus or lung; Z92.21 Personal history of antineoplastic chemotherapy
CPT/HCPCS: 0241U; 36415; 71045; 71260; 74177; 80053; 81001; 83605; 83880; 84145; 84484; 85025; 85610; 87633; 93005; 93010; 94640; 96360; 99284; Q9967